=== PATIENT | male | born 1935 | race Caucasian/White ===

== ENCOUNTER → 2017-12-29 | Outpatient (CLI) | payer MEDICARE ==
[2017-12-29 15:53] LABS: Basophils % (A) 1 %; Eosinophils # (A) 0.2 k/uL (0-0.7); Eosinophils % (A) 3 %; HGB 14.6 gm/dL (13.0-17.5); Lymphocytes # (A) 1.9 k/uL (1.0-4.8); Lymphocytes % (A) 33 %; MCH 30.2 pg (25.0-35.0); MCHC 33.1 g/dL (31.0-37.0); MCV 91.2 fL (80.0-100.0); Mean Platelet Volume 6.9; Monocytes # (A) 0.3 k/uL (0-1.0); Monocytes % (A) 5 %; Neutrophils # (A) 3.2 k/uL (1.3-7.7); Neutrophils % (A) 57 %; Platelet Count 127 k/uL (150-450); RBC 4.83 m/uL (4.30-5.90); WBC 5.6 k/uL (3.8-10.6)
[2017-12-29 16:15] LABS: Anion Gap 10 mmol/L; Blood Urea Nitrogen 18 mg/dL (9-20); Calcium 9.7 mg/dL (8.4-10.2); Carbon Dioxide 31 mmol/L (22-30); Chloride 100 mmol/L (98-107); Glucose 78 mg/dL (74-99); Sodium 141 mmol/L (137-145)
== END | disposition home or self-care (01) ==
LOC: LABPAT 15:02
PROVIDERS: ATTEND Urology
DX: Z01.812 Encounter for preprocedural laboratory examination (principal); Z01.818 Encounter for other preprocedural examination; I10 Essential (primary) hypertension; R53.83 Other fatigue; N20.0 Calculus of kidney; Z79.899 Other long term (current) drug therapy
CPT/HCPCS: 36415; 80048; 85025; 93005

== ENCOUNTER 2018-01-03 06:57 | Day surgery (SDC) | payer MEDICARE ==
[2017-12-29 14:40] VITALS: BMI 21.2
[~2018-01-03 06:57] MED LIST: DEXAMETHASONE SOD PHOSPHATE 10 MG/ML 1 ML VIAL IV ONE; LACTATED RINGERS 1,000 ML IV SCH; LIDOCAINE 1% 20 ML VIAL (10MG/ML) FOR IV START INTRADERMA PRN; Pre Op ABX Message 1 EACH MISC MISCELLANE ONE
--- NOTE | 2018-01-03 07:12 | XR ---
EXAMINATION TYPE: XR KUB DATE OF EXAM: 01/03/2018 CLINICAL DATA: 82-year-old male preop for lithotripsy, right renal calculus, [facility] COMPARISON: 04/26/2014 FINDINGS: Nonobstructive bowel gas pattern. Mild to moderate stool right side of the colon and within the pelvi s. 1.5 cm round calculus projects at the right mid abdomen. Adjacent smaller 1.1 cm ovoid calculus. Left-sided pelvic phlebolith. Calcifications in the prostate gland. Degenerative changes in the mid to lower lumbar spine. IMPRESSION: Right-sided nephrolithiasis with a 1.5 cm dominant calculus and a smaller ovoid 1.1 cm calculus.
[2018-01-03 07:25] VITALS: TEMP 97.6
[2018-01-03] MEDS ORDERED: PROPOFOL 10 MG/ML 20 ML VIAL IV ONE (08:57)
[2018-01-03] MEDS ORDERED: fentaNYL (PF) 50 MCG/ML 2 ML AMP ONE (08:57)
[2018-01-03] MEDS ORDERED: MIDAZOLAM 2 MG/2 ML VIAL ONE (08:57)
--- NOTE | 2018-01-03 09:35 | P.OP ---
Date of Procedure: 01/03/18 Preoperative Diagnosis: Right renal calculi. Postoperative Diagnosis: Right renal calculi Procedure(s) Performed: Extracorporal shockwave lithotripsy Anesthesia: MAC Surgeon: Axel Tavarez Estimated Blood Loss (ml): 0 Pathology: none sent Condition: stable Disposition: PACU Indications for Procedure: The patient is an 82 year old male with a history of gross hematuria and urolithiasis. A recent KUB identified a 12 x15 mm calculus in the right renal pelvis and and group of two calculi in the lower pole measuring 6 x 11 mm in aggregate. Treatment options were reviewed with Dr Baig and ESWL has been chosen. Description of Procedure: The patient was taken to the lithotripsy suite and placed in the supine position. The calculus in the right renal pelvis was localized using biplanar fluoroscopy. Intravenous sedation was given. Lithotripsy was performed using the [employer] compact delta unit. The patient received 2500 shocks at a rate of 80 shocks per minute. The power level was gradually increased to level 5. A 2 minute pause occurred after 200 shocks. There appeared to be good fragmentation of the calculus. The patient tolerated procedure well and left the operative room awake and in satisfactory condition. He will be seen back in 5-[address] Baig at which time a KUB will be obtained.
[2018-01-03 10:12] VITALS: RESP 16
[2018-01-03 11:01] VITALS: BP 130/71; PULSE 53
== END 2018-01-03 12:45 | disposition home or self-care (01) ==
LOC: ORWHC2ENDO 06:57
PROVIDERS: ATTEND Urology
DX: N13.2 Hydronephrosis with renal and ureteral calculous obstruction (principal); N40.1 Benign prostatic hyperplasia with lower urinary tract symptoms; R33.8 Other retention of urine; N21.0 Calculus in bladder; R39.14 Feeling of incomplete bladder emptying; N28.1 Cyst of kidney, acquired; Z86.73 Personal history of transient ischemic attack (TIA), and cerebral infarction without residual deficits; Z87.442 Personal history of urinary calculi
CPT/HCPCS: 74018; 50590; J2250; J1100; J3010; J2704

== ENCOUNTER → 2018-01-07 | Outpatient (CLI) | payer MEDICARE ==
--- NOTE | 2018-01-07 16:06 | XR ---
Abdomen HISTORY: Renal calculus, status post lithotripsy Correlation to prior exam 01/03/2018 The right-sided calculi have been fragmented in the interval, approximately 4 fragments are noted ove r the region of the right kidney, the largest measures approximately 9 mm in greatest dimension. Smal ler fragments are approximately 7 to 8 mm and 3 to 4 mm. Calcifications are again noted within the pe lvis. Overlying bowel gas may obscure detail. Lung bases are clear. High density superimposed over th e L1 spinous process which is indeterminate. IMPRESSION: Interval lithotripsy.
== END ==
LOC: RADXRMAIN 14:07
PROVIDERS: ATTEND Urology
DX: N20.0 Calculus of kidney (principal)
CPT/HCPCS: 74018

== ENCOUNTER → 2018-02-18 | Outpatient (CLI) | payer MEDICARE ==
--- NOTE | 2018-02-18 12:08 | XR ---
Abdomen HISTORY: Calculus of kidney Frontal view of the abdomen on 2 images correlated to prior abdomen 01/07/2018, 01/03/2018 Calcifications superimposed over the lower pole of the right kidney, largest measures approximately 8 mm, there may be 3 or 4 calcifications present. Multiple calcifications are again noted within the p raymundo. Difficult to exclude a distal ureteral calculus on the right. The 15 mm calculus seen on exam from 01/03/2018 is not present. IMPRESSION: There is right-sided nephrolithiasis, distal right ureteral calculus.
== END | disposition home or self-care (01) ==
LOC: RADXRMAIN 09:06
PROVIDERS: ATTEND Urology
DX: N20.2 Calculus of kidney with calculus of ureter (principal)
CPT/HCPCS: 74018

== ENCOUNTER → 2019-05-02 | Outpatient (CLI) | payer MEDICARE ==
--- NOTE | 2019-05-02 11:28 | CT ---
EXAMINATION TYPE: CT pelvis w con DATE OF EXAM: 05/02/2019 COMPARISON: Renal ultrasound dated 06/01/2014 HISTORY: Prostate CA CT DLP: 435.1 mGycm Automated exposure control for dose reduction was used. CONTRAST: Performed with IV Contrast, patient injected with 100 mL of Isovue 300. FINDINGS: Heterogeneous attenuation of the prostate gland with internal scattered calcifications measuring 6.0 x 5.3 x 5.3 cm in transverse by AP by craniocaudad dimension. There is mass effect and protrusion see n along the inferior portion of the bladder with effacement of the fat plane. There is also loss of t he fat plane between the rectum and prostate gland. No evidence of iliac chain or inguinal lymphadeno lavern. There is a small fat-containing left inguinal canal hernia. Redemonstration of nephrolithiasis and a few cysts of the bilateral kidneys which were seen on renal ultrasound dated 06/01/2014. No evidence of hydronephrosis. 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 A few radiolucent lesions are seen within the osseous structures with the largest seen in the L3 vert ebral body measuring up to 2.0 cm. Lesion may be related to hemangioma, but metastatic lesion is not excluded. IMPRESSION: HETEROGENEOUS ENLARGED PROSTATE GLAND WITH LOSS OF THE BLADDER AND RECTAL FAT PLANES. NO EVIDENCE OF PELVIC LYMPHADENOPATHY. L3 RADIOLUCENT LESION ABOVE. GIVEN THE HISTORY OF PROSTATE CANCER, FURTHER EVALUATION WITH BONE SCAN AND MRI OF THE PROSTATE MAY BE OBTAINED FOR STAGING.
--- NOTE | 2019-05-02 15:30 | NM ---
EXAMINATION TYPE: NM bone scan whole body DATE OF EXAM: 05/02/2019 COMPARISON: CT pelvis 05/02/2019 HISTORY: Prostate cancer Delayed whole-body scanning was performed following the injection of 24.3 mCi Tc 99m MDP. Images acq uired 4 hours post injection. FINDINGS: Soft tissue uptake is normal. There is a spinal curvature present. Uptake within the and knees, wrist s and shoulders, sternoclavicular joints is likely degenerative. Uptake in the spine correlates with degenerative disc changes. 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 IMPRESSION: No abnormality to suggest metastatic disease
== END | disposition home or self-care (01) ==
LOC: RADCTMAIN 08:54 → EEVIPCON 10:40
PROVIDERS: ATTEND Urology
DX: N40.0 Benign prostatic hyperplasia without lower urinary tract symptoms (principal); Z85.46 Personal history of malignant neoplasm of prostate; C61 Malignant neoplasm of prostate; D49.4 Neoplasm of unspecified behavior of bladder
CPT/HCPCS: 82565; 84520; 72193; 36415; 78306; A9503; Q9967

== ENCOUNTER → 2019-09-18 | Outpatient (CLI) | payer MEDICARE | END | disposition home or self-care (01) | LOC: LABWHC1 12:43 | PROVIDERS: ATTEND Radiology Radiation Oncology | DX: C61 Malignant neoplasm of prostate (principal); Z79.818 Long term (current) use of other agents affecting estrogen receptors and estrogen levels | CPT/HCPCS: 36415; 84153 ==

== ENCOUNTER → 2020-03-18 | Outpatient (CLI) | payer MEDICARE | END | disposition home or self-care (01) | LOC: LABWHC1 14:39 | PROVIDERS: ATTEND Radiology Radiation Oncology | DX: C61 Malignant neoplasm of prostate (principal); Z79.818 Long term (current) use of other agents affecting estrogen receptors and estrogen levels | CPT/HCPCS: 36415; 84153 ==

== ENCOUNTER → 2020-07-18 | Outpatient (CLI) | payer MEDICARE ==
[2020-07-18 11:57] LABS: Basophils % (A) 1 %; Eosinophils # (A) 0.3 k/uL (0-0.7); Eosinophils % (A) 7 %; HCT 39.5 % (39.0-53.0); Lymphocytes # (A) 1.2 k/uL (1.0-4.8); Lymphocytes % (A) 30 %; MCH 31.7 pg (25.0-35.0); Mean Platelet Volume 6.7; Monocytes # (A) 0.3 k/uL (0-1.0); Monocytes % (A) 6 %; Neutrophils # (A) 2.2 k/uL (1.3-7.7); Neutrophils % (A) 54 %; Platelet Count 109 k/uL (150-450); RBC 4.11 m/uL (4.30-5.90); RDW 13.6 % (11.5-15.5)
[2020-07-18 12:06] LABS: African American GFR (CKD) >90 (>60 ml/min/1.73 sqM); Anion Gap 4 mmol/L; Blood Urea Nitrogen 20 mg/dL (9-20); Calcium 9.8 mg/dL (8.4-10.2); Carbon Dioxide 29 mmol/L (22-30); Chloride 105 mmol/L (98-107); Glucose 85 mg/dL (74-99); Non-African American GFR(CKD) 81 (>60 ml/min/1.73 sqM); Potassium 4.3 mmol/L (3.5-5.1); Sodium 138 mmol/L (137-145)
== END | disposition home or self-care (01) ==
LOC: LABPAT 10:29
PROVIDERS: ATTEND Urology
DX: Z01.818 Encounter for other preprocedural examination (principal); N20.0 Calculus of kidney; N20.1 Calculus of ureter; R53.83 Other fatigue
CPT/HCPCS: 36415; 80048; 85025; 93005

== ENCOUNTER 2020-07-25 07:48 | Day surgery (SDC) | payer MEDICARE ==
[2020-07-23 16:02] VITALS: BMI 21.1
--- NOTE | 2020-07-24 21:59 | P.GSHP ---
History of Present Illness H&P Date: 07/19/20 Chief Complaint: Bilateral renal calculi The patient is an 85-year-old white male with a history of urolithiasis, for which he has previously undergone ESWL as well as ureteroscopy with laser lithotripsy. A recent computed tomography scan shows moderate left hydronephrosis due to a 5 mm left proximal ureteral calculus, a 4 mm left lower pole renal calculus, a 3 mm right mid pole calculus, 2 right lower pole renal calculi (5-6 mm each), and a 1 cm right renal pelvic calculus. A 3 mm calcification was also seen along the right posterior urinary bladder, possibly at the ureterovesical junction. He currently denies pain. - Constitutional Constitutional: Denies chills, Denies fever - Genitourinary (Male) Genitourinary: Reports hematuria, Reports kidney stones, Denies flank pain Past Medical History Past Medical History: CVA/TIA Additional Past Medical History / Comment(s): RIGHT RENAL CALCULI, STATES HX "2 MINI STROKES" 4-5 yrs ago, History of Any Multi-Drug Resistant Organisms: None Reported Past Surgical History: Hernia Repair Additional Past Surgical History / Comment(s): RIGHT LITHOTRIPSY x 3, RAMANDEEP INGUINAL HERNIA REPAIR Past Anesthesia/Blood Transfusion Reactions: No Reported Reaction Past Psychological History: No Psychological Hx Reported Past Alcohol Use History: None Reported Past Drug Use History: None Reported - Past Family History Father Family Medical History: Cancer Medications and Allergies Home Medications Medication Instructions Recorded Confirmed Type Bicalutamide [Casodex] 50 mg PO DAILY 07/23/20 07/23/20 History Sulfamethoxazole/Trimethoprim 1 each PO BID 07/23/20 07/23/20 History [Bactrim DS 800-160 mg] Allergies Allergy/AdvReac Type Severity Reaction Status Date / Time No Known Allergies Allergy Verified 07/23/20 15:46 Surgical - Exam - General well developed, well nourished, no distress - Respiratory normal respiratory effort, clear to auscultation - Cardiovascular Rhythm: regular Abnormal Heart Sounds: no systolic murmur, no diastolic murmur, no rub, no S3 Gallop, no S4 Gallop, no click, no other - Abdomen Abdomen: soft, non tender, no guarding, no rigid, no rebound - Psychiatric oriented to time, oriented to person, oriented to place, speech is normal, memory intact Results - Imaging CT scan - abdomen: report reviewed, image reviewed Assessment and Plan (1) Calculus of kidney Status: Acute Code(s): N20.0 - CALCULUS OF KIDNEY SNOMED Code(s): 21437515 (2) Calculus of ureter Status: Acute Code(s): N20.1 - CALCULUS OF URETER SNOMED Code(s): 67633702 Plan: Cystoscopy, bilateral retrograde pyelogram. If the left ureteral calculus has failed to pass, left ureteroscopy with Holmium laser lithotripsy will be performed. Right ureteroscopy with Holmium laser lithotripsy will then be performed. Given the stone burden on the right side, multiple treatments may be required. The patient is aware of potential risks, which include anesthesia, bleeding, infection, and ureteral injury. He is aware of the need for ureteral stents postoperatively.
[~2020-07-25 07:48] MED LIST changes: -DEXAMETHASONE SOD PHOSPHATE 10 MG/ML 1 ML VIAL IV ONE; +DEXAMETHASONE SOD PHOSPHATE 4 MG/ML 1 ML VIAL IV ONE; +HYDROmorphone 0.5 MG/0.5 ML SYRINGE IVP PRN; -LACTATED RINGERS 1,000 ML IV SCH; +LIDOCAINE 1% (10MG/ML) FOR IV START INTRADERMA PRN; -LIDOCAINE 1% 20 ML VIAL (10MG/ML) FOR IV START INTRADERMA PRN; +ONDANSETRON 4 MG/2 ML VIAL IVP ONE; -Pre Op ABX Message 1 EACH MISC MISCELLANE ONE
--- NOTE | 2020-07-25 08:38 | XR ---
KUB HISTORY: Kidney stones Frontal KUB submitted on one image and correlated prior KUB 02/18/2018 Right-sided kidney stones are noted, at the lower pole right kidney there is a stone measuring 11 to 12 mm, and adjacent calculus is suspected immediately posterior measuring 5 mm. In the region of the renal pelvis is a calcification measuring 14 mm. Multiple calcifications are again noted within the p raymundo some of which are likely prostate calcifications and some which are likely phleboliths. Difficu lt to exclude a distal left ureteral calculus measuring 7-8 mm which was not seen definitively on linda or KUB. IMPRESSION: Nephrolithiasis the right and additional findings above.
[2020-07-25] MEDS: LACTATED RINGERS 1,000 ML IV SCH ×2 (08:39→15:13)
[2020-07-25] MEDS ORDERED: ePHEDrine SULFATE/0.9% NACL/PF 50 MG/5 ML SYRINGE IV ONE (10:04)
[2020-07-25] MEDS ORDERED: PROPOFOL 10 MG/ML 20 ML VIAL IV ONE (10:04)
[2020-07-25] MEDS ORDERED: SUCCINYLCHOLINE CHLORIDE 100 MG/5 ML SYR IV ONE (10:04)
[2020-07-25] MEDS ORDERED: LIDOCAINE 1% INJ 10MG/ML (20 ML MDV) ONE (10:04)
[2020-07-25] MEDS ORDERED: IOPAMIDOL-370 50ML BTL IRRIGATION ONE (10:30)
--- NOTE | 2020-07-25 12:52 | P.OP ---
Date of Procedure: 07/25/20 Preoperative Diagnosis: Left ureteral calculus, right renal calculi Postoperative Diagnosis: Same Procedure(s) Performed: Cystoscopy, left ureteroscopy with holmium laser lithotripsy and stone basketing, right ureteroscopy with Holmium laser lithotripsy, right ureteral stent insertion Anesthesia: VIETA Surgeon: Adryan Baig Estimated Blood Loss (ml): 0 IV fluids (ml): 900 Pathology: none sent Condition: stable Disposition: PACU Indications for Procedure: The patient is an 85-year-old white male with a history of urolithiasis, for which he has previously undergone ESWL as well as ureteroscopy with laser lithotripsy. A recent computed tomography scan shows moderate left hydronephrosis due to a 5 mm left proximal ureteral calculus, a 4 mm left lower pole renal calculus, a 3 mm right mid pole calculus, 2 right lower pole renal calculi (5-6 mm each), and a 1 cm right renal pelvic calculus. A 3 mm calcification was also seen along the right posterior urinary bladder, possibly at the ureterovesical junction. He currently denies pain. Operative Findings: 5 mm left distal ureteral calculus, fragmented and removed completely. Right renal pelvic calculus and 2 right lower pole renal calculi, all fragmented. Description of Procedure: The patient was taken to the operating room and placed in the dorsolithotomy position, with legs supported in Timothy stirrups. The external genitalia was prepped and draped sterilely. The 30 lens was used to introduce the 21-Persian Henley cystoscopic sheath through the urethra and into the bladder under direct vision. The prostatic urethra showed evidence of mild lateral lobe enlargement. The bladder was examined in its entirety. Both ureteral orifices were normal anatomic location and configuration, and clear urine effluxed from both. No t umors or foreign bodies were seen. A 0.035 inch Glidewire was passed through the cystoscope. The left ureteral orifice was cannulated, and the Glidewire was advanced up to the left renal pelvis. The obturator of an 11/13-Persian ureteral access catheter was passed over the wire, dilating the intramural portion of the ureter. The Henley semirigid ureteroscope was advanced into the bladder, and the left ureteral orifice was cannulated. The 272 holmium laser probe was passed through the ureteroscope, and the left distal ureteral calculus was fragmented. The 1.9-Persian nitinol basket was used to remove all calculus fragments. There was no evidence of ureteral perforation. A 0.035 inch Glidewire was passed through the cystoscope. The ureteral orifice was cannulated, and the Glidewire was advanced up to the renal pelvis. The cystoscope was removed, and an 11/13-Persian ureteral access catheter was passed over the wire, up to the proximal ureter. The flexible ureteroscope was then pa ssed through the ureteral access catheter sheath, up to the stone. The 272 micron Holmium laser probe was passed through the ureteroscope, and lithotripsy was performed. The large right renal pelvic calculus, as well as the 2 lower pole renal calculi, were fragmented completely. Dusting and fragmenting was performed until there were no visible residual fragments exceeding 2 mm in size. The Glidewire was passed through the ureteroscope, which was removed along with the ureteral access catheter sheath. The Glidewire was backloaded into the cystoscope, which was passed into the bladder. A 24 cm, 4.8-Persian double-J ureteral stent was placed over the wire. Proper stent positioning was verified fluoroscopically and endoscopically. The bladder was emptied and the cystoscope removed. The patient tolerated the procedure well and was taken to the recovery room in stable condition. StayClassy Report: Procedure Acuity: Elective Stone Size and Location: See computed tomography scan report Ureteral Dilation: Serial Dilation (Left) Ureteral Access Sheath Used: Yes (Right) Stone Sent for Analysis: Yes All Stones/Fragments Were Removed with a Basket: No Complications: No Preoperative Antibiotics Given: Yes Stent Placed: Yes (Right) If Stent Placed, Was String Left Attached: No If Stent Placed, When is it to be Removed: 2 weeks Discharge Medications: Tamsulosin
--- NOTE | 2020-07-25 13:00 | FL ---
EXAMINATION TYPE: FL guidance operating room DATE OF EXAM: 07/25/2020 HISTORY: Fluoroscopy time 23 seconds of fluoroscopy provided. IMPRESSION: 1. Fluoroscopy time.
[2020-07-25] MEDS ORDERED: KETOROLAC 15 MG/ML 1 ML VIAL ONE (18:25)
[2020-07-25] MEDS: KETOROLAC 15 MG/ML 1 ML VIAL IVP STA ×2 (18:32→20:50)
[2020-07-25] MEDS: TAMSULOSIN 0.4 MG CAP.ER.24H PO STA ×2 (18:33→20:50)
[2020-07-25] MEDS ORDERED: ACETAMINOPHEN TAB 325 MG TAB PO PRN (18:52)
[2020-07-25] MEDS ORDERED: HYDROcodone/APAP 5-325MG 1 EACH TAB PO PRN (18:52)
[2020-07-25] MEDS ORDERED: DEXTROSE 5%-0.45% NACL 1,000 ML IV SCH (19:00)
[2020-07-25] MEDS: SULFAMETHOX-TMP 800-160MG 1 EACH TAB PO SCH (20:56)
[2020-07-26 02:39] VITALS: BP 120/68; PULSE 82; RESP 18; TEMP 98.4
[2020-07-26] MEDS: SULFAMETHOX-TMP 800-160MG 1 EACH TAB PO SCH (08:30)
--- NOTE | 2020-07-26 08:59 | P.DS ---
Providers Expected date of discharge: 07/26/20 Attending physician: Adryan Baig Primary care physician: Dipak Fernandez - Discharge Diagnosis(es) (1) Calculus of kidney Current Visit: No Status: Acute (2) Calculus of ureter Current Visit: No Status: Acute Hospital Course: On the day of admission, the patient underwent cystoscopy, left ureteroscopy with Holmium laser lithotripsy and stone basketing, right ureteroscopy with Holmium laser lithotripsy and stent insertion. Postoperatively, he felt unsteady on his feet and reported right-sided abdominal pain. He was admitted to observation overnight. The following morning, he was essentially pain free and feeling well. He was tolerating diet without nausea. He denied difficulty voiding. Procedures: Cystoscopy, left ureteroscopy with Holmium laser lithotripsy and stone basketing, right ureteroscopy with Holmium laser lithotripsy and stent placement on 07/25/2020 Patient Condition at Discharge: Good Plan - Discharge Summary Discharge Rx Participant: No New Discharge Prescriptions: New Tamsulosin [Flomax] 0.4 mg PO DAILY #30 cap Ketorolac [Toradol] 10 mg PO Q6HR #12 tab No Action Bicalutamide [Casodex] 50 mg PO DAILY Sulfamethoxazole/Trimethoprim [Bactrim DS 800-160 mg] 1 each PO BID Discharge Medication List Bicalutamide [Casodex] 50 mg PO DAILY 07/23/20 [History] Sulfamethoxazole/Trimethoprim [Bactrim DS 800-160 mg] 1 each PO BID 07/23/20 [History] Ketorolac [Toradol] 10 mg PO Q6HR #12 tab 07/25/20 [Rx] Tamsulosin [Flomax] 0.4 mg PO DAILY #30 cap 07/25/20 [Rx] Follow up Appointment(s)/Referral(s): Adryan Baig MD [STAFF PHYSICIAN] - 1 Week (YOU WILL NEED TO CALL TO SCHEDULE YOUR FOLLOW UP APPOINTMENT UNLESS YOU ALREADY HAVE ONE MADE) Patient Instructions/Handouts: *Sur[facility] - Cystoscopy Discharge Instructions, *[facility] - (Anesthesia) Discharge Instructions Outpatient Surgery, Ureteral Stent Placement (DC) Activity/Diet/Wound Care/Special Instructions: Diet as tolerated. Activity as tolerated. Please notify patient that hematuria and urinary frequency are common in patients with ureteral stents. Patient does not require a follow-up appointment with Dr. Baig. Arrangements will be made for him to undergo repeat outpatient surgery. Discharge Disposition: HOME SELF-CARE
== END 2020-07-26 12:17 | disposition home or self-care (01) ==
LOC: OR 07:48 → 1SOBS 18:53 → OR 07-26 12:17
PROVIDERS: ATTEND Urology
DX: N20.2 Calculus of kidney with calculus of ureter (principal); Z87.442 Personal history of urinary calculi; Z86.73 Personal history of transient ischemic attack (TIA), and cerebral infarction without residual deficits; Z98.890 Other specified postprocedural states; Z79.899 Other long term (current) drug therapy; Z92.3 Personal history of irradiation; Z80.9 Family history of malignant neoplasm, unspecified
CPT/HCPCS: 82365; 74018; 52353; 52356; C2625; C1769; J1100; J0690; J2405; J2001; J1885; J0330; J2704; Q9967

== ENCOUNTER 2020-08-20 10:05 | Day surgery (SDC) | payer MEDICARE ==
--- NOTE | 2020-08-18 10:15 | P.GSHP ---
History of Present Illness H&P Date: 08/18/20 Chief Complaint: Right renal calculi The patient is an 85-year-old white male with a history of urolithiasis, for which he has previously undergone ESWL as well as ureteroscopy with laser lithotripsy. A recent CT scan showed moderate left hydronephrosis due to a 5 mm left proximal ureteral calculus, a 4 mm left lower pole renal calculus, a 3 mm right mid pole calculus, 2 right lower pole renal calculi (5-6 mm each), and a 1 cm right renal pelvic calculus. A 3 mm calcification was also seen along the right posterior urinary bladder, possibly at the ureterovesical junction. He underwent left ureteroscopy with laser lithotripsy to remove a 5 mm left distal ureteral calculus. Right ureteroscopy with holmium laser lithotripsy was performed. 2 large renal pelvic calculi were fragmented. His calculi were composed of calcium oxalate dihydrate. He now comes for cystoscopy, right ureteral stent removal, right ureteroscopy with laser lithotripsy of any residual right renal calculi. - Constitutional Constitutional: Denies chills, Denies fever - Genitourinary (Male) Genitourinary: Reports as per HPI Past Medical History Past Medical History: CVA/TIA Additional Past Medical History / Comment(s): RIGHT RENAL CALCULI, STATES HX "2 MINI STROKES" 4-5 yrs ago, History of Any Multi-Drug Resistant Organisms: None Reported Past Surgical History: Hernia Repair Additional Past Surgical History / Comment(s): RIGHT LITHOTRIPSY x 3, RAMANDEEP INGUINAL HERNIA REPAIR Past Anesthesia/Blood Transfusion Reactions: No Reported Reaction Past Psychological History: No Psychological Hx Reported Past Alcohol Use History: None Reported Past Drug Use History: None Reported - Past Family History Father Family Medical History: Cancer Medications and Allergies Home Medications Medication Instructions Recorded Confirmed Type Bicalutamide [Casodex] 50 mg PO DAILY 07/23/20 07/23/20 History Sulfamethoxazole/Trimethoprim 1 each PO BID 07/23/20 07/23/20 History [Bactrim DS 800-160 mg] Ketorolac [Toradol] 10 mg PO Q6HR #12 tab 07/25/20 Rx Tamsulosin [Flomax] 0.4 mg PO DAILY #30 cap 07/25/20 Rx Allergies Allergy/AdvReac Type Severity Reaction Status Date / Time No Known Allergies Allergy Verified 07/25/20 08:39 Surgical - Exam - General well developed, well nourished, no distress - Respiratory normal respiratory effort - Abdomen Abdomen: soft, non tender, no guarding, no rigid, no rebound - Genitourinary normal penis with no external lesions, testicles non-tender - Psychiatric oriented to time, oriented to person, oriented to place, speech is normal, memory intact Assessment and Plan (1) Calculus of kidney Status: Acute Code(s): N20.0 - CALCULUS OF KIDNEY SNOMED Code(s): 58212729 Plan: Cystoscopy, right ureteral stent removal, right ureteroscopy with Holmium laser lithotripsy and possible stone basketing of any residual calculus fragments. The patient is aware of potential risks, which include anesthesia, bleeding, infection, and ureteral injury.
[2020-08-19 10:09] VITALS: BMI 23.3
[~2020-08-20 10:05] MED LIST changes: +LACTATED RINGERS 1,000 ML IV SCH; +MIDAZOLAM 2 MG/2 ML VIAL IV PRN
[2020-08-20] MEDS ORDERED: LACTATED RINGERS 1,000 ML IV ONE (10:48)
--- NOTE | 2020-08-20 10:50 | XR ---
KUB HISTORY: Kidney stone Frontal KUB correlated to prior exam 07/25/2020 Double-J stent is present on the right. The calcifications previously identified overlying the right kidney are not seen on the current exam. The previous identified calcification in left hemipelvis is no longer seen likely corresponding to distal ureteral calculus. There are multiple pelvic calcificat ions which are again noted some of which are likely prostatic and stomach are likely insurance follow up representative o f phleboliths. Degenerative disc changes are noted in the visualized spine. Aortic calcification is present. IMPRESSION: Interval treatment changes.
[2020-08-20] MEDS ORDERED: PROPOFOL 10 MG/ML 20 ML VIAL IV ONE (14:16)
[2020-08-20] MEDS ORDERED: fentaNYL (PF) 50 MCG/ML 2 ML AMP ONE (14:16)
[2020-08-20] MEDS ORDERED: PHENYLEPHRINE-0.9% NACL SYG 1 MG/10 ML SYRINGE ONE (14:16)
[2020-08-20] MEDS ORDERED: LIDOCAINE 1% INJ 10MG/ML (20 ML MDV) ONE (14:16)
--- NOTE | 2020-08-20 15:28 | P.OP ---
Date of Procedure: 08/20/20 Preoperative Diagnosis: Right renal calculi Postoperative Diagnosis: Same Procedure(s) Performed: Cystoscopy, right ureteral stent removal, right ureteroscopy with Holmium laser lithotripsy Anesthesia: VIETA Surgeon: Adryan Baig Estimated Blood Loss (ml): 0 IV fluids (ml): 500 Pathology: none sent Condition: stable Disposition: PACU Indications for Procedure: The patient is an 85-year-old white male with a history of urolithiasis, for which he has previously undergone ESWL as well as ureteroscopy with laser lithotripsy. A recent CT scan showed moderate left hydronephrosis due to a 5 mm left proximal ureteral calculus, a 4 mm left lower pole renal calculus, a 3 mm right mid pole calculus, 2 right lower pole renal calculi (5-6 mm each), and a 1 cm right renal pelvic calculus. A 3 mm calcification was also seen along the right posterior urinary bladder, possibly at the ureterovesical junction. He underwent left ureteroscopy with laser lithotripsy to remove a 5 mm left distal ureteral calculus. Right ureteroscopy with holmium laser lithotripsy was performed. A large right renal pelvic calculus and 2 right lower pole renal calculi were fragmented. His calculi were composed of calcium oxalate dihydrate. He now comes for cystoscopy, right ureteral stent removal, right ureteroscopy with laser lithotripsy of any residual right renal calculi. Operative Findings: Several small residual right renal calculi, all fragmented. Description of Procedure: The patient was taken to the operating room and placed in the dorsolithotomy position, with legs supported in Timothy stirrups. The external genitalia was prepped and draped sterilely. The 30 lens was used to introduce the 21-Colombian Henley cystoscopic sheath through the urethra and into the bladder under direct vision. The prostatic urethra showed evidence of mild lateral lobe enlargement. The bladder was examined in its entirety. No abnormalities were seen. Grasping forceps were used to grasp the distal end of the right ureteral stent, which was withdrawn along with the cystoscope. A 0.035 inch Glidewire was passed through the stent and up to the right renal pelvis, where it coiled. The Henley Precogra ureteroscope was passed over the wire, but would not passed through the right ureteral orifice. Therefore, the ureteroscope was removed and an 11/13-Colombian ureteral access catheter was passed over the wire, up to the proximal ureter. The flexible ureteroscope was then passed through the ureteral access catheter sheath and advanced to the right renal pelvis under direct vision. Several calculi measuring up to 3 mm in size were seen within an upper and a mid pole calyx. The 200 micron Holmium laser probe was passed through the ureteroscope, and lithotripsy was performed. The small calculi fragmented readily, leaving no residual calculus fragments exceeding the size of the laser fiber tip. The ureteroscope was slowly withdrawn under direct vision. No calculi were seen within the ureter. There was no evidence of ureteral trauma. The patient tolerated the procedure well and was taken to the recovery room in stable condition.
[2020-08-20 15:30] VITALS: TEMP 97.9
--- NOTE | 2020-08-20 15:31 | FL ---
Fluoroscopy HISTORY: Kidney stone 47 seconds fluoroscopy time supplied to the referring clinician. 1 intraoperative C-arm images docum ent the procedure. See dictated report from urology.
[2020-08-20 15:38] VITALS: RESP 16
[2020-08-20 16:12] VITALS: PULSE 55
[2020-08-20 16:33] VITALS: BP 151/73
== END 2020-08-20 17:45 | disposition home or self-care (01) ==
LOC: OR 10:05
PROVIDERS: ATTEND Urology
DX: N20.0 Calculus of kidney (principal); N40.0 Benign prostatic hyperplasia without lower urinary tract symptoms; R94.31 Abnormal electrocardiogram [ECG] [EKG]; Z86.73 Personal history of transient ischemic attack (TIA), and cerebral infarction without residual deficits; Z87.442 Personal history of urinary calculi; Z98.890 Other specified postprocedural states; Z87.19 Personal history of other diseases of the digestive system; Z79.899 Other long term (current) drug therapy; Z79.1 Long term (current) use of non-steroidal anti-inflammatories (NSAID); Z80.9 Family history of malignant neoplasm, unspecified
CPT/HCPCS: 74018; 52353; C1758 ×3; C1769; J1100; J0690; J2405; J2001; J3010; J2370; J2704

== ENCOUNTER → 2021-04-15 | Outpatient (CLI) | payer MEDICARE | END | disposition home or self-care (01) | LOC: LABWHC1 09:08 | PROVIDERS: ATTEND Urology | DX: R97.20 Elevated prostate specific antigen [PSA] (principal) | CPT/HCPCS: 36415; 84153 ==

== ENCOUNTER 2022-05-27 12:33 | Inpatient (IN) | payer MEDICARE ==
[2022-05-27] MEDS ORDERED: SODIUM CHLORIDE 0.9% 500 ML 500 ML IV STA (12:54)
[2022-05-27] MEDS ORDERED: SODIUM CHLORIDE 0.9% 1,000 ML IV STA (12:54)
--- NOTE | 2022-05-27 13:04 | ED ---
General Adult HPI - General Stated complaint: Weakness Time Seen by Provider: 05/27/22 12:40 Source: patient, RN notes reviewed, old records reviewed - History of Present Illness Initial comments: This is an 87-year-old male who presents emergency department because he states that he has not been eating much for quite a while now. Patient states overall he feels very weak. Patient states that he felt his knees and then fell over and his head on the piano. Patient states this fall occurred 2 days ago. Patient states he is not on any blood thinners he denies being on any medications. Patient denies any medical problems. Patient states he does have some depression and he supposed to start a medicine in the near future. Patient denies headache patient denies neck pain. Patient denies numbness weakness. Patient denies any chest pain palpitations difficulty breathing or shortness of breath per patient denies any recent fever chills or cough per patient denies any abdominal pain patient denies any nausea vomiting diarrhea. Patient denies any other injury except things had in the p.m. - Related Data Home Medications Medication Instructions Recorded Confirmed No Known Home Medications 05/27/22 05/27/22 Allergies Allergy/AdvReac Type Severity Reaction Status Date / Time No Known Allergies Allergy Verified 08/19/20 09:06 Review of Systems ROS Statement: Those systems with pertinent positive or pertinent negative responses have been documented in the HPI. ROS Other: All systems not noted in ROS Statement are negative. Past Medical History Past Medical History: CVA/TIA, Hearing Disorder / Deafness, Prostate Disorder Additional Past Medical History / Comment(s): RIGHT RENAL CALCULI, STATES HX "M INI STROKES", History of Any Multi-Drug Resistant Organisms: None Reported Past Surgical History: Hernia Repair Additional Past Surgical History / Comment(s): RIGHT LITHOTRIPSY x 3, RAMANDEEP INGUINAL HERNIA REPAIR, Past Anesthesia/Blood Transfusion Reactions: No Reported Reaction Smoking Status: Never smoker - Past Family History Father Family Medical History: Cancer General Exam - General Exam Comments Initial Comments: GENERAL: Patient is cachectic and is in no distress ENT: Neck is soft and supple. No significant lymphadenopathy is noted. Oropharynx is clear. Moist mucous membranes. Neck has full range of motion without eliciting any pain. EYES: The sclera were anicteric and conjunctiva were pink and moist. Extraocular movements were intact and pupils were equal round and reactive to light. Eyelids were unremarkable. PULMONARY: Unlabored respirations. Good breath sounds bilaterally. No audible rales rhonchi or wheezing was noted. CARDIOVASCULAR: Patient is tachycardic and has an irregularly irregular rhythm ABDOMEN: Soft and nontender with normal bowel sounds. SKIN: Patient has a superficial abrasion to the right knee. NEUROLOGIC: Patient is alert and oriented x3. Cranial nerves II through XII are grossly intact. Motor and sensory are also intact. Normal speech, volume and content. Symmetrical smile. MUSCULOSKELETAL: Normal extremities with adequate strength and full range of motion. LYMPHATICS: No significant lymphadenopathy is noted PSYCHIATRIC: Normal psychiatric evaluation. Course Vital Signs 05/27/22 05/27/22 05/27/22 12:57 15:57 18:15 Temperature 97.9 F Pulse Rate 122 H 80 88 Pulse Rate [ Pulse Oximetery ] Respiratory 18 18 18 Rate Blood Pressure 89/68 93/71 90/81 Blood Pressure [Left Arm] O2 Sat by Pulse 99 95 97 Oximetry 05/27/22 05/27/22 05/28/22 19:40 20:00 02:00 Temperature 97.8 F 97.9 F Pulse Rate 78 Pulse Rate [ 108 H 103 H Pulse Oximetery ] Respiratory 18 20 18 Rate Blood Pressure 103/78 Blood Pressure 100/78 96/68 [Left Arm] O2 Sat by Pulse 97 100 99 Oximetry 05/28/22 07:00 Temperature Pulse Rate 120 H Pulse Rate [ Pulse Oximetery ] Respiratory 16 Rate Blood Pressure 98/68 Blood Pressure [Left Arm] O2 Sat by Pulse 98 Oximetry Medical Decision Making - Medical Decision Making EKG shows atrial fibrillation with rapid ventricular response at 118 bpm QRS is 137 Q-T intervals 355 QTC is 425. Patient's EKG shows a left bundle branch blo ck. CT of brain and C-spine showed no acute abnormality. I spoke with physicians he agreed to admit the patient admitted the patient wrote admitting orders. - Lab Data Result diagrams: 05/27/22 14:05 05/27/22 14:05 Lab Results 05/27/22 05/27/22 05/27/22 Range/Units 14:05 14:05 14:05 WBC 6.5 (3.8-10.6) k/uL RBC 4.51 (4.30-5.90) m/uL Hgb 13.6 (13.0-17.5) gm/dL Hct 43.6 (39.0-53.0) % MCV 96.6 (80.0-100.0) fL MCH 30.2 (25.0-35.0) pg MCHC 31.3 (31.0-37.0) g/dL RDW 13.6 (11.5-15.5) % Plt Count 152 (150-450) k/uL MPV 8.0 Neutrophils % 77 % Lymphocytes % 17 % Monocytes % 5 % Eosinophils % 0 % Basophils % 0 % Neutrophils # 5.0 (1.3-7.7) k/uL Lymphocytes # 1.1 (1.0-4.8) k/uL Monocytes # 0.3 (0-1.0) k/uL Eosinophils # 0.0 (0-0.7) k/uL Basophils # 0.0 (0-0.2) k/uL PT 14.0 H (9.0-12.0) sec INR 1.3 H (<1.2) APTT 25.3 (22.0-30.0) sec Sodium 132 L (137-145) mmol/L Potassium 4.3 (3.5-5.1) mmol/L Chloride 104 (98-107) mmol/L Carbon Dioxide 18 L (22-30) mmol/L Anion Gap 10 mmol/L BUN 55 H (9-20) mg/dL Creatinine 1.49 H (0.66-1.25) mg/dL Est GFR (CKD-EPI)AfAm 49 (>60 ml/min/1.73 sqM) Est GFR (CKD-EPI)NonAf 42 (>60 ml/min/1.73 sqM) Glucose 91 (74-99) mg/dL Plasma Lactic Acid Moy (0.7-2.0) mmol/L Calcium 8.0 L (8.4-10.2) mg/dL Magnesium 1.9 (1.6-2.3) mg/dL Total Bilirubin 1.0 (0.2-1.3) mg/dL AST 50 (17-59) U/L ALT 45 (4-49) U/L Alkaline Phosphatase 107 (38-126) U/L Troponin I (0.000-0.034) ng/mL Total Protein 5.7 L (6.3-8.2) g/dL Albumin 2.6 L (3.5-5.0) g/dL 05/27/22 05/27/22 Range/Units 14:05 14:05 WBC (3.8-10.6) k/uL RBC (4.30-5.90) m/uL Hgb (13.0-17.5) gm/dL Hct (39.0-53.0) % MCV (80.0-100.0) fL MCH (25.0-35.0) pg MCHC (31.0-37.0) g/dL RDW (11.5-15.5) % Plt Count (150-450) k/uL MPV Neutrophils % % Lymphocytes % % Monocytes % % Eosinophils % % Basophils % % Neutrophils # (1.3-7.7) k/uL Lymphocytes # (1.0-4.8) k/uL Monocytes # (0-1.0) k/uL Eosinophils # (0-0.7) k/uL Basophils # (0-0.2) k/uL PT (9.0-12.0) sec INR (<1.2) APTT (22.0-30.0) sec Sodium (137-145) mmol/L Potassium (3.5-5.1) mmol/L Chloride (98-107) mmol/L Carbon Dioxide (22-30) mmol/L Anion Gap mmol/L BUN (9-20) mg/dL Creatinine (0.66-1.25) mg/dL Est GFR (CKD-EPI)AfAm (>60 ml/min/1.73 sqM) Est GFR (CKD-EPI)NonAf (>60 ml/min/1.73 sqM) Glucose (74-99) mg/dL Plasma Lactic Acid Moy 1.0 (0.7-2.0) mmol/L Calcium (8.4-10.2) mg/dL Magnesium (1.6-2.3) mg/dL Total Bilirubin (0.2-1.3) mg/dL AST (17-59) U/L ALT (4-49) U/L Alkaline Phosphatase (38-126) U/L Troponin I 0.017 (0.000-0.034) ng/mL Total Protein (6.3-8.2) g/dL Albumin (3.5-5.0) g/dL Critical Care Time Critical Care Time: Yes Total Critical Care Time: 35 Disposition Clinical Impression: Dehydration, Failure to thrive, Unable to care for self, Atrial fibrillation, new onset Disposition: ADMITTED IP TO THIS HOSP Time of Disposition: 17:34
[2022-05-27 14:45] LABS: Basophils % (A) 0 %; Eosinophils % (A) 0 %; HCT 43.6 % (39.0-53.0); HGB 13.6 gm/dL (13.0-17.5); Lymphocytes # (A) 1.1 k/uL (1.0-4.8); Lymphocytes % (A) 17 %; MCH 30.2 pg (25.0-35.0); MCHC 31.3 g/dL (31.0-37.0); MCV 96.6 fL (80.0-100.0); Monocytes # (A) 0.3 k/uL (0-1.0); Monocytes % (A) 5 %; Neutrophils % (A) 77 %; Platelet Count 152 k/uL (150-450); RBC 4.51 m/uL (4.30-5.90); RDW 13.6 % (11.5-15.5); WBC 6.5 k/uL (3.8-10.6)
[2022-05-27 14:53] LABS: INR 1.3 (<1.2); Partial Thromboplastin Time 25.3 sec (22.0-30.0)
[2022-05-27 14:56] LABS: Albumin 2.6 g/dL (3.5-5.0); Total Protein 5.7 g/dL (6.3-8.2)
[2022-05-27 14:58] LABS: Magnesium 1.9 mg/dL (1.6-2.3); Potassium 4.3 mmol/L (3.5-5.1)
[2022-05-27] MEDS ORDERED: SODIUM CHLORIDE 0.9% 1,000 ML IV ONE (17:35)
[2022-05-27] MEDS ORDERED: HEPARIN SODIUM 1,000 UN/ML (10ML VL) IV ONE (21:06)
[2022-05-27] MEDS: HEPARIN SOD,PORK IN 0.45% NACL 25,000 UNIT in 0.45% NACL 1 250ML.BAG IV SCH (21:22)
[2022-05-27 22:09] LABS: Appearance,Urine Cloudy (Clear); Bacteria,Urine Many /hpf; Bilirubin,Urine Negative (Negative); Blood,Urine Large (Negative); Color,Urine Yellow; Glucose,Urine (UA) Negative (Negative); Ketones,Urine Negative (Negative); Leukocyte Esterase,Urine Large (Negative); Nitrite,Urine Positive (Negative); PH, Urine 5.5 (5.0-8.0); Protein,Urine 1+ (Negative); RBC,Urine 62 /hpf (0-5); Specific Gravity,Urine 1.014 (1.001-1.035); Urobilinogen,Urine <2.0 mg/dL (<2.0); WBC,Urine >182 /hpf (0-5)
[2022-05-28] MEDS ORDERED: NALOXONE 0.4 MG/ML 1 ML VIAL IV PRN (02:57)
[2022-05-28] MEDS ORDERED: CALCIUM CARBONATE 500 MG CHEWABLE PO PRN (02:57)
[2022-05-28] MEDS ORDERED: ONDANSETRON 4 MG/2 ML VIAL IVP PRN (02:57)
[2022-05-28] MEDS ORDERED: ACETAMINOPHEN TAB 325 MG TAB PO PRN (02:57)
[2022-05-28] MEDS ORDERED: DOCUSATE 100 MG CAP PO PRN (02:57)
[2022-05-28] MEDS ORDERED: MELATONIN 3 MG TABLET PO PRN (02:57)
[2022-05-28] MEDS ORDERED: ALPRAZolam 0.25 MG TAB PO PRN (02:57)
--- NOTE | 2022-05-28 03:01 | P.HPIM ---
History of Present Illness H&P Date: 05/27/22 Chief Complaint: generalized weakness, decrease apetite 87 year old male with history of kidney stones Patient lives alone since the loss of his early this year. He comes in today due to progressive generalized weakness and decreased by mouth intake feeling depressed denies any suicidal ideation. He reports falling and hitting his head against the p.m. at 2 days ago but denies any focal neuro deficits at this time. However he noticed that it's been getting more and more difficult to ambulate for long time now while ambulating inside the house he's leaning aga inst lopez however today when he went outside to get his mail he found it extremely difficult to walk on his driveway he was unsteady and very weak for which she decided to come into the hospital for evaluation. He admits that since the loss of his uses then depending on Meals on Wheels which usually not enough fluid with poor appetite and poor quality food has been factors and to him not getting enough nutrition besides he is running out of money and finding it difficult to keep up with his bills and cost of living. Otherwise he denies any cough fever chest pain trouble breathing denies any nausea vomiting abdominal pain changes in bowel or urinary habits. However he does note some blood in his urine he recalls history of kidney stones in the past. He denies any tobacco smoking illicit drugs or alcohol use. In the ED he was found to have new onset A. fib Urinalysis suggestive of urinary tract infection Blood work showed acute kidney injury and mild hypernatremia Review of Systems Pertinent positives as noted in HPI. All other systems were reviewed and are negative Past Medical History Past Medical History: CVA/TIA, Hearing Disorder / Deafness, Prostate Disorder Additional Past Medical History / Comment(s): RIGHT RENAL CALCULI, STATES HX "MINI STROKES", History of Any Multi-Drug Resistant Organisms: None Reported Past Surgical History: Hernia Repair Additional Past Surgical History / Comment(s): RIGHT LITHOTRIPSY x 3, RAMANDEEP INGUINAL HERNIA REPAIR, Past Anesthesia/Blood Transfusion Reactions: No Reported Reaction Smoking Status: Never smoker - Past Family History Father Family Medical History: Cancer Medications and Allergies Home Medications Medication Instructions Recorded Confirmed Type No Known Home Medications 05/27/22 05/27/22 History Allergies Allergy/AdvReac Type Severity Reaction Status Date / Time No Known Allergies Allergy Verified 08/19/20 09:06 Physical Exam Vitals: Vital Signs Temp Pulse Resp BP Pulse Ox 05/27/22 19:40 78 18 103/78 97 05/27/22 18:15 88 18 90/81 97 05/27/22 15:57 80 18 93/71 95 05/27/22 12:57 97.9 F 122 H 18 89/68 99 Intake and Output 05/27/22 05/27/22 05/27/22 06:59 14:59 22:59 Other: Weight 58.967 kg Constitutional: No acute distress, conversant, cachectic Eyes: Anicteric sclerae, moist conjunctiva, Pupils equal round reactive to light ENMT: NC/AT Oropharynx clear, no erythema, or exudates Neck: Supple, no masses, or JVD No carotid bruits No thyromegaly Lungs: Clear to auscultation Clear to percussion Normal respiratory effort, no accessory muscle use Cardiovascular: Heart irregular in rate and rhythm, No murmurs, gallops, or rubs No peripheral edema Abdominal: Soft Nontender, no guarding, rebound or rigidity Abdomen moving with respiration Normoactive bowel sounds No hepatomegaly, No splenomegaly No palpable mass No abdominal wall hernia noted Skin: Normal temperature, tone, texture, turgor No induration No subcutaneous nodules No rash, lesions No ulcers Extremities: No digital cyanosis No clubbing Pedal pulses intact and symmetrical Radial pulses intact and symmetrical No calf tenderness Psychiatric: Alert and oriented to person, place and time Appropriate affect fair judgement Neuro Muscles Strength 4/5 in all 4 extremities Sensation to light touch grossly present throughout Cranial nerves II-XII grossly intact No focal sensory deficits Lymphatics: no palpable cervical or supraclavicular , or inguinal lymph nodes Results CBC & Chem 7: 05/27/22 14:05 05/27/22 14:05 Labs: Abnormal Lab Results - Last 24 Hours (Table) 05/27/22 05/27/22 Range/Units 14:05 14:05 PT 14.0 H (9.0-12.0) sec INR 1.3 H (<1.2) Sodium 132 L (137-145) mmol/L Carbon Dioxide 18 L (22-30) mmol/L BUN 55 H (9-20) mg/dL Creatinine 1.49 H (0.66-1.25) mg/dL Calcium 8.0 L (8.4-10.2) mg/dL Total Protein 5.7 L (6.3-8.2) g/dL Albumin 2.6 L (3.5-5.0) g/dL Assessment and Plan Assessment: Acute urinary tract infection New-onset A. fib Acute kidney injury Failure to thrive Frequent falling with generalized weakness Plan Follow-up cultures Initiated on Rocephin daily IV fluid hydration normal saline Monitor renal function Avoid nephrotoxic meds Monitor urine output Initiated on heparin drip for A. fib Cardiology consult Currently A. fib is rate controlled with heart rates below 110 Monitor for refeeding syndrome check phosphorus magnesium potassium calcium follow-up electrolytes Encourage by mouth intake Fall precautions PT evaluation CT of the brain showed no acute pathology No code DVT prophylaxis currently on heparin drip for A. fib
[2022-05-28] MEDS ORDERED: DILTIAZEM DRIP BOLUS FROM BAG 1 MG SOLN IV ONE (08:43)
[2022-05-28] MEDS: AMIODARONE 200 MG TAB PO SCH ×2 (09:58→21:06)
[2022-05-28] MEDS: DILTIAZEM 125 MG in SODIUM CHLORIDE 0.9% 100 ML IV SCH (10:13)
--- NOTE | 2022-05-28 10:54 | CA ---
Transthoracic Echo Report Name: Master Chamberlain Age: 87 Gender: M : 1935 Exam Date: 05/28/2022 08:46 Exam Location: [facility] Ht (in): 68 Wt (lb): 130 Ordering Physician: Merry Rouse MD Attending/Referring Phys: [id number], Nasim Compliance Examiner Blanca Aj, [facility] Procedure CPT: Indications: new afib Cardiac Hx: Technical Quality: Fair Contrast 1: Total Dose (mL): Contrast 2: Total Dose (mL): MEASUREMENTS (Male / Female) Normal Values 2D ECHO LV Diastolic Diameter PLAX 4.4 cm 4.2 - 5.9 / 3.9 - 5.3 cm LV Systolic Diameter PLAX 4.1 cm IVS Diastolic Thickness 1.1 cm 0.6 - 1.0 / 0.6 - 0.9 cm LVPW Diastolic Thickness 1.1 cm 0.6 - 1.0 / 0.6 - 0.9 cm LV Relative Wall Thickness 0.5 RV Internal Dim ED PLAX 3.1 cm LA Systolic Diameter LX 4.0 cm 3.0 - 4.0 / 2.7 - 3.8 cm LA Volume 65.2 cm??? 18 - 58 / 22 - 52 cm??? M-MODE Aortic Root Diameter MM 3.3 cm MV E Point Septal Separation 3.4 cm AV Cusp Separation MM 2.0 cm DOPPLER AV Peak Velocity 140.8 cm/s AV Peak Gradient 7.9 mmHg MV Area PHT 5.0 cm??? MV Deceleration Time 130.1 ms TR Peak Velocity 267.9 cm/s TR Peak Gradient 28.7 mmHg Right Ventricular Systolic Press 32.1 mmHg FINDINGS Left Ventricle Left ventricular ejection fraction is estimated at less than 20 %. Left ventricular cavity size normal. Borderline left ventricular hypertrophy. Global left ventricular hypokinesis. Right Ventricle Normal right ventricular size and function. Right ventricular systolic pressure within normal limits. Right Atrium Normal right atrial size. Left Atrium Mildly increased left atrial volume. No evidence for an atrial septal defect. Mitral Valve Structurally normal mitral valve. No mitral stenosis, regurgitation or prolapse. Aortic Valve Trileaflet aortic valve. No aortic valve stenosis or regurgitation. Tricuspid Valve Mild tricuspid regurgitation. Pulmonic Valve Pulmonic valve not well visualized. Pericardium Normal pericardium. No pericardial effusion. Aorta Normal size aortic root and proximal ascending aorta. CONCLUSIONS Left ventricle is at upper limits of normal with the global severe decrease in contractility and estimated ejection fraction of about 20%. No pericardial effusion. Mild mitral and tricuspid insufficiency noted Previewed by: Dr. David Soriano MD (Electronically Signed) Final Date: 28 May 2022 10:52
--- NOTE | 2022-05-28 11:14 | CONS ---
CONSULTATION CHIEF COMPLAINT: Atrial fibrillation with poorly controlled ventricular rate. HISTORY OF PRESENT ILLNESS: Master is an 87-year-old gentleman with no significant past medical history, who presented to hospital having had a fall at home. He states that he tripped on a carpet and fell onto his 's piano and had injury to his head. The patient lost his earlier this year and has been becoming progressively weak and depressed and not feeling well. On his presentation to the hospital, he was found to be in atrial fibrillation with rapid ventricular rate, for which Cardiology has been consulted. There is no history of prior atrial fibrillation. There is a history of CVA. The patient states that he normally gets around on his own and he even drive. His EKG reveals atrial fibrillation with rapid ventricular rate. We will control his heart rate with intravenous Cardizem. He is on heparin and if he is covered for Eliquis, I will start him on Eliquis 2.5 b.i.d. I will obtain a 2D echo to evaluate his LV function. PAST MEDICAL HISTORY: Significant for TIA, deafness, and prostate disorder, and a prior history of renal calculus. MEDICATIONS: None. ALLERGIES: None. PAST SURGICAL HISTORY: Significant for bilateral inguinal hernia repair and lithotripsy. FAMILY HISTORY: Negative for premature coronary artery disease. SOCIAL HISTORY: Negative for current smoking, EtOH abuse, or drug abuse. REVIEW OF SYSTEMS: HEENT: Unremarkable. CARDIAC: As described above. RESPIRATORY: As described above. GI: Negative. GENITOURINARY: Negative. ALLERGY/IMMUNOLOGY: Negative. SKIN: Negative. MUSCULOSKELETAL: Significant for arthritis and fall. PSYCHOSOCIAL: Negative. DERM: Negative. CONSTITUTIONAL: Negative. ONCOLOGICAL negative. LACTATION CONSULTANT: Negative. Rest of the system review is not relevant. PHYSICAL EXAMINATION: VITAL SIGNS: Heart rate is around 110 beats per minute. Blood pressure is 100/68, respiratory rate 16, O2 saturation 98% on room air. NECK: There is no jugular venous distention. Carotid upstroke is normal. There is no bruit CHEST: Reveals good air entry bilaterally. HEART: Reveals first and second heart sounds, irregular rhythm and a systolic murmur at the left lower sternal border. ABDOMEN: Soft. EXTREMITIES: Did not reveal any edema. Peripheral pulses are felt. LABORATORY DATA: Show a hemoglobin of 13.6, platelet count is 150. Potassium is 4.3, BUN is 55, creatinine is 1.4. UA shows evidence of urinary tract infection. ASSESSMENT: 1. Persistent atrial fibrillation with poorly controlled ventricular rate. 2. Status post fall. 3. History of transient ischemic attack. 4. Urinary tract infection. PLAN: I am going to obtain a 2D echo to assess his LV function. I will start him on Eliquis if he is covered for it. I will continue the heparin in the meantime, start him on intravenous Cardizem for rate control. MMNEELIMAL / DEDEN: [id number] /
[2022-05-28 11:46] VITALS: BMI 19.8
--- NOTE | 2022-05-28 12:58 | P.PN ---
Subjective Progress Note Date: 05/28/22 Hospital course: Patient is a very pleasant 87-year-old male with a past medical history of CVA, hearing loss/deafness, and renal calculi. He presented to the emergency department on 05/27/22 with a chief complaint of generalized weakness and decreased appetite. Patient lost his earlier this year and has since been living alone and finding himself with increased depression and weakness. Patient relies on Meals on Wheels for delivery of his meals and reports difficulties with obtaining additional nutrition as he has been running out of money and having a difficult time keeping up with bills and cost of living. Upon arrival to the emergency department, patient underwent full evaluation. He was found to be in new onset atrial fibrillation with RVR with a left bundle bra nch (atrial fibrillation is new onset, left bundle branch was present on previous EKG completed 07/18/2020). CBC was unremarkable and CMP revealed mild hyponatremia with sodium of 132, hypoalbuminemia with albumin of 2.6, and an acute kidney injury with BUN 55, creatinine 1.49, and GFR of 42 with baseline creatinine of 0.8. Urinalysis positive for infection. Patient was started on anticoagulation with heparin infusion, Cardizem infusion, IV fluid hydration, and IV antibiotic Rocephin. He was admitted under our services with consultation to cardiology and case management. Physical exam: Patient seen and fully evaluated at bedside this morning. Patient reports feeling sleepy but otherwise denies having any other complaints or concerns at this time. He denies having any pain or complaints denies having any headache, lightheadedness, dizziness, chest pain, palpitations, shortness of breath, or experiencing any numbness/tingling/weakness in his extremities. Upon assessment patient in A. fib with RVR rate 160s, RN starting Cardizem drip at this time. Vital signs reviewed and stable. Patient very thin and frail. General: Nontoxic, no distress and appears stated age. Derm: Skin warm and dry, normal coloration for ethnicity. Head: Atraumatic, normocephalic and symmetric. Eyes: EOMs intact, no lid lag, and anicteric sclera Mouth: no lip lesions, mucus membranes moist Cardiovascular: Irregularly irregular with tachycardic rate, systolic murmur, positive posterior tibial pulses bilaterally, and cap refill < 2 seconds. Lungs: Respirations even, regular, and unlabored on room air. Lungs CTA bilaterally, no rhonchi, no rales, no wheezing, and no accessory muscle usage. Abdominal: soft, nontender to palpation, no guarding, no appreciable organomegaly Ext: ROM intact. No gross muscle atrophy, no edema, no contractures Neuro: Speech clear, face symmetrical and CN II-XII grossly intact with no noted focal neuro deficits Psych: Alert and oriented to person, place, time, and situation. Appropriate and pleasant affect. Assessment and Plan of Care: Atrial fibrillation with RVR, new onset -Continuation of heparin infusion and Cardizem infusion -Cardiology consulted, appreciate further recommendations -Telemetry monitoring -Cardiac diet -Echocardiogram Acute kidney injury believed to be secondary to dehydration resulting from decreased oral intake Acute UTI -Continue with gentle IV fluid hydration. -IV antibiotics: Rocephin -Follow up on urine culture Failure to thrive Generalized weakness resulting in frequent falls Depression -Fall precautions in place. -Continue with gentle IV fluid hydration. -Encourage oral intake -PT/OT consult -Psychiatry consulted -Case management consulted for assistance with placement in senior living facility. CODE STATUS: DO NOT RESUSCITATE/DO NOT INTUBATE DVT prophylaxis: Heparin Discussed with: Patient and RN Anticipated discharge date: Clinical course to determine Anticipated discharge place: long term facility A total of 38 minutes was spent on the care of this complex patient more than 50% of the time was spent in counseling and care coordination. I reviewed the documentation as provided by the SUSHIL above, who is the original author of this note. I agree with the documented assessment and plan, with the following changes: none Objective - Vital Signs Vital signs: Vital Signs Temp 97.9 F 05/28/22 02:00 Pulse 121 H 05/28/22 10:15 Resp 18 05/28/22 10:15 BP 101/74 05/28/22 10:15 Pulse Ox 97 05/28/22 10:15 FiO2 Intake & Output 05/27/22 05/28/22 05/28/22 18:59 06:59 18:59 Intake Total 41.041 Balance 41.041 Weight 58.967 kg 58.967 kg 58.967 kg Intake: Intake, IV Titration 41.041 Amount Heparin Sod,Pork in 0.45% 41.041 NaCl 25,000 unit In 0.45 % NaCl 1 250ml.bag @ 12 UNITS/KG/HR 7.076 mls/hr IV .Q24H [facility] Rx#: [id number] Other: Voiding Method Diaper - Labs CBC & Chem 7: 05/27/22 14:05 05/27/22 14:05 Labs: Abnormal Lab Results - Last 24 Hours (Table) 05/27/22 05/27/22 05/27/22 Range/Units 14:05 14:05 21:55 PT 14.0 H (9.0-12.0) sec INR 1.3 H (<1.2) APTT (22.0-30.0) sec Sodium 132 L (137-145) mmol/L Carbon Dioxide 18 L (22-30) mmol/L BUN 55 H (9-20) mg/dL Creatinine 1.49 H (0.66-1.25) mg/dL Calcium 8.0 L (8.4-10.2) mg/dL Total Protein 5.7 L (6.3-8.2) g/dL Albumin 2.6 L (3.5-5.0) g/dL Urine Protein 1+ H (Negative) Urine Blood Large H (Negative) Ur Leukocyte Esterase Large H (Negative) Urine RBC 62 H (0-5) /hpf Urine WBC >182 H (0-5) /hpf Urine WBC Clumps Many H (None) /hpf Urine Bacteria Many H (None) /hpf 05/28/22 05/28/22 Range/Units 02:27 10:06 PT (9.0-12.0) sec INR (<1.2) APTT 68.7 H 35.0 H (22.0-30.0) sec Sodium (137-145) mmol/L Carbon Dioxide (22-30) mmol/L BUN (9-20) mg/dL Creatinine (0.66-1.25) mg/dL Calcium (8.4-10.2) mg/dL Total Protein (6.3-8.2) g/dL Albumin (3.5-5.0) g/dL Urine Protein (Negative) Urine Blood (Negative) Ur Leukocyte Esterase (Negative) Urine RBC (0-5) /hpf Urine WBC (0-5) /hpf Urine WBC Clumps (None) /hpf Urine Bacteria (None) /hpf Microbiology - Last 24 Hours (Table) 09/07/22 21:55 Urine Culture - Preliminary Urine,Voided
[2022-05-28] MEDS: HEPARIN SODIUM 1,000 UN/ML (10ML VL) IV PRN (14:04)
--- NOTE | 2022-05-28 15:40 | XR ---
EXAMINATION TYPE: XR chest 2V DATE OF EXAM: 05/27/2022 COMPARISON: NONE HISTORY: Weakness. Diminished appetite. TECHNIQUE: Frontal and lateral views of the chest are obtained. FINDINGS: There is no suspicious focal air space opacity, pleural effusion, or pneumothorax seen. T he cardiac silhouette size is mildly enlarged. The osseous structures are demineralized. Probable m ild chronic compression type fractures in the mid to lower thoracic spine. IMPRESSION: No acute cardiopulmonary process. Preliminary report provided by on site radiologist.
--- NOTE | 2022-05-28 16:07 | CT ---
EXAMINATION TYPE: CT brain moreno ferrer DATE OF EXAM: 05/27/2022 COMPARISON: NONE HISTORY: Trauma fall injury with headache and neck pain CT DLP: 312.6 mGycm. Automated Exposure Control for Dose Reduction was Utilized. TECHNIQUE: CT scan of the head and cervical spine are performed without contrast. FINDINGS: There is no acute intracranial hemorrhage or midline shift identified. Mild to moderate v entricular and sulcal prominence. Mild low-attenuation in the periventricular white matter. Old infa rct medial aspect adjacent to third ventricle near the frontal temporal junction axial image 25. The calvarium is intact. Soft tissue density consistent with cerumen is seen in the deep food safety auditor y canals bilaterally. The globes are intact and the visualized sinuses are clear. Cervical spine is visualized in its entirety from C1 through upper thoracic levels and demonstrates s atisfactory alignment without evidence of acute fracture or dislocation. Prevertebral soft tissue ap pears within normal limits. The C1-C2 articulation is within normal limits on the coronal images. V ertebral body heights are maintained. Moderate to severe disc space narrowing C3-C4 and C5-C6 levels with moderate spurring is seen. Moderate disc space narrowing and spurring C6-C7 level is noted. Post erior spur disc complexes efface the anterior thecal sac at these levels on sagittal and axial images . Axial images show multilevel uncovertebral facet degenerative changes causing multilevel bilateral neural foraminal narrowing. Note is made of roughly 3.9 cm hypodense lower pole right thyroid nodule coronal image 11. IMPRESSION: 1. There is no acute fracture or dislocation evident in the cervical spine. 2. No acute intracranial hemorrhage or midline shift is seen. Preliminary report provided by on-call radiologist. Advise thyroid ultrasound to further investigate suspicious lower pole right thyroid nodule if this i s not known finding.
[2022-05-29] MEDS: HEPARIN SOD,PORK IN 0.45% NACL 25,000 UNIT in 0.45% NACL 1 250ML.BAG IV SCH (06:40)
[2022-05-29] MEDS: DILTIAZEM 125 MG in SODIUM CHLORIDE 0.9% 100 ML IV SCH (06:52)
[2022-05-29 08:25] LABS: Albumin 2.7 g/dL (3.5-5.0); Calcium 8.5 mg/dL (8.4-10.2); Magnesium 1.9 mg/dL (1.6-2.3); Potassium 4.1 mmol/L (3.5-5.1); Total Bilirubin 0.8 mg/dL (0.2-1.3); Total Protein 5.4 g/dL (6.3-8.2)
[2022-05-29 08:35] LABS: Basophils % (A) 0 %; Eosinophils # (A) 0.1 k/uL (0-0.7); Eosinophils % (A) 2 %; HCT 43.9 % (39.0-53.0); HGB 13.9 gm/dL (13.0-17.5); Lymphocytes # (A) 1.2 k/uL (1.0-4.8); Lymphocytes % (A) 15 %; MCH 30.1 pg (25.0-35.0); MCHC 31.7 g/dL (31.0-37.0); Mean Platelet Volume 8.6; Monocytes # (A) 0.5 k/uL (0-1.0); Monocytes % (A) 6 %; Neutrophils # (A) 6.4 k/uL (1.3-7.7); Neutrophils % (A) 77 %; Platelet Count 108 k/uL (150-450); RBC 4.63 m/uL (4.30-5.90); RDW 13.9 % (11.5-15.5); WBC 8.3 k/uL (3.8-10.6)
[2022-05-29] MEDS: AMIODARONE 200 MG TAB PO SCH ×2 (09:38→20:53)
[2022-05-29] MEDS: HEPARIN SODIUM 1,000 UN/ML (10ML VL) IV PRN (09:42)
--- NOTE | 2022-05-29 12:16 | P.PN ---
Subjective Progress Note Date: 05/29/22 HISTORY OF PRESENT ILLNESS: This is an 87-year-old male who was admitted to the hospital secondary to UTI and fall. Patient was found to be in A. fib with RVR. Patient examined this morning at the bedside. Patient denies chest pain or pressure. Denies shortness of breath. Telemetry reveals atrial fibrillation with controlled ventricular rate. His IV Cardizem has been placed on hold. Echocardiogram completed revealing ejection fraction 20%, global hypokinesis, and mild tri cuspid regurgitation. Unknown if patient has a history of cardiomyopathy. PHYSICAL EXAM: VITAL SIGNS: Reviewed. GENERAL: Well-developed in no acute distress. NECK: Supple. No JVD or thyromegaly LUNGS: Respirations even and unlabored. Lungs essentially clear to auscultation bilaterally. HEART: Regular rate and rhythm. S1 and S2 heard. EXTREMITIES: Normal range of motion. No clubbing or cyanosis. Peripheral pulses intact. No lower extremity edema ASSESSMENT: 1. Status post fall 2. Urinary tract infection 3. Persistent atrial fibrillation, appears to be new onset 4. Cardiomyopathy, ejection fraction 20%, unknown if ischemic or nonischemic, also unclear if patient has a history of cardiomyopathy as there is no previous echocardiogram for comparison. 5. History of TIA PLAN: Discontinue IV Cardizem Continue oral amiodarone Discontinue IV heparin. Begin Elocon S2 0.5 mg twice a day Patient will require JENN/ARB and beta nathalia for cardiomyopathy. However, BP in the 90s and HR in the 60s. Will add when patient able to tolerate. Check lipid panel Further recommendations pending patient course Nurse practitioner note has been reviewed by physician. Signing provider agrees with the documented findings, assessment, and plan of care. Objective - Vital Signs Vital signs: Vital Signs Temp 98.3 F 05/29/22 08:58 Pulse 64 05/29/22 08:58 Resp 18 05/29/22 08:58 BP 91/55 05/29/22 08:58 Pulse Ox 99 05/29/22 08:58 FiO2 Intake & Output 05/28/22 05/29/22 05/29/22 18:59 06:59 18:59 Intake Total 64.474 220.476 261.582 Output Total 100 Balance 64.474 120.476 261.582 Weight 58.967 kg Intake: Intake, IV Titration 64.474 220.476 21.582 Amount Diltiazem 125 mg In 103.25 Sodium Chloride 0.9% 100 ml @ 5 MG/HR 5 mls/hr IV .Q24H [facility] Rx#:[id number] Heparin Sod,Pork in 0.45% 64.474 117.226 21.582 NaCl 25,000 unit In 0.45 % NaCl 1 250ml.bag @ 12 UNITS/KG/HR 7.076 mls/hr IV .Q24H [facility] Rx#: [id number] Oral 240 Output: Urine 100 Other: Voiding Method Diaper Toilet Urinal Diaper - Labs CBC & Chem 7: 05/29/22 07:29 05/29/22 07:45 Labs: Abnormal Lab Results - Last 24 Hours (Table) 05/28/22 05/29/22 05/29/22 Range/Units 20:53 07:29 07:29 Plt Count 108 L (150-450) k/uL APTT 53.2 H 30.7 H (22.0-30.0) sec Chloride (98-107) mmol/L Carbon Dioxide (22-30) mmol/L BUN (9-20) mg/dL Glucose (74-99) mg/dL Alkaline Phosphatase (38-126) U/L Total Protein (6.3-8.2) g/dL Albumin (3.5-5.0) g/dL 05/29/22 Range/Units 07:45 Plt Count (150-450) k/uL APTT (22.0-30.0) sec Chloride 109 H (98-107) mmol/L Carbon Dioxide 19 L (22-30) mmol/L BUN 28 H (9-20) mg/dL Glucose 102 H (74-99) mg/dL Alkaline Phosphatase 145 H (38-126) U/L Total Protein 5.4 L (6.3-8.2) g/dL Albumin 2.7 L (3.5-5.0) g/dL Microbiology - Last 24 Hours (Table) 05/27/22 21:55 Urine Culture - Preliminary Urine,Voided Gram Neg Bacilli
[2022-05-29] MEDS: APIXABAN 2.5 MG TABLET PO SCH ×2 (12:44→20:53)
--- NOTE | 2022-05-29 16:55 | P.PN ---
Subjective Progress Note Date: 05/29/22 Hospital course: Patient is a very pleasant 87-year-old male with a past medical history of CVA, hearing loss/deafness, and renal calculi. He presented to the emergency department on 05/27/22 with a chief complaint of generalized weakness and decreased appetite. Patient lost his earlier this year and has since been living alone and finding himself with increased depression and weakness. Patient relies on Meals on Wheels for delivery of his meals and reports difficulties with obtaining additional nutrition as he has been running out of money and having a difficult time keeping up with bills and cost of living. Upon arrival to the emergency department, patient underwent full evaluation. He was found to be in new onset atrial fibrillation with RVR with a left bundle branch (atrial fibrillation is new onset, left bundle branch was present on previous EKG completed 07/18/2020). CBC was unremarkable and CMP revealed mild hyponatremia with sodium of 132, hypoalbuminemia with albumin of 2.6, and an acute kidney injury with BUN 55, creatinine 1.49, and GFR of 42 with baseline creatinine of 0.8. Urinalysis positive for infection. Patient was started on anticoagulation with heparin infusion, Cardizem infusion, IV fluid hydration, and IV antibiotic Rocephin. He was admitted under our services with consultation to cardiology and case management. Physical exam: Patient seen and fully evaluated at bedside this morning. Patient much more alert and responsive today. He remains alert and oriented to person, place, time, and situation. He remains on heparin infusion and Cardizem infusion at this time and remains in atrial fibrillation with a controlled ventricular rate ranging from 60s to 80s. Patient is ambulating and rheumatoid from restroom, does require some redirection at times. Morning labs reviewed and stable.discussed with case management and need for SNF placement upon discharge and special education case manager reportedly discussed with patient's legal guardian whom stated arrangements have been made for patient to be placed in adult foster [facility] upon discharge from group home facility once medically stable. Vital signs reviewed and stable. Patient very thin and frail. General: Nontoxic, no distress and appears stated age. Derm: Skin warm and dry, normal coloration for ethnicity. Head: Atraumatic, normocephalic and symmetric. Eyes: EOMs intact, no lid lag, and anicteric sclera Mouth: no lip lesions, mucus membranes moist Cardiovascular: Irregularly irregular, systolic murmur, positive posterior tibial pulses bilaterally, and cap refill < 2 seconds. Lungs: Respirations even, regular, and unlabored on room air. Lungs CTA bilaterally, no rhonchi, no rales, no wheezing, and no accessory muscle usage. Abdominal: soft, nontender to palpation, no guarding, no appreciable organomegaly Ext: ROM intact. No gross muscle atrophy, no edema, no contractures Neuro: Speech clear, face symmetrical and CN II-XII grossly intact with no noted focal neuro deficits Psych: Alert and oriented to person, place, time, and situation. Appropriate and pleasant affect. Assessment and Plan of Care: Atrial fibrillation with RVR, new onset cardiomyopathy unclear is ischemic or nonischemic, EF less than 20%. -Continuation of heparin infusion and Cardizem infusion -Cardiology consulted, appreciate further recommendations -Telemetry monitoring -Cardiac diet -Echocardiogram revealing EF less than 20% with global left ventricular hypokinesis Acute kidney injury believed to be secondary to dehydration resulting from decreased oral intake Acute UTI -Continue with gentle IV fluid hydration. -IV antibiotics: Rocephin -Follow up on urine culture, preliminary culture positive for gram-negative bacilli Failure to thrive Severe protein calorie malnutrition Generalized weakness resulting in frequent falls Depression -Fall precautions in place. -Continue with gentle IV fluid hydration. -Encourage oral intake -Ensure protein supplements 3 times daily with meals. -PT/OT consult -Psychiatry consulted -Case management consulted for assistance with placement in group home facility. CODE STATUS: DO NOT RESUSCITATE/DO NOT INTUBATE DVT prophylaxis: Heparin Discussed with: Patient and RN Anticipated discharge date: Clinical course to determine Anticipated discharge place: detention facility A total of 38 minutes was spent on the care of this complex patient more than 50% of the time was spent in counseling and care coordination. I reviewed the documentation as provided by the SUSHIL above, who is the original author of this note. I agree with the documented assessment and plan, with the following changes: none Objective - Vital Signs Vital signs: Vital Signs Temp 98.3 F 05/29/22 08:58 Pulse 64 05/29/22 08:58 Resp 18 05/29/22 08:58 BP 91/55 05/29/22 08:58 Pulse Ox 99 05/29/22 08:58 FiO2 Intake & Output 05/28/22 05/29/22 05/29/22 18:59 06:59 18:59 Intake Total 64.474 220.476 261.582 Output Total 100 Balance 64.474 120.476 261.582 Weight 58.967 kg Intake: Intake, IV Titration 64.474 220.476 21.582 Amount Diltiazem 125 mg In 103.25 Sodium Chloride 0.9% 100 ml @ 5 MG/HR 5 mls/hr IV .Q24H [facility] Rx#:[id number] Heparin Sod,Pork in 0.45% 64.474 117.226 21.582 NaCl 25,000 unit In 0.45 % NaCl 1 250ml.bag @ 12 UNITS/KG/HR 7.076 mls/hr IV .Q24H [facility] Rx#: [id number] Oral 240 Output: Urine 100 Other: Voiding Method Diaper - Labs CBC & Chem 7: 05/31/22 08:03 05/31/22 08:03 Labs: Abnormal Lab Results - Last 24 Hours (Table) 05/28/22 05/28/22 05/29/22 Range/Units 10:06 20:53 07:29 Plt Count 108 L (150-450) k/uL APTT 35.0 H 53.2 H (22.0-30.0) sec Chloride (98-107) mmol/L Carbon Dioxide (22-30) mmol/L BUN (9-20) mg/dL Glucose (74-99) mg/dL Alkaline Phosphatase (38-126) U/L Total Protein (6.3-8.2) g/dL Albumin (3.5-5.0) g/dL 05/29/22 05/29/22 Range/Units 07:29 07:45 Plt Count (150-450) k/uL APTT 30.7 H (22.0-30.0) sec Chloride 109 H (98-107) mmol/L Carbon Dioxide 19 L (22-30) mmol/L BUN 28 H (9-20) mg/dL Glucose 102 H (74-99) mg/dL Alkaline Phosphatase 145 H (38-126) U/L Total Protein 5.4 L (6.3-8.2) g/dL Albumin 2.7 L (3.5-5.0) g/dL Microbiology - Last 24 Hours (Table) 05/27/22 21:55 Urine Culture - Preliminary Urine,Voided Gram Neg Bacilli
--- NOTE | 2022-05-29 17:06 | P.CN ---
Psychiatric Consult - . Consult date: 05/29/22 Consult:: IDENTIFYING DATA: This patient is an 87 year old male who presented to the hospital with generalized weakness, decreased appetite and depression. REASON FOR REFERRAL: Psychiatry was consulted for "increased depression since loss of " HISTORY OF PRESENT ILLNESS: The patient presented to the hospital on 05/27/22 due to, per chart, "He comes in today due to progressive generalized weakness and decreased by mouth intake feeling depressed denies any suicidal ideation. He reports falling and hitting his head against the p.m. at 2 days ago but denies any focal neuro deficits at this time. However he noticed that it's been getting more and more difficult to ambulate for long time now while ambulating inside the house he's leaning against lopez". On my assessment, patient was found sitting up in his chair asleep. He presents with poor hygiene, appears frail. He is hard or hearing but able to respond to most questions. He appears to be utilizing the defense mechanisms of denial and minimization. He reports good sleep. Nurse reports patient has had poor oral intake since arrival to the unit and will only eat a little bit ice cream and some Ensure. Patient appears to minimize concern over his poor oral intake and claims he will eat more at the next meal and will be fine. He denies depressed mood but appears withdrawn. At this time patient denies any suicidal or homicidal ideations, intent or plan. Patient denies any auditory, visual hallucinations, and denies any paranoia or delusions. Patients denies drug, alcohol or tobacco use. PAST PSYCHIATRIC HISTORY: Patient denies history of depression or other mental health problems. Patient denies being on any psychiatric medications. Patient denies any previous psychiatric hospitalizations. Patient denies any psychiatric outpatient follow-up. Patient denies any history of suicide attempts in the past. PAST MEDICAL HISTORY: Past Medical History: CVA/TIA, Hearing Disorder / Deafness, Prostate Disorder Additional Past Medical History / Comment(s): RIGHT RENAL CALCULI, STATES HX "MINI STROKES", History of Any Multi-Drug Resistant Organisms: None Reported Past Surgical History: Hernia Repair Additional Past Surgical History / Comment(s): RIGHT LITHOTRIPSY x 3, RAMANDEEP INGUINAL HERNIA REPAIR, Past Anesthesia/Blood Transfusion Reactions: No Reported Reaction Smoking Status: Never smoker ALLERGIES: as per EMR. CHEMICAL DEPENDENCY HISTORY: as per HPI. FAMILY PSYCHIATRIC/SUBSTANCE USE HISTORY: denies SOCIAL HISTORY: in October 2021. He lives alone. He has 4 kids who live in other parts [place] the [place]. Patient has a guardian MENTAL STATUS EXAM: General Appearance: Patient appears to be stated age, poor hygiene, appears frail, dressed in hospital gown. Behavior: Patient is calmly sitting in his chair, initially asleep, without any agitated behavior. Speech: Patient's speech is fluent and non-pressured. Mood/Affect: Patient reports their mood is "ok", affect is congruent Suicidality/Homicidality: Patient denies having any suicidal or homicidal ideation intent or plan. Perceptions: Patient denies any visual hallucinations and denies any auditory hallucinations. Though content: Appears to be utilizing the defense mechanisms of denial and minimization. Thought process: Linear. Memory and concentration: AOX3, grossly intact for the purposes of this session. Judgment and insight: poor IMPRESSIONS: Unspecified depressive disorder Rule out neurocognitive disorder PLAN: -At this time patient DOES NOT meet criteria for inpatient psychiatric admission. -Delirium precautions recommended with patient including - avoiding use of narcotics and RESIDENTIAL AIDE sedatives, limit anticholinergic medications when possible, frequent re-orientation, minimize use of restraints, open window shades during the day and close them at night. -Would recommend the following medication changes/additions: Start Remeron 15 mg QHS for depression/appetite/sleep. -Agree with plan to discharge to SNF/assisted living. -Communicated plan to patient's nurse -Will continue to follow along. -Please contact with any questions. 05/29/22 13:20 05/29/22 16:45
[2022-05-29] MEDS: MIRTAZAPINE 15 MG TAB PO SCH (20:53)
[2022-05-29 23:06] LABS: Chol/HDL Ratio 3.58 Ratio; LDL Cholesterol,Calculated 62.3 mg/dL (0.0-131.0)
[2022-05-30] MEDS: APIXABAN 2.5 MG TABLET PO SCH ×2 (09:05→19:57)
[2022-05-30] MEDS: AMIODARONE 200 MG TAB PO SCH ×2 (09:05→19:57)
--- NOTE | 2022-05-30 14:35 | P.PN ---
Subjective Progress Note Date: 05/30/22 Hospital course: Patient is a very pleasant 87-year-old male with a past medical history of CVA, hearing loss/deafness, and renal calculi. He presented to the emergency department on 05/27/22 with a chief complaint of generalized weakness and decreased appetite. Patient lost his earlier this year and has since been living alone and finding himself with increased depression and weakness. Patient relies on Meals on Wheels for delivery of his meals and reports difficulties with obtaining additional nutrition as he has been running out of money and having a difficult time keeping up with bills and cost of living. Upon arrival to the emergency department, patient underwent full evaluation. He was found to be in new onset atrial fibrillation with RVR with a left bundle branch (atrial fibrillation is new onset, left bundle branch was present on previous EKG completed 07/18/2020). CBC was unremarkable and CMP revealed mild hyponatremia with sodium of 132, hypoalbuminemia with albumin of 2.6, and an acute kidney injury with BUN 55, creatinine 1.49, and GFR of 42 with baseline creatinine of 0.8. Urinalysis positive for infection. Patient was started on anticoagulation with heparin infusion, Cardizem infusion, IV fluid hydration, and IV antibiotic Rocephin. He was admitted under our services with consultation to cardiology and case management. Patient transitioned from IV heparin infusion to oral anticoagulation with Eliquis and oral antiarrhythmic amiodarone. Urine culture positive for Klebsiella oxytoca and patient remains on IV antibiotics Rocephin. Patient awaiting placement in SNF facility, likely [facility]. Physical exam: Patient seen and fully evaluated at bedside this morning. He was resting comfortable and denied currently having any complaints or needs. He remains alert and oriented to person, place, time, and situation. Had a long discussion with patient regarding needs for increase protein and calorie intake. Patient verbalized understanding and states that he has been drinking the supplements with his meals. Heparin was discontinued and pt was started on oral antic oagulant with Eliquis and cardizem also discontinued and pt started on amiodarone. Urine culture positive for Klebsiella oxytoca and patient remains on IV antibiotics Rocephin. Patient awaiting placement in SNF facility, likely [facility]. Vital signs reviewed and stable. Patient very thin and frail. General: Nontoxic, no distress and appears stated age. Derm: Skin warm and dry, normal coloration for ethnicity. Head: Atraumatic, normocephalic and symmetric. Eyes: EOMs intact, no lid lag, and anicteric sclera Mouth: no lip lesions, mucus membranes moist Cardiovascular: Irregularly irregular, systolic murmur, positive posterior tibial pulses bilaterally, and cap refill < 2 seconds. Lungs: Respirations even, regular, and unlabored on room air. Lungs CTA bilaterally, no rhonchi, no rales, no wheezing, and no accessory muscle usage. Abdominal: soft, nontender to palpation, no guarding, no appreciable organomegaly Ext: ROM intact. No gross muscle atrophy, no edema, no contractures Neuro: Speech clear, face symmetrical and CN II-XII grossly intact with no noted focal neuro deficits Psych: Alert and oriented to person, place, time, and situation. Appropriate and pleasant affect. Assessment and Plan of Care: Atrial fibrillation with RVR, new onset Cardiomyopathy unclear is ischemic or nonischemic, EF less than 20%. -Heparin was discontinued and pt was started on oral anticoagulant with Eliquis -Continue amiodarone -Cardiology following, appreciate further recommendations -Telemetry monitoring -Cardiac diet -Echocardiogram revealing EF less than 20% with global left ventricular hypokinesis Acute kidney injury believed to be secondary to dehydration resulting from decre ased oral intake Klebsiella oxytoca Acute UTI -Continue with gentle IV fluid hydration. -IV antibiotics: Rocephin -Urine culture positive for Klebsiella oxytoca Failure to thrive Severe protein calorie malnutrition Generalized weakness resulting in frequent falls Depression -Fall precautions in place. -Continue with gentle IV fluid hydration. -Encourage oral intake -Ensure protein supplements 3 times daily with meals. -PT/OT consult -Psychiatry consulted and started patient on Remeron 15 mg nightly to assist with depression and increasing appetite -Case management consulted for assistance with placement in care home facility. CODE STATUS: DO NOT RESUSCITATE/DO NOT INTUBATE DVT prophylaxis: Heparin Discussed with: Patient and RN Anticipated discharge date: Clinical course to determine Anticipated discharge place: longterm facility A total of 35 minutes was spent on the care of this complex patient more than 50% of the time was spent in counseling and care coordination. I reviewed the documentation as provided by the SUSHIL above, who is the original author of this note. I agree with the documented assessment and plan, with the following changes: none Objective - Vital Signs Vital signs: Vital Signs Temp 98.2 F 09/10/22 04:45 Pulse 71 05/30/22 04:45 Resp 16 05/30/22 04:45 BP 94/64 05/30/22 04:45 Pulse Ox 99 05/30/22 04:45 FiO2 Intake & Output 05/29/22 05/30/22 05/30/22 18:59 06:59 18:59 Intake Total 261.582 Balance 261.582 Intake: Intake, IV Titration 21.582 Amount Heparin Sod,Pork in 0.45% 21.582 NaCl 25,000 unit In 0.45 % NaCl 1 250ml.bag @ 12 UNITS/KG/HR 7.076 mls/hr IV .Q24H [facility] Rx#: [id number] Oral 240 Other: Voiding Method Toilet Toilet Urinal Urinal Diaper Diaper # Voids 2 3 - Labs CBC & Chem 7: 05/31/22 08:03 05/31/22 08:03 Labs: Abnormal Lab Results - Last 24 Hours (Table) 05/29/22 05/29/22 Range/Units 07:29 15:54 APTT 30.7 H (22.0-30.0) sec HDL Cholesterol 34.90 L (40.00-60.00) mg/dL Microbiology - Last 24 Hours (Table) 05/27/22 21:55 Urine Culture - Final Urine,Voided Klebsiella oxytoca
--- NOTE | 2022-05-30 17:53 | P.PN ---
Subjective HISTORY OF PRESENT ILLNESS: This is an 87-year-old male who was admitted to the hospital secondary to UTI and fall. Patient was found to be in A. fib with RVR. Patient examined this morning at the bedside. Patient denies chest pain or pressure. Denies shortness of breath. Telemetry reveals atrial fibrillation with controlled ventricular rate. His IV Cardizem has been placed on hold. Echocardiogram completed revealing ejection fraction 20%, global hypokinesis, and mild tricuspid regurgitation. Unknown if patient has a history of cardiomyopathy. 05/30 Seen and examined. Patient denies any chest pain or pressure. Patient poor historian and believes he had 2 meals brought to him and believes she is going to an exercise room today. Denies any dyspnea. Laying flat on his bed. Telemetry reveals atrial fibrillation with heart rates in the 80s to 90s. PHYSICAL EXAM: VITAL SIGNS: Reviewed. GENERAL: Well-developed in no acute distress. NECK: Supple. No JVD or thyromegaly LUNGS: Respirations even and unlabored. Lungs essentially clear to auscultation bilaterally. HEART: Regular rate and rhythm. S1 and S2 heard. EXTREMITIES: Normal range of motion. No clubbing or cyanosis. Peripheral pulses intact. No lower extremity edema ASSESSMENT: 1. Status post fall 2. Urinary tract infection 3. Persistent atrial fibrillation, appears to be new onset 4. Cardiomyopathy, ejection fraction 20%, unknown if ischemic or nonischemic, also unclear if patient has a history of cardiomyopathy as there is no previous echocardiogram for comparison. 5. History of TIA 6. Chronic systolic heart failure PLAN: Continue oral amiodarone and HR's appear fairly well controlled. Continue Eliquis 2.5 mg twice a day Optimize heart failure regimen as able. Ideally BBlocker and JENN-i however borderline hypotensive. Currently appears euvolemic Further recommendations pending patient course Objective - Vital Signs Vital signs: Vital Signs Temp 98.3 F 05/30/22 09:00 Pulse 66 05/30/22 16:04 Resp 18 05/30/22 16:04 BP 113/67 05/30/22 16:04 Pulse Ox 99 05/30/22 16:04 FiO2 Intake & Output 05/29/22 05/30/22 05/30/22 18:59 06:59 18:59 Intake Total 261.582 Balance 261.582 Intake: Intake, IV Titration 21.582 Amount Heparin Sod,Pork in 0.45% 21.582 NaCl 25,000 unit In 0.45 % NaCl 1 250ml.bag @ 12 UNITS/KG/HR 7.076 mls/hr IV .[facility]H [facility] Rx#: [id number] Oral 240 Other: Voiding Method Toilet Toilet Toilet Urinal Urinal Urinal Diaper Diaper Diaper # Voids 2 3 2 - Labs CBC & Chem 7: 05/29/22 07:29 05/29/22 07:45 Labs: Abnormal Lab Results - Last 24 Hours (Table) 05/29/22 Range/Units 15:54 HDL Cholesterol 34.90 L (40.00-60.00) mg/dL Microbiology - Last 24 Hours (Table) 05/27/22 21:55 Urine Culture - Final Urine,Voided Klebsiella oxytoca
[2022-05-30] MEDS: MIRTAZAPINE 15 MG TAB PO SCH (19:57)
[2022-05-31] MEDS: APIXABAN 2.5 MG TABLET PO SCH ×2 (08:35→21:01)
[2022-05-31] MEDS: AMIODARONE 200 MG TAB PO SCH ×2 (08:35→21:01)
[2022-05-31 09:33] LABS: HCT 45.7 % (39.0-53.0); HGB 14.4 gm/dL (13.0-17.5); MCH 30.5 pg (25.0-35.0); MCHC 31.4 g/dL (31.0-37.0); MCV 97.1 fL (80.0-100.0); Mean Platelet Volume 7.8; Platelet Count 140 k/uL (150-450); RDW 13.9 % (11.5-15.5); WBC 6.4 k/uL (3.8-10.6)
[2022-05-31 09:58] LABS: Albumin 2.6 g/dL (3.5-5.0); Calcium 8.7 mg/dL (8.4-10.2); Magnesium 1.7 mg/dL (1.6-2.3); Potassium 4.2 mmol/L (3.5-5.1); Total Bilirubin 0.6 mg/dL (0.2-1.3); Total Protein 5.4 g/dL (6.3-8.2)
--- NOTE | 2022-05-31 14:21 | P.PN ---
Subjective Progress Note Date: 05/31/22 Hospital course: Patient is a very pleasant 87-year-old male with a past medical history of CVA, hearing loss/deafness, and renal calculi. He presented to the emergency department on 05/27/22 with a chief complaint of generalized weakness and decreased appetite. Patient lost his earlier this year and has since been living alone and finding himself with increased depression and weakness. Patient relies on [employer] Whe[employer] for delivery of his meals and reports difficulties with obtaining additional nutrition as he has been running out of money and having a difficult time keeping up with bills and cost of living. Upon arrival to the emergency department, patient underwent full evaluation. He was found to be in new onset atrial fibrillation with RVR with a left bundle branch (atrial fibrillation is new onset, left bundle branch was present on previous EKG completed 07/18/2020). CBC was unremarkable and CMP revealed mild hyponatremia with sodium of 132, hypoalbuminemia with albumin of 2.6, and an acute kidney injury with BUN 55, creatinine 1.49, and GFR of 42 with baseline creatinine of 0.8. Urinalysis positive for infection. Patient was started on anticoagulation with heparin infusion, Cardizem infusion, IV fluid hydration, and IV antibiotic Rocephin. He was admitted under our services with consultation to cardiology and case management. Patient transitioned from IV heparin infusion to oral anticoagulation with Eliquis and oral antiarrhythmic amiodarone. Urine culture positive for Klebsiella oxytoca and patient remains on IV antibiotics Rocephin. Patient awaiting placement in SNF facility, likely [facility]. Physical exam: Patient seen and fully evaluated at bedside this morning. He appears to be doing much better. Patient appears stronger, he is sitting up in the chair at bedside and eating lunch at this time. Patient reports feeling significantly better. Heart rate remains controlled 60s to 80s. Appetite significantly improved. He remains on IV antibiotic Rocephin for treatment of his Klebsiella oxytoca UTI. Likely discharged SNF within the next 24 hours. Awaiting in surance authorization and acceptance to facility. Vital signs reviewed and stable. Patient very thin and frail. General: Nontoxic, no distress and appears stated age. Derm: Skin warm and dry, normal coloration for ethnicity. Head: Atraumatic, normocephalic and symmetric. Eyes: EOMs intact, no lid lag, and anicteric sclera Mouth: no lip lesions, mucus membranes moist Cardiovascular: Irregularly irregular, systolic murmur, positive posterior tibial pulses bilaterally, and cap refill < 2 seconds. Lungs: Respirations even, regular, and unlabored on room air. Lungs CTA bilaterally, no rhonchi, no rales, no wheezing, and no accessory muscle usage. Abdominal: soft, nontender to palpation, no guarding, no appreciable organomegaly Ext: ROM intact. No gross muscle atrophy, no edema, no contractures Neuro: Speech clear, face symmetrical and CN II-XII grossly intact with no noted focal neuro deficits Psych: Alert and oriented to person, place, time, and situation. Appropriate and pleasant affect. Assessment and Plan of Care: Atrial fibrillation with RVR, new onset 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 -Continue oral anticoagulant with Eliquis -Continue amiodarone -Cardiology following, appreciate further recommendations -Telemetry monitoring -Cardiac diet -Echocardiogram revealing EF less than 20% with global left ventricular hypokinesis Acute kidney injury believed to be secondary to dehydration resulting from decreased oral intake. Resolved with IV fluid hydration. Klebsiella oxytoca Acute UTI -Patient received gentle IV fluid hydration, ANAIS resolved. -IV antibiotics: Rocephin -Urine culture positive for Klebsiella oxytoca Failure to thrive Severe protein calorie malnutrition Generalized weakness resulting in frequent falls Depression -Fall precautions in place. -Continue with gentle IV fluid hydration. -Encourage oral intake -Ensure protein supplements 3 times daily with meals. -PT/OT consult -Psychiatry consulted and started patient on Remeron 15 mg nightly to assist with depression and increasing appetite -Case management consulted for assistance with placement in halfway facility. CODE STATUS: DO NOT RESUSCITATE/DO NOT INTUBATE DVT prophylaxis: Heparin Discussed with: Patient and RN Anticipated discharge date: Likely within the next 24 hours, pending insurance authorization and acceptance by facility. Anticipated discharge place: [facility], [facility] A total of 33 minutes was spent on the care of this complex patient more than 50% of the time was spent in counseling and care coordination. I reviewed the documentation as provided by the SUSHIL above, who is the original author of this note. I agree with the documented assessment and plan, with the following changes: none Objective - Vital Signs Vital signs: Vital Signs Temp 97.6 F 05/31/22 08:30 Pulse 66 05/31/22 08:30 Resp 16 05/31/22 08:30 BP 99/68 05/31/22 08:30 Pulse Ox 98 05/31/22 08:30 FiO2 Intake & Output 05/30/22 05/31/22 05/31/22 18:59 06:59 18:59 Intake Total 360 325 120 Balance 360 325 120 Intake: Intake, IV Titration 50 Amount cefTRIAXone 1 gm In 50 Sodium Chloride 0.9% 50 ml @ 100 mls/hr IVPB Q24H [facility] Rx#:[id number] Oral 360 275 120 Other: Voiding Method Toilet Toilet Toilet Urinal Urinal Urinal Diaper Diaper Diaper # Voids 1 1 - Labs CBC & Chem 7: 05/31/22 08:03 05/31/22 08:03 Labs: Abnormal Lab Results - Last 24 Hours (Table) 05/31/22 05/31/22 Range/Units 08:03 08:03 Plt Count 140 L (150-450) k/uL BUN 27 H (9-20) mg/dL Alkaline Phosphatase 155 H (38-126) U/L Total Protein 5.4 L (6.3-8.2) g/dL Albumin 2.6 L (3.5-5.0) g/dL
--- NOTE | 2022-05-31 16:54 | P.PN ---
Subjective HISTORY OF PRESENT ILLNESS: This is an 87-year-old male who was admitted to the hospital secondary to UTI and fall. Patient was found to be in A. fib with RVR. Patient examined this morning at the bedside. Patient denies chest pain or pressure. Denies shortness of breath. Telemetry reveals atrial fibrillation with controlled ventricular rate. His IV Cardizem has been placed on hold. Echocardiogram completed revealing ejection fraction 20%, global hypokinesis, and mild tricuspid regurgitation. Unknown if patient has a history of cardiomyopathy. 05/30 Seen and examined. Patient denies any chest pain or pressure. Patient poor historian and believes he had 2 meals brought to him and believes she is going to an exercise room today. Denies any dyspnea. Laying flat on his bed. Telemetry reveals atrial fibrillation with heart rates in the 80s to 90s. 05/31 Patient seen and examined. Patient taking a nap however arousable and denies any chest pain or pressure. Denies any shortness breath. Hemoglobin 14.4, creatinine 1.2, albumin 2.6, LDL 62. Patient converted to sinus rhythm at approximately noon today. PHYSICAL EXAM: VITAL SIGNS: Reviewed. GENERAL: Well-developed in no acute distress. NECK: Supple. No JVD or thyromegaly LUNGS: Respirations even and unlabored. Lungs essentially clear to auscultation bilaterally. HEART: Regular rate and rhythm. S1 and S2 heard. EXTREMITIES: Normal range of motion. No clubbing or cyanosis. Peripheral pulses intact. No lower extremity edema ASSESSMENT: 1. Status post fall 2. Urinary tract infection 3. Persistent atrial fibrillation, appears to be new onset, currently sinus 4. Cardiomyopathy, ejection fraction 20%, unknown if ischemic or nonischemic, also unclear if patient has a history of cardiomyopathy as there is no previous echocardiogram for comparison. 5. History of TIA 6. Chronic systolic heart failure PLAN: Continue oral amiodarone and currently is in sinus rhythm Continue Eliquis 2.5 mg twice a day Optimize heart failure regimen as able. Somewhat borderline blood pressures and therefore we will add slowly with lisinopril 2.5 mg daily and Toprol 12.5 mg daily. Further recommendations pending patient course Objective - Vital Signs Vital signs: Vital Signs Temp 97.6 F 05/31/22 13:43 Pulse 70 05/31/22 13:43 Resp 16 05/31/22 13:43 BP 111/70 05/31/22 13:43 Pulse Ox 100 05/31/22 13:43 FiO2 Intake & Output 05/30/22 05/31/22 05/31/22 18:59 06:59 18:59 Intake Total 360 325 240 Output Total 300 Balance 360 325 -60 Intake: Intake, IV Titration 50 Amount cefTRIAXone 1 gm In 50 Sodium Chloride 0.9% 50 ml @ 100 mls/hr IVPB Q24H [facility] Rx#:[id number] Oral 360 275 240 Output: Urine 300 Other: Voiding Method Toilet Toilet Toilet Urinal Urinal Urinal Diaper Diaper Diaper # Voids 1 1 1 - Labs CBC & Chem 7: 05/31/22 08:03 05/31/22 08:03 Labs: Abnormal Lab Results - Last 24 Hours (Table) 05/31/22 05/31/22 Range/Units 08:03 08:03 Plt Count 140 L (150-450) k/uL BUN 27 H (9-20) mg/dL Alkaline Phosphatase 155 H (38-126) U/L Total Protein 5.4 L (6.3-8.2) g/dL Albumin 2.6 L (3.5-5.0) g/dL
[2022-05-31] MEDS: METOPROLOL SUCCINATE (ER) 25 MG TAB.ER.24H PO SCH (18:34)
[2022-05-31] MEDS: MIRTAZAPINE 15 MG TAB PO SCH (21:01)
[2022-06-01 07:21] LABS: Basophils % (A) 0 %; Eosinophils # (A) 0.1 k/uL (0-0.7); Eosinophils % (A) 2 %; HGB 13.3 gm/dL (13.0-17.5); Lymphocytes # (A) 1.3 k/uL (1.0-4.8); Lymphocytes % (A) 23 %; MCH 30.4 pg (25.0-35.0); MCHC 31.5 g/dL (31.0-37.0); MCV 96.3 fL (80.0-100.0); Monocytes # (A) 0.4 k/uL (0-1.0); Monocytes % (A) 6 %; Neutrophils % (A) 68 %; Platelet Count 169 k/uL (150-450); RBC 4.37 m/uL (4.30-5.90); RDW 14.1 % (11.5-15.5); WBC 5.9 k/uL (3.8-10.6)
[2022-06-01 07:35] LABS: Albumin 2.5 g/dL (3.5-5.0); Calcium 8.7 mg/dL (8.4-10.2); Potassium 4.5 mmol/L (3.5-5.1); Total Bilirubin 0.4 mg/dL (0.2-1.3); Total Protein 5.2 g/dL (6.3-8.2)
[2022-06-01] MEDS: APIXABAN 2.5 MG TABLET PO SCH ×2 (08:58→21:28)
[2022-06-01] MEDS: METOPROLOL SUCCINATE (ER) 25 MG TAB.ER.24H PO SCH (08:58)
[2022-06-01] MEDS: AMIODARONE 200 MG TAB PO SCH ×2 (08:58→21:28)
--- NOTE | 2022-06-01 10:55 | P.PN ---
Subjective This is an 87-year-old male with no known past medical history. 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 We are consulted for Atrial fibrillation with RVR and Cardiomyopathy. Patient was admitted to the hospital secondary to UTI and fall. Patient was found to be in A. fib with RVR. He was initially started on IV Cardizem. Echocardiogram completed revealing ejection fraction 20%, global hypokinesis, and mild tricuspid regurgitation. Unknown if patient has a history of cardiomyopathy. Troponin was negative. 06/01 Patient seen and examined, at bedside, no acute distress. Denies any chest pain or palpitations. Denies any shortness breath. Vital signs are stable. He converted to sinus rhythm yesterday and is maintaining sinus. Labs: Hemoglobin 13.3, sodium 135, potassium 4.5, BUN 27, serum creatinine 1.1. Blood pressures are marginally low 100/65 He is anticoagulated with Eliquis 2.5mg BID, Amiodarone 400mg BID (Started 05/28), lisinopril 2.5 mg daily, metoprolol succinate 12.5 mg daily PHYSICAL EXAM: VITAL SIGNS: Reviewed. GENERAL: Well-developed in no acute distress. NECK: Supple. No JVD or thyromegaly LUNGS: Respirations even and unlabored. Lungs essentially clear to auscultation bilaterally. HEART: Regular rate and rhythm. S1 and S2 heard. EXTREMITIES: Normal range of motion. No clubbing or cyanosis. Peripheral pulses intact. No lower extremity edema ASSESSMENT: Status post fall Urinary tract infection Persistent atrial fibrillation with RVR, appears to be new onset, currently sinus Cardiomyopathy, ejection fraction 20%, unknown if ischemic or nonischemic, also unclear if patient has a history of cardiomyopathy as there is no previous echocardiogram for comparison History of TIA Chronic systolic heart failure PLAN: Continue oral amiodarone 400mg BID (started on 05/28), patient is currently is in sinus rhythm Continue Eliquis 2.5 mg twice a day Optimize heart failure regimen as able. Somewhat borderline blood pressures and therefore we will continue low dosese of lisinopril 2.5 mg daily and Toprol 12.5 mg daily Consider spironolactone as an outpatient, not starting currently secondary to hypotension Consider cardiac catheterization, this can be completed as an outpatient as well Further recommendations pending patient course Nurse practitioner note has been reviewed by physician. Signing provider agrees with the documented findings, assessment, and plan of care. Objective - Vital Signs Vital signs: Vital Signs Temp 97.8 F 06/01/22 08:47 Pulse 64 06/01/22 10:41 Resp 18 06/01/22 10:41 BP 100/65 06/01/22 08:47 Pulse Ox 100 06/01/22 08:47 FiO2 Intake & Output 05/31/22 06/01/22 06/01/22 18:59 06:59 18:59 Intake Total 240 Output Total 500 500 Balance -260 -500 Intake: Oral 240 Output: Urine 500 500 Other: Voiding Method Toilet Urinal Urinal Urinal Diaper Diaper Diaper # Voids 1 - Labs CBC & Chem 7: 06/01/22 07:06 06/01/22 07:06 Labs: Abnormal Lab Results - Last 24 Hours (Table) 06/01/22 Range/Units 07:06 Sodium 135 L (137-145) mmol/L BUN 27 H (9-20) mg/dL Alkaline Phosphatase 145 H (38-126) U/L Total Protein 5.2 L (6.3-8.2) g/dL Albumin 2.5 L (3.5-5.0) g/dL
--- NOTE | 2022-06-01 12:59 | P.PN ---
Subjective Progress Note Date: 06/01/22 Hospital course: Patient is a very pleasant 87-year-old male with a past medical history of CVA, hearing loss/deafness, and renal calculi. He presented to the emergency department on 05/27/22 with a chief complaint of generalized weakness and decreased appetite. Patient lost his earlier this year and has since been living alone and finding himself with increased depression and weakness. Patient relies on Meals [employer] Whe[employer] for delivery of his meals and reports difficulties with obtaining additional nutrition as he has been running out of money and having a difficult time keeping up with bills and cost of living. Upon arrival to the emergency department, patient underwent full evaluation. He was found to be in new onset atrial fibrillation with RVR with a left bundle branch (atrial fibrillation is new onset, left bundle branch was present on previous EKG completed 07/18/2020). CBC was unremarkable and CMP revealed mild hyponatremia with sodium of 132, hypoalbuminemia with albumin of 2.6, and an acute kidney injury with BUN 55, creatinine 1.49, and GFR of 42 with baseline creatinine of 0.8. Urinalysis positive for infection. Patient was started on anticoagulation with heparin infusion, Cardizem infusion, IV fluid hydration, and IV antibiotic Rocephin. He was admitted under our services with consultation to cardiology and case management. Patient transitioned from IV heparin infusion to oral anticoagulation with Eliquis and oral antiarrhythmic amiodarone. Urine culture positive for Klebsiella oxytoca and patient remains on IV antibiotics Rocephin. Patient awaiting placement in SNF facility, likely [facility]. Physical exam: Patient seen and fully evaluated at bedside this morning. He continues to be doing well. He reports that his neighbors came up to the hospital and visited him last night and that they have been taking care of his cat. He has converted to normal sinus rhythm and has had a significant improvement in his appetite. Pt denies any complaints. He is to remain on amiodarone and Eliquis for treatment of his atrial fibrillation and was started on metoprolol and losartan to optimize treatment for his heart failure. Currently patient remains on IV antibiotic Rocephin for treatment of his Klebsiella oxytoca UTI. Likely discharged SNF within the next 24 hours. Awaiting insurance authorization and acceptance to facility. Vital signs reviewed and stable. Patient very thin and frail. General: Nontoxic, no distress and appears stated age. Derm: Skin warm and dry, normal coloration for ethnicity. Head: Atraumatic, normocephalic and symmetric. Eyes: EOMs intact, no lid lag, and anicteric sclera Mouth: no lip lesions, mucus membranes moist Cardiovascular:Regular rate and regular rhythm. systolic murmur, positive posterior tibial pulses bilaterally, and cap refill < 2 seconds. Lungs: Respirations even, regular, and unlabored on room air. Lungs CTA b ilaterally, no rhonchi, no rales, no wheezing, and no accessory muscle usage. Abdominal: soft, nontender to palpation, no guarding, no appreciable organomegaly Ext: ROM intact. No gross muscle atrophy, no edema, no contractures Neuro: Speech clear, face symmetrical and CN II-XII grossly intact with no noted focal neuro deficits Psych: Alert and oriented to person, place, time, and situation. Appropriate and pleasant affect. Assessment and Plan of Care: Atrial fibrillation with RVR, new onset. Pt on amiodarone and Eliquis and maintaining NSR at this time. 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 -Pt on amiodarone and Eliquis and maintaining NSR at this time. -Patient was started on metoprolol and losartan to optimize treatment for his heart failure. -Cardiology following, appreciate further recommendations -Telemetry monitoring -Cardiac diet -Echocardiogram revealing EF less than 20% with global left ventricular hypokinesis Acute kidney injury believed to be secondary to dehydration resulting from decreased oral intake. Resolved with IV fluid hydration. Klebsiella oxytoca Acute UTI -Patient received gentle IV fluid hydration, ANAIS resolved. -IV antibiotics: Rocephin -Urine culture positive for Klebsiella oxytoca Failure to thrive Severe protein calorie malnutrition Generalized weakness resulting in frequent falls Depression -Fall precautions in place. -Continue with gentle IV fluid hydration. -Encourage oral intake -Ensure protein supplements 3 times daily with meals. -PT/OT following, recommending SNF placement upon discharge -Psychiatry consulted and started patient on Remeron 15 mg nightly to assist with depression and increasing appetite -Case management consulted for assistance with placement in longterm facility. CODE STATUS: DO NOT RESUSCITATE/DO NOT INTUBATE DVT prophylaxis: Heparin Discussed with: Patient and RN Anticipated discharge date: Pending insurance authorization and acceptance by facility. Anticipated discharge place: senior care facility A total of 35 minutes was spent on the care of this complex patient more than 50 % of the time was spent in counseling and care coordination. Objective - Vital Signs Vital signs: Vital Signs Temp 98.7 F 05/31/22 23:42 Pulse 78 06/01/22 04:18 Resp 16 06/01/22 04:18 BP 98/64 06/01/22 04:18 Pulse Ox 97 06/01/22 05:00 FiO2 Intake & Output 05/31/22 06/01/22 06/01/22 18:59 06:59 18:59 Intake Total 240 Output Total 500 500 Balance -260 -500 Intake: Oral 240 Output: Urine 500 500 Other: Voiding Method Toilet Urinal Urinal Diaper Diaper # Voids 1 - Labs CBC & Chem 7: 06/01/22 07:06 06/01/22 07:06 Labs: Abnormal Lab Results - Last 24 Hours (Table) 05/31/22 05/31/22 06/01/22 Range/Units 08:03 08:03 07:06 Plt Count 140 L (150-450) k/uL Sodium 135 L (137-145) mmol/L BUN 27 H 27 H (9-20) mg/dL Alkaline Phosphatase 155 H 145 H (38-126) U/L Total Protein 5.4 L 5.2 L (6.3-8.2) g/dL Albumin 2.6 L 2.5 L (3.5-5.0) g/dL
[2022-06-01] MEDS: MIRTAZAPINE 15 MG TAB PO SCH (21:28)
[2022-06-02] MEDS ORDERED: METOPROLOL SUCCINATE (ER) 25 MG TAB.ER.24H PO SCH (09:00)
[2022-06-02] MEDS: APIXABAN 2.5 MG TABLET PO SCH (10:30)
[2022-06-02] MEDS: AMIODARONE 200 MG TAB PO SCH (10:31)
--- NOTE | 2022-06-02 12:19 | P.PN ---
Subjective This is an 87-year-old male with no known past medical history. 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 We are consulted for Atrial fibrillation with RVR and Cardiomyopathy. Patient was admitted to the hospital secondary to UTI and fall. Patient was found to be in A. fib with RVR. He was initially started on IV Cardizem. Echocardiogram completed revealing ejection fraction 20%, global hypokinesis, and mild tricuspid regurgitation. Unknown if patient has a history of cardiomyopathy. Troponin was negative. 06/02 Patient seen and examined, at bedside, no acute distress. Denies any chest pain or palpitations. Denies any shortness breath. Vital signs are stable. He converted to sinus rhythm yesterday and is maintaining sinus. Labs: Hemoglobin 13.3, sodium 135, potassium 4.5, BUN 27, serum creatinine 1.1. Blood pressures are marginally low 100/65 He is anticoagulated with Eliquis 2.5mg BID, Amiodarone 400mg BID (Started 05/28), lisinopril 2.5 mg daily, metoprolol succinate 12.5 mg daily PHYSICAL EXAM: VITAL SIGNS: Reviewed. GENERAL: Well-developed in no acute distress. NECK: Supple. No JVD or thyromegaly LUNGS: Respirations even and unlabored. Lungs essentially clear to auscultation bilaterally. HEART: Regular rate and rhythm. S1 and S2 heard. EXTREMITIES: Normal range of motion. No clubbing or cyanosis. Peripheral pulses intact. No lower extremity edema ASSESSMENT: Status post fall Urinary tract infection Persistent atrial fibrillation with RVR, appears to be new onset, currently sinus Cardiomyopathy, ejection fraction 20%, unknown if ischemic or nonischemic, also unclear if patient has a history of cardiomyopathy as there is no previous echocardiogram for comparison History of TIA Chronic systolic heart failure PLAN: Continue oral amiodarone 400mg BID (started on 05/28), patient is currently is in sinus rhythm Continue Eliquis 2.5 mg twice a day Optimize heart failure regimen as able. Somewhat borderline blood pressures and therefore started on low doses of lisinopril 2.5 mg daily Increase metoprolol succinate to 25mg daily Consider spironolactone as an outpatient, not starting currently secondary to h ypotension Do not recommend cardiac catheterization at this time, this can be completed as an outpatient Recommend follow up outpatient with Dr. Connors in 1-2 weeks. Nurse practitioner note has been reviewed by physician. Signing provider agrees with the documented findings, assessment, and plan of care. Objective - Vital Signs Vital signs: Vital Signs Temp 98.4 F 06/02/22 08:00 Pulse 60 06/02/22 08:00 Resp 17 06/02/22 08:00 BP 119/70 06/02/22 08:00 Pulse Ox 97 06/02/22 08:00 FiO2 Intake & Output 06/01/22 06/02/22 06/02/22 18:59 06:59 18:59 Intake Total 478 Output Total 200 Balance 278 Weight 58.967 kg Intake: Oral 478 Output: Urine 200 Other: Voiding Method Urinal Urinal Diaper Diaper # Voids 2 2 - Labs CBC & Chem 7: 06/01/22 07:06 06/01/22 07:06
--- NOTE | 2022-06-02 13:30 | P.DS ---
Providers Date of admission: 05/27/22 17:36 Expected date of discharge: 06/02/22 Attending physician: Lyly Ribeiro MD Consults: 05/27/22 21:06 Consult Physician Routine Consulting Provider: [facility] Consult Reason/Comments: New-onset A. fib Do you want consulting provider notified?: Yes 05/28/22 12:51 Consult Physician Routine Consulting Provider: Miguel Angel Fuller Consult Reason/Comments: increased depression since loss of Do you want consulting provider notified?: Yes Primary care physician: Stated None Hospital Course: Discharge Diagnosis: Atrial fibrillation with RVR, new onset. Pt on amiodarone and Eliquis and maintaining NSR at this time. 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 Patient was started on metoprolol and losartan to optimize treatment for his heart failure. Cardiology recommending patient follow-up for outpatient catheterization. Acute kidney injury believed to be secondary to dehydration resulting from decreased oral intake. Resolved with IV fluid hydration. Klebsiella oxytoca Acute UTI. Patient received IV antibiotics Rocephin 5 days and being discharged home on Ceftin 500 mg twice a day for an additional 5 days to total and days of antibiotic treatment for infection. Failure to thrive Severe protein calorie malnutrition Generalized weakness resulting in frequent falls Depression. Psychiatry consulted and started patient on Remeron 15 mg nightly to assist with depression and increasing appetite Hospital Course: Patient is a very pleasant 87-year-old male with a past medical history of CVA, hearing loss/deafness, and renal calculi. He presented to the emergency department on 05/27/22 with a chief complaint of generalized weakness and decreased appetite. Patient lost his earlier this year and has since been living alone and finding himself with increased depression and weakness. Patient relies on [employer] for delivery of his meals and reports difficulties with obtaining additional nutrition as he has been running out of money and having a difficult time keeping up with bills and cost of living. Upon arrival to the emergency department, patient underwent full evaluation. He was found to be in new onset atrial fibrillation with RVR with a left bundle branch (atrial fibrillation is new onset, left bundle branch was present on previous EKG completed 07/18/2020). CBC was unremarkable and CMP revealed mild hyponatremia with sodium of 132, hypoalbuminemia with albumin of 2.6, and an acute kidney injury with BUN 55, creatinine 1.49, and GFR of 42 with baseline creatinine of 0.8. Urinalysis positive for infection. Patient was started on anticoagulation with heparin infusion, Cardizem infusion, IV fluid hydration, and IV antibiotic Rocephin. He was admitted under our services with consultation to cardiology and case management. Patient transitioned from IV heparin infusion to oral anticoagulation with Eliquis and oral antiarrhythmic amiodarone. Urine culture positive for Klebsiella oxytoca and patient received IV antibiotics Rocephin 5 days and being discharged home on Ceftin 500 mg twice a day for an additional 5 days to total and days of antibiotic treatment for infection. Patient was started on metoprolol and losartan to optimize treatment for his heart failure. Patient is medically stable for discharge to retirement facility at this time. Patient to follow-up outpatient with train caller to schedule outpatient cardiac catheterization. Physical exam: Vital signs reviewed and stable. Patient very thin and frail. General: Nontoxic, no distress and appears stated age. Derm: Skin warm and dry, normal coloration for ethnicity. Head: Atraumatic, normocephalic and symmetric. Eyes: EOMs intact, no lid lag, and anicteric sclera Mouth: no lip lesions, mucus membranes moist Cardiovascular: Regular rate and regular rhythm. systolic murmur, positive posterior tibial pulses bilaterally, and cap refill < 2 seconds. Lungs: Respirations even, regular, and unlabored on room air. Lungs CTA bilaterally, no rhonchi, no rales, no wheezing, and no accessory muscle usage. Abdominal: soft, nontender to palpation, no guarding, no appreciable org anomegaly Ext: ROM intact. No gross muscle atrophy, no edema, no contractures Neuro: Speech clear, face symmetrical and CN II-XII grossly intact with no noted focal neuro deficits Psych: Alert and oriented to person, place, time, and situation. Appropriate and pleasant affect. A total of 38 minutes of time were spent preparing this complex discharge summary. Pt was discharged on 06/02/22 and 9:19 AM. Patient Condition at Discharge: Stable Plan - Discharge Summary New Discharge Prescriptions: New Docusate [Colace] 100 mg PO BID PRN cap PRN Reason: Constipation Amiodarone [Cordarone] 400 mg PO BID tab Melatonin 3 mg PO HS PRN tab PRN Reason: Insomnia Calcium Carbonate [Tums] 1,000 mg PO Q4HR PRN tab PRN Reason: Dyspepsia lisinopriL [Zestril] 2.5 mg PO DAILY tab Apixaban [Eliquis] 2.5 mg PO BID #60 tab Apixaban [Eliquis] 2.5 mg PO BID tab Mirtazapine [Remeron] 15 mg PO HS tab Metoprolol Succinate (ER) [Toprol XL] 25 mg PO DAILY tab Acetaminophen Tab [Tylenol] 650 mg PO Q6HR PRN tab PRN Reason: Mild Pain Or Fever > 100.5 cefUROXime axetiL [Ceftin] 500 mg PO BID 5 Days #10 tab Discharge Medication List Apixaban [Eliquis] 2.5 mg PO BID #60 tab 05/29/22 [Rx] Acetaminophen Tab [Tylenol] 650 mg PO Q6HR PRN tab 06/02/22 [Rx] Amiodarone [Cordarone] 400 mg PO BID tab 06/02/22 [Rx] Apixaban [Eliquis] 2.5 mg PO BID tab 06/02/22 [Rx] Calcium Carbonate [Tums] 1,000 mg PO Q4HR PRN tab 06/02/22 [Rx] Docusate [Colace] 100 mg PO BID PRN cap 06/02/22 [Rx] Melatonin 3 mg PO HS PRN tab 06/02/22 [Rx] Metoprolol Succinate (ER) [Toprol XL] 25 mg PO DAILY tab 06/02/22 [Rx] Mirtazapine [Remeron] 15 mg PO HS tab 06/02/22 [Rx] cefUROXime axetiL [Ceftin] 500 mg PO BID 5 Days #10 tab 06/02/22 [Rx] lisinopriL [Zestril] 2.5 mg PO DAILY tab 06/02/22 [Rx] Follow up Appointment(s)/Referral(s): Heath Fiore MD [STAFF PHYSICIAN] - 1 Week None,Stated [Primary Care Provider] - 1-2 days Shreyas Connors MD [STAFF PHYSICIAN] - 1 Week Activity/Diet/Wound Care/Special Instructions: Amiodarone Taper Instructions: Take Amiodarone 400mg Twice a day from 05/28-9/14 Then Take amiodarone 200mg Twice a day on 06/04-06/10 Then Take amiodarone 200mg daily on 06/11. Activity: As tolerated. Take breaks as needed. Diet: Encourage oral intake with protein supplements such as ensure 3 times daily between meals. Heart healthy and carb consistent diet. Avoid salts, or foods with hidden salts such as canned or boxed foods and frozen dinners. Special Instructions: Take all of your medications as directed and remember to keep all of your doctor's appointments and follow-up as needed. Thank you for allowing us to participate in your care, it was truly a pleasure having you for our patient!!! Discharge Disposition: TRANSFER TO SNF/ECF
[2022-06-02 14:43] VITALS: BP 107/59; PULSE 70; RESP 18; TEMP 98.8
== END 2022-06-02 15:41 | DRG 308 ==
LOC: EC 12:33 → 5NMEDONC 17:36 → 3SCARD 21:08
PROVIDERS: ADMIT Internal Medicine; ATTEND Internal Medicine
DX: I48.19 Other persistent atrial fibrillation (principal); E43 Unspecified severe protein-calorie malnutrition; N17.9 Acute kidney failure, unspecified; N39.0 Urinary tract infection, site not specified; Z68.1 Body mass index [BMI] 19.9 or less, adult; E87.1 Hypo-osmolality and hyponatremia; I50.22 Chronic systolic (congestive) heart failure; I42.9 Cardiomyopathy, unspecified; R62.7 Adult failure to thrive; I44.7 Left bundle-branch block, unspecified; Z66 Do not resuscitate; E86.0 Dehydration; B96.1 Klebsiella pneumoniae [K. pneumoniae] as the cause of diseases classified elsewhere; H91.90 Unspecified hearing loss, unspecified ear; F32.A Depression, unspecified; Z60.2 Problems related to living alone; R29.6 Repeated falls; W01.198A Fall on same level from slipping, tripping and stumbling with subsequent striking against other object, initial encounter; Y92.009 Unspecified place in unspecified non-institutional (private) residence as the place of occurrence of the external cause; Z86.73 Personal history of transient ischemic attack (TIA), and cerebral infarction without residual deficits; Z79.899 Other long term (current) drug therapy
CPT/HCPCS: 36415; 70450; 71046; 72125; 80053; 80061; 81001; 83605; 83735; 84484; 85025; 85027; 85610; 85730; 87077; 87086; 87186; 93005; 93306; 96361; 96365; 96366; 96368; 96372; 99291

== ENCOUNTER 2022-06-25 09:02 | Inpatient (IN) | payer MEDICARE ==
[2022-06-25 09:45] LABS: ALT 35 U/L (4-49); AST 38 U/L (17-59); African American GFR (CKD) 20 (>60 ml/min/1.73 sqM); Albumin 3.1 g/dL (3.5-5.0); Alkaline Phosphatase 94 U/L (38-126); Anion Gap 13 mmol/L; Blood Urea Nitrogen 85 mg/dL (9-20); Calcium 9.2 mg/dL (8.4-10.2); Carbon Dioxide 19 mmol/L (22-30); Chloride 102 mmol/L (98-107); Glucose 143 mg/dL (74-99); Non-African American GFR(CKD) 17 (>60 ml/min/1.73 sqM); Potassium 4.7 mmol/L (3.5-5.1); Sodium 134 mmol/L (137-145); Total Bilirubin 1.2 mg/dL (0.2-1.3); Total Protein 6.1 g/dL (6.3-8.2)
[2022-06-25 09:46] LABS: Partial Thromboplastin Time 27.8 sec (22.0-30.0); Prothrombin Time 11.1 sec (9.0-12.0)
--- NOTE | 2022-06-25 09:50 | CT ---
EXAMINATION TYPE: CT brain wo con DATE OF EXAM: 06/25/2022 HISTORY: AMS CT DLP: 1173.4 mGycm. Automated Exposure Control for Dose Reduction was Utilized. TECHNIQUE: CT scan of the head is performed without contrast. COMPARISON: Prior CT brain May 27, 2022. FINDINGS: There is no acute intracranial hemorrhage or midline shift identified. There is mild to m oderate diffuse ventricular and sulcal prominence consistent with diffuse age-related cerebral atroph y. There is [id number] low-attenuation in the periventricular white matter consistent with chr onic small vessel ischemic change. Persistent prominent low-attenuation consistent with subacute or c hronic infarct in the inferior right occipital lobe similar to prior. Old infarct medial brain near t he third ventricle near junction of the inferior frontal and temporal lobes on axial image 31 is rede monstrated. The globes are intact and the visualized sinuses are clear. Prominent soft tissue densi ty thought to reflect cerumen in the bilateral external auditory canal canals is redemonstrated, darlene elate clinically with direct physical exam advised. IMPRESSION: No acute intracranial hemorrhage or midline shift. There is mqbi-[id number] diffuse ag e-related cerebral atrophy and chronic small vessel ischemic change along with areas of suspected old infarct all redemonstrated. No significant change from prior.
[2022-06-25] MEDS ORDERED: SODIUM CHLORIDE 0.9% 1,000 ML IV ONE ×2 (09:57→09:58)
[2022-06-25 10:11] LABS: Basophils % (A) 0 %; Eosinophils % (A) 0 %; HGB 12.6 gm/dL (13.0-17.5); Lymphocytes # (A) 1.2 k/uL (1.0-4.8); Lymphocytes % (A) 8 %; MCHC 32.3 g/dL (31.0-37.0); Mean Platelet Volume 8.9; Monocytes # (A) 0.7 k/uL (0-1.0); Monocytes % (A) 5 %; Neutrophils # (A) 12.4 k/uL (1.3-7.7); Neutrophils % (A) 85 %; RDW 13.6 % (11.5-15.5); WBC 14.6 k/uL (3.8-10.6)
--- NOTE | 2022-06-25 10:19 | ED ---
Altered Mental Status HPI - General Chief Complaint: Altered Mental Status Stated Complaint: AMS Time Seen by Provider: 06/25/22 09:10 Source: EMS Mode of arrival: EMS - History of Present Illness Initial Comments: 87-year-old male with history of A. fib on anticoagulation, renal stones presents to the emergency department with altered mental status. He does come from [facility]. Staff states that the patient was having altered mental status. He seemed less responsive at breakfast. Last known well is difficult to time. Patient has no complaints. EMS found the patient's blood pressure was mildly low. He states he's eating drinking, pooping and peeing normally. No chest pain or shortness of breath. No recorded fevers. HPI is limited because the patient is a poor historian - Related Data Home Medications Medication Instructions Recorded Confirmed Acetaminophen Tab [Tylenol] 650 mg PO QID PRN 06/25/22 06/25/22 Amiodarone [Cordarone] 200 mg PO DAILY@0800 06/25/22 06/25/22 Apixaban [Eliquis] 2.5 mg PO BID@0800,199906/25/22 06/25/22 Calcium Carbonate [Tums] 1,000 mg PO Q6H PRN 06/25/22 06/25/22 Melatonin 3 mg PO HS 06/25/22 06/25/22 Metoprolol Succinate (ER) [Toprol 25 mg PO DAILY@0800 06/25/22 06/25/22 XL] Mirtazapine [Remeron] 15 mg PO HS@199906/25/22 06/25/22 lisinopriL [Zestril] 2.5 mg PO DAILY@0800 06/25/22 06/25/22 Previous Rx's Medication Instructions Recorded Docusate [Colace] 100 mg PO BID PRN cap 06/02/22 Allergies Allergy/AdvReac Type Severity Reaction Status Date / Time No Known Allergies Allergy Verified 06/25/22 12:08 Review of Systems ROS Statement: Those systems with pertinent positive or pertinent negative responses have been documented in the HPI. ROS Other: All systems not noted in ROS Statement are negative. Past Medical History Past Medical History: Atrial Fibrillation, CVA/TIA, Hearing Disorder / Deafness, Prostate Disorder Additional Past Medical History / Comment(s): RIGHT RENAL CALCULI, STATES HX "MINI STROKES", History of Any Multi-Drug Resistant Organisms: None Reported Past Surgical History: Hernia Repair Additional Past Surgical History / Comment(s): RIGHT LITHOTRIPSY x 3, RAMANDEEP INGUINAL HERNIA REPAIR, Past Anesthesia/Blood Transfusion Reactions: No Reported Reaction Past Psychological History: No Psychological Hx Reported Smoking Status: Never smoker Past Alcohol Use History: None Reported Past Drug Use History: None Reported - Past Family History Father Family Medical History: Cancer General Exam Limitations: altered mental status General appearance: alert, in no apparent distress Head exam: Present: atraumatic, normocephalic, normal inspection Eye exam: Present: normal appearance, PERRL, EOMI. Absent: scleral icterus, conjunctival injection, periorbital swelling ENT exam: Present: normal exam, mucous membranes dry Neck exam: Present: normal inspection. Absent: tenderness, meningismus, lymphadenopathy Respiratory exam: Present: normal lung sounds bilaterally. Absent: respiratory distress, wheezes, rales, rhonchi, stridor Cardiovascular Exam: Present: tachycardia, irregular rhythm, normal heart sounds. Absent: systolic murmur, diastolic murmur, rubs, gallop, clicks GI/Abdominal exam: Present: soft, normal bowel sounds. Absent: distended, tenderness, guarding, rebound, rigid Extremities exam: Present: normal inspection, full ROM, normal capillary refill. Absent: tenderness, pedal edema, joint swelling, calf tenderness Back exam: Present: normal inspection Neurological exam: Present: alert, CN II-XII intact Psychiatric exam: Present: flat affect Skin exam: Present: warm, dry, intact, normal color. Absent: rash Course Vital Signs 06/25/22 06/25/22 06/25/22 09:06 09:42 10:25 Temperature 98.5 F Pulse Rate 115 H 130 H Respiratory 18 18 Rate Blood Pressure 103/76 61/47 102/60 O2 Sat by Pulse 96 96 Oximetry 06/25/22 06/25/22 06/25/22 10:37 11:46 12:00 Temperature Pulse Rate 83 74 78 Respiratory 24 18 11 L Rate Blood Pressure 82/59 99/58 99/58 O2 Sat by Pulse 94 L 96 95 Oximetry 06/25/22 13:34 Temperature Pulse Rate 82 Respiratory 18 Rate Blood Pressure 106/61 O2 Sat by Pulse 96 Oximetry Medical Decision Making - Medical Decision Making Upon arrival the patient is placed into room 16. There are history of physical exam was performed. IV access is established laboratories his her conducted. White count is 14.6. Creatinine 3. Li is placed which demonstrates many white blood cell clumps and moderate bacteria. CT of the brain demonstrates no acute intracranial hemorrhage or midline shift. Chest x-ray demonstrates no acute process. Patient started on Rocephin once the etiology of his sepsis was identified at 1145. Patient did receive a 2 L bolus and is started on 130 mL per hour does have improvement in his hypotension. Spoke with Dr. Miller who will admit the patient. - Lab Data Result diagrams: 06/27/22 08:49 06/27/22 08:49 Lab Results 06/25/22 06/25/22 06/25/22 Range/Units 09:21 09:21 09:21 WBC (3.8-10.6) k/uL RBC (4.30-5.90) m/uL Hgb (13.0-17.5) gm/dL Hct (39.0-53.0) % MCV (80.0-100.0) fL MCH (25.0-35.0) pg MCHC (31.0-37.0) g/dL RDW (11.5-15.5) % Plt Count (150-450) k/uL MPV Neutrophils % % Lymphocytes % % Monocytes % % Eosinophils % % Basophils % % Neutrophils # (1.3-7.7) k/uL Lymphocytes # (1.0-4.8) k/uL Monocytes # (0-1.0) k/uL Eosinophils # (0-0.7) k/uL Basophils # (0-0.2) k/uL Manual Slide Review PT 11.1 (9.0-12.0) sec INR 1.0 (<1.2) APTT 27.8 (22.0-30.0) sec Sodium 134 L (137-145) mmol/L Potassium 4.7 (3.5-5.1) mmol/L Chloride 102 (98-107) mmol/L Carbon Dioxide 19 L (22-30) mmol/L Anion Gap 13 mmol/L BUN 85 H (9-20) mg/dL Creatinine 3.09 H (0.66-1.25) mg/dL Est GFR (CKD-EPI)AfAm 20 (>60 ml/min/1.73 sqM) Est GFR (CKD-EPI)NonAf 17 (>60 ml/min/1.73 sqM) Glucose 143 H (74-99) mg/dL Calcium 9.2 (8.4-10.2) mg/dL Total Bilirubin 1.2 (0.2-1.3) mg/dL AST 38 (17-59) U/L ALT 35 (4-49) U/L Alkaline Phosphatase 94 (38-126) U/L Troponin I (0.000-0.034) ng/mL Total Protein 6.1 L (6.3-8.2) g/dL Albumin 3.1 L (3.5-5.0) g/dL TSH 1.170 (0.465-4.680) mIU/L Urine Color Red Urine Appearance Turbid (Clear) Urine pH 5.5 (5.0-8.0) Ur Specific [place] 1.019 (1.001-1.035) Urine Protein 2+ H (Negative) Urine Glucose (UA) Negative (Negative) Urine Ketones Negative (Negative) Urine Blood Large H (Negative) Urine Nitrite Negative (Negative) Urine Bilirubin Negative (Negative) Urine Urobilinogen <2.0 (<2.0) mg/dL Ur Leukocyte Esterase Large H (Negative) Urine RBC >182 H (0-5) /hpf Urine WBC >182 H (0-5) /hpf Urine WBC Clumps Many H (None) /hpf Amorphous Sediment Rare H (None) /hpf Urine Bacteria Moderate H (None) /hpf 06/25/22 06/25/22 Range/Units 09:21 10:05 WBC 14.6 H (3.8-10.6) k/uL RBC 4.20 L (4.30-5.90) m/uL Hgb 12.6 L (13.0-17.5) gm/dL Hct 39.0 (39.0-53.0) % MCV 93.0 (80.0-100.0) fL MCH 30.0 (25.0-35.0) pg MCHC 32.3 (31.0-37.0) g/dL RDW 13.6 (11.5-15.5) % Plt Count 58 L D (150-450) k/uL MPV 8.9 Neutrophils % 85 % Lymphocytes % 8 % Monocytes % 5 % Eosinophils % 0 % Basophils % 0 % Neutrophils # 12.4 H (1.3-7.7) k/uL Lymphocytes # 1.2 (1.0-4.8) k/uL Monocytes # 0.7 (0-1.0) k/uL Eosinophils # 0.0 (0-0.7) k/uL Basophils # 0.0 (0-0.2) k/uL Manual Slide Review Performed PT (9.0-12.0) sec INR (<1.2) APTT (22.0-30.0) sec Sodium (137-145) mmol/L Potassium (3.5-5.1) mmol/L Chloride (98-107) mmol/L Carbon Dioxide (22-30) mmol/L Anion Gap mmol/L BUN (9-20) mg/dL Creatinine (0.66-1.25) mg/dL Est GFR (CKD-EPI)AfAm (>60 ml/min/1.73 sqM) Est GFR (CKD-EPI)NonAf (>60 ml/min/1.73 sqM) Glucose (74-99) mg/dL Calcium (8.4-10.2) mg/dL Total Bilirubin (0.2-1.3) mg/dL AST (17-59) U/L ALT (4-49) U/L Alkaline Phosphatase (38-126) U/L Troponin I 0.027 (0.000-0.034) ng/mL Total Protein (6.3-8.2) g/dL Albumin (3.5-5.0) g/dL TSH (0.465-4.680) mIU/L Urine Color Urine Appearance (Clear) Urine pH (5.0-8.0) Ur Specific [place] (1.001-1.035) Urine Protein (Negative) Urine Glucose (UA) (Negative) Urine Ketones (Negative) Urine Blood (Negative) Urine Nitrite (Negative) Urine Bilirubin (Negative) Urine Urobilinogen (<2.0) mg/dL Ur Leukocyte Esterase (Negative) Urine RBC (0-5) /hpf Urine WBC (0-5) /hpf Urine WBC Clumps (None) /hpf Amorphous Sediment (None) /hpf Urine Bacteria (None) /hpf - EKG Data EKG Comments: EKG demonstrates A. fib with a rate of 1:15. QRS 158. QTC of 435. Left bundle branch block. Negative for sgarbossa criteria Disposition Clinical Impression: A-fib, Hypotension, UTI (urinary tract infection), ANAIS (acute kidney injury), Sepsis Disposition: ADMITTED IP TO THIS HOSP Condition: Serious Is patient prescribed a controlled substance at d/c from ED?: No Time of Disposition: 12:30 Decision to Admit Reason: Admit from EC Decision Date: 06/25/22 Decision Time: 12:31
--- NOTE | 2022-06-25 10:36 | XR ---
EXAMINATION TYPE: XR chest 2V DATE OF EXAM: 06/25/2022 COMPARISON: 05/27/2022 TECHNIQUE: PA and lateral views submitted. HISTORY: Altered mental status FINDINGS: The lungs are clear and there is no pneumothorax, pleural effusion, or focal pneumonia. Mild hyperi nflation. Arthropathy of the shoulders. No overt failure. Atherosclerotic change aorta. Degenerative changes spine. IMPRESSION: 1. No acute process. Correlate for COPD.
[2022-06-25 10:38] LABS: Platelet Count 58 k/uL (150-450)
[2022-06-25 11:43] LABS: Amorphous Sediment,Urine Rare /hpf; Appearance,Urine Turbid (Clear); Bacteria,Urine Moderate /hpf; Bilirubin,Urine Negative (Negative); Blood,Urine Large (Negative); Color,Urine Red; Glucose,Urine (UA) Negative (Negative); Ketones,Urine Negative (Negative); Leukocyte Esterase,Urine Large (Negative); Nitrite,Urine Negative (Negative); PH, Urine 5.5 (5.0-8.0); Protein,Urine 2+ (Negative); RBC,Urine >182 /hpf (0-5); Specific Gravity,Urine 1.019 (1.001-1.035); Urobilinogen,Urine <2.0 mg/dL (<2.0); WBC,Urine >182 /hpf (0-5)
[2022-06-25] MEDS ORDERED: cefTRIAXone IN SWFI 1,000 MG/10 ML SYRINGE IVP STA (12:02)
[2022-06-25] MEDS ORDERED: NALOXONE 0.4 MG/ML 1 ML VIAL IV PRN (12:32)
[2022-06-25] MEDS ORDERED: ACETAMINOPHEN TAB 325 MG TAB PO PRN (12:32)
[2022-06-25] MEDS: SODIUM CHLORIDE 0.9% 1,000 ML IV SCH ×2 (12:44→19:52)
[2022-06-25] MEDS ORDERED: SODIUM CHLORIDE 0.9% 500 ML 500 ML IV ONE (14:18)
[2022-06-25] MEDS ORDERED: LORazepam 0.5 MG TAB PO PRN (16:23)
[2022-06-25] MEDS ORDERED: ONDANSETRON 4 MG/2 ML VIAL IVP PRN (16:23)
[2022-06-25] MEDS ORDERED: LACTULOSE 20 GM/30 ML CUP PO PRN (16:23)
[2022-06-25] MEDS ORDERED: CALCIUM CARBONATE 500 MG CHEWABLE PO PRN (16:23)
--- NOTE | 2022-06-25 16:53 | P.HPIM ---
History of Present Illness H&P Date: 06/25/22 Chief Complaint: Irregular heartbeat This is a pleasant 87-year-old patient who follows with visiting physicians. Chronic stable medical conditions include hard of hearing, right kidney stone, prostate disorder, chronic gait dysfunction. Patient was previously living alone now for about a week has moved into [facility] assisted [facility]. Does able to walk a few feet with physical therapy. Per ER physician patient was less responsive at breakfast. Patient has been feeling tired. Decreased appetite. Has been losing weight. Denies any cough or shortness of breath. Has a bowel movement daily. Just feels tired and rundown. Atrial fibrillation was uncontrolled in the ER. Pain to be dehydrated. Given IV fluids. Review of systems: GEN.: Decreased appetite, weight loss EYES: None HEENT: Hard of hearing NECK: None RESPIRATORY: None CARDIOVASCULAR: None GASTROINTESTINAL: None GENITOURINARY: None MUSCULOSKELETAL: Joint pains LYMPHATICS: None HEMATOLOGICAL: None PSYCHIATRY: A bit forgetful NEUROLOGICAL: None Past medical history to include: Atrial fibrillation, hard of hearing, prostate disorder, right renal calculi, mini strokes Social history: Assisted-living, [facility]. No smoking or alcohol Physical examination: VITAL SIGNS: 98.5, 1:30, 18, 61/47, 96% room air GENERAL: BMI 19.6, laying in bed, tired. EYES: Pupils equal. Conjunctiva normal. HEENT: External appearance of nose and ears normal, oral cavity dry mucous membranes. NECK: JVD not raised; masses not palpable. HEART: Heart sounds irregular no edema. LUNGS: Respiratory rate normal; clear to auscultation. ABDOMEN: Soft, nontender, liver spleen not palpable, no masses palpable. PSYCH: Alert and oriented x3; mood and affect tiredl. MUSCULOSKELETAL:No Clubbing/cyanosis;muscles-grossly intact, bony prominence, awake, loss muscle muscle mass NEUROLOGICAL: Cranial nerves grossly intact; no facial asymmetry, power and sensation grossly intact. LYMPHATICS: No lymph nodes palpable in the axilla and neck INVESTIGATIONS, reviewed in the clinical context: White count 14.6 hemoglobin 12.6 platelets 58 sodium 134 potassium 4.7 BUN 85 creatinine 3.09 albumin 3.1 TSH 1.1 UA positive for blood, leukoesterase, RBC, WBC EKG tracing personally reviewed by nj-atrial fibrillation rate 120 Chest x-ray film personally reviewed by [email or web address] Assessment and plan: -Persistent atrial fibrillation, uncontrolled Telemetry. Consult cardiology. Eliquis. -Patient has worsening weight loss, decrease appetite. Need to rule out underlying malignancy. We will do computed tomography scan when renal function better -Hypotensive with contribution from uncontrolled atrial fibrillation and dehydration Fluid bolus. Stop Zestril -Moderate protein calorie malnutrition Ensure. Consult dietitian -Acute on chronic medical debility Fall precaution. PTOT. -Acute UTI with cystitis causing sepsis IV ceftriaxone -Chronic insomnia Remeron -Acute on possible CK D. Hold Zestril. IV fluids. Renal ultrasound. Consult nephrology. -4 called Hold Zestril. IV fluids. Renal ultrasound. 2-D echo. Resume her medications. IV ceftriaxone. Consult nephrology and cardiology. Care was discussed with the patient and his brother and his at the bedside. Past Medical History Past Medical History: Atrial Fibrillation, CVA/TIA, Hearing Disorder / Deafness, Prostate Disorder Additional Past Medical History / Comment(s): RIGHT RENAL CALCULI, STATES HX "MINI STROKES", History of Any Multi-Drug Resistant Organisms: None Reported Past Surgical History: Hernia Repair Additional Past Surgical History / Comment(s): RIGHT LITHOTRIPSY x 3, RAMANDEEP INGUINAL HERNIA REPAIR, Past Anesthesia/Blood Transfusion Reactions: No Reported Reaction Past Psychological History: No Psychological Hx Reported Smoking Status: Never smoker Past Alcohol Use History: None Reported Past Drug Use History: None Reported - Past Family History Father Family Medical History: Cancer Medications and Allergies Home Medications Medication Instructions Recorded Confirmed Type Docusate [Colace] 100 mg PO BID PRN cap 06/02/22 06/25/22 Rx Acetaminophen Tab [Tylenol] 650 mg PO QID PRN 06/25/22 06/25/22 History Amiodarone [Cordarone] 200 mg PO DAILY@0800 06/25/22 06/25/22 History Apixaban [Eliquis] 2.5 mg PO BID@06/25/22 06/25/22 History Calcium Carbonate [Tums] 1,000 mg PO Q6H PRN 06/25/22 06/25/22 History Melatonin 3 mg PO HS 06/25/22 06/25/22 History Metoprolol Succinate (ER) [Toprol 25 mg PO DAILY@0800 06/25/22 06/25/22 History XL] Mirtazapine [Remeron] 15 mg PO HS@199906/25/22 06/25/22 History lisinopriL [Zestril] 2.5 mg PO DAILY@0800 06/25/22 06/25/22 History Allergies Allergy/AdvReac Type Severity Reaction Status Date / Time No Known Allergies Allergy Verified 06/25/22 12:08 Physical Exam Vitals: Vital Signs Temp Pulse Pulse Resp BP BP Pulse Ox 06/25/22 14:44 97.4 F L 70 17 112/68 100 06/25/22 13:34 82 18 106/61 96 06/25/22 12:00 78 11 L 99/58 95 06/25/22 11:46 74 18 99/58 96 06/25/22 10:37 83 24 82/59 94 L 06/25/22 10:25 102/60 06/25/22 09:42 130 H 18 61/47 96 06/25/22 09:06 98.5 F 115 H 18 103/76 96 Intake and Output 06/25/22 06/25/22 06/25/22 06:59 14:59 22:59 Other: Voiding Method Indwelling Catheter Weight 60.328 kg Results CBC & Chem 7: 06/25/22 10:05 06/25/22 09:21 Labs: Abnormal Lab Results - Last 24 Hours (Table) 06/25/22 06/25/22 06/25/22 Range/Units 09:21 09:21 10:05 WBC 14.6 H (3.8-10.6) k/uL RBC 4.20 L (4.30-5.90) m/uL Hgb 12.6 L (13.0-17.5) gm/dL Plt Count 58 L D (150-450) k/uL Neutrophils # 12.4 H (1.3-7.7) k/uL Sodium 134 L (137-145) mmol/L Carbon Dioxide 19 L (22-30) mmol/L BUN 85 H (9-20) mg/dL Creatinine 3.09 H (0.66-1.25) mg/dL Glucose 143 H (74-99) mg/dL Plasma Lactic Acid Moy (0.7-2.0) mmol/L Total Protein 6.1 L (6.3-8.2) g/dL Albumin 3.1 L (3.5-5.0) g/dL Urine Protein 2+ H (Negative) Urine Blood Large H (Negative) Ur Leukocyte Esterase Large H (Negative) Urine RBC >182 H (0-5) /hpf Urine WBC >182 H (0-5) /hpf Urine WBC Clumps Many H (None) /hpf Amorphous Sediment Rare H (None) /hpf Urine Bacteria Moderate H (None) /hpf 06/25/22 Range/Units 13:32 WBC (3.8-10.6) k/uL RBC (4.30-5.90) m/uL Hgb (13.0-17.5) gm/dL Plt Count (150-450) k/uL Neutrophils # (1.3-7.7) k/uL Sodium (137-145) mmol/L Carbon Dioxide (22-30) mmol/L BUN (9-20) mg/dL Creatinine (0.66-1.25) mg/dL Glucose (74-99) mg/dL Plasma Lactic Acid Moy 3.5 H* (0.7-2.0) mmol/L Total Protein (6.3-8.2) g/dL Albumin (3.5-5.0) g/dL Urine Protein (Negative) Urine Blood (Negative) Ur Leukocyte Esterase (Negative) Urine RBC (0-5) /hpf Urine WBC (0-5) /hpf Urine WBC Clumps (None) /hpf Amorphous Sediment (None) /hpf Urine Bacteria (None) /hpf Thrombosis Risk Factor Assmnt - Choose All That Apply Each Factor Represents 1 point: Medical pt on bed rest Each Risk Factor Represents 3 Points: Age 75 years or older Thrombosis Risk Factor Assessment Total Risk Factor Score: 4 Thrombosis Risk Factor Assessment Level: Moderate Risk
--- NOTE | 2022-06-25 18:24 | US ---
EXAMINATION TYPE: US kidneys/renal and bladder DATE OF EXAM: 06/25/2022 COMPARISON: 06/01/2014 CLINICAL HISTORY: Evaluate for CK D. evaluate for CKD EXAM MEASUREMENTS: Right Kidney: 9.0 x 5.5 x 4.6 cm Left Kidney: 10.0 x 4.7 x 6.0 cm Right Kidney: Hydronephrosis visualized. Cystic structure seen lateral of the inf pole measuring 3.4 x 2.9 x 3.2 cm Left Kidney: No hydronephrosis or masses seen Bladder: empty due to having a joel catheter Bilateral Jets seen: No There is no evidence for hydronephrosis at this point in time. No nephrolithiasis is seen. No wendy s are identified. The urinary bladder is anechoic. Bilateral ureteral jets are seen. IMPRESSION: There is moderate right-sided hydronephrosis. There is a 3 cm cortical cyst right kidney. No evidence of solid renal mass. Normal left kidney. Urinary bladder empty during the exam. Right-sided hydronephrosis appears new compared to old exam.
[2022-06-25] MEDS: MIRTAZAPINE 15 MG TAB PO SCH (19:46)
[2022-06-25] MEDS: APIXABAN 2.5 MG TABLET PO SCH (19:46)
[2022-06-26] MEDS: SODIUM CHLORIDE 0.9% 1,000 ML IV SCH ×3 (05:27→21:27)
[2022-06-26 08:47] LABS: Basophils % (A) 0 %; Eosinophils % (A) 0 %; HCT 37.2 % (39.0-53.0); HGB 11.9 gm/dL (13.0-17.5); Lymphocytes % (A) 13 %; MCH 30.4 pg (25.0-35.0); MCHC 31.8 g/dL (31.0-37.0); MCV 95.4 fL (80.0-100.0); Mean Platelet Volume 9.2; Monocytes # (A) 0.4 k/uL (0-1.0); Monocytes % (A) 5 %; Neutrophils # (A) 6.4 k/uL (1.3-7.7); Neutrophils % (A) 80 %; RDW 13.6 % (11.5-15.5)
[2022-06-26 08:52] LABS: Platelet Count 44 k/uL (150-450)
[2022-06-26] MEDS: METOPROLOL SUCCINATE (ER) 25 MG TAB.ER.24H PO SCH (09:12)
[2022-06-26] MEDS: AMIODARONE 200 MG TAB PO SCH (09:12)
[2022-06-26] MEDS: APIXABAN 2.5 MG TABLET PO SCH (09:12)
[2022-06-26 09:36] LABS: Albumin 2.3 g/dL (3.5-5.0); Potassium 4.2 mmol/L (3.5-5.1); Total Bilirubin 0.7 mg/dL (0.2-1.3); Total Protein 4.7 g/dL (6.3-8.2)
--- NOTE | 2022-06-26 11:06 | P.CRDCN ---
History of Present Illness History of present illness: HISTORY OF PRESENT ILLNESS: This is a 87-year-old male with a past medical history significant for atrial fibrillation, TIA, and prostate disorder. Patient does not follow with a engineering project designer. However, patient was recently hospitalized and evaluated by Dr. Connors for new onset atrial fibrillation. We have been asked to see the patient in consultation for afib. Patient presented to the hospital with pre-syncope and altered mental status. Patient examined this morning sitting in the chair. He denies chest pain or pressure. Denies SOB. Telemetry reveals atrial fibrillation with controlled ventricular rate. * EKG reveals atrial fibrillation with mild RVR. Heart rate 115. Left bundle branch block. * Chest xray negative for acute process * Laboratory data: WBC 8.0. Hemoglobin 11.9. Platelet count 44. Sodium 140. Potassium 4.2. BUN 51. Creatinine 1.85. * Current home cardiac medications include amiodarone 200 mg daily, Eliquis 2.5mg BID, metoprolol succinate 25 mg daily, and lisinopril 2.5 mg daily * Most recent echocardiogram obtained in May 2022 revealed ejection fraction less than 20% REVIEW OF SYSTEMS: At the time of my exam: CONSTITUTIONAL: Denies fever or chills. HEENT: Denies blurred vision, vision changes, or eye pain. Denies hemoptysis CARDIOVASCULAR: Denies chest pain. Denies orthopnea. Denies PND. Denies palpitations RESPIRATORY: Denies shortness of breath. GASTROINTESTINAL: Denies abdominal pain. Denies nausea or vomiting. HEMATOLOGIC: Denies bleeding disorders. GENITOURINARY: Denies any blood in urine. SKIN: Denies pruitis. Denies rash. PHYSICAL EXAM: VITAL SIGNS: Reviewed. GENERAL: Well-developed in no acute distress. HEENT: Head is normocephalic. Pupils are equal, round. Sclerae anicteric. Mucous membranes of the mouth are moist. Neck supple. No JVD or thyromegaly LUNGS: Respirations even and unlabored. Lungs diminished to auscultation bilaterally. HEART: irregular rate and rhythm. S1 and S2 heard. ABDOMEN: Soft. Nondistended. Nontender. EXTREMITIES: Normal range of motion. No clubbing or cyanosis. Peripheral pulses intact. No lower extremity edema NEUROLOGIC: Awake and alert. Oriented x 1-2. ASSESSMENT: Altered mental status Urinary tract infection Possible pre-syncope Persistent atrial fibrillation Thrombocytopenia, etiology unclear Severe cardiomyopathy, ejection fraction 20%, unclear if ischemic or nonischemic Acute kidney injury History of TIA History of prostate disorder PLAN: No need to repeat echocardiogram as this was performed last month Continue amiodarone and metoprolol succinate Lisinopril on hold secondary to hypotension and ANAIS Hold anticoagulation secondary to platelet count less than 50K. Defer further evaluation of thrombocytopenia to primary medicine. Continue telemetry monitoring Further recommendations pending patient's course Nurse practitioner note has been reviewed by physician. Signing provider agrees with the documented findings, assessment, and plan of care. Past Medical History Past Medical History: Atrial Fibrillation, CVA/TIA, Hearing Disorder / Deafness, Prostate Disorder Additional Past Medical History / Comment(s): RIGHT RENAL CALCULI, STATES HX "MINI STROKES", History of Any Multi-Drug Resistant Organisms: None Reported Past Surgical History: Hernia Repair Additional Past Surgical History / Comment(s): RIGHT LITHOTRIPSY x 3, RAMANDEEP INGUINAL HERNIA REPAIR, Past Anesthesia/Blood Transfusion Reactions: No Reported Reaction Past Psychological History: No Psychological Hx Reported Smoking Status: Never smoker Past Alcohol Use History: None Reported Past Drug Use History: None Reported - Past Family History Father Family Medical History: Cancer Medications and Allergies Home Medications Medication Instructions Recorded Confirmed Type Docusate [Colace] 100 mg PO BID PRN cap 06/02/22 06/25/22 Rx Acetaminophen Tab [Tylenol] 650 mg PO QID PRN 06/25/22 06/25/22 History Amiodarone [Cordarone] 200 mg PO DAILY@0800 06/25/22 06/25/22 History Apixaban [Eliquis] 2.5 mg PO BID@799,199906/25/22 06/25/22 History Calcium Carbonate [Tums] 1,000 mg PO Q6H PRN 06/25/22 06/25/22 History Melatonin 3 mg PO HS 06/25/22 06/25/22 History Metoprolol Succinate (ER) [Toprol 25 mg PO DAILY@0800 06/25/22 06/25/22 History XL] Mirtazapine [Remeron] 15 mg PO HS@199906/25/22 06/25/22 History lisinopriL [Zestril] 2.5 mg PO DAILY@0800 06/25/22 06/25/22 History Allergies Allergy/AdvReac Type Severity Reaction Status Date / Time No Known Allergies Allergy Verified 06/25/22 12:08 Physical Exam Vitals: Vital Signs Temp Pulse Pulse Resp BP BP Pulse Ox 06/26/22 09:07 97.4 F L 72 14 140/61 95 06/26/22 04:00 98.1 F 64 18 105/57 96 06/26/22 01:39 86 18 06/26/22 00:00 98.2 F 86 18 91/50 98 06/25/22 20:00 97.8 F 82 18 107/66 98 06/25/22 14:44 97.4 F L 70 17 112/68 100 06/25/22 13:34 82 18 106/61 96 06/25/22 12:00 78 11 L 99/58 95 06/25/22 11:46 74 18 99/58 96 06/25/22 10:37 83 24 82/59 94 L 06/25/22 10:25 102/60 Intake and Output 06/25/22 06/26/22 06/26/22 22:59 06:59 14:59 Intake Total 0 Output Total 800 750 Balance -800 -750 Intake: Oral 0 Output: Urine 800 750 Stool 0 Other: Voiding Method Indwelling Catheter Indwelling Catheter Results 06/26/22 08:20 06/26/22 08:20 Cardiac Enzymes 06/25/22 06/25/22 06/26/22 Range/Units 09:21 09:21 08:20 AST 38 34 (17-59) U/L Troponin I 0.027 (0.000-0.034) ng/mL Coagulation 06/25/22 Range/Units 09:21 PT 11.1 (9.0-12.0) sec APTT 27.8 (22.0-30.0) sec CBC 06/25/22 06/26/22 Range/Units 10:05 08:20 WBC 14.6 H 8.0 (3.8-10.6) k/uL RBC 4.20 L 3.90 L (4.30-5.90) m/uL Hgb 12.6 L 11.9 L (13.0-17.5) gm/dL Hct 39.0 37.2 L (39.0-53.0) % Plt Count 58 L D 44 L (150-450) k/uL Comprehensive Metabolic Panel 06/25/22 06/26/22 Range/Units 09:21 08:20 Sodium 134 L 140 (137-145) mmol/L Potassium 4.7 4.2 (3.5-5.1) mmol/L Chloride 102 113 H (98-107) mmol/L Carbon Dioxide 19 L 20 L (22-30) mmol/L BUN 85 H 51 H (9-20) mg/dL Creatinine 3.09 H 1.85 H (0.66-1.25) mg/dL Glucose 143 H 92 (74-99) mg/dL Calcium 9.2 8.0 L (8.4-10.2) mg/dL AST 38 34 (17-59) U/L ALT 35 32 (4-49) U/L Alkaline Phosphatase 94 77 (38-126) U/L Total Protein 6.1 L 4.7 L (6.3-8.2) g/dL Albumin 3.1 L 2.3 L (3.5-5.0) g/dL Current Medications Generic Name Dose Route Start Last Admin Trade Name Freq PRN Reason Stop Dose Admin Acetaminophen 650 mg 06/25/22 12:32 Acetaminophen Tab 325 Mg Tab PO Q6HR PRN Mild Pain or Fever > 100.5 Amiodarone HCl 200 mg 06/26/22 08:00 06/26/22 09:12 Amiodarone 200 Mg Tab PO 200 mg DAILY@0800 VAISHNAVI Administration Apixaban 2.5 mg 06/25/22 20:00 06/26/22 09:12 Apixaban 2.5 Mg Tablet PO 2.5 mg BID@0800,2000 VAISHNAVI Administration Protocol Calcium Carbonate/Glycine 1,000 mg 06/25/22 16:23 Calcium Carbonate 500 Mg Chewable PO Q4HR PRN Dyspepsia Sodium Chloride 1,000 mls @ 130 mls/hr 06/25/22 12:30 06/26/22 05:27 Saline 0.9% IV 130 mls/hr .[id number] VAISHNAVI Administration Ceftriaxone Sodium 1 gm/ 50 mls @ 100 mls/hr 06/25/22 21:00 06/26/22 09:13 Sodium Chloride IVPB 100 mls/hr Q12HR VAISHNAVI Administration Protocol Lactulose 20 gm 06/25/22 16:23 Lactulose 20 Gm/30 Ml Cup PO DAILY PRN Constipation Lorazepam 0.5 mg 06/25/22 16:23 Lorazepam 0.5 Mg Tab PO Q6HR PRN Anxiety Metoprolol Succinate 25 mg 06/26/22 08:00 06/26/22 09:12 Metoprolol Succinate (Er) 25 Mg Tab.Er.24h PO 25 mg DAILY@0800 REPLACED BY [facility] Administration Mirtazapine 15 mg 06/25/22 20:00 06/25/22 19:46 Mirtazapine 15 Mg Tab PO 15 mg HS@2000 VAISHNAVI Administration Naloxone HCl 0.2 mg 06/25/22 12:32 Naloxone 0.4 Mg/Ml 1 Ml Vial IV Q2M PRN Opioid Reversal Ondansetron HCl 4 mg 06/25/22 16:23 Ondansetron 4 Mg/2 Ml Vial IVP Q8HR PRN Nausea And Vomiting Intake and Output 06/25/22 06/26/22 06/26/22 22:59 06:59 14:59 Intake Total 0 Output Total 800 750 Balance -800 -750 Intake: Oral 0 Output: Urine 800 750 Stool 0 Other: Voiding Method Indwelling Catheter Indwelling Catheter 06/26/22 08:20 06/26/22 08:20
--- NOTE | 2022-06-26 11:14 | P.NPCON ---
History of Present Illness - Reason for Consult acute renal failure - History of Present Illness Patient is an 87-year-old male who has a history of nephrolithiasis, hearing loss, chronic gait dysfunction and resides at [facility] living. Patient was admitted to the hospital with history of altered mentation and decreased responsiveness. No history of nausea vomiting abdominal pain or diarrhea Patient was noted to be in A. fib with RVR Currently maintained on IV fluids UA shows evidence of UTI currently maintained on antibiotics Ultrasound shows moderate right hydronephrosis. No hydronephrosis on the left kidney. A Li catheter was placed post admission. Patient has had good urine output. Serum creatinine was 3.0 on initial admission and decreased to 1.8 today. Previous creatinine 1.1 on 06/01/[address] Baig as outpatient Review of Systems As per HPI, other systems negative Past Medical History Past Medical History: Atrial Fibrillation, CVA/TIA, Hearing Disorder / Deafness, Prostate Disorder Additional Past Medical History / Comment(s): RIGHT RENAL CALCULI, STATES HX "MINI STROKES", History of Any Multi-Drug Resistant Organisms: None Reported Past Surgical History: Hernia Repair Additional Past Surgical History / Comment(s): RIGHT LITHOTRIPSY x 3, RAMANDEEP INGUINAL HERNIA REPAIR, Past Anesthesia/Blood Transfusion Reactions: No Reported Reaction Past Psychological History: No Psychological Hx Reported Smoking Status: Never smoker Past Alcohol Use History: None Reported Past Drug Use History: None Reported - Past Family History Father Family Medical History: Cancer Medications and Allergies Home Medications Medication Instructions Recorded Confirmed Type Docusate [Colace] 100 mg PO BID PRN cap 06/02/22 06/25/22 Rx Acetaminophen Tab [Tylenol] 650 mg PO QID PRN 06/25/22 06/25/22 History Amiodarone [Cordarone] 200 mg PO DAILY@0800 06/25/22 06/25/22 History Apixaban [Eliquis] 2.5 mg PO BID@0800,199906/25/22 06/25/22 History Calcium Carbonate [Tums] 1,000 mg PO Q6H PRN 06/25/22 06/25/22 History Melatonin 3 mg PO HS 06/25/22 06/25/22 History Metoprolol Succinate (ER) [Toprol 25 mg PO DAILY@0800 06/25/22 06/25/22 History XL] Mirtazapine [Remeron] 15 mg PO HS@199906/25/22 06/25/22 History lisinopriL [Zestril] 2.5 mg PO DAILY@0800 06/25/22 06/25/22 History Allergies Allergy/AdvReac Type Severity Reaction Status Date / Time No Known Allergies Allergy Verified 06/25/22 12:08 Physical Exam Vitals: Vital Signs Temp Pulse Pulse Resp BP BP Pulse Ox 06/26/22 09:07 97.4 F L 72 14 140/61 95 06/26/22 04:00 98.1 F 64 18 105/57 96 06/26/22 01:39 86 18 06/26/22 00:00 98.2 F 86 18 91/50 98 06/25/22 20:00 97.8 F 82 18 107/66 98 06/25/22 14:44 97.4 F L 70 17 112/68 100 06/25/22 13:34 82 18 106/61 96 06/25/22 12:00 78 11 L 99/58 95 06/25/22 11:46 74 18 99/58 96 Intake and Output 06/25/22 06/26/22 06/26/22 22:59 06:59 14:59 Intake Total 0 Output Total 800 750 Balance -800 -750 Intake: Oral 0 Output: Urine 800 750 Stool 0 Other: Voiding Method Indwelling Catheter Indwelling Catheter Patient is awake, comfortable, hard of hearing Examination of the heart S1 and S2 Examination of the lungs bilateral breath sounds are heard Abdomen is soft nontender Examination lower extremity shows no significant edema 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 Acute kidney injury prerenal as well as obstructive uropathy with right hydronephrosis noted on ultrasound. No hydronephrosis detected on the left kidney. Blood pressure was low on admission. Currently maintained on IV fluids. Currently with indwelling Li catheter with significant improvement in renal function. 2. Right moderate hydronephrosis, urology has been consulted. Patient has history of nephrolithiasis. No stones noted on current ultrasound, patient will likely need CT of the abdomen. Urology has been consulted 3. Lactic acidosis on initial admission associated with hypotension and hypoperfusion 4. Complicated UTI maintained on antibiotics. Urine culture is pending Plan: Continue with IV antibiotics Consult urology Continue with Li catheter Continue to hold JENN inhibitor's next Thank you for the consultation. We'll continue to follow the patient with you during his hospitalization
--- NOTE | 2022-06-26 13:25 | P.PN ---
Progress Note - Text Progress Note Date: 06/26/22 Chief Complaint: Irregular heartbeat This is a pleasant 87-year-old patient who follows with visiting physicians. Chronic stable medical conditions include hard of hearing, right kidney stone, prostate disorder, chronic gait dysfunction. Patient was previously living alone now for about a week has moved into [place] assisted living. Does able to walk a few feet with physical therapy. Per ER physician patient was less responsive at breakfast. Patient has been feeling tired. Decreased appetite. Has been losing weight. Denies any cough or shortness of breath. Has a bowel movement daily. Just feels tired and rundown. Atrial fibrillation was uncontrolled in the ER. Pain to be dehydrated. Given IV fluids. Admitted with uncontrolled atrial fibrillation, because decrease appetite, hypertension, moderate protein calorie malnutrition, acute on chronic medical debility, acute UTI with cystitis, possible acute kidney injury. Started on IV fluids. Zestril held. IV ceftriaxone. June 26: Sitting up in a chair. But more awake. Getting IV fluids. Patient declined food. We'll change to supervised feeding and ground diet. Continue IV fluids, IV ceftriaxone. Because of low platelets eliquis held. Patient had a platelet count of 169 on June 01. Consult hematology. Recent 2-D echo showed an EF of 20%. Active Medications Acetaminophen (Acetaminophen Tab 325 Mg Tab) 650 mg PO Q6HR PRN PRN Reason: Mild Pain or Fever > 100.5 Amiodarone HCl (Amiodarone 200 Mg Tab) 200 mg PO DAILY@0800 [facility] Last Admin: 06/26/22 09:12 Dose: 200 mg Calcium Carbonate/Glycine (Calcium Carbonate 500 Mg Chewable) 1,000 mg PO Q4HR PRN PRN Reason: Dyspepsia Sodium Chloride (Saline 0.9%) 1,000 mls @ 130 mls/hr IV .Q7H42M [facility] Last Admin: 06/26/22 05:27 Dose: 130 mls/hr Ceftriaxone Sodium 1 gm/ (Sodium Chloride) 50 mls @ 100 mls/hr IVPB Q12HR [facility]; Protocol Last Admin: 06/26/22 09:13 Dose: 100 mls/hr Lactulose (Lactulose 20 Gm/30 Ml Cup) 20 gm PO DAILY PRN PRN Reason: Constipation Lorazepam (Lorazepam 0.5 Mg Tab) 0.5 mg PO Q6HR PRN PRN Reason: Anxiety Metoprolol Succinate (Metoprolol Succinate (Er) 25 Mg Tab.Er.24h) 25 mg PO DAILY@0800 [facility] Last Admin: 06/26/22 09:12 Dose: 25 mg Mirtazapine (Mirtazapine 15 Mg Tab) 15 mg PO HS@2000 [facility] Last Admin: 06/25/22 19:46 Dose: 15 mg Naloxone HCl (Naloxone 0.4 Mg/Ml 1 Ml Vial) 0.2 mg IV Q2M PRN PRN Reason: Opioid Reversal Ondansetron HCl (Ondansetron 4 Mg/2 Ml Vial) 4 mg IVP Q8HR PRN PRN Reason: Nausea And Vomiting Past medical history to include: Atrial fibrillation, hard of hearing, prostate disorder, right renal calculi, mini strokes Social history: Assisted-living, [place]. No smoking or alcohol Physical examination: VITAL SIGNS: 97.8, 58, 18, 91/50, 100% room air GENERAL: Sitting up in a chair, awake, tired EYES: Pupils equal. Conjunctiva normal. HEENT: External appearance of nose and ears normal, oral cavity dry mucous membranes. NECK: JVD not raised; masses not palpable. HEART: Heart sounds irregular no edema. LUNGS: Respiratory rate normal; clear to auscultation. ABDOMEN: Soft, nontender, liver spleen not palpable, no masses palpable. PSYCH: Alert and oriented x3; mood and affect tiredl. MUSCULOSKELETAL:No Clubbing/cyanosis;muscles-grossly intact, bony prominence, awake, loss muscle muscle mass INVESTIGATIONS, reviewed in the clinical context: Renal ultrasound: Right kidney hydronephrosis. Urine culture positive: Klebsiella oxytoca June 26: WBC 8 hemoglobin 11.9 platelets 44 potassium 4.2 BUN 51 creatinine 1.85 albumin 2.3 White count 14.6 hemoglobin 12.6 platelets 58 sodium 134 potassium 4.7 BUN 85 creatinine 3.09 albumin 3.1 TSH 1.1 UA positive for blood, leukoesterase, RBC, WBC EKG tracing personally reviewed by me-atrial fibrillation rate 120 Chest x-ray film personally reviewed by me-cardiomegaly Previous studies: 2-D echocardiogram open 05/28/2022]: EF 20%. Global hypokinesis. Assessment and plan: -Persistent atrial fibrillation: Controlled Telemetry. Consult cardiology. Eliquis-discontinued because of low platelets. -Acute thrombocytopenia. Platelet count of 169 on June 01.: New diagnosis Eliquis discontinued. Consult hematology. -worsening weight loss, decrease appetite. Need to rule out underlying malignancy. We will need computed tomography scan chest abdomen pelvis, when renal function better -Hypotensive with contribution from uncontrolled atrial fibrillation and dehydration IV fluids. Stop Zestril -Moderate protein calorie malnutrition Ensure. Consult dietitian -Acute on chronic medical debility Fall precaution. PTOT. -Acute UTI with cystitis causing sepsis, with culture positive for Klebsiella oxytoca IV ceftriaxone. Change to oral Keflex tomorrow -Chronic insomnia Remeron -Acute on possible CK D. Hold Zestril. IV fluids. Renal ultrasound. Consult nephrology. -Right hydronephrosis, new finding Consults urology - full code Decrease IV fluids to 75 mL an hour. Change diet to a ground diet. Supervised feeding. Eliquis has been discontinued. Consult hematology.
--- NOTE | 2022-06-26 17:29 | P.CONS ---
History of Present Illness - Reason for Consult Consult date: 06/26/22 thrombocytopenia, weight loss, history of prostate cancer - History of Present Illness the patient is a 87-year-old white male with multiple medical problems. The patient was admitted with decreased responsiveness and confusion. He was found to be dehydrated, with acute kidney injury. His plt counts on admission were in the 50,000 range and then dropped to 44. consult with the hope is further evaluation and recommendations The patient's mental status is improved but affect and responses are still quite slow. He was able to provide some history but was quite unsure regarding exact dates. Therefore more of the history was obtained from the EMR. He denied any prior history of blood related problems. He had a history of prostate cancer, diagnosed in 04/07, treated with external beam radiation. Last PSA in 04/09 was 0.1. Multiple labs reviewed and EMR, showing normal platelet count and the patient was admitted last month with Klebsiella UTI. He was discharged on antibiotics to [facility]. The patient has a long-standing history of renal stones, and has had obstructive hydronephrosis due to the same, requiring multiple procedures including ESWL, cystoscopic removal and stent placement. ultrasound this admission showed new right-sided hydronephrosis. He had previously had left-sided obstruction. CT of the brain was negative other than age-related atrophic changes by chest x-ray did not show any acute pathology. His urinalysis did show significant WBC and leukocyte esterase. His bone scan and pelvic CT in 2019 had not shown any evidence of metastatic disease. the patient stated that he is at 4 appetite, and generalized weakness over the past 6 months leading to frequent falls. He lost about 45 pounds during that period of time. No history of any excessive alcohol use, or known chronic liver disease Review of Systems Constitutional: Reports fatigue, Reports poor appetite, Reports weakness, Reports weight loss Eyes: denies blurred vision, denies pain Ears: deny: decreased hearing, ear discharge, earache, tinnitus Ears, nose, mouth and throat: Denies headache, Denies sore throat Cardiovascular: Reports decreased exercise tolerance Respiratory: Denies cough Gastrointestinal: Denies abdominal pain, Denies diarrhea, Denies nausea, Denies vomiting Genitourinary: Reports as per HPI Musculoskeletal: Reports muscle weakness Integumentary: Denies pruritus, Denies rash Neurological: Reports as per HPI, Reports balance difficulties, Reports confusion, Reports gait dysfunction, Reports weakness Psychiatric: Reports confusion Endocrine: Reports fatigue, Reports weight change Hematologic/Lymphatic: Reports as per HPI Past Medical History Past Medical History: Atrial Fibrillation, CVA/TIA, Hearing Disorder / Deafness, Prostate Disorder Additional Past Medical History / Comment(s): RIGHT RENAL CALCULI, STATES HX "MINI STROKES", History of Any Multi-Drug Resistant Organisms: None Reported Past Surgical History: Hernia Repair Additional Past Surgical History / Comment(s): RIGHT LITHOTRIPSY x 3, RAMANDEEP INGUINAL HERNIA REPAIR, Past Anesthesia/Blood Transfusion Reactions: No Reported Reaction Past Psychological History: No Psychological Hx Reported Smoking Status: Never smoker Past Alcohol Use History: None Reported Past Drug Use History: None Reported - Past Family History Father Family Medical History: Cancer Medications and Allergies Home Medications Medication Instructions Recorded Confirmed Type Docusate [Colace] 100 mg PO BID PRN cap 06/02/22 06/25/22 Rx Acetaminophen Tab [Tylenol] 650 mg PO QID PRN 06/25/22 06/25/22 History Amiodarone [Cordarone] 200 mg PO DAILY@0800 06/25/22 06/25/22 History Apixaban [Eliquis] 2.5 mg PO BID@0800,199906/25/22 06/25/22 History Calcium Carbonate [Tums] 1,000 mg PO Q6H PRN 06/25/22 06/25/22 History Melatonin 3 mg PO HS 06/25/22 06/25/22 History Metoprolol Succinate (ER) [Toprol 25 mg PO DAILY@0800 06/25/22 06/25/22 History XL] Mirtazapine [Remeron] 15 mg PO HS@199906/25/22 06/25/22 History lisinopriL [Zestril] 2.5 mg PO DAILY@0800 06/25/22 06/25/22 History Allergies Allergy/AdvReac Type Severity Reaction Status Date / Time No Known Allergies Allergy Verified 06/25/22 12:08 Physical Exam Vitals: Vital Signs Temp Pulse Resp BP Pulse Ox 06/26/22 16:09 98.2 F 79 16 95/56 93 L 06/26/22 14:00 58 L 18 06/26/22 11:09 97.8 F 58 L 18 91/50 100 06/26/22 09:07 97.4 F L 72 14 140/61 95 06/26/22 04:00 98.1 F 64 18 105/57 96 06/26/22 01:39 86 18 06/26/22 00:00 98.2 F 86 18 91/50 98 06/25/22 20:00 97.8 F 82 18 107/66 98 Intake and Output 06/26/22 06/26/22 06/26/22 06:59 14:59 22:59 Intake Total 0 Output Total 750 0 900 Balance -750 0 -900 Intake: Oral 0 Output: Urine 750 900 Stool 0 0 Other: Voiding Method Indwelling Catheter Indwelling Catheter Weight 60.328 kg - Constitutional General appearance: no acute distress - EENT Eyes: EOMI, PERRLA ENT: hearing grossly normal, normal oropharynx - Neck Neck: no lymphadenopathy Thyroid: bilateral: normal size - Respiratory Respiratory: bilateral: CTA - Cardiovascular Rhythm: regular Heart sounds: normal: S1, S2 - Gastrointestinal General gastrointestinal: normal bowel sounds, soft - Integumentary Integumentary: normal - Neurologic Neurologic: CNII-XII intact - Musculoskeletal Musculoskeletal: generalized weakness, strength equal bilaterally - Psychiatric comprehension, affect and responses are quite slow, but appeared to be mostly appropriate. Results CBC & Chem 7: 06/26/22 08:20 06/26/22 08:20 Labs: Abnormal Lab Results - Last 24 Hours (Table) 06/26/22 06/26/22 Range/Units 08:20 08:20 RBC 3.90 L (4.30-5.90) m/uL Hgb 11.9 L (13.0-17.5) gm/dL Hct 37.2 L (39.0-53.0) % Plt Count 44 L (150-450) k/uL Chloride 113 H (98-107) mmol/L Carbon Dioxide 20 L (22-30) mmol/L BUN 51 H (9-20) mg/dL Creatinine 1.85 H (0.66-1.25) mg/dL Calcium 8.0 L (8.4-10.2) mg/dL Total Protein 4.7 L (6.3-8.2) g/dL Albumin 2.3 L (3.5-5.0) g/dL Microbiology - Last 24 Hours (Table) 06/25/22 09:21 Urine Culture - Preliminary Urine,Voided Comments: bone scan and pathology reports reviewed Chest x-ray: report reviewed CT scan - pelvis: report reviewed US - abdomen: report reviewed Assessment and Plan Plan: #1. Thrombocytopenia - this appears to be quite acute as dated counts are normal during his recent visit. Case was discussed in detail with the admitting service. This is most likely due to increased consumption from SIRS given the patient's presentation, and labs indicating possible UTI with sepsis. -workup for other causes will be ordered, including testing for deficiency states, autoimmune markers,DIC and paraproteinemia - Check ultrasound to evaluate liver and spleen - Patient counts are still in a safe range, in the absence of any bleeding. Continue to monitor and transfuse to keep platelets above 10,000, audible 40,000 if there is evidence of any active bleeding. - the above-mentioned workup is negative, the expectation would be that platelet counts did improve spontaneously as the patient's current condition improves with ongoing treatment. #2. Anorexia and weight loss- the patient has had a couple of admissions in the past month but states that his loss of appetite as well as loss of weight predates that. He doesn't appear to be having any specific localizing symptoms. PSA was 0.1 in 04/09. Repeat PSA to check for metastatic recurrence. Chest x- ray did not show any specific pathology. Agree with plan for ordering CT of the abdomen and pelvis, as discussed with the admitting service, once renal function is better. #3. Defer management of his multiple other medical issues, including possible UTI with sepsis, right obstructive hydronephrosis and petechiae to getting service and other consultants.
--- NOTE | 2022-06-26 19:51 | CT ---
EXAMINATION TYPE: CT renal stones wo con DATE OF EXAM: 06/26/2022 COMPARISON: 05/02/2019 HISTORY: hydronephrosis and poss kidney stone CT DLP: 493.2 mGycm Automated exposure control for dose reduction was used. Images obtained from the diaphragm to the floor the pelvis with no contrast. Lung bases are clear of consolidation. There is mild subsegmental atelectasis at the lung bases. No p leural effusion. There is 2.5 cm cyst in the right lobe of the liver. Gallbladder is distended. There is relative high density in the gallbladder. Gallbladder measures 4.5 cm in diameter. No wall thicke hialrio. The stomach is intact. No evidence of pancreatic mass. There are some pancreatic head calcifica tions. The bile ducts are not dilated. There is no adrenal mass. There is right-sided moderate hydronephrosis and hydroureter. There is Fole y catheter in urinary bladder. There is irregular urinary bladder wall thickening. Right ureter is di lated to the ureterovesical junction. The left kidney shows normal size and contour with no hydroneph rosis. No retroperitoneal adenopathy. No inguinal hernia no free fluid in the pelvis. There is some prosthetic calcification. Prostate is e nlarged and measures 5.7 cm. No free fluid in the pelvis. No mesenteric edema. No ascites or free air. No bowel obstruction. There is 3 cm cortical cyst posterior right kidney with perinephric edema. There is also mild left-si ded perinephric edema. The lumbar vertebra show a second-degree L5-S1 spondylolisthesis. There is mul tilevel vacuum disc and disc space narrowing in the lumbar spine. There is bilateral L5 spondylolysis .. The bony pelvis is intact. Hip joints are intact. IMPRESSION: There is right-sided hydronephrosis and hydroureter. No obstructing calculus seen. There is clearing of the calculi in the lower pole right kidney compared to old exam. Hydronephrosis is new compared to old exam. Irregular wall thickening of the urinary bladder that could relate to cystitis and appears to be new compared to the old exam. Bladder tumor is possible. Enlarged prostate with calcifications similar to old exam.
[2022-06-26] MEDS: MIRTAZAPINE 15 MG TAB PO SCH (19:57)
[2022-06-26 23:40] LABS: PSA Annual Screen 0.2 ng/mL (0.000-4.000)
[2022-06-27 00:06] LABS: Protein, Total 5.1 g/dL (6.2-8.2)
--- NOTE | 2022-06-27 06:17 | P.PN ---
Subjective Progress Note Date: 06/27/22 Principal diagnosis: Cardiomyopathy This is an 87-year-old gentleman with a past medical history significant for cardiomyopathy unknown etiology as well as persistent atrial fibrillation who was admitted to the hospital with a change in mental status and was found to have thrombocytopenia. We consulted to see the patient for the management of atrial fibrillation. The patient was seen this morning. He remains a stable overall from a cardiovascular standpoint and remains asymptomatic. He does have mild change in mental status. Platelets are low and that currently has been under investigation by hematology/oncology service. For that reason anticoagulation are on hold. He is on amiodarone as well as beta nathalia. Lisinopril was held closed of the low blood pressure. Last echo showed an EF of 20%. Objective - Vital Signs Vital signs: Vital Signs Temp 97.8 F 06/27/22 03:55 Pulse 77 06/27/22 03:55 Resp 16 06/27/22 03:55 BP 110/66 06/27/22 03:55 Pulse Ox 94 L 06/27/22 03:55 FiO2 Intake & Output 06/26/22 06/26/22 06/27/22 06:59 18:59 06:59 Intake Total 0 240 Output Total 750 900 825 Balance -750 900 -585 Weight 60.328 kg Intake: Oral 0 240 Output: Urine 750 900 825 Stool 0 0 Other: Voiding Method Indwelling Catheter Indwelling Catheter Indwelling Catheter - Constitutional General appearance: Present: no acute distress - Respiratory Respiratory: bilateral: diminished - Cardiovascular Rhythm: irregularly irregular - Labs CBC & Chem 7: 06/26/22 08:20 06/26/22 08:20 Labs: Abnormal Lab Results - Last 24 Hours (Table) 06/26/22 06/26/22 06/26/22 Range/Units 08:20 08:20 18:06 RBC 3.90 L (4.30-5.90) m/uL Hgb 11.9 L (13.0-17.5) gm/dL Hct 37.2 L (39.0-53.0) % Plt Count 44 L (150-450) k/uL Chloride 113 H (98-107) mmol/L Carbon Dioxide 20 L (22-30) mmol/L BUN 51 H (9-20) mg/dL Creatinine 1.85 H (0.66-1.25) mg/dL Calcium 8.0 L (8.4-10.2) mg/dL Total Protein 4.7 L (6.3-8.2) g/dL Total Protein (PEP) 5.1 L (6.2-8.2) g/dL Albumin 2.3 L (3.5-5.0) g/dL Microbiology - Last 24 Hours (Table) 06/25/22 09:21 Urine Culture - Preliminary Urine,Voided Gram Neg Bacilli Assessment and Plan Assessment: Assessment Severe cardiomyopathy of unknown etiology Persistent atrial fibrillation was controlled heart rate Change in mental status Thrombocytopenia Plan Continue holding anticoagulation Thrombocytopenia to be investigated by hematology service Continue beta nathalia and amiodarone Follow-up with the patient Consider restarting JENN inhibitor as soon as possible and as soon the patient is stable from the pressure standpoint of
[2022-06-27] MEDS: METOPROLOL SUCCINATE (ER) 25 MG TAB.ER.24H PO SCH (08:32)
[2022-06-27] MEDS: AMIODARONE 200 MG TAB PO SCH (08:32)
--- NOTE | 2022-06-27 08:50 | US ---
EXAMINATION TYPE: US abdomen limited DATE OF EXAM: 06/27/2022 COMPARISON: ct CLINICAL HISTORY: possible hepatomegaly. Attention liver and spleen. TECHNIQUE: Multiple sonographic images of the right upper quadrant and spleen are obtained. FINDINGS: EXAM MEASUREMENTS: Liver Length: 16.4 cm Gallbladder Wall: 0.4 cm CBD: not visualized Right Kidney: 11.6 x 5.9 x 5.0 cm Spleen: 10.5cm PROOFREADER NOTES: Study extremely limited, patient unable to move or hold his breath, patient had hiccups during exam. Pancreas: Obscured by bowel gas Liver: cysts noted measuring 1.)1.2 x 1.1 x 0.9cm, septated cyst measuring 19. x 2.7 x 1.9cm, limite d visualization of liver Gallbladder: sludge filled, wall mildly thickened Evidence for sonographic Leavitt's sign: No CBD: unable to visualize Right Kidney: probable mild hydronephrosis, cyst measuring 3.8 x 3.3 x 2.7cm, limited views Spleen: mostly obscured due location, rib shadowing, overlying bowel gas IMPRESSION: 1. Very limited exam due to patient's condition. 2. Gallbladder filled with sludge and the wall is slightly thickened. 3. Common bile duct not evaluated. Pancreatic duct possibly mildly enlarged. Pancreas not visualized due to bowel gas. 4. Sonographic Leavitt's sign negative. 5. Liver are not grossly enlarged.
[2022-06-27] MEDS ORDERED: CEPHALEXIN 500 MG CAP PO SCH ×2 (09:00→16:00)
[2022-06-27 10:08] LABS: Basophils % (A) 0 %; Eosinophils # (A) 0.1 k/uL (0-0.7); Eosinophils % (A) 1 %; HCT 35.9 % (39.0-53.0); HGB 11.3 gm/dL (13.0-17.5); Hypochromasia Slight; Lymphocytes # (A) 0.9 k/uL (1.0-4.8); Lymphocytes % (A) 15 %; MCH 30.6 pg (25.0-35.0); MCHC 31.4 g/dL (31.0-37.0); MCV 97.7 fL (80.0-100.0); Mean Platelet Volume 9.1; Monocytes # (A) 0.3 k/uL (0-1.0); Monocytes % (A) 6 %; Neutrophils # (A) 4.7 k/uL (1.3-7.7); Neutrophils % (A) 78 %; RBC 3.67 m/uL (4.30-5.90); RDW 13.7 % (11.5-15.5); WBC 6.1 k/uL (3.8-10.6)
[2022-06-27 10:14] LABS: Platelet Count 66 k/uL (150-450)
[2022-06-27 10:30] LABS: Calcium 8.1 mg/dL (8.4-10.2); Potassium 3.8 mmol/L (3.5-5.1)
--- NOTE | 2022-06-27 11:03 | P.GSCN ---
History of Present Illness Consult date: 06/26/22 Reason for Consult: right hydronephrosis History of present illness: Is an 87-year-old male admitted to the hospital with altered mental status. Urology is consulted for right-sided hydronephrosis, seen on ultrasound. Ultrasound was obtained for ANAIS. creatinine at 3.09 from a baseline of 1.1. Creatinine is trending down to 1.85 with hydration. He does have history of recurrent kidney stones, underwent multiple procedures before including ESWl and URS with holmoium laser. Last procedure was a ureteroscopy with holmium laser by Dr. Arrieta in August 2020. Denies any flank pain, indicated did have 1 episode of gross hematuria. Denies any dysuria. Does have history of prostate cancer treated with radiation therapy in the past, last PSA was 0.2 in June of this year. Review of Systems - Constitutional Denies fever, Denies weight loss - Cardiovascular Denies chest pain, Denies shortness of breath - Respiratory Denies cough, Denies 7 - Gastrointestinal Reports as per HPI - Genitourinary Genitourinary Comment(s): Li in place draining cloudy urine - Neurological Denies headaches, Denies syncope Past Medical History Past Medical History: Atrial Fibrillation, CVA/TIA, Hearing Disorder / Deafness, Prostate Disorder Additional Past Medical History / Comment(s): RIGHT RENAL CALCULI, STATES HX "MINI STROKES", History of Any Multi-Drug Resistant Organisms: None Reported Past Surgical History: Hernia Repair Additional Past Surgical History / Comment(s): RIGHT LITHOTRIPSY x 3, RAMANDEEP INGUINAL HERNIA REPAIR, Past Anesthesia/Blood Transfusion Reactions: No Reported Reaction Past Psychological History: No Psychological Hx Reported Smoking Status: Never smoker Past Alcohol Use History: None Reported Past Drug Use History: None Reported - Past Family History Father Family Medical History: Cancer Medications and Allergies Home Medications Medication Instructions Recorded Confirmed Type Docusate [Colace] 100 mg PO BID PRN cap 06/02/22 06/25/22 Rx Acetaminophen Tab [Tylenol] 650 mg PO QID PRN 06/25/22 06/25/22 History Amiodarone [Cordarone] 200 mg PO DAILY@0800 06/25/22 06/25/22 History Apixaban [Eliquis] 2.5 mg PO BID@0800,199906/25/22 06/25/22 History Calcium Carbonate [Tums] 1,000 mg PO Q6H PRN 06/25/22 06/25/22 History Melatonin 3 mg PO HS 06/25/22 06/25/22 History Metoprolol Succinate (ER) [Toprol 25 mg PO DAILY@0800 06/25/22 06/25/22 History XL] Mirtazapine [Remeron] 15 mg PO HS@199906/25/22 06/25/22 History lisinopriL [Zestril] 2.5 mg PO DAILY@0800 06/25/22 06/25/22 History Allergies Allergy/AdvReac Type Severity Reaction Status Date / Time No Known Allergies Allergy Verified 06/25/22 12:08 Surgical - Exam Vital Signs Temp Pulse Resp BP Pulse Ox 98.5 F 115 H 18 103/76 96 06/25/22 09:06 06/25/22 09:06 06/25/22 09:06 06/25/22 09:06 06/25/22 09:06 - General no distress, no pain - Eyes normal ocular movement, no pale - ENT normal nares, normal mucosa - Respiratory normal expansion, normal respiratory effort - Abdomen Abdomen: soft, non tender - Psychiatric oriented to time, oriented to person, oriented to place Results - Labs 06/27/22 08:49 06/27/22 08:49 Abnormal Lab Results - Last 24 Hours (Table) 06/26/22 06/26/22 Range/Units 08:20 08:20 RBC 3.90 L (4.30-5.90) m/uL Hgb 11.9 L (13.0-17.5) gm/dL Hct 37.2 L (39.0-53.0) % Plt Count 44 L (150-450) k/uL Chloride 113 H (98-107) mmol/L Carbon Dioxide 20 L (22-30) mmol/L BUN 51 H (9-20) mg/dL Creatinine 1.85 H (0.66-1.25) mg/dL Calcium 8.0 L (8.4-10.2) mg/dL Total Protein 4.7 L (6.3-8.2) g/dL Albumin 2.3 L (3.5-5.0) g/dL Microbiology - Last 24 Hours (Table) 06/25/22 09:21 Urine Culture - Preliminary Urine,Voided Diabetes panel 06/26/22 Range/Units 08:20 Sodium 140 (137-145) mmol/L Potassium 4.2 (3.5-5.1) mmol/L Chloride 113 H (98-107) mmol/L Carbon Dioxide 20 L (22-30) mmol/L BUN 51 H (9-20) mg/dL Creatinine 1.85 H (0.66-1.25) mg/dL Glucose 92 (74-99) mg/dL Calcium 8.0 L (8.4-10.2) mg/dL AST 34 (17-59) U/L ALT 32 (4-49) U/L Alkaline Phosphatase 77 (38-126) U/L Total Protein 4.7 L (6.3-8.2) g/dL Albumin 2.3 L (3.5-5.0) g/dL Calcium panel 06/26/22 Range/Units 08:20 Calcium 8.0 L (8.4-10.2) mg/dL Albumin 2.3 L (3.5-5.0) g/dL Pituitary panel 06/26/22 Range/Units 08:20 Sodium 140 (137-145) mmol/L Potassium 4.2 (3.5-5.1) mmol/L Chloride 113 H (98-107) mmol/L Carbon Dioxide 20 L (22-30) mmol/L BUN 51 H (9-20) mg/dL Creatinine 1.85 H (0.66-1.25) mg/dL Glucose 92 (74-99) mg/dL Calcium 8.0 L (8.4-10.2) mg/dL Adrenal panel 06/26/22 Range/Units 08:20 Sodium 140 (137-145) mmol/L Potassium 4.2 (3.5-5.1) mmol/L Chloride 113 H (98-107) mmol/L Carbon Dioxide 20 L (22-30) mmol/L BUN 51 H (9-20) mg/dL Creatinine 1.85 H (0.66-1.25) mg/dL Glucose 92 (74-99) mg/dL Calcium 8.0 L (8.4-10.2) mg/dL Total Bilirubin 0.7 (0.2-1.3) mg/dL AST 34 (17-59) U/L ALT 32 (4-49) U/L Alkaline Phosphatase 77 (38-126) U/L Total Protein 4.7 L (6.3-8.2) g/dL Albumin 2.3 L (3.5-5.0) g/dL Assessment and Plan Assessment: 87-year-old male with history of recurrent kidney stones, having right-sided hydronephrosis, creatinine 3.09 trending down to 1.85 with hydration. Baseline is 1.1. Denies any flank pain. -We'll obtain a CT abdomen and pelvis to rule out kidney stone as the cause of hydronephrosis -Continue to trend creatinine
--- NOTE | 2022-06-27 11:10 | P.PN ---
Subjective Progress Note Date: 06/27/22 No acute overnight events, creatinine is down to 1.46. CT yesterday showed evidence of right-sided hydronephrosis, and fairly thickened bladder. No evidence of obstructive stone on CT. Compared to CT from 2019 bladder wall thickening is a new finding Objective - Vital Signs Vital signs: Vital Signs Temp 97.8 F 06/27/22 03:55 Pulse 59 L 06/27/22 10:06 Resp 15 06/27/22 07:54 BP 95/61 06/27/22 07:54 Pulse Ox 95 06/27/22 07:54 FiO2 Intake & Output 06/26/22 06/27/22 06/27/22 18:59 06:59 18:59 Intake Total 240 Output Total 900 825 200 Balance -900 -585 -200 Weight 60.328 kg Intake: Oral 240 Output: Urine 900 825 200 Stool 0 Other: Voiding Method Indwelling Catheter Indwelling Catheter Indwelling Catheter - Constitutional General appearance: Present: no acute distress - Gastrointestinal General gastrointestinal: Present: soft. Absent: distended, tenderness - Labs CBC & Chem 7: 06/27/22 08:49 06/27/22 08:49 Labs: Abnormal Lab Results - Last 24 Hours (Table) 06/26/22 06/27/22 06/27/22 Range/Units 18:06 08:49 08:49 RBC 3.67 L (4.30-5.90) m/uL Hgb 11.3 L (13.0-17.5) gm/dL Hct 35.9 L (39.0-53.0) % Plt Count 66 L (150-450) k/uL Lymphocytes # 0.9 L (1.0-4.8) k/uL Chloride 114 H (98-107) mmol/L Carbon Dioxide 20 L (22-30) mmol/L BUN 35 H (9-20) mg/dL Creatinine 1.46 H (0.66-1.25) mg/dL Calcium 8.1 L (8.4-10.2) mg/dL Total Protein (PEP) 5.1 L (6.2-8.2) g/dL Microbiology - Last 24 Hours (Table) 06/25/22 09:21 Urine Culture - Preliminary Urine,Voided Gram Neg Bacilli Assessment and Plan Assessment: 87-year-old male with history of recurrent kidney stones, having right-sided hydronephrosis, creatinine 3.09 trending down to 1.46 with hydration. Baseline is 1.1. Denies any flank pain. CT yesterday showed a evidence of right-sided hydronephrosis with dilated ureter down to the bladder, the bladder is fairly thick-walled. Compared to a CAT scan from 2019 this is new finding. A prolonged discussion with the patient given the bladder wall thickening and the new finding of hydronephrosis and the gross hematuria he will need an outpatient cystoscopy. He is a patient of Dr. Baig in we'll arrange for outpatient cystoscopy to be done by him. -Li can be removed prior to discharge, please check postvoid residual, less than 400 mL's Li can stay out -Outpatient cystoscopy with Dr. Baig
[2022-06-27] MEDS: SODIUM CHLORIDE 0.9% 1,000 ML IV SCH ×2 (12:14→22:44)
--- NOTE | 2022-06-27 12:41 | P.PN ---
Subjective This is a pleasant 87-year-old patient who follows with visiting physicians. Chronic stable medical conditions include hard of hearing, right kidney stone, prostate disorder, chronic gait dysfunction. Patient was previously living alone now for about a week has moved into [facility] assisted [facility]. Does able to walk a few feet with physical therapy. Per ER physician patient was less responsive at breakfast. Patient has been feeling tired. Decreased appetite. Has been losing weight. Denies any cough or shortness of breath. Has a bowel m ovement daily. Just feels tired and rundown. Atrial fibrillation was uncontrolled in the ER. Pain to be dehydrated. Given IV fluids. Admitted with uncontrolled atrial fibrillation, because decrease appetite, hypertension, moderate protein calorie malnutrition, acute on chronic medical debility, acute UTI with cystitis, possible acute kidney injury. Started on IV fluids. Zestril held. IV ceftriaxone. June 26: Sitting up in a chair. But more awake. Getting IV fluids. Patient declined food. We'll change to supervised feeding and ground diet. Continue IV fluids, IV ceftriaxone. Because of low platelets eliquis held. Patient had a platelet count of 169 on June 01. Consult hematology. Recent 2-D echo showed an EF of 20%. Resume care of the patient today 06/27/2022 This is a pleasant 87 years old male who presents with acute kidney injury and CAT scan show evidence of right hydronephrosis and hydroureter with thickened urinary bladder wall, has been evaluated by urologist and his been found to have urinary tract infection with culture growing gram-negative bacilli, currently covered with ceftriaxone pending final culture results Per urologist Li catheter can be discontinued but patient will need outpatient cystoscopy. Ct Technician on the case for thrombocytopenia, platelet count improved 44 up to 66, thought secondary to sepsis. Continue with ceftriaxone For A. fib and RVR patient is currently rate controlled on amiodarone 200 mg with dietary service aide on the case Patient has evidence of gallbladder sludge disease however no right upper quadrant pain or tenderness and no elevated liver enzymes, this can be addressed as an outpatient. Objective - Vital Signs Vital signs: Vital Signs Temp 97.8 F 06/27/22 03:55 Pulse 84 06/27/22 11:34 Resp 17 06/27/22 11:34 BP 92/60 06/27/22 11:34 Pulse Ox 100 06/27/22 11:34 FiO2 Intake & Output 06/26/22 06/27/22 06/27/22 18:59 06:59 18:59 Intake Total 240 Output Total 900 825 200 Balance -900 -585 -200 Weight 60.328 kg Intake: Oral 240 Output: Urine 900 825 200 Stool 0 Other: Voiding Method Indwelling Catheter Indwelling Catheter Indwelling Catheter - Exam -GENERAL: The patient is alert and oriented x3, not in any acute distress. Well developed, well nourished. Genital weak and lethargic HEENT: Pupils are round and equally reacting to light. EOMI. No scleral icterus. No conjunctival pallor. Normocephalic, atraumatic. No pharyngeal erythema. No thyromegaly. CARDIOVASCULAR: S1 and S2 present. No murmurs, rubs, or gallops. PULMONARY: Chest is clear to auscultation, no wheezing or crackles. -ABDOMEN: Soft, nontender, nondistended, normoactive bowel sounds. No palpable organomegaly. Li catheter is in place MUSCULOSKELETAL: No joint swelling or deformity. EXTREMITIES: No cyanosis, clubbing, or pedal edema. NEUROLOGICAL: Gross neurological examination did not reveal any focal deficits. SKIN: No rashes. no petechiae. - Labs CBC & Chem 7: 06/27/22 08:49 06/27/22 08:49 Labs: Abnormal Lab Results - Last 24 Hours (Table) 06/26/22 06/27/22 06/27/22 Range/Units 18:06 08:49 08:49 RBC 3.67 L (4.30-5.90) m/uL Hgb 11.3 L (13.0-17.5) gm/dL Hct 35.9 L (39.0-53.0) % Plt Count 66 L (150-450) k/uL Lymphocytes # 0.9 L (1.0-4.8) k/uL Chloride 114 H (98-107) mmol/L Carbon Dioxide 20 L (22-30) mmol/L BUN 35 H (9-20) mg/dL Creatinine 1.46 H (0.66-1.25) mg/dL Calcium 8.1 L (8.4-10.2) mg/dL Total Protein (PEP) 5.1 L (6.2-8.2) g/dL Microbiology - Last 24 Hours (Table) 06/25/22 09:21 Urine Culture - Preliminary Urine,Voided Gram Neg Bacilli Assessment and Plan Assessment: Acute urinary tract infection secondary to gram-negative bacilli Right hydronephrosis and hydroureter with thickened gallbladder, rule out urinary bladder or renal disease, need cystoscopy as an outpatient. Chronic atrial fibrillation on liquids Thrombocytopenia suspected secondary to sepsis Metabolic/encephalitis follow-up FE, completely resolved Hypertension, Gallbladder disease, with sludge, asymptomatic, no evidence of cholecystitis clinically. Enlarged prostate 5.7 centimeter on CAT scan Plan: This is a pleasant 87 years old male with UTI, hydronephrosis Continue with ceftriaxone follow-up urine culture Urologist on the case and the recommended cystoscopy as an outpatient Several consultants on the case including mechanical operator, supervisor brine, urologist, dietary service aide Labs and medication were reviewed.. Continue same treatment. Continue with symptomatic treatment. Resume home medication. Monitor lytes and vitals. DVT and GI prophylaxis. Further recommendations as per clinical course of the patient DVT prophylaxis: no Subcutaneous heparin in view of thrombocytopenia GI Prophylaxis: Pepcid PT/OT: Subacute rehab, director social welfare consult Prognosis is guarded
--- NOTE | 2022-06-27 13:50 | P.PN ---
Subjective Progress Note Date: 06/27/22 Follow-up for acute kidney injury. Urine output of 1.8 L. Objective - Vital Signs Vital signs: Vital Signs Temp 97.8 F 06/27/22 03:55 Pulse 84 06/27/22 11:34 Resp 17 06/27/22 11:34 BP 92/60 06/27/22 11:34 Pulse Ox 100 06/27/22 11:34 FiO2 Intake & Output 06/26/22 06/27/22 06/27/22 18:59 06:59 18:59 Intake Total 240 Output Total 900 825 200 Balance -900 -585 -200 Weight 60.328 kg Intake: Oral 240 Output: Urine 900 825 200 Stool 0 Other: Voiding Method Indwelling Catheter Indwelling Catheter Indwelling Catheter - Exam No acute distress S1-S2 heard Lungs clear No edema Li - Labs CBC & Chem 7: 06/27/22 08:49 06/27/22 08:49 Labs: Abnormal Lab Results - Last 24 Hours (Table) 06/26/22 06/27/22 06/27/22 Range/Units 18:06 08:49 08:49 RBC 3.67 L (4.30-5.90) m/uL Hgb 11.3 L (13.0-17.5) gm/dL Hct 35.9 L (39.0-53.0) % Plt Count 66 L (150-450) k/uL Lymphocytes # 0.9 L (1.0-4.8) k/uL Chloride 114 H (98-107) mmol/L Carbon Dioxide 20 L (22-30) mmol/L BUN 35 H (9-20) mg/dL Creatinine 1.46 H (0.66-1.25) mg/dL Calcium 8.1 L (8.4-10.2) mg/dL Total Protein (PEP) 5.1 L (6.2-8.2) g/dL Microbiology - Last 24 Hours (Table) 06/25/22 09:21 Urine Culture - Preliminary Urine,Voided Gram Neg Bacilli Assessment and Plan Assessment: #1 acute kidney injury secondary to obstructive uropathy with right hydronephrosis. #2 CK D stage IIIa with a baseline creatinine of 1.1 MG per DL secondary to nephrosclerosis #3 hypertension with chronic kidney disease #4 lactic acidosis resolved Plan: #1 renal function improving. Appreciate urology input #2 continue with IV fluids today, can be stopped by tomorrow #3 avoid nephrotoxic agents. #4 continue to hold all antihypertensive agents for now with hypotension.
[2022-06-27] MEDS: MIRTAZAPINE 15 MG TAB PO SCH (19:56)
--- NOTE | 2022-06-28 06:22 | P.PN ---
Subjective Progress Note Date: 06/28/22 Principal diagnosis: Cardiomyopathy This is an 87-year-old gentleman with a past medical history significant for cardiomyopathy unknown etiology as well as persistent atrial fibrillation who was admitted to the hospital with a change in mental status and was found to have thrombocytopenia. We consulted to see the patient for the management of atrial fibrillation. The patient was seen this morning. He remains a stable overall from a cardiovascular standpoint and remains asymptomatic. He does have mild change in mental status. Platelets are low and that currently has been under investigation by hematology/oncology service. For that reason anticoagulation are on hold. He is on amiodarone as well as beta nathalia. Lisinopril was held closed of the low blood pressure. Last echo showed an EF of 20%. 12/27/2021 The patient was seen this morning. He remains stable from a cardiovascular standpoint of view and remains asymptomatic. He is euvolemic on examination as well. Platelet are slightly better. Anticoagulation continues to be on hold at this point. The last echo showed an ejection fraction of 20% but he seems euvolemic when he was seen and evaluated this morning. From the cardiac vascular standpoint of view, would continue the current medical regimen, continue holding anticoagulation until the patient is evaluated by the pathology service, consider adding small dose of JENN inhibitor to the current medical regimen, creatinine has been stable, and will follow-up with the patient on when necessary Objective - Vital Signs Vital signs: Vital Signs Temp 98.8 F 06/28/22 03:35 Pulse 72 06/28/22 03:35 Resp 16 06/28/22 03:35 BP 116/65 06/28/22 03:35 Pulse Ox 95 06/28/22 03:35 FiO2 Intake & Output 06/27/22 06/27/22 06/28/22 06:59 18:59 06:59 Intake Total 240 480 Output Total 825 400 650 Balance -585 -400 -170 Weight 60.328 kg Intake: Oral 240 480 Output: Urine 825 400 550 Post Void Residual 100 Other: Voiding Method Indwelling Catheter Urinal External Catheter # Voids 1 1 # Bowel Movements 1 - Constitutional General appearance: Present: no acute distress - Respiratory Respiratory: bilateral: diminished - Cardiovascular Rhythm: irregularly irregular Heart sounds: normal: S1, S2 - Labs CBC & Chem 7: 06/27/22 08:49 06/27/22 08:49 Labs: Abnormal Lab Results - Last 24 Hours (Table) 06/27/22 06/27/22 Range/Units 08:49 08:49 RBC 3.67 L (4.30-5.90) m/uL Hgb 11.3 L (13.0-17.5) gm/dL Hct 35.9 L (39.0-53.0) % Plt Count 66 L (150-450) k/uL Lymphocytes # 0.9 L (1.0-4.8) k/uL Chloride 114 H (98-107) mmol/L Carbon Dioxide 20 L (22-30) mmol/L BUN 35 H (9-20) mg/dL Creatinine 1.46 H (0.66-1.25) mg/dL Calcium 8.1 L (8.4-10.2) mg/dL Microbiology - Last 24 Hours (Table) 06/25/22 09:21 Urine Culture - Final Urine,Voided Pseudomonas aeruginosa Assessment and Plan Assessment: Assessment Severe cardiomyopathy of unknown etiology Persistent atrial fibrillation was controlled heart rate Change in mental status Thrombocytopenia Plan Continue holding anticoagulation Thrombocytopenia to be investigated by hematology service Continue beta nathalia and amiodarone Add a small dose of JENN inhibitor 2.5 mg daily Follow-up with the patient on when necessary case
[2022-06-28] MEDS: METOPROLOL SUCCINATE (ER) 25 MG TAB.ER.24H PO SCH (08:22)
[2022-06-28] MEDS: AMIODARONE 200 MG TAB PO SCH (08:22)
[2022-06-28 08:53] LABS: Basophils % (A) 0 %; Eosinophils # (A) 0.1 k/uL (0-0.7); Eosinophils % (A) 1 %; HCT 35.6 % (39.0-53.0); HGB 11.3 gm/dL (13.0-17.5); Hypochromasia Slight; Lymphocytes # (A) 0.8 k/uL (1.0-4.8); Lymphocytes % (A) 16 %; MCH 30.8 pg (25.0-35.0); MCHC 31.7 g/dL (31.0-37.0); Mean Platelet Volume 8.5; Monocytes # (A) 0.3 k/uL (0-1.0); Monocytes % (A) 6 %; Neutrophils # (A) 3.9 k/uL (1.3-7.7); Neutrophils % (A) 75 %; RBC 3.67 m/uL (4.30-5.90); RDW 13.7 % (11.5-15.5); WBC 5.2 k/uL (3.8-10.6)
[2022-06-28 09:00] LABS: Platelet Count 104 k/uL (150-450)
[2022-06-28 09:13] LABS: Calcium 8.1 mg/dL (8.4-10.2)
--- NOTE | 2022-06-28 10:54 | P.PN ---
Subjective Progress Note Date: 06/28/22 Follow-up for acute kidney injury. Urine output of 1.0 L. Objective - Vital Signs Vital signs: Vital Signs Temp 98.9 F 06/28/22 07:54 Pulse 58 L 06/28/22 08:20 Resp 17 06/28/22 07:54 BP 120/71 06/28/22 07:54 Pulse Ox 96 06/28/22 07:54 FiO2 Intake & Output 06/27/22 06/28/22 06/28/22 18:59 06:59 18:59 Intake Total 480 Output Total 400 650 Balance -400 -170 Weight 60.328 kg Intake: Oral 480 Output: Urine 400 550 Post Void Residual 100 Other: Voiding Method Urinal External Catheter External Catheter # Voids 1 1 # Bowel Movements 1 - Exam No acute distress S1-S2 heard Lungs clear No edema Li - Labs CBC & Chem 7: 06/28/22 08:21 06/28/22 08:21 Labs: Abnormal Lab Results - Last 24 Hours (Table) 06/28/22 06/28/22 Range/Units 08:21 08:21 RBC 3.67 L (4.30-5.90) m/uL Hgb 11.3 L (13.0-17.5) gm/dL Hct 35.6 L (39.0-53.0) % Plt Count 104 L D (150-450) k/uL Lymphocytes # 0.8 L (1.0-4.8) k/uL Chloride 112 H (98-107) mmol/L BUN 31 H (9-20) mg/dL Creatinine 1.28 H (0.66-1.25) mg/dL Glucose 120 H (74-99) mg/dL Calcium 8.1 L (8.4-10.2) mg/dL Microbiology - Last 24 Hours (Table) 06/25/22 09:21 Urine Culture - Final Urine,Voided Pseudomonas aeruginosa Assessment and Plan Assessment: #1 acute kidney injury secondary to obstructive uropathy with right hydronephrosis. #2 CK D stage IIIa with a baseline creatinine of 1.1 MG per DL secondary to nephrosclerosis #3 hypertension with chronic kidney disease #4 lactic acidosis resolved Plan: #1 renal function improving. Appreciate urology input #2 continue with IV fluids today, can be stopped by tomorrow #3 avoid nephrotoxic agents. #4 continue to hold all antihypertensive agents for now with hypotension.
--- NOTE | 2022-06-28 11:11 | P.PN ---
Subjective This is a pleasant 87-year-old patient who follows with visiting physicians. Chronic stable medical conditions include hard of hearing, right kidney stone, prostate disorder, chronic gait dysfunction. Patient was previously living alone now for about a week has moved into [facility] assisted living. Does able to walk a few feet with physical therapy. Per ER physician patient was less responsive at breakfast. Patient has been feeling tired. Decreased appetite. Has been losing weight. Denies any cough or shortness of breath. Has a bowel m ovement daily. Just feels tired and rundown. Atrial fibrillation was uncontrolled in the ER. Pain to be dehydrated. Given IV fluids. Admitted with uncontrolled atrial fibrillation, because decrease appetite, hypertension, moderate protein calorie malnutrition, acute on chronic medical debility, acute UTI with cystitis, possible acute kidney injury. Started on IV fluids. Zestril held. IV ceftriaxone. June 26: Sitting up in a chair. But more awake. Getting IV fluids. Patient declined food. We'll change to supervised feeding and ground diet. Continue IV fluids, IV ceftriaxone. Because of low platelets eliquis held. Patient had a platelet count of 169 on June 01. Consult hematology. Recent 2-D echo showed an EF of 20%. Resume care of the patient today 06/27/2022 This is a pleasant 87 years old male who presents with acute kidney injury and CAT scan show evidence of right hydronephrosis and hydroureter with thickened urinary bladder wall, has been evaluated by urologist and his been found to have urinary tract infection with culture growing gram-negative bacilli, currently covered with ceftriaxone pending final culture results Per urologist Li catheter can be discontinued but patient will need outpatient cystoscopy. Tailing Hand on the case for thrombocytopenia, platelet count improved 44 up to 66, thought secondary to sepsis. Continue with ceftriaxone For A. fib and RVR patient is currently rate controlled on amiodarone 200 mg with merchandise presentation manager on the case Patient has evidence of gallbladder sludge disease however no right upper quadrant pain or tenderness and no elevated liver enzymes, this can be addressed as an outpatient. 06/28/2022 Patient clinically improving slowly and gradually. Urine cultures, positive to pseudomonas and antibiotic was adjusted to Levaquin based on sensitivity. Discontinue it on gentle hydration with 75 mL/h. Lisinopril 2.5 today and continue on amiodarone and beta nathalia. Neurologist plan for outpatient cystoscopy with Dr. Zoila his urologist for his history of kidney stone, right hydronephrosis and thickened gallbladder urinary bladder. Thrombocytopenia improving up to 140 daily. Creatinine coming down 1.2. Patient has evidence of gallbladder filled with sludge, however patient with no right upper quadrant pain or tenderness, liver enzymes elevated. Patient refers as an outpatient with general surgery, see discharge instructions Objective - Vital Signs Vital signs: Vital Signs Temp 98.9 F 06/28/22 07:54 Pulse 58 L 06/28/22 08:20 Resp 17 06/28/22 07:54 BP 120/71 06/28/22 07:54 Pulse Ox 96 06/28/22 07:54 FiO2 Intake & Output 06/27/22 06/28/22 06/28/22 18:59 06:59 18:59 Intake Total 480 Output Total 400 650 Balance -400 -170 Weight 60.328 kg Intake: Oral 480 Output: Urine 400 550 Post Void Residual 100 Other: Voiding Method Urinal External Catheter External Catheter # Voids 1 1 # Bowel Movements 1 - Exam -GENERAL: The patient is alert and oriented x3, not in any acute distress. Well developed, well nourished. Genital weak and lethargic HEENT: Pupils are round and equally reacting to light. EOMI. No scleral icterus. No conjunctival pallor. Normocephalic, atraumatic. No pharyngeal erythema. No thyromegaly. CARDIOVASCULAR: S1 and S2 present. No murmurs, rubs, or gallops. PULMONARY: Chest is clear to auscultation, no wheezing or crackles. -ABDOMEN: Soft, nontender, nondistended, normoactive bowel sounds. No palpable organomegaly. Li catheter is in place MUSCULOSKELETAL: No joint swelling or deformity. EXTREMITIES: No cyanosis, clubbing, or pedal edema. NEUROLOGICAL: Gross neurological examination did not reveal any focal deficits. SKIN: No rashes. no petechiae. - Labs CBC & Chem 7: 06/28/22 08:21 06/28/22 08:21 Labs: Abnormal Lab Results - Last 24 Hours (Table) 06/27/22 06/28/22 06/28/22 Range/Units 08:49 08:21 08:21 RBC 3.67 L (4.30-5.90) m/uL Hgb 11.3 L (13.0-17.5) gm/dL Hct 35.6 L (39.0-53.0) % Plt Count 104 L D (150-450) k/uL Lymphocytes # 0.8 L (1.0-4.8) k/uL Chloride 114 H 112 H (98-107) mmol/L Carbon Dioxide 20 L (22-30) mmol/L BUN 35 H 31 H (9-20) mg/dL Creatinine 1.46 H 1.28 H (0.66-1.25) mg/dL Glucose 120 H (74-99) mg/dL Calcium 8.1 L 8.1 L (8.4-10.2) mg/dL Microbiology - Last 24 Hours (Table) 06/25/22 09:21 Urine Culture - Final Urine,Voided Pseudomonas aeruginosa Assessment and Plan Assessment: Acute kidney injury, improving Acute urinary tract infection secondary to pseudomonas Right hydronephrosis and hydroureter with thickened gallbladder, rule out urinary bladder or renal disease, need cystoscopy as an outpatient. Chronic atrial fibrillation on eliquis Thrombocytopenia suspected secondary to sepsis. Improving Metabolic/encephalitis follow-up FE, completely resolved Hypertension, Gallbladder disease, with sludge, asymptomatic, no evidence of cholecystitis clinically. Enlarged prostate 5.7 centimeter on CAT scan Plan: This is a pleasant 87 years old male with UTI, hydronephrosis Change antibiotics to Levaquin follow-up urine culture, final results Urologist on the case and the recommended cystoscopy as an outpatient Continue with normal saline at 75 mL/h monitor creatinine Several consultants on the case including flask maker, typecasting machine operator, urologist, merchandise presentation manager Labs and medication were reviewed.. Continue same treatment. Continue with symptomatic treatment. Resume home medication. Monitor lytes and vitals. DVT and GI prophylaxis. Further recommendations as per clinical course of the patient DVT prophylaxis: no Subcutaneous heparin in view of thrombocytopenia GI Prophylaxis: Pepcid PT/OT: Subacute rehab, outreach and education social worker consult Prognosis is guarded
[2022-06-28] MEDS: SODIUM CHLORIDE 0.9% 1,000 ML IV SCH ×2 (11:42→23:23)
[2022-06-28] MEDS ORDERED: LEVOFLOXACIN 500MG-D5W PMX 500 MG in DEXTROSE/WATER 1 100ML.BAG IVPB SCH (12:00)
[2022-06-28] MEDS: MIRTAZAPINE 15 MG TAB PO SCH (19:34)
[2022-06-29] MEDS: METOPROLOL SUCCINATE (ER) 25 MG TAB.ER.24H PO SCH (08:24)
[2022-06-29 08:38] LABS: Basophils % (A) 0 %; Eosinophils # (A) 0.1 k/uL (0-0.7); Eosinophils % (A) 2 %; HCT 37.9 % (39.0-53.0); HGB 12.3 gm/dL (13.0-17.5); Hypochromasia Slight; Lymphocytes # (A) 0.8 k/uL (1.0-4.8); Lymphocytes % (A) 17 %; MCH 31.3 pg (25.0-35.0); MCHC 32.5 g/dL (31.0-37.0); MCV 96.3 fL (80.0-100.0); Mean Platelet Volume 8.9; Monocytes # (A) 0.3 k/uL (0-1.0); Monocytes % (A) 5 %; Neutrophils # (A) 3.7 k/uL (1.3-7.7); Neutrophils % (A) 74 %; Platelet Count 151 k/uL (150-450); RBC 3.93 m/uL (4.30-5.90); RDW 13.6 % (11.5-15.5)
[2022-06-29 09:02] LABS: Potassium 3.8 mmol/L (3.5-5.1)
--- NOTE | 2022-06-29 10:29 | P.PN ---
Subjective Patient is seen in follow-up for acute kidney injury on chronic kidney disease. Renal function continues to improve. Nonoliguric. No vomiting or diarrhea. Hemodynamically stable. Vital signs are stable. General: Awake. No acute distress. HEENT: Head exam is unremarkable. LUNGS: Breath sounds decreased. HEART: Rate and Rhythm are regular. ABDOMEN: Soft, no distention. EXTREMITITES: No edema. Objective - Vital Signs Vital signs: Vital Signs Temp 98.0 F 06/29/22 07:45 Pulse 65 06/29/22 08:25 Resp 17 06/29/22 07:45 BP 133/75 06/29/22 07:45 Pulse Ox 99 06/29/22 07:45 FiO2 Intake & Output 06/28/22 06/29/22 06/29/22 18:59 06:59 18:59 Intake Total 240 358 Output Total 975 Balance -735 358 Intake: Oral 240 358 Output: Urine 975 Other: Voiding Method External Catheter External Catheter External Catheter # Voids 1 # Bowel Movements 0 1 - Labs CBC & Chem 7: 06/29/22 08:13 06/29/22 08:13 Labs: Abnormal Lab Results - Last 24 Hours (Table) 06/29/22 06/29/22 Range/Units 08:13 08:13 RBC 3.93 L (4.30-5.90) m/uL Hgb 12.3 L (13.0-17.5) gm/dL Hct 37.9 L (39.0-53.0) % Lymphocytes # 0.8 L (1.0-4.8) k/uL Chloride 109 H (98-107) mmol/L BUN 26 H (9-20) mg/dL Glucose 128 H (74-99) mg/dL Calcium 8.0 L (8.4-10.2) mg/dL Assessment and Plan Plan: Assessment: 1. Acute kidney injury mostly prerenal component of obstructive uropathy. Improving. Creatinine 1.16 today. 2. Right hydronephrosis. Urology following. Cystoscopy outpatient. 3. Chronic kidney disease stage III a baseline creatinine near 1.1 secondary to nephrosclerosis. Plan: Decrease normal saline rate to 50 mL an hour. Avoid nephrotoxins. Encouraged oral intake. Follow up outpatient in 1-2 weeks post discharge.
[2022-06-29 11:18] LABS: Free Kappa Lt Chain Qnt, Serum 4.16 mg/dL (0.33-1.94); Free Lambda Lt Chain Qnt, Seru 3.14 mg/dL (0.57-2.63)
[2022-06-29] MEDS: LEVOFLOXACIN 250MG-D5W PMX 250 MG in DEXTROSE/WATER 1 50ML.BAG IVPB SCH (12:53)
[2022-06-29 14:04] LABS: Albumin 2.25 g/dL (3.80-4.90); Gamma Globulin 0.87 g/dL (0.70-1.50)
[2022-06-29] MEDS: MIRTAZAPINE 15 MG TAB PO SCH (21:03)
[2022-06-30] MEDS: SODIUM CHLORIDE 0.9% 1,000 ML IV SCH (03:43)
[2022-06-30] MEDS: METOPROLOL SUCCINATE (ER) 25 MG TAB.ER.24H PO SCH (09:12)
[2022-06-30 09:35] LABS: HCT 36.1 % (39.0-53.0); HGB 11.8 gm/dL (13.0-17.5); MCH 31.3 pg (25.0-35.0); MCHC 32.7 g/dL (31.0-37.0); MCV 95.7 fL (80.0-100.0); Mean Platelet Volume 8.7; Platelet Count 180 k/uL (150-450); RBC 3.77 m/uL (4.30-5.90); RDW 14.1 % (11.5-15.5); WBC 6.7 k/uL (3.8-10.6)
--- NOTE | 2022-06-30 09:51 | P.PN ---
Subjective Progress Note Date: 06/29/22 This is a pleasant 87-year-old patient who follows with visiting physicians. Chronic stable medical conditions include hard of hearing, right kidney stone, prostate disorder, chronic gait dysfunction. Patient was previously living alone now for about a week has moved into [facility] assisted living. Does able to walk a few feet with physical therapy. Per ER physician patient was less responsive at breakfast. Patient has been feeling tired. Decreased appetite. Has been losing weight. Denies any cough or shortness of breath. Has a bowel movement daily. Just feels tired and rundown. Atrial fibrillation was uncontrolled in the ER. Pain to be dehydrated. Given IV fluids. Admitted with uncontrolled atrial fibrillation, because decrease appetite, hypertension, moderate protein calorie malnutrition, acute on chronic medical debility, acute UTI with cystitis, possible acute kidney injury. Started on IV fluids. Zestril held. IV ceftriaxone. June 26: Sitting up in a chair. But more awake. Getting IV fluids. Patient declined food. We'll change to supervised feeding and ground diet. Continue IV fluids, IV ceftriaxone. Because of low platelets eliquis held. Patient had a platelet count of 169 on June 01. Consult hematology. Recent 2-D echo showed an EF of 20%. Resume care of the patient today 06/27/2022 This is a pleasant 87 years old male who presents with acute kidney injury and CAT scan show evidence of right hydronephrosis and hydroureter with thickened urinary bladder wall, has been evaluated by urologist and his been found to have urinary tract infection with culture growing gram-negative bacilli, currently covered with ceftriaxone pending final culture results Per urologist Li catheter can be discontinued but patient will need outpatient cystoscopy. Mailroom Assistant on the case for thrombocytopenia, platelet count improved 44 up to 66, thought secondary to sepsis. Continue with ceftriaxone For A. fib and RVR patient is currently rate controlled on amiodarone 200 mg with photoengraving etcher on the case Patient has evidence of gallbladder sludge disease however no right upper quadrant pain or tenderness and no elevated liver enzymes, this can be addressed as an outpatient. 06/28/2022 Patient clinically improving slowly and gradually. Urine cultures, positive to pseudomonas and antibiotic was adjusted to Levaquin based on sensitivity. Discontinue it on gentle hydration with 75 mL/h. Lisinopril 2.5 today and continue on amiodarone and beta nathalia. Neurologist plan for outpatient cystoscopy with Dr. Cummings his urologist for his history of kidney stone, right hydronephrosis and thickened gallbladder urinary bladder. Thrombocytopenia improving up to 140 daily. Creatinine coming down 1.2. Patient has evidence of gallbladder filled with sludge, however patient with no right upper quadrant pain or tenderness, liver enzymes elevated. Patient refers as an outpatient with general surgery, see discharge instructions 06/29/2022 Patient is currently in bed. Awake alert and oriented. No complaints of chest pain or shortness of breath. No fever no chills. Renal function improved. Patient was found to have Pseudomonas urinary tract infection and was started on Levaquin. Denied any nausea vomiting or abdominal pain. Tolerating oral diet slowly. Patient will need outpatient follow-up with urology and general surgery due to gallbladder sludge. No cough or sputum production. Anticipate discharge in next 24 hours with marked clinical improvement Current medications reviewed. Objective - Vital Signs Vital signs: Vital Signs Temp 97.3 F L 06/30/22 08:00 Pulse 64 06/30/22 08:00 Resp 18 06/30/22 08:00 BP 123/69 06/30/22 08:00 Pulse Ox 99 06/30/22 08:00 FiO2 Intake & Output 06/29/22 06/30/22 06/30/22 18:59 06:59 18:59 Intake Total 598 Output Total 850 1050 900 Balance -252 1050 -900 Weight 63 kg Intake: Oral 598 Output: Urine 850 1050 900 Other: Voiding Method External Catheter External Catheter - Exam - Exam -GENERAL: The patient is alert and oriented x3, not in any acute distress. Well developed, well nourished. Genital weak and lethargic HEENT: Pupils are round and equally reacting to light. EOMI. No scleral icterus. No conjunctival pallor. Normocephalic, atraumatic. No pharyngeal erythema. No thyromegaly. CARDIOVASCULAR: S1 and S2 present. No murmurs, rubs, or gallops. PULMONARY: Chest is clear to auscultation, no wheezing or crackles. -ABDOMEN: Soft, nontender, nondistended, normoactive bowel sounds. No palpable organomegaly. Li catheter is in place MUSCULOSKELETAL: No joint swelling or deformity. EXTREMITIES: No cyanosis, clubbing, or pedal edema. NEUROLOGICAL: Gross neurological examination did not reveal any focal deficits. SKIN: No rashes. no petechiae. - Labs CBC & Chem 7: 07/01/22 08:46 07/01/22 08:46 Labs: Abnormal Lab Results - Last 24 Hours (Table) 06/26/22 06/26/22 06/30/22 Range/Units 18:06 18:06 08:03 RBC 3.77 L (4.30-5.90) m/uL Hgb 11.8 L (13.0-17.5) gm/dL Hct 36.1 L (39.0-53.0) % Albumin (PEP) 2.25 L (3.80-4.90) g/dL Methylmalonic Acid 0.83 H (<0.40) umol/L Free [place] LC, Quant 4.16 H (0.33-1.94) mg/dL Free [place]ambda LC, Quant 3.14 H (0.57-2.63) mg/dL Assessment and Plan Assessment: Acute kidney injury, improving Acute urinary tract infection secondary to pseudomonas Right hydronephrosis and hydroureter with thickened bladder, rule out urinary bladder or renal disease, need cystoscopy as an outpatient. Chronic atrial fibrillation on eliquis Thrombocytopenia suspected secondary to sepsis. Improving Metabolic/encephalitis follow-up FE, completely resolved Hypertension, Gallbladder disease, with sludge, asymptomatic, no evidence of cholecystitis clinically. Enlarged prostate 5.7 centimeter on CAT scan Plan: This is a pleasant 87 years old male with UTI, hydronephrosis Change antibiotics to Levaquin follow-up urine culture, final results Urologist on the case and the recommended cystoscopy as an outpatient Continue with normal saline at 75 mL/h monitor creatinine Several consultants on the case including academic records specialist, runner out, urologist, photoengraving etcher Labs and medication were reviewed.. Monitor lytes and vitals. DVT and GI prophylaxis. DVT prophylaxis: no Subcutaneous heparin in view of thrombocytopenia GI Prophylaxis: Pepcid PT/OT: Subacute rehab, social work associate consult Prognosis is guarded Time with Patient: Greater than 30
--- NOTE | 2022-06-30 10:14 | P.PN ---
Subjective Patient is seen in follow-up for acute kidney injury on chronic kidney disease. Renal function improved. Nonoliguric. No vomiting or diarrhea. H emodynamically stable. Vital signs are stable. General: Awake. No acute distress. HEENT: Head exam is unremarkable. LUNGS: Breath sounds decreased. HEART: Rate and Rhythm are regular. ABDOMEN: Soft, no distention. EXTREMITITES: No edema. Objective - Vital Signs Vital signs: Vital Signs Temp 97.3 F L 06/30/22 08:00 Pulse 64 06/30/22 08:00 Resp 18 06/30/22 08:00 BP 123/69 06/30/22 08:00 Pulse Ox 99 06/30/22 08:00 FiO2 Intake & Output 06/29/22 06/30/22 06/30/22 18:59 06:59 18:59 Intake Total 598 118 Output Total 850 1050 900 Balance -252 -1050 -782 Weight 63 kg Intake: Oral 598 118 Output: Urine 850 1050 900 Other: Voiding Method External Catheter External Catheter - Labs CBC & Chem 7: 06/30/22 08:03 06/29/22 08:13 Labs: Abnormal Lab Results - Last 24 Hours (Table) 06/26/22 06/26/22 06/30/22 Range/Units 18:06 18:06 08:03 RBC 3.77 L (4.30-5.90) m/uL Hgb 11.8 L (13.0-17.5) gm/dL Hct 36.1 L (39.0-53.0) % Albumin (PEP) 2.25 L (3.80-4.90) g/dL Methylmalonic Acid 0.83 H (<0.40) umol/L Free [place] LC, Quant 4.16 H (0.33-1.94) mg/dL Free [place]ambda LC, Quant 3.14 H (0.57-2.63) mg/dL Assessment and Plan Plan: Assessment: 1. Acute kidney injury mostly prerenal component of obstructive uropathy. Improved. 2. Right hydronephrosis. Urology following. Cystoscopy outpatient. 3. Chronic kidney disease stage IIIa baseline creatinine near 1.1 secondary to nephrosclerosis. Plan: Hep-Lock IV fluids. Avoid nephrotoxins. Encouraged oral intake. Follow up outpatient in 1-2 weeks post discharge.
--- NOTE | 2022-06-30 10:36 | CDI ---
Documentation Clarification Form Date: 06/30/2022 10:13:25 AM From: Tuyet Delarosa RN CCDS Admit Date: 06/25/2022 12:32:00 PM Patient Name: Master Chamberlain Visit Number: [id number] Discharge Date: ATTENTION: The Clinical Documentation Specialists (CDI) and [facility] Coding Staff appreciate your assistance in clarifying documentation. Please respond to the clarification below the line at the bottom and electronically sign. The CDI & [facility] Coding staff will review the response and follow-up if needed. Please note: Queries are made part of the Legal Health Record. If you have any questions, please contact the author of this message via ITS. Dr. Cornell There is documentation of Metabolic encephalitis, 06/29, Medicine Note. Additional clarification is requested. History/Risk Factors: 87-year-old male presents to the ED via EMS with altered mental status. The patient has been less responsive. Medical History: Atrial Fibrillation, CVA/TIA and Prostate disorder. ED note, 06/25. Clinical Indicators: Admitting diagnosis: UTI with Sepsis VSS: B/P 103/76; HR 115; Temp 98.5 F Oral; RR 18; SpO2 96% room air LABS: 06/25 Wbc 14.6; Rbc 4.20; Hgb 12.6; Plt count 58; Neutrophils 12.4. Urine culture: 06/[address]: 06/25 No acute intracranial hemorrhage or midline shift. There is mild to moderate diffuse age-related cerebral atrophy and chronic small vessel ischemic change along with areas of suspected old infarct all redemonstrated. Medicine Note, 06/29 Metabolic / encephalitis follow- up FE, completely resolved. Treatment: 06/25 0.9NS 1.5L Bolus; 06/25 Rocephin IVP x 1; 06/25 06/26 Ceftriaxone IVPB Q12HR; 06/27 06/28 Ceftriaxone IVPB Q24HR; 06/27 Keflex 500mg PO QID one dose and d/cd; 06/28 Levofloxacin 500mg IVPB Q24HR changed 06/29 to 250mg Q24HR Can you please clarify Metabolic Encephalitis? [ ] Metabolic Encephalopathy [ ] Other, please specify [ ] Unable to determine answered on Medicine progress note 06/30 Improving Metabolic Encephalopathy resolved. Dr. Watson (Template Last Revised: November 2020) MTDD
[2022-06-30 11:57] VITALS: BMI 20.5
[2022-06-30] MEDS: APIXABAN 2.5 MG TABLET PO SCH ×2 (12:52→21:05)
[2022-06-30] MEDS: LEVOFLOXACIN 250MG-D5W PMX 250 MG in DEXTROSE/WATER 1 50ML.BAG IVPB SCH (12:52)
--- NOTE | 2022-06-30 17:03 | P.PN ---
Subjective Progress Note Date: 06/30/22 Principal diagnosis: thrombocytopenia In f/u pt is mildly confused, denies pain, SOB. Objective - Vital Signs Vital signs: Vital Signs Temp 97.3 F L 06/30/22 08:00 Pulse 64 06/30/22 08:00 Resp 18 06/30/22 08:00 BP 123/69 06/30/22 08:00 Pulse Ox 99 06/30/22 08:00 FiO2 Intake & Output 06/29/22 06/30/22 06/30/22 18:59 06:59 18:59 Intake Total 598 118 Output Total 850 1050 900 Balance -878 -1050 -782 Weight 63 kg Intake: Oral 598 118 Output: Urine 850 1050 900 Other: Voiding Method External Catheter External Catheter External Catheter - Constitutional General appearance: Present: average body habitus, cooperative, no acute distress - EENT Eyes: Present: anicteric sclerae, EOMI ENT: Present: hearing grossly normal - Respiratory Details: resp even unlabored, laying flat sleeping upon entry to room - Peripheral edema leg Peripheral Edema: bilateral: None - Neurologic Neurologic: Present: CNII-XII intact (grossly) - Musculoskeletal Musculoskeletal: Present: generalized weakness - Psychiatric Psychiatric: Present: A&O x's 3, appropriate affect - Labs CBC & Chem 7: 06/30/22 08:03 06/29/22 08:13 Labs: Abnormal Lab Results - Last 24 Hours (Table) 06/26/22 06/26/22 06/30/22 Range/Units 18:06 18:06 08:03 RBC 3.77 L (4.30-5.90) m/uL Hgb 11.8 L (13.0-17.5) gm/dL Hct 36.1 L (39.0-53.0) % Albumin (PEP) 2.25 L (3.80-4.90) g/dL Methylmalonic Acid 0.83 H (<0.40) umol/L - Imaging and Cardiology US - abdomen: report reviewed Assessment and Plan (1) Thrombocytopenia Current Visit: Yes Status: Acute Priority: High Code(s): D69.6 - THROMBOCYTOPENIA, UNSPECIFIED SNOMED Code(s): 919200972 Plan: Patient's platelets have recovered spontaneously. Workup including US of the abdomen and pelvis was negative for chronic liver disease or splenomegaly. Hit antibody was negative. Autoimmune workup was negative as well as paraproteinemia workup. B12 mid normal range, with an elevated MMA. Homocystine and folate ordered. Okay to resume eliquis at this time as platelets are adequate. We will follow up until all workup has been resulted. attests: I have seen and examined patient, performed H&P, developed impression and plan of care. Discussed with dictator. Agree with documentation, dictated as a scribe
[2022-06-30] MEDS: MIRTAZAPINE 15 MG TAB PO SCH (21:06)
[2022-07-01] MEDS: METOPROLOL SUCCINATE (ER) 25 MG TAB.ER.24H PO SCH (08:00)
[2022-07-01] MEDS: APIXABAN 2.5 MG TABLET PO SCH ×2 (08:00→20:31)
[2022-07-01 09:32] LABS: HCT 33.7 % (39.0-53.0); HGB 11.7 gm/dL (13.0-17.5); MCHC 34.8 g/dL (31.0-37.0); MCV 94.8 fL (80.0-100.0); Mean Platelet Volume 8.2; Platelet Count 156 k/uL (150-450); RBC 3.56 m/uL (4.30-5.90); WBC 5.9 k/uL (3.8-10.6)
[2022-07-01 09:48] LABS: Calcium 8.1 mg/dL (8.4-10.2); Potassium 4.2 mmol/L (3.5-5.1)
--- NOTE | 2022-07-01 09:50 | P.PN ---
Subjective Progress Note Date: 06/30/22 This is a pleasant 87-year-old patient who follows with visiting physicians. Chronic stable medical conditions include hard of hearing, right kidney stone, prostate disorder, chronic gait dysfunction. Patient was previously living alone now for about a week has moved into [facility] assisted [facility]. Does able to walk a few feet with physical therapy. Per ER physician patient was less responsive at breakfast. Patient has been feeling tired. Decreased appetite. Has been losing weight. Denies any cough or shortness of breath. Has a bowel movement daily. Just feels tired and rundown. Atrial fibrillation was uncontrolled in the ER. Pain to be dehydrated. Given IV fluids. Admitted with uncontrolled atrial fibrillation, because decrease appetite, hypertension, moderate protein calorie malnutrition, acute on chronic medical debility, acute UTI with cystitis, possible acute kidney injury. Started on IV fluids. Zestril held. IV ceftriaxone. June 26: Sitting up in a chair. But more awake. Getting IV fluids. Patient declined food. We'll change to supervised feeding and ground diet. Continue IV fluids, IV ceftriaxone. Because of low platelets eliquis held. Patient had a platelet count of 169 on June 01. Consult hematology. Recent 2-D echo showed an EF of 20%. Resume care of the patient today 06/27/2022 This is a pleasant 87 years old male who presents with acute kidney injury and CAT scan show evidence of right hydronephrosis and hydroureter with thickened urinary bladder wall, has been evaluated by urologist and his been found to have urinary tract infection with culture growing gram-negative bacilli, currently covered with ceftriaxone pending final culture results Per urologist Li catheter can be discontinued but patient will need outpatient cystoscopy. Handicraft Or Hobby Shop Manager on the case for thrombocytopenia, platelet count improved 44 up to 66, thought secondary to sepsis. Continue with ceftriaxone For A. fib and RVR patient is currently rate controlled on amiodarone 200 mg with rice drier on the case Patient has evidence of gallbladder sludge disease however no right upper quadrant pain or tenderness and no elevated liver enzymes, this can be addressed as an outpatient. 06/28/2022 Patient clinically improving slowly and gradually. Urine cultures, positive to pseudomonas and antibiotic was adjusted to Levaquin based on sensitivity. Discontinue it on gentle hydration with 75 mL/h. Lisinopril 2.5 today and continue on amiodarone and beta nathalia. Neurologist plan for outpatient cystoscopy with Dr. Cummings his urologist for his history of kidney stone, right hydronephrosis and thickened gallbladder urinary bladder. Thrombocytopenia improving up to 140 daily. Creatinine coming down 1.2. Patient has evidence of gallbladder filled with sludge, however patient with no right upper quadrant pain or tenderness, liver enzymes elevated. Patient refers as an outpatient with general surgery, see discharge instructions 06/29/2022 Patient is currently in bed. Awake alert and oriented. No complaints of chest pain or shortness of breath. No fever no chills. Renal function improved. Patient was found to have Pseudomonas urinary tract infection and was started on Levaquin. Denied any nausea vomiting or abdominal pain. Tolerating oral diet slowly. Patient will need outpatient follow-up with urology and general surgery due to gallbladder sludge. No cough or sputum production. Anticipate discharge in next 24 hours with marked clinical improvement 06/30/22 Patient is currently lying in the bed. Awake alert but still confused. Improving clinically. No complaints of chest pain or shortness of breath. No fever no chills. Patient is being continued on antibiotics, Levaquin due to Pseudomonas urinary tract infection. Patient function normalized with creatinine 1.16 Denied any cough or sputum production. No nausea vomiting or abdominal pain or diarrhea Laboratory data showed WBC 6.7 hemoglobin 11.8 and platelets 180 Dermatology is on board and being worked up for thrombocytopenia. Otherwise platelet count recovered Current medications reviewed. Objective - Vital Signs Vital signs: Vital Signs Temp 97.3 F L 06/30/22 08:00 Pulse 68 06/30/22 16:00 Resp 18 06/30/22 16:00 BP 107/68 06/30/22 16:00 Pulse Ox 96 06/30/22 16:00 FiO2 Intake & Output 06/30/22 06/30/22 07/01/22 06:59 18:59 06:59 Intake Total 354 Output Total 1050 1800 Balance -1050 -1446 Weight 63 kg 63 kg Intake: Oral 354 Output: Urine 1050 1800 Other: Voiding Method External Catheter External Catheter - Exam - Exam -GENERAL: The patient is alert and oriented x3, not in any acute distress. Well developed, well nourished. Genital weak and lethargic HEENT: Pupils are round and equally reacting to light. EOMI. No scleral icterus. No conjunctival pallor. Normocephalic, atraumatic. No pharyngeal erythema. No thyromegaly. CARDIOVASCULAR: S1 and S2 present. No murmurs, rubs, or gallops. PULMONARY: Chest is clear to auscultation, no wheezing or crackles. -ABDOMEN: Soft, nontender, nondistended, normoactive bowel sounds. No palpable organomegaly. Li catheter is in place MUSCULOSKELETAL: No joint swelling or deformity. EXTREMITIES: No cyanosis, clubbing, or pedal edema. NEUROLOGICAL: Gross neurological examination did not reveal any focal deficits. SKIN: No rashes. no petechiae. - Labs CBC & Chem 7: 07/01/22 08:46 07/01/22 08:46 Labs: Abnormal Lab Results - Last 24 Hours (Table) 06/26/22 06/30/22 Range/Units 18:06 08:03 RBC 3.77 L (4.30-5.90) m/uL Hgb 11.8 L (13.0-17.5) gm/dL Hct 36.1 L (39.0-53.0) % Methylmalonic Acid 0.83 H (<0.40) umol/L Assessment and Plan Assessment: Acute kidney injury, improving Acute urinary tract infection secondary to pseudomonas Right hydronephrosis and hydroureter with thickened bladder, rule out urinary bladder or renal disease, need cystoscopy as an outpatient. Chronic atrial fibrillation on eliquis Thrombocytopenia suspected secondary to sepsis. Improving Metabolic encephalopathy. resolved Hypertension, Gallbladder disease, with sludge, asymptomatic, no evidence of cholecystitis clinically. Enlarged prostate 5.7 centimeter on CAT scan Plan: This is a pleasant 87 years old male with UTI, hydronephrosis Change antibiotics to Levaquin. Urine culture showed Pseudomonas. Urologist on the case and the recommended cystoscopy as an outpatient Continue with normal saline at 75 mL/h monitor creatinine Several consultants on the case including cutter helper, basket filler, urologist, rice drier Workup for thrombocytopenia has been negative so far. Anticoagulation has been resumed. Labs and medication were reviewed.. Monitor lytes and vitals. DVT and GI prophylaxis. DVT prophylaxis: on eliquis. GI Prophylaxis: Pepcid PT/OT: Subacute rehab, social sciences professor consult Prognosis is guarded Time with Patient: Greater than 30
--- NOTE | 2022-07-01 11:39 | P.PN ---
Subjective Patient is seen in follow-up for acute kidney injury on chronic kidney disease. Renal function stable. Nonoliguric. No vomiting or diarrhea. Hemodynamically stable. No active complaints. Vital signs are stable. General: Awake. No acute distress. HEENT: Head exam is unremarkable. LUNGS: Breath sounds decreased. HEART: Rate and Rhythm are regular. ABDOMEN: Soft, no distention. EXTREMITITES: No edema. Objective - Vital Signs Vital signs: Vital Signs Temp 98.3 F 07/01/22 07:56 Pulse 65 07/01/22 07:56 Resp 18 07/01/22 07:56 BP 111/65 07/01/22 07:56 Pulse Ox 96 07/01/22 07:56 FiO2 Intake & Output 06/30/22 07/01/22 07/01/22 18:59 06:59 18:59 Intake Total 354 550 472 Output Total 1800 500 Balance -1446 50 472 Weight 63 kg Intake: Intake, IV Titration 300 Amount Levofloxacin 250Mg-D5w 0 Pmx 250 mg In Dextrose/ Water 1 50ml.bag @ 50 mls /hr IVPB Q24H VAISHNAVI Rx#: [id number] Sodium Chloride 0.9% 1, 300 000 ml @ 50 mls/hr IV . Q20H VAISHNAVI Rx#:[id number] Oral 354 250 472 Output: Urine 1800 500 Other: Voiding Method External Catheter External Catheter External Catheter - Labs CBC & Chem 7: 07/01/22 08:46 07/01/22 08:46 Labs: Abnormal Lab Results - Last 24 Hours (Table) 07/01/22 07/01/22 Range/Units 08:46 08:46 RBC 3.56 L (4.30-5.90) m/uL Hgb 11.7 L (13.0-17.5) gm/dL Hct 33.7 L (39.0-53.0) % Sodium 135 L (137-145) mmol/L BUN 27 H (9-20) mg/dL Glucose 141 H (74-99) mg/dL Calcium 8.1 L (8.4-10.2) mg/dL Assessment and Plan Plan: Assessment: 1. Acute kidney injury mostly prerenal component of obstructive uropathy. Improved. Creatinine stable at 1.18 today. 2. Right hydronephrosis. Urology following. Cystoscopy outpatient. 3. Chronic kidney disease stage IIIa baseline creatinine near 1.1 secondary to nephrosclerosis. 4. Mild hypomagnesemia from poor intake. Plan: Currently off IV fluids. Avoid nephrotoxins. Encouraged oral intake. Add oral magnesium oxide. Follow up outpatient in 1-2 weeks post discharge.
[2022-07-01] MEDS: IOPAMIDOL CONTRAST (ORAL USE) VIAL PO PRN ×2 (11:59→12:40)
[2022-07-01] MEDS ORDERED: LEVOFLOXACIN 500 MG TAB PO SCH (12:00)
[2022-07-01] MEDS: MAGNESIUM OXIDE 400 MG TAB PO SCH (12:28)
--- NOTE | 2022-07-01 13:22 | CT ---
EXAMINATION TYPE: CT ChestAbdPelvis wo con DATE OF EXAM: 07/01/2022 COMPARISON: 06/26/2022 HISTORY: possible mets CT DLP: 563.6 mGycm. Automated Exposure Control for Dose Reduction was Utilized. TECHNIQUE: Chest: Large soft tissue nodule in the right paratracheal region possibly thyroid measuring 4 cm diff icult to determine due to lack of contrast. There is bilateral consolidation and small effusion. Clive nary artery calcification is seen and there is atherosclerotic change of the aorta and cardiomegaly. Dense coronary artery calcification. Hypodensities within the liver are again noted and there is limited assessment due to lack of contras t. Largest measures 2.4 cm and 5 Hounsfield units suggestive of cyst. There is bilateral perinephric edema with severe right-sided hydronephrosis and hydroureter to the le sha the bladder. Bladder wall thickening is seen and there is no definite calcification. Large hypode nse cyst extending off the lower pole the left kidney measures 2.5 cm and 8 Hounsfield units. Pancreas homogeneous in attenuation. There is a calcification near the head of the pancreas which cou ld be within the distal CBD. Gallbladder is not well seen correlate for previous surgical history. Hypertrophic and degenerative change of the spine with grade 1 anterolisthesis L5 on S1 with bilatera l spondylolysis. No definite destructive lesions. Suspect very mild left-sided hydronephrosis as well . The prostate appears heterogeneous and contains calcifications. Small fat-containing bilateral ingu inal hernia. Bowel gas pattern nonspecific. No pathologic adenopathy by noncontrast technique. Incidental note mad e of a vertebral body hemangioma. There is ectasia or mild aneurysmal dilation of the common iliac ar teries. IMPRESSION: 1. Small bilateral pleural effusion and basilar infiltrate. 2. Cardiomegaly with dense coronary artery calcification. 3. No pathologic adenopathy 4. Severe right-sided hydronephrosis with bladder wall thickening correlate for cystitis versus mucos al lesion. 5. Hepatic cysts. 6. Recommend correlation with ultrasound to assess possible calcification within the pancreatic head could be related to a distal CBD. 7. Large right thyroid lesion measuring 4 cm.
--- NOTE | 2022-07-01 14:58 | P.PN ---
Progress Note - Text Progress Note Date: 07/01/22 Chief Complaint: Irregular heartbeat This is a pleasant 87-year-old patient who follows with visiting physicians. Chronic stable medical conditions include hard of hearing, right kidney stone, prostate disorder, chronic gait dysfunction. Patient was previously living alone now for about a week has moved into [facility] assisted living. Does able to walk a few feet with physical therapy. Per ER physician patient was less responsive at breakfast. Patient has been feeling tired. Decreased appetite. Has been losing weight. Denies any cough or shortness of breath. Has a bowel movement daily. Just feels tired and rundown. Atrial fibrillation was uncontrolled in the ER. Pain to be dehydrated. Given IV fluids. Admitted with uncontrolled atrial fibrillation, because decrease appetite, hypertension, moderate protein calorie malnutrition, acute on chronic medical debility, acute UTI with cystitis, possible acute kidney injury. Started on IV fluids. Zestril held. IV ceftriaxone. June 26: Sitting up in a chair. But more awake. Getting IV fluids. Patient declined food. We'll change to supervised feeding and ground diet. Continue IV fluids, IV ceftriaxone. Because of low platelets eliquis held. Patient had a platelet count of 169 on June 01. Consult hematology. Recent 2-D echo showed an EF of 20%. Resume care of the patient today 06/27/2022 This is a pleasant 87 years old male who presents with acute kidney injury and CAT scan show evidence of right hydronephrosis and hydroureter with thickened urinary bladder wall, has been evaluated by urologist and his been found to have urinary tract infection with culture growing gram-negative bacilli, currently covered with ceftriaxone pending final culture results Per urologist Li catheter can be discontinued but patient will need outpatient cystoscopy. Crop Roller on the case for thrombocytopenia, platelet count improved 44 up to 66, thought secondary to sepsis. Continue with ceftriaxone For A. fib and RVR patient is currently rate controlled on amiodarone 200 mg with canvas goods supervisor on the case Patient has evidence of gallbladder sludge disease however no right upper quadrant pain or tenderness and no elevated liver enzymes, this can be addressed as an outpatient. 06/28/2022 Patient clinically improving slowly and gradually. Urine cultures, positive to pseudomonas and antibiotic was adjusted to Levaquin based on sensitivity. Discontinue it on gentle hydration with 75 mL/h. Lisinopril 2.5 today and continue on amiodarone and beta nathalia. Neurologist plan for outpatient cystoscopy with Dr. Cummings his urologist for his history of kidney stone, right hydronephrosis and thickened gallbladder urinary bladder. Thrombocytopenia improving up to 140 daily. Creatinine coming down 1.2. Patient has evidence of gallbladder filled with sludge, however patient with no right upper quadrant pain or tenderness, liver enzymes elevated. Patient refers as an outpatient with general surgery, see discharge instructions 06/29/2022 Patient is currently in bed. Awake alert and oriented. No complaints of chest pain or shortness of breath. No fever no chills. Renal function improved. Patient was found to have Pseudomonas urinary tract infection and was started on Levaquin. Denied any nausea vomiting or abdominal pain. Tolerating oral diet slowly. Patient will need outpatient follow-up with urology and general surgery due to gallbladder sludge. No cough or sputum production. Anticipate discharge in next 24 hours with marked clinical improvement 06/30/22 Patient is currently lying in the bed. Awake alert but still confused. Improving clinically. No complaints of chest pain or shortness of breath. No fever no chills. Patient is being continued on antibiotics, Levaquin due to Pseudomonas urinary tract infection. Patient function normalized with creatinine 1.16 Denied any cough or sputum production. No nausea vomiting or abdominal pain or diarrhea Laboratory data showed WBC 6.7 hemoglobin 11.8 and platelets 180 Dermatology is on board and being worked up for thrombocytopenia. Otherwise platelet count recovered 07/01/2022: I resumed care of the patient from [facility] today. Laying in bed. Tired. Urology possible outpatient cystoscopy. Changed to by mouth Levaquin for Pseudomonas UTI. He got a computed tomography scan abdomen chest pelvis to rule out any underlying malignancy. Active Medications Acetaminophen (Acetaminophen Tab 325 Mg Tab) 650 mg PO Q6HR PRN PRN Reason: Mild Pain or Fever > 100.5 Apixaban (Apixaban 2.5 Mg Tablet) 2.5 mg PO BID VAISHNAVI; Protocol Last Admin: 07/01/22 08:00 Dose: 2.5 mg Calcium Carbonate/Glycine (Calcium Carbonate 500 Mg Chewable) 1,000 mg PO Q4HR PRN PRN Reason: Dyspepsia Lactulose (Lactulose 20 Gm/30 Ml Cup) 20 gm PO DAILY PRN PRN Reason: Constipation Levofloxacin (Levofloxacin 500 Mg Tab) 500 mg PO Q24H VAISHNAVI; Protocol Stop: 07/01/22 15:00 Last Admin: 07/01/22 11:59 Dose: 500 mg Levofloxacin (Levofloxacin 250 Mg Tab) 250 mg PO Q24H [facility]; Protocol Lisinopril (Lisinopril 2.5 Mg Tab) 2.5 mg PO DAILY [facility] Last Admin: 07/01/22 08:00 Dose: 2.5 mg Lorazepam (Lorazepam 0.5 Mg Tab) 0.5 mg PO Q6HR PRN PRN Reason: Anxiety Magnesium Oxide (Magnesium Oxide 400 Mg Tab) 400 mg PO DAILY [facility] Last Admin: 07/01/22 12:28 Dose: 400 mg Metoprolol Succinate (Metoprolol Succinate (Er) 25 Mg Tab.Er.24h) 25 mg PO DAILY@0800 [facility] Last Admin: 07/01/22 08:00 Dose: 25 mg Mirtazapine (Mirtazapine 15 Mg Tab) 15 mg PO HS@2000 [facility] Last Admin: 06/30/22 21:06 Dose: 15 mg Naloxone HCl (Naloxone 0.4 Mg/Ml 1 Ml Vial) 0.2 mg IV Q2M PRN PRN Reason: Opioid Reversal Past medical history to include: Atrial fibrillation, hard of hearing, prostate disorder, right renal calculi, mini strokes Social history: Assisted-living, [facility]. No smoking or alcohol Physical examination: VITAL SIGNS: 98.3, 65, 16, 1 21 x 60, 98% room air GENERAL: Retiring in bed, awake, EYES: Pupils equal. Conjunctiva normal. HEENT: External appearance of nose and ears normal, oral cavity normal NECK: JVD not raised; masses not palpable. HEART: Heart sounds irregular no edema. LUNGS: Respiratory rate normal; clear to auscultation. ABDOMEN: Soft, nontender, liver spleen not palpable, no masses palpable. PSYCH: Alert and oriented x3; mood and affect tiredl. MUSCULOSKELETAL:No Clubbing/cyanosis;muscles-grossly intact, bony prominence, awake, loss muscle muscle mass INVESTIGATIONS, reviewed in the clinical context: July 01: White count 5.9 hemoglobin 11.7 potassium 4.[address]: Lumbar spondylolisthesis. Other bony findings. Right-sided hydronephrosis and hydroureter. No obstructing calculus. Irregular wall thickening of the bladder. large prostate with calcifications. Renal ultrasound: Right kidney hydronephrosis. Urine culture positive: Klebsiella oxytoca June 26: WBC 8 hemoglobin 11.9 platelets 44 potassium 4.2 BUN 51 creatinine 1.85 albumin 2.3 White count 14.6 hemoglobin 12.6 platelets 58 sodium 134 potassium 4.7 BUN 85 creatinine 3.09 albumin 3.1 TSH 1.1 UA positive for blood, leukoesterase, RBC, WBC EKG tracing personally reviewed by me-atrial fibrillation rate 120 Chest x-ray film personally reviewed by me-cardiomegaly Previous studies: 2-D echocardiogram open 05/28/2022]: EF 20%. Global hypokinesis. Assessment and plan: -Persistent atrial fibrillation: Controlled Telemetry. Seen by cardiology. Eliquis- Resumed. -Acute thrombocytopenia. Platelet count of 169 on June 01.: Corrected . Seen by hematology. Eliquis resumed -worsening weight loss, decrease appetite. Need to rule out underlying malignancy. Computed tomography scan chest abdomen pelvis ordered without IV contrast. -Hypotensive with contribution from uncontrolled atrial fibrillation and dehydration: Better IV fluids. Stop Zestril -Moderate protein calorie malnutrition Ensure. Consult dietitian -Acute on chronic medical debility Fall precaution. PTOT. -Acute UTI with cystitis causing sepsis, with culture positive for Pseudomonas aeruginosa Changed to by mouth Levaquin -Chronic insomnia Remeron -Acute kidney injury mostly prerenal component of obstructive uropathy.: Improved Seen by nephrology. -Chronic kidney disease stage III a baseline creatinine near 1.1 seconds nephrosclerosis -Right hydronephrosis, with hydroureter. Seen by Dr. gutierrez from urology. For outpatient cystoscopy -Right thyroid lesion 4 cm Outpatient follow-up with endocrinology. No services available in the hospital. Order thyroid ultrasound. Thyroid function test. -BPH - full code Continue current medication treatment plan. Computed tomography scan abdomen chest pelvis without IV contrast. Plan for discharge tomorrow.
--- NOTE | 2022-07-01 16:25 | US ---
EXAMINATION TYPE: US thyroid st tissue head/neck DATE OF EXAM: 07/01/2022 COMPARISON: NONE CLINICAL HISTORY: Right thyroid lesion. right thyroid lesion visualized on recent CT exam GLAND SIZE: Right Lobe: 6.5 x 2.9 x 3.0 cm Overall Parenchyma: heterogenous Left Lobe: 4.9 x 1.4 x 1.9 cm Overall Parenchyma: heterogeneous Isthmus Thickness: 0.4 cm NODULES RIGHT: # of nodules measured on right: 1 1. 4.2 X 3.6 x 3.5 cm, lower , mixed cystic and solid, isoechoic nodule, which is taller than wide, with smooth margins, without echogenic foci. TR 4 lesion. Prior size: no prior Multiple additional subcentimeter foci are scattered within the left and right lobe LEFT: # of nodules measured on left: 1 1. 0.8 X 0.4 x 0.6 cm, mid , mixed cystic and solid, hypoechoic nodule, which is wider than tall, w ith smooth margins, without echogenic foci. Prior size: no prior ISTHMUS: # of nodules measured in the isthmus: 1 1. 0.8 X 0.5 x 0.9 cm solid or almost completely solid, hypoechoic nodule, which is wider than tall , with smooth margins, with echogenic foci. TR 4 lesion Prior size: no prior Bilateral neck scanned, no evidence of lymphadenopathy. IMPRESSION: Suspicious lesion right lobe of the gland, fine-needle aspiration should BE considered 2017 ACR TI-RADS LEVEL: TR 4 *Highest TI-RADS level nodule reported
[2022-07-01] MEDS: MIRTAZAPINE 15 MG TAB PO SCH (20:31)
[2022-07-02 08:17] VITALS: RESP 18; TEMP 97.8
[2022-07-02] MEDS: APIXABAN 2.5 MG TABLET PO SCH (08:17)
[2022-07-02] MEDS: METOPROLOL SUCCINATE (ER) 25 MG TAB.ER.24H PO SCH (08:17)
[2022-07-02] MEDS: MAGNESIUM OXIDE 400 MG TAB PO SCH (08:17)
[2022-07-02] MEDS ORDERED: LEVOFLOXACIN 250 MG TAB PO SCH (12:00)
--- NOTE | 2022-07-02 12:16 | P.PN ---
Subjective Patient is seen for follow-up for acute kidney injury on top of chronic kidney disease. Renal function has improved. No significant complaints today. Possible discharge soon Objective - Vital Signs Vital signs: Vital Signs Temp 97.8 F 07/02/22 08:16 Pulse 70 07/02/22 08:16 Resp 18 07/02/22 08:24 BP 94/64 07/02/22 08:16 Pulse Ox 93 L 07/02/22 08:16 FiO2 Intake & Output 07/01/22 07/02/22 07/02/22 18:59 06:59 18:59 Intake Total 1550 237 Output Total 900 1300 Balance 650 -1300 237 Intake: Oral 1550 237 Output: Urine 900 1300 Other: Voiding Method External Catheter External Catheter Urinal # Voids 1 # Bowel Movements 1 - Exam Awake, comfortable, not in any acute distress Examination of the heart S1 and S2 Examination of the lungs decreased breath sounds at the bases Abdomen is soft nontender Examination of the lower extremities shows no evidence of edema REPEATER CHIEF exam grossly intact - Labs CBC & Chem 7: 07/01/22 08:46 07/01/22 08:46 Assessment and Plan Assessment: 1. Acute kidney injury prerenal as well as obstructive uropathy with right hydronephrosis noted on ultrasound. No hydronephrosis detected on the left kidney. Blood pressure was low on admission. Status post IV fluids. Currently with indwelling Li catheter with significant improvement in renal function. 2. Right moderate hydronephrosis, urology has been consulted. Patient has history of nephrolithiasis. No stones noted on current ultrasound, patient will likely need CT of the abdomen. For cystoscopy as outpatient 3. Lactic acidosis on initial admission associated with hypotension and hypoperfusion 4. Complicated UTI maintained on antibiotics. Urine culture grew Pseudomonas Plan: Continue with Li catheter Follow-up with urology as outpatient Encourage increased oral intake Follow-up with nephrology in about 2 weeks post discharge
[2022-07-02 12:33] VITALS: BP 109/72; PULSE 90
--- NOTE | 2022-07-02 17:29 | P.DS ---
Providers Date of admission: 06/25/22 12:32 Expected date of discharge: 07/02/22 Attending physician: Timbo Miller Consults: 06/25/22 12:32 Consult Physician Urgent Consulting Provider: Pamela Steen Consult Reason/Comments: mariela Do you want consulting provider notified?: Yes 06/25/22 16:49 Consult Physician Routine Consulting Provider: David Soriano Consult Reason/Comments: A. fib Do you want consulting provider notified?: Yes 06/26/22 09:29 Consult Physician Routine Consulting Provider: Aravind Oneil Consult Reason/Comments: hydronephrosis, retention Do you want consulting provider notified?: Yes 06/26/22 13:13 Consult Physician Routine Consulting Provider: Benton Bethea Consult Reason/Comments: Acute thrombocytopenia Do you want consulting provider notified?: Yes 06/26/22 13:23 Consult Physician Routine Consulting Provider: Ruben Gutierrez Consult Reason/Comments: Right hydronephrosis Do you want consulting provider notified?: Yes Primary care physician: [facility] Course: Chief Complaint: Irregular heartbeat This is a pleasant 87-year-old patient who follows with visiting physicians. Chronic stable medical conditions include hard of hearing, right kidney stone, prostate disorder, chronic gait dysfunction. Patient was previously living alone now for about a week has moved into [facility] assisted living. Does able to walk a few feet with physical therapy. Per ER physician patient was less responsive at breakfast. Patient has been feeling tired. Decreased appetite. Has been losing weight. Denies any cough or shortness of breath. Has a bowel movement daily. Just feels tired and rundown. Atrial fibrillation was uncontrolled in the ER. Pain to be dehydrated. Given IV fluids. Admitted with uncontrolled atrial fibrillation, because decrease appetite, hypertension, moderate protein calorie malnutrition, acute on chronic medical debility, acute UTI with cystitis, possible acute kidney injury. Started on IV fluids. Zestril held. IV ceftriaxone. June 26: Sitting up in a chair. But more awake. Getting IV fluids. Patient declined food. We'll change to supervised feeding and ground diet. Continue IV fluids, IV ceftriaxone. Because of low platelets eliquis held. Patient had a platelet count of 169 on June 01. Consult hematology. Recent 2-D echo showed an EF of 20%. Resume care of the patient today 06/27/2022 This is a pleasant 87 years old male who presents with acute kidney injury and CAT scan show evidence of right hydronephrosis and hydroureter with thickened ur inary bladder wall, has been evaluated by urologist and his been found to have urinary tract infection with culture growing gram-negative bacilli, currently covered with ceftriaxone pending final culture results Per urologist Li catheter can be discontinued but patient will need outpatient cystoscopy. Scratch Polisher on the case for thrombocytopenia, platelet count improved 44 up to 66, thought secondary to sepsis. Continue with ceftriaxone For A. fib and RVR patient is currently rate controlled on amiodarone 200 mg with wallpaper inspector on the case Patient has evidence of gallbladder sludge disease however no right upper quadrant pain or tenderness and no elevated liver enzymes, this can be addressed as an outpatient. 06/28/2022 Patient clinically improving slowly and gradually. Urine cultures, positive to pseudomonas and antibiotic was adjusted to Levaquin based on sensitivity. Discontinue it on gentle hydration with 75 mL/h. Lisinopril 2.5 today and continue on amiodarone and beta nathalia. Neurologist plan for outpatient cystoscopy with Dr. Cummings his urologist for his history of kidney stone, right hydronephrosis and thickened gallbladder urinary bladder. Thrombocytopenia improving up to 140 daily. Creatinine coming down 1.2. Patient has evidence of gallbladder filled with sludge, however patient with no right upper quadrant pain or tenderness, liver enzymes elevated. Patient refers as an outpatient with general surgery, see discharge instructions 06/29/2022 Patient is currently in bed. Awake alert and oriented. No complaints of chest pain or shortness of breath. No fever no chills. Renal function improved. Patient was found to have Pseudomonas urinary tract infection and was started on Levaquin. Denied any nausea vomiting or abdominal pain. Tolerating oral diet slowly. Patient will need outpatient follow-up with urology and general surgery due to gallbladder sludge. No cough or sputum production. Anticipate discharge in next 24 hours with marked clinical improvement 06/30/22 Patient is currently lying in the bed. Awake alert but still confused. Improving clinically. No complaints of chest pain or shortness of breath. No fever no chills. Patient is being continued on antibiotics, Levaquin due to Pseudomonas urinary tract infection. Patient function normalized with creatinine 1.16 Denied any cough or sputum production. No nausea vomiting or abdominal pain or diarrhea Laboratory data showed WBC 6.7 hemoglobin 11.8 and platelets 180 Dermatology is on board and being worked up for thrombocytopenia. Otherwise platelet count recovered 07/01/2022: I resumed care of the patient from [facility] today. Laying in bed. Tired. Urology possible outpatient cystoscopy. Changed to by mouth Levaquin for Pseudomonas UTI. He got a computed tomography scan abdomen chest pelvis to rule out any underlying malignancy. 07/02/2022: Outpatient right thyroid nodule biopsy with interventional radiology. Outpatient follow-up with urology for cystoscopy. Discussed with patient. Complete a course of Levaquin. Discussion and discharge planning more than 35 minutes Past medical history to include: Atrial fibrillation, hard of hearing, prostate disorder, right renal calculi, mini strokes Social history: Assisted-living, [place]. No smoking or alcohol Physical examination: VITAL SIGNS: 97.8, 90, 18, 10 9 x 72, 97% room air GENERAL: Comfortable awake, EYES: Pupils equal. Conjunctiva normal. HEENT: External appearance of nose and ears normal, oral cavity normal NECK: JVD not raised; masses not palpable. HEART: Heart sounds irregular no edema. LUNGS: Respiratory rate normal; clear to auscultation. ABDOMEN: Soft, nontender, liver spleen not palpable, no masses palpable. PSYCH: Alert and oriented x3; mood and affect tiredl. MUSCULOSKELETAL:No Clubbing/cyanosis;muscles-grossly intact, bony prominence, awake, loss muscle muscle mass INVESTIGATIONS, reviewed in the clinical context: July 01: White count 5.9 hemoglobin 11.7 potassium 4.2 creatinine 1.18 Thyroid ultrasound: Suspicious lesion right lobe of the gland Renal CT: Lumbar spondylolisthesis. Other bony findings. Right-sided hydronephrosis and hydroureter. No obstructing calculus. Irregular wall thickening of the bladder. large prostate with calcifications. Renal ultrasound: Right kidney hydronephrosis. Urine culture positive: Klebsiella oxytoca June 26: WBC 8 hemoglobin 11.9 platelets 44 potassium 4.2 BUN 51 creatinine 1.85 albumin 2.3 White count 14.6 hemoglobin 12.6 platelets 58 sodium 134 potassium 4.7 BUN 85 creatinine 3.09 albumin 3.1 TSH 1.1 UA positive for blood, leukoesterase, RBC, WBC EKG tracing personally reviewed by me-atrial fibrillation rate 120 Chest x-ray film personally reviewed by me-cardiomegaly Previous studies: 2-D echocardiogram open 05/28/2022]: EF 20%. Global hypokinesis. Assessment and plan: -Persistent atrial fibrillation: Controlled Telemetry. Seen by cardiology. Eliquis- Resumed. -Acute thrombocytopenia. Platelet count of 169 on June 01.: Corrected . Seen by hematology. Eliquis resumed -Hypotensive with contribution from uncontrolled atrial fibrillation and dehydration: Better IV fluids. Stop Zestril -Moderate protein calorie malnutrition Ensure. Consult dietitian -Acute on chronic medical debility Fall precaution. PTOT. -Acute UTI with cystitis causing sepsis, with culture positive for Pseudomonas aeruginosa Changed to by mouth Levaquin -Chronic insomnia Remeron -Acute kidney injury mostly prerenal component of obstructive uropathy.: Improved Seen by nephrology. -Chronic kidney disease stage III a baseline creatinine near 1.1 seconds nephrosclerosis -Right hydronephrosis, with hydroureter. Seen by Dr. gutierrez from urology. For outpatient cystoscopy -Right thyroid lesion 4 cm Outpatient follow-up with Dr. Felix. No services available in the hospital. Outpatient interventional radiology to do a thyroid biopsy. Thyroid function test. -BPH - full code Disposition: [facility] Plan - Discharge Summary New Discharge Prescriptions: New Levofloxacin [Levaquin] 250 mg PO Q24H #7 tab Continue Amiodarone [Cordarone] 200 mg PO DAILY@0800 Apixaban [Eliquis] 2.5 mg PO BID@799,1999 Acetaminophen Tab [Tylenol] 650 mg PO QID PRN PRN Reason: Pain Calcium Carbonate [Tums] 1,000 mg PO Q6H PRN PRN Reason: Dyspepsia lisinopriL [Zestril] 2.5 mg PO DAILY@0800 Melatonin 3 mg PO HS Metoprolol Succinate (ER) [Toprol XL] 25 mg PO DAILY@0800 Mirtazapine [Remeron] 15 mg PO HS@1999 Discontinued Docusate [Colace] 100 mg PO BID PRN cap PRN Reason: Constipation Discharge Medication List Acetaminophen Tab [Tylenol] 650 mg PO QID PRN 06/25/22 [History] Amiodarone [Cordarone] 200 mg PO DAILY@0800 06/25/22 [History] Apixaban [Eliquis] 2.5 mg PO BID@799,199906/25/22 [History] Calcium Carbonate [Tums] 1,000 mg PO Q6H PRN 06/25/22 [History] Melatonin 3 mg PO HS 06/25/22 [History] Metoprolol Succinate (ER) [Toprol XL] 25 mg PO DAILY@79906/25/22 [History] Mirtazapine [Remeron] 15 mg PO HS@199906/25/22 [History] lisinopriL [Zestril] 2.5 mg PO DAILY@79906/25/22 [History] Levofloxacin [Levaquin] 250 mg PO Q24H #7 tab 07/02/22 [Rx] Follow up Appointment(s)/Referral(s): Adryan Baig MD [STAFF PHYSICIAN] - 08/03/22 8:40 am (cystoscopy) Kenyon Felix MD [REFERRING] - 2 Weeks (Please call to schedule follow up.) Isauro Goetz MD [Primary Care Provider] - 1-2 days Ranulfo Morgan MD [STAFF PHYSICIAN] - 07/14/22 1:15 pm () Patient Instructions/Handouts: A-fib (Atrial Fibrillation) (DC), Acute Kidney Injury (DC) Activity/Diet/Wound Care/Special Instructions: Scheduling will call to set up date and time for biopsy of thyroid Discharge Disposition: HOME SELF-CARE
== END 2022-07-02 14:10 | disposition home or self-care (01) | DRG 871 ==
LOC: SUPCPDRO 09:02 → EC 09:02 → 3SCARD 12:32
PROVIDERS: ADMIT Hospitalist; ATTEND Hospitalist
DX: A41.89 Other specified sepsis (principal); G93.41 Metabolic encephalopathy; E44.0 Moderate protein-calorie malnutrition; E87.20 Acidosis, unspecified; N17.9 Acute kidney failure, unspecified; I42.9 Cardiomyopathy, unspecified; I48.19 Other persistent atrial fibrillation; N13.6 Pyonephrosis; Z68.1 Body mass index [BMI] 19.9 or less, adult; D69.6 Thrombocytopenia, unspecified; I13.10 Hypertensive heart and chronic kidney disease without heart failure, with stage 1 through stage 4 chronic kidney disease, or unspecified chronic kidney disease; E04.1 Nontoxic single thyroid nodule; N18.31 Chronic kidney disease, stage 3a; I44.7 Left bundle-branch block, unspecified; N40.0 Benign prostatic hyperplasia without lower urinary tract symptoms; H91.90 Unspecified hearing loss, unspecified ear; R26.9 Unspecified abnormalities of gait and mobility; E86.0 Dehydration; R53.81 Other malaise; F51.04 Psychophysiologic insomnia; B96.1 Klebsiella pneumoniae [K. pneumoniae] as the cause of diseases classified elsewhere; B96.5 Pseudomonas (aeruginosa) (mallei) (pseudomallei) as the cause of diseases classified elsewhere; E83.42 Hypomagnesemia; K82.8 Other specified diseases of gallbladder; Z28.310 Unvaccinated for COVID-19; R29.6 Repeated falls; Z79.01 Long term (current) use of anticoagulants; Z86.73 Personal history of transient ischemic attack (TIA), and cerebral infarction without residual deficits; Z85.46 Personal history of malignant neoplasm of prostate; Z92.3 Personal history of irradiation; Z87.442 Personal history of urinary calculi; Z91.81 History of falling; Z79.899 Other long term (current) drug therapy
CPT/HCPCS: 36415; 70450; 71046; 71250; 74150; 74176; 76536; 76705; 76770; 80048; 80053; 81001; 82607; 82746; 83090; 83605; 83735; 83883; 83921; 84165; 84443; 84484; 85025; 85027; 85384; 85610; 85730; 86022; 86038; 86334; 86431; 87077; 87086; 87186; 93005; 96361; 96374; 99285

== ENCOUNTER → 2022-09-30 | Outpatient (CLI) | payer MEDICARE ==
[2022-09-30 15:00] LABS: Basophils # (A) 0.04 X 10*3/uL (0.00-0.10); Basophils % (A) 0.7 %; Eosinophils # (A) 0.13 X 10*3/uL (0.04-0.35); Eosinophils % (A) 2.4 %; HCT 39.2 % (39.6-50.0); HGB 12.1 g/dL (13.0-17.0); Immature Grans, Automated 0.5 %; Lymphocytes # (A) 1.59 X 10*3/uL (0.90-5.00); Lymphocytes % (A) 28.9 %; MCH 30.5 pg (27.0-32.0); MCHC 30.9 g/dL (32.0-37.0); MCV 98.7 fL (80.0-97.0); Mean Platelet Volume 9.9 fL (9.5-12.2); Monocytes % (A) 7.3 %; NRBC Per 100 WBC 0 /100 WBCS (0.0-0.0); Neutrophils # (A) 3.32 X 10*3/uL (1.80-7.70); Neutrophils % (A) 60.2 %; Platelet Count 140 X 10*3/uL (140-440); RBC 3.97 X 10*6/uL (4.40-5.60); RDW 13.7 % (11.5-14.5); WBC 5.51 X 10*3/uL (4.50-10.00)
[2022-09-30 16:25] LABS: Anion Gap 8.3 mmol/L (10.00-18.00); BUN/Creat Ratio 12.01 Ratio (12.00-20.00); Blood Urea Nitrogen 18.5 mg/dL (9.0-27.0); Calcium 9.4 mg/dL (8.7-10.3); Carbon Dioxide 25.9 mmol/L (20.0-27.5); Non-African American GFR(CKD) 40.5 (60.0-200.0); Potassium 4.7 mmol/L (3.5-5.5)
== END | disposition home or self-care (01) ==
LOC: LABWHC1 08:36
PROVIDERS: ATTEND Urology
DX: Z01.812 Encounter for preprocedural laboratory examination (principal); R31.29 Other microscopic hematuria; N13.2 Hydronephrosis with renal and ureteral calculous obstruction
CPT/HCPCS: 36415; 80048; 85025

== ENCOUNTER → 2022-12-30 | Outpatient (CLI) | payer MEDICARE ==
[2022-12-30 15:26] LABS: Basophils # (A) 0.03 X 10*3/uL (0.00-0.10); Basophils % (A) 0.6 %; Eosinophils # (A) 0.07 X 10*3/uL (0.04-0.35); Eosinophils % (A) 1.3 %; HCT 42.7 % (39.6-50.0); HGB 13.1 g/dL (13.0-17.0); Immature Grans, Automated 0.2 %; Lymphocytes # (A) 1.73 X 10*3/uL (0.90-5.00); Lymphocytes % (A) 33.1 %; MCH 29.2 pg (27.0-32.0); MCHC 30.7 g/dL (32.0-37.0); MCV 95.1 fL (80.0-97.0); Mean Platelet Volume 9.5 fL (9.5-12.2); Monocytes # (A) 0.38 X 10*3/uL (0.20-1.00); Monocytes % (A) 7.3 %; NRBC Per 100 WBC 0 /100 WBCS (0.0-0.0); Neutrophils % (A) 57.5 %; Platelet Count 169 X 10*3/uL (140-440); RBC 4.49 X 10*6/uL (4.40-5.60); RDW 14.3 % (11.5-14.5); WBC 5.22 X 10*3/uL (4.50-10.00)
[2022-12-30 15:58] LABS: African American GFR (CKD) 37.9 (60.0-200.0); Anion Gap 11.2 mmol/L (10.00-18.00); BUN/Creat Ratio 13.75 Ratio (12.00-20.00); Blood Urea Nitrogen 25.3 mg/dL (9.0-27.0); Calcium 9.5 mg/dL (8.7-10.3); Carbon Dioxide 25.9 mmol/L (20.0-27.5); Non-African American GFR(CKD) 32.7 (60.0-200.0); Potassium 4.5 mmol/L (3.5-5.5)
[2022-12-30 18:03] LABS: Appearance,Urine Turbid (Clear); Bacteria,Urine 3+ /HPF (None Seen); Bilirubin,Urine Negative (Negative); Blood,Urine Large (Negative); Color,Urine Yellow (Yellow); Ketones,Urine Negative (Negative); Nitrite,Urine Positive (Negative); PH, Urine 6.5 (5.0-8.0); Specific Gravity,Urine 1.014 (1.001-1.030); Urobilinogen,Urine 0.2 (0.2,1.0)
== END | disposition home or self-care (01) ==
LOC: LABWHC1 08:41
PROVIDERS: ATTEND Internal Medicine Cardiovascular Disease
DX: I48.11 Longstanding persistent atrial fibrillation (principal)
CPT/HCPCS: 36415; 80048; 81001; 84443; 84450; 84460; 85025; 87086

== ENCOUNTER → 2023-01-07 | Day surgery (SDC) | payer MEDICARE ==
[~2023-01-07] MED LIST changes: +IOPAMIDOL-370 50ML BTL IRRIGATION ONE; +LACTATED RINGERS 1,000 ML IV ONE; -LIDOCAINE 1% (10MG/ML) FOR IV START INTRADERMA PRN; +LIDOCAINE 2% INJ 20 MG/ML (2 ML VIAL) ONE; -MIDAZOLAM 2 MG/2 ML VIAL IV PRN; +MIDAZOLAM 2 MG/2 ML VIAL ONE; +PROPOFOL 10 MG/ML 20 ML VIAL IV ONE; +SODIUM CHLORIDE 0.9% 100 ML IV ONE; +fentaNYL (PF) 50 MCG/ML 2 ML AMP ONE
--- NOTE | 2023-01-07 07:04 | P.GSHP ---
History of Present Illness H&P Date: 01/07/23 Chief Complaint: Right hydronephrosis The patient is an 87-year-old white male diagnosed with prostate cancer in 2018. He was treated with radiation therapy and hormone therapy. His PSA level in May 2022 was 0.23, consistent with excellent control of his cancer. Campos eladio, he developed gross hematuria last fall. He was treated for UTIs. CT scan in June 2022 showed right hydroureteronephrosis of indeterminate etiology. - Constitutional Constitutional: Reports fever, Denies chills - Gastrointestinal Gastrointestinal: Denies abdominal pain - Genitourinary (Male) Genitourinary: Reports hematuria, Denies flank pain Past Medical History Past Medical History: Atrial Fibrillation, CVA/TIA, Hearing Disorder / Deafness, Prostate Disorder, Renal Disease Additional Past Medical History / Comment(s): RIGHT RENAL CALCULI, STATES HX "MINI STROKES", [place] bilaterally, BPH, CKD, UTI, slightly unsteady. History of Any Multi-Drug Resistant Organisms: None Reported Past Surgical History: Hernia Repair Additional Past Surgical History / Comment(s): RIGHT LITHOTRIPSY x 3, RAMANDEEP INGUINAL HERNIA REPAIR Past Anesthesia/Blood Transfusion Reactions: No Reported Reaction Additional Past Anesthesia/Blood Transfusion Reaction / Comment(s): Pt has never had a blood transfusion. Smoking Status: Never smoker - Past Family History Father Family Medical History: Cancer Medications and Allergies Home Medications Medication Instructions Recorded Confirmed Type Amiodarone [Cordarone] 200 mg PO DAILY@0800 06/25/22 01/01/23 History Melatonin 3 mg PO HS 06/25/22 01/01/23 History Metoprolol Succinate (ER) [Toprol 25 mg PO DAILY@0800 06/25/22 01/01/23 History XL] Mirtazapine [Remeron] 15 mg PO HS@199906/25/22 01/01/23 History Warfarin [Coumadin] 2 mg PO HS 01/01/23 01/01/23 History Allergies Allergy/AdvReac Type Severity Reaction Status Date / Time No Known Allergies Allergy Verified 01/01/23 14:00 Surgical - Exam - General well developed, well nourished, no distress - Respiratory normal respiratory effort - Abdomen Abdomen: soft, non tender, no guarding, no rigid, no rebound - Genitourinary normal penis with no external lesions, testicles non-tender Results - Imaging CT scan - abdomen: report reviewed, image reviewed Assessment and Plan Assessment: The patient has been treated for UTIs. He reported gross hematuria starting last fall. CT scan shows right hydroureteronephrosis. (1) Unspecified hydronephrosis Status: Acute Code(s): N13.30 - UNSPECIFIED HYDRONEPHROSIS SNOMED Code(s): 66229275 (2) Gross hematuria Status: Acute Code(s): R31.0 - GROSS HEMATURIA SNOMED Code(s): 064285320 Plan: Cystoscopy, right retrograde pyelogram, right ureteroscopy, possible right ureteral stent insertion, possible transurethral resection of bladder tumor. The procedure has been reviewed in detail with the patient and his guardian. They're aware of potential risks, which include anesthesia, bleeding, infection, bladder perforation, and ureteral injury.
[2023-01-07 13:59] LABS: INR 1.1 (<1.2); Prothrombin Time 11.1 sec (9.0-12.0)
--- NOTE | 2023-01-07 16:30 | P.OP ---
Date of Procedure: 01/07/23 Preoperative Diagnosis: Right hydronephrosis, gross hematuria Postoperative Diagnosis: Urethral stricture, right hydronephrosis secondary to right ureteral stricture Procedure(s) Performed: Urethral dilation, cystoscopy, right retrograde pyelogram, right ureteroscopy with balloon dilation of right distal ureteral stricture, right ureteral stent insertion Anesthesia: SRINIVASA Surgeon: Adryan Baig Estimated Blood Loss (ml): 10 IV fluids (ml): 700 Pathology: none sent Condition: stable Disposition: PACU Indications for Procedure: The patient is an 87-year-old white male diagnosed with prostate cancer in 2018. He was treated with radiation therapy and hormone therapy. His PSA level in May 2022 was 0.23, consistent with excellent control of his cancer. However, he developed gross hematuria last fall. He was treated for UTIs. CT scan in June 2022 showed right hydroureteronephrosis of indeterminate etiology. Operative Findings: 1) Bulbous urethral stricture. 2) Right hydronephrosis secondary to right distal ureteral stricture. Description of Procedure: The patient was taken to the operating room and placed in the dorsolithotomy position, with legs supported in Timothy stirrups. The external genitalia was prepped and draped sterilely. The 30 lens was used to introduce the 22-[place]grin Storz cystoscopic sheath through the urethra under direct vision. A bulbous urethral stricture was encountered, through which the cystoscope could not be advanced. Therefore, a 0.038 inch Glidewire was passed through the urethra and into the bladder. As dilators were used to dilate the urethra to 20-Montenegrin. The 19-Montenegrin Stortz cystoscopic sheath was then passed through the urethra and into the bladder under direct vision. The prostatic urethra showed evidence of mild lateral lobe enlargement. The bladder was examined in its entirety. Upon entering the bladder, the urine was noted to be cloudy. A urine specimen was obtained and sent for culture and sensitivity. After irrigating the bladder, the bladder was inspected. Both ureteral orifices were normal anatomic location and configuration. No tumors or foreign bodies were seen. Using a 10-Montenegrin cone-tipped catheter, a right retrograde pyelogram was performed. The terminal ureter appeared normal, but the ureter proximal to this showed significant dilation and tortuosity. An abrupt cutoff was noted. The cystoscope was removed, and the ACMI semirigid ureteroscope was passed into the bladder under direct vision. The right ureteral orifice was cannulated, and the ureteroscope was slowly advanced under direct vision. 1-2 cm proximal to the orifice was an area of narrowing, through which the ureteroscope could not be advanced. The Glidewire was passed through the lumen and advanced up to the right renal pelvis. A 15-Montenegrin, 4 cm balloon dilating catheter was used to dilate what appeared to be a ureteral stricture. After removing the balloon dilating catheter, ureteroscopy was repeated. It was possible to advance the ureteroscope through what appeared to be a stricture. The ureter proximal to this was markedly dilated. No papillary lesions suggestive of malignancy were seen. The Glidewire was passed through the ureteroscope, which was removed. The Glidewire was then backloaded into the cystoscope, which was passed into the bladder. A 26 cm, 6-Montenegrin double-J ureteral stent was placed over the wire. Proper stent positioning was verified fluoroscopically and endoscopically. The bladder was emptied and the cystoscope removed. The patient tolerated the procedure well and was taken to the recovery room in stable condition.
[2023-01-07 16:39] VITALS: TEMP 97.6
--- NOTE | 2023-01-07 16:39 | FL ---
EXAMINATION TYPE: FL guidance operating room DATE OF EXAM: 01/07/2023 CLINICAL HISTORY: Right ureter stricture TECHNIQUE: Fluoroscopy. COMPARISON: Whole-body CT July 01, 2022 FINDINGS: Fluoroscopic guidance was provided during ureteroscope procedure performed by Dr. Baig. A total of 18 seconds of fluoroscopic time was utilized during the procedure and 4 spot images was a cquired. Images acquired show dilated distal ureter with eventual placement of ureter stent. IMPRESSION: As Above. TOTAL DAP = 1.3001 Gy x cm2
[2023-01-07 20:19] VITALS: BP 148/75; PULSE 60; RESP 16
== END | disposition home or self-care (01) ==
LOC: OR 12:36
PROVIDERS: ATTEND Urology
DX: N13.1 Hydronephrosis with ureteral stricture, not elsewhere classified (principal); I48.91 Unspecified atrial fibrillation; R31.0 Gross hematuria; I12.9 Hypertensive chronic kidney disease with stage 1 through stage 4 chronic kidney disease, or unspecified chronic kidney disease; N18.9 Chronic kidney disease, unspecified; Z85.46 Personal history of malignant neoplasm of prostate; Z87.440 Personal history of urinary (tract) infections; Z86.73 Personal history of transient ischemic attack (TIA), and cerebral infarction without residual deficits; Z87.890 Personal history of sex reassignment; Z79.01 Long term (current) use of anticoagulants; Z79.899 Other long term (current) drug therapy; Z95.5 Presence of coronary angioplasty implant and graft; Z79.891 Long term (current) use of opiate analgesic
CPT/HCPCS: 85610; 87086; 52332; 52344; C1758; C1769; J2250; J1100; J2405; J3010; J2704; Q9967; J2001; 87077; 87186

== ENCOUNTER → 2023-02-10 | Outpatient (CLI) | payer MEDICARE ==
[2023-02-10 15:25] LABS: Basophils # (A) 0.02 X 10*3/uL (0.00-0.10); Basophils % (A) 0.2 %; Eosinophils # (A) 0.07 X 10*3/uL (0.04-0.35); Eosinophils % (A) 0.7 %; HCT 44.5 % (39.6-50.0); HGB 14.1 g/dL (13.0-17.0); Immature Grans, Automated 0.2 %; Lymphocytes # (A) 2.56 X 10*3/uL (0.90-5.00); Lymphocytes % (A) 26.7 %; MCH 29.4 pg (27.0-32.0); MCHC 31.7 g/dL (32.0-37.0); MCV 92.9 fL (80.0-97.0); Mean Platelet Volume 10.3 fL (9.5-12.2); Monocytes # (A) 0.74 X 10*3/uL (0.20-1.00); Monocytes % (A) 7.7 %; NRBC Per 100 WBC 0 /100 WBCS (0.0-0.0); Neutrophils # (A) 6.18 X 10*3/uL (1.80-7.70); Neutrophils % (A) 64.5 %; Platelet Count 140 X 10*3/uL (140-440); RBC 4.79 X 10*6/uL (4.40-5.60); RDW 13.6 % (11.5-14.5); WBC 9.59 X 10*3/uL (4.50-10.00)
[2023-02-10 15:50] LABS: African American GFR (CKD) 40.5 (60.0-200.0); BUN/Creat Ratio 13.28 Ratio (12.00-20.00); Blood Urea Nitrogen 23.1 mg/dL (9.0-27.0); Calcium 9.6 mg/dL (8.7-10.3); Carbon Dioxide 26.2 mmol/L (20.0-27.5)
== END | disposition home or self-care (01) ==
LOC: LABPAT 09:02
PROVIDERS: ATTEND Urology
DX: Z01.812 Encounter for preprocedural laboratory examination (principal); N13.1 Hydronephrosis with ureteral stricture, not elsewhere classified
CPT/HCPCS: 36415; 80048; 85025; 87077; 87086; 87186

== ENCOUNTER 2023-02-18 06:00 | Day surgery (SDC) | payer MEDICARE ==
--- NOTE | 2023-02-16 07:07 | P.GSHP ---
History of Present Illness H&P Date: 02/16/23 Chief Complaint: Right hydronephrosis The patient is an 87-year-old white male diagnosed with prostate cancer in 2018. He was treated with radiation therapy and hormone therapy. His PSA level in May 2022 was 0.23, consistent with excellent control of his cancer. Campos eladio, he developed gross hematuria last fall. He was treated for UTIs. CT scan in June 2022 showed right hydroureteronephrosis of indeterminate etiology. On January 07, he underwent cystoscopy. A bulbous urethral stricture was encountered and was dilated. He was then found to have a right distal ureteral stricture, and balloon dilation was performed. A ureteral stent was placed. He now comes for stent removal and ureteroscopy. - Constitutional Constitutional: Denies chills, Denies fever - Gastrointestinal Gastrointestinal: Denies abdominal pain - Genitourinary (Male) Genitourinary: Denies flank pain, Denies hematuria Past Medical History Past Medical History: Atrial Fibrillation, CVA/TIA, Hearing Disorder / Deafness, Prostate Disorder, Renal Disease Additional Past Medical History / Comment(s): RIGHT RENAL CALCULI, STATES HX "MINI STROKES", [place] bilaterally, BPH, CKD, UTI, slightly unsteady. History of Any Multi-Drug Resistant Organisms: None Reported Past Surgical History: Hernia Repair Additional Past Surgical History / Comment(s): RIGHT LITHOTRIPSY x 3, RAMANDEEP INGUINAL HERNIA REPAIR Past Anesthesia/Blood Transfusion Reactions: No Reported Reaction Additional Past Anesthesia/Blood Transfusion Reaction / Comment(s): Pt has never had a blood transfusion. Smoking Status: Never smoker - Past Family History Father Family Medical History: Cancer Medications and Allergies Home Medications Medication Instructions Recorded Confirmed Type Amiodarone [Cordarone] 200 mg PO DAILY@0800 06/25/22 01/07/23 History Melatonin 3 mg PO HS 06/25/22 01/07/23 History Metoprolol Succinate (ER) [Toprol 25 mg PO DAILY@0800 06/25/22 01/07/23 History XL] Mirtazapine [Remeron] 15 mg PO HS@199906/25/22 01/07/23 History Warfarin [Coumadin] 2 mg PO HS 01/01/23 01/07/23 History Ciprofloxacin HCl [Cipro] 500 mg PO BID 1 Days #20 tab 01/07/23 Rx Allergies Allergy/AdvReac Type Severity Reaction Status Date / Time No Known Allergies Allergy Verified 01/07/23 13:24 Surgical - Exam - General well developed, well nourished, no distress - Respiratory normal respiratory effort - Abdomen Abdomen: soft, non tender, no guarding, no rigid, no rebound - Genitourinary normal penis with no external lesions, testicles non-tender - Psychiatric oriented to time, oriented to person, oriented to place, speech is normal, memory intact Assessment and Plan (1) Hydronephrosis with ureteral stricture, not elsewhere classified Status: Acute Code(s): N13.1 - HYDRONEPHROSIS W URETERAL STRICTURE, NEC SNOMED Code(s): 18556010 (2) Bulbous urethral stricture Status: Acute Code(s): N35.912 - UNSPECIFIED BULBOUS URETHRAL STRICTURE, MALE SNOMED Code(s): 03648159 Plan: Cystoscopy, right ureteral stent removal, right ureteroscopy. If the patient has a recurrent urethral stricture, it may be necessary to perform urethral dilation for a DVIU. Depending on the ureteroscopic findings, it may be necessary to replace the right ureteral stent. The procedure has been reviewed in detail with the patient and his guardian. They have been made aware of potential risks, which include anesthesia, bleeding, infection, and ureteral injury.
[2023-02-16 17:29] VITALS: BMI 20.2
[~2023-02-18 06:00] MED LIST changes: -DEXAMETHASONE SOD PHOSPHATE 4 MG/ML 1 ML VIAL IV ONE; -HYDROmorphone 0.5 MG/0.5 ML SYRINGE IVP PRN; -IOPAMIDOL-370 50ML BTL IRRIGATION ONE; -LACTATED RINGERS 1,000 ML IV ONE; -LACTATED RINGERS 1,000 ML IV SCH; +LEVOFLOXACIN 500MG-D5W PMX 500 MG in DEXTROSE/WATER 1 100ML.BAG IVPB PRN; -LIDOCAINE 2% INJ 20 MG/ML (2 ML VIAL) ONE; -MIDAZOLAM 2 MG/2 ML VIAL ONE; -ONDANSETRON 4 MG/2 ML VIAL IVP ONE; -PROPOFOL 10 MG/ML 20 ML VIAL IV ONE; -SODIUM CHLORIDE 0.9% 100 ML IV ONE; -fentaNYL (PF) 50 MCG/ML 2 ML AMP ONE
[2023-02-18] MEDS ORDERED: DEXAMETHASONE SOD PHOSPHATE 4 MG/ML 1 ML VIAL IV ONE (06:03)
[2023-02-18] MEDS ORDERED: MIDAZOLAM 2 MG/2 ML VIAL IV PRN (06:03)
[2023-02-18] MEDS ORDERED: ONDANSETRON 4 MG/2 ML VIAL IVP ONE (06:03)
[2023-02-18] MEDS: LACTATED RINGERS 1,000 ML IV SCH ×2 (06:54→07:32)
[2023-02-18] MEDS ORDERED: HYDROmorphone 0.5 MG/0.5 ML SYRINGE IVP PRN (07:00)
[2023-02-18] MEDS ORDERED: PROPOFOL 10 MG/ML 20 ML VIAL IV ONE (07:30)
[2023-02-18] MEDS ORDERED: fentaNYL (PF) 50 MCG/ML 2 ML AMP ONE (07:30)
[2023-02-18] MEDS ORDERED: ePHEDrine 50 MG/ML 1 ML VIAL ONE (07:30)
[2023-02-18] MEDS ORDERED: LIDOCAINE 2% INJ 20 MG/ML (2 ML VIAL) ONE (07:30)
[2023-02-18 07:32] LABS: Calcium 9.1 mg/dL (8.4-10.2)
[2023-02-18 08:30] VITALS: TEMP 97.1
--- NOTE | 2023-02-18 08:32 | P.OP ---
Date of Procedure: 02/18/23 Preoperative Diagnosis: Urethral stricture, right ureteral stricture Postoperative Diagnosis: Same Procedure(s) Performed: Cystoscopy, urethral dilation, right ureteral stent removal, right ureteroscopy Anesthesia: VIETA Surgeon: Adryan Baig Estimated Blood Loss (ml): 5 IV fluids (ml): 300 Pathology: none sent Condition: stable Disposition: PACU Indications for Procedure: The patient is an 87-year-old white male diagnosed with prostate cancer in 2018. He was treated with radiation therapy and hormone therapy. His PSA level in May 2022 was 0.23, consistent with excellent control of his cancer. However, he developed gross hematuria last fall. He was treated for UTIs. CT scan in June 2022 showed right hydroureteronephrosis of indeterminate etiology. On January 07, he underwent cystoscopy. A bulbous urethral stricture was encountered and was dilated. He was then found to have a right distal ureteral stricture, and balloon dilation was performed. A ureteral stent was placed. He now comes for stent removal and ureteroscopy. Operative Findings: 1) Membranous urethral stricture. 2) Patent right distal ureter. Description of Procedure: The patient was taken to the operating room and placed in the dorsolithotomy position, with legs supported in Timothy stirrups. The external genitalia was prepped and draped sterilely. The 30 lens was used to introduce the 22-Welsh Storz cystoscopic sheath through the urethra under direct vision. A bulbomembranous urethral stricture was encountered, through which the cystoscope could not be advanced. Therefore, [place] sounds were used to dilate the urethra. It was then possible to advance the cystoscope into the bladder. The prostatic urethra showed evidence of mild lateral lobe enlargement. The bladder was examined in its entirety. Upon entering the bladder, the urine was noted to be cloudy. The bladder was irrigated several times, and at that time visualization was excellent. The bladder appeared unremarkable. Grasping forceps were used to grasp the distal end of the right ureteral stent, which was removed along with the cystoscope. The ACMI semirigid ureteroscope was advanced through the urethra and into the bladder under direct vision. The right ureteral orifice was cannulated, and the ureteroscope was slowly advanced. The distal ureteral stricture, which had been previously dilated, was wide open. No urothelial changes were seen. The ureter was dilated. The ureteroscope was slowly withdrawn and the procedure was terminated. The patient tolerated the procedure well and was taken to the recovery room in stable condition.
[2023-02-18 10:44] VITALS: RESP 16
[2023-02-18] MEDS ORDERED: IV FLUID CONTINUATION 1,000 ML IV ONE (10:44)
[2023-02-18 12:14] VITALS: BP 142/73; PULSE 57
== END 2023-02-18 13:05 | disposition home or self-care (01) ==
LOC: OR 06:00
PROVIDERS: ATTEND Urology
DX: N13.1 Hydronephrosis with ureteral stricture, not elsewhere classified (principal); I48.91 Unspecified atrial fibrillation; H91.90 Unspecified hearing loss, unspecified ear; N40.0 Benign prostatic hyperplasia without lower urinary tract symptoms; N18.9 Chronic kidney disease, unspecified; Z86.73 Personal history of transient ischemic attack (TIA), and cerebral infarction without residual deficits; Z87.440 Personal history of urinary (tract) infections; Z98.890 Other specified postprocedural states
CPT/HCPCS: 80048; 85610; 52310; C1769; J1100; J2405; J1956; J3010; J2704; J2001

== ENCOUNTER → 2023-05-05 | Outpatient (CLI) | payer MEDICARE ==
--- NOTE | 2023-05-05 20:16 | US ---
EXAMINATION TYPE: US kidneys/renal and bladder DATE OF EXAM: 05/05/2023 COMPARISON: NONE CLINICAL INDICATION: Male, 88 years old with history of N13.30 UNSPECIFIED HYDRONEPHROSIS; [place] r[facility] t. EXAM MEASUREMENTS: Right Kidney: 11.3 x 5.5 x 4.4 cm Left Kidney: cm Right Kidney: Limited due to bowel gas. Anechoic area lower pole 2.6 cm. Hydronephrosis visualized. Left Kidney: 9.6 x 5.3 x 4.1 cm Bladder: Anechoic with debris within. Bilateral Jets seen: yes Urinary bladder has a somewhat irregular wall. Debris is within the urinary bladder. Additional tegan p recommended.. IMPRESSION: 1. Moderate right hydronephrosis. 2. Inferior pole renal cyst. 3. Debris within urinary bladder with irregular urinary bladder wall. Additional workup recommended.
== END | disposition home or self-care (01) ==
LOC: RADUSWWP 14:54
PROVIDERS: ATTEND Urology
DX: N28.1 Cyst of kidney, acquired (principal); N13.30 Unspecified hydronephrosis; N32.89 Other specified disorders of bladder
CPT/HCPCS: 76770

== ENCOUNTER → 2023-11-05 | Outpatient (CLI) | payer MEDICARE | END | disposition home or self-care (01) | LOC: LABWHC1 12:41 | PROVIDERS: ATTEND Urology | DX: Z53.9 Procedure and treatment not carried out, unspecified reason (principal) ==

== ENCOUNTER → 2023-11-05 | Outpatient (CLI) | payer MEDICARE ==
[2023-11-05 20:15] LABS: Prostate Specific Antigen 0.32 ng/mL (0.000-6.500)
--- NOTE | 2023-11-07 15:17 | US ---
EXAMINATION TYPE: US kidneys/renal and bladder DATE OF EXAM: 11/05/2023 COMPARISON: 05/05/2023 CLINICAL INDICATION: Male, 88 years old with history of N13.30 UNSPECIFIED HYDRONEPHROSIS; h/o hydron ephrosis, no symptoms, h/o renal stones EXAM MEASUREMENTS: Right Kidney: 11.7 x 4.7 x 5.7 cm Left Kidney: 9.9 x 5.3 x 5.7 cm Right Kidney: Mild to moderate hydronephrosis, exophytic cyst = 2.0 x 2.0 x 2.4cm Left Kidney: Mild to moderate hydronephrosis, multiple inferior stones seen, largest = 1.1 x 1.0cm Bladder: irregular bladder wall IMPRESSION: 1. Ongoing mild to moderate bilateral hydronephrosis. 2. Clustered left lower pole renal calculi suggested measuring up to 1.1 cm. 3. Redemonstrated diffusely irregular bladder wall or bladder wall trabeculations.
== END | disposition home or self-care (01) ==
LOC: RADUSWWP 12:11
PROVIDERS: ATTEND Urology
DX: N13.30 Unspecified hydronephrosis (principal); C61 Malignant neoplasm of prostate; N20.0 Calculus of kidney; N32.89 Other specified disorders of bladder
CPT/HCPCS: 76770; 84153; 84403

== ENCOUNTER → 2023-12-10 | Outpatient (CLI) | payer MEDICARE ==
[2023-12-10 18:58] LABS: BUN/Creat Ratio 17.88 Ratio (12.00-20.00); Blood Urea Nitrogen 30.4 mg/dL (9.0-27.0); Calcium 9.5 mg/dL (8.7-10.3); Chloride 103 mmol/L (96-109); Glucose 81 mg/dL (70-110); Potassium 3.9 mmol/L (3.5-5.5); Sodium 139 mmol/L (135-145)
[2023-12-10 20:23] LABS: Basophils # (A) 0.05 X 10*3/uL (0.00-0.10); Basophils % (A) 0.7 %; Eosinophils # (A) 0.26 X 10*3/uL (0.04-0.35); Eosinophils % (A) 3.6 %; HCT 44.3 % (39.6-50.0); Lymphocytes % (A) 37.6 %; MCH 29.6 pg (27.0-32.0); MCHC 31.6 g/dL (32.0-37.0); MCV 93.7 FL (80.0-97.0); Mean Platelet Volume 9.7 FL (9.5-12.2); Monocytes # (A) 0.57 X 10*3/uL (0.20-1.00); Monocytes % (A) 7.9 %; NRBC Per 100 WBC 0 X 10*3/uL (0.00-0.01); Neutrophils # (A) 3.58 X 10*3/uL (1.80-7.70); Neutrophils % (A) 49.9 %; Platelet Count 147 X 10*3/uL (140-440); RBC 4.73 X 10*6/uL (4.40-5.60); RDW 13.9 % (11.5-14.5); WBC 7.18 X 10*3/uL (4.50-10.00)
== END | disposition home or self-care (01) ==
LOC: LABPAT 13:12
PROVIDERS: ATTEND Urology
DX: Z01.812 Encounter for preprocedural laboratory examination (principal); N13.30 Unspecified hydronephrosis; N35.912 Unspecified bulbous urethral stricture, male
CPT/HCPCS: 36415; 80048; 85025

== ENCOUNTER → 2023-12-16 | Day surgery (SDC) | payer MEDICARE ==
--- NOTE | 2023-12-15 19:04 | P.GSHP ---
History of Present Illness H&P Date: 12/15/23 Chief Complaint: Right hydronephrosis The patient is an 88-year-old white male diagnosed with prostate cancer in 2018. He was treated with radiation therapy and hormone therapy. His PSA level in May 2022 was 0.23, consistent with excellent control of his cancer. Campos eladio, he developed gross hematuria in late 2021. He was treated for UTIs. CT scan in June 2022 showed right hydroureteronephrosis of indeterminate etiology. On January 07, 2023 he underwent cystoscopy. A bulbous urethral stricture was encountered and was dilated. He was then found to have a right distal ureteral stricture, and balloon dilation was performed. A ureteral stent was placed, which was removed in February 2023. His most recent PSA level is 0.32. However, renal ultrasound in October 2023 showed mild to moderate bilateral hydronephrosis as well as a left lower pole renal calculus. He has been treated for recurrent Pseudomonas UTIs. He now comes for cystoscopy him and bilateral retrograde pyelograms, possible bilateral ureteral stent insertion, possible direct visual internal urethrotomy (DVIU). - Constitutional Constitutional: Denies chills, Denies fever - Genitourinary (Male) Genitourinary: Reports hematuria, Denies dysuria, Denies flank pain Past Medical History Past Medical History: Atrial Fibrillation, CVA/TIA, Hearing Disorder / Deafness, Prostate Disorder, Renal Disease Additional Past Medical History / Comment(s): HX RIGHT RENAL CALCULI, HX "MINI STROKES", hard of hearing bilaterally, BPH, CKD, HX UTI, slightly unsteady. History of Any Multi-Drug Resistant Organisms: None Reported Past Surgical History: Hernia Repair Additional Past Surgical History / Comment(s): RIGHT LITHOTRIPSY X3, BILATERAL INGUINAL HERNIA REPAIR. Past Anesthesia/Blood Transfusion Reactions: No Reported Reaction Additional Past Anesthesia/Blood Transfusion Reaction / Comment(s): Pt has never had a blood transfusion. Smoking Status: Never smoker - Past Family History Father Family Medical History: Cancer Medications and Allergies Home Medications Medication Instructions Recorded Confirmed Type Melatonin 3 mg PO HS@199906/25/22 12/10/23 History Metoprolol Succinate (ER) [Toprol 25 mg PO DAILY@0800 06/25/22 12/10/23 History XL] Mirtazapine [Remeron] 15 mg PO HS@199906/25/22 12/10/23 History Cyanocobalamin (Vitamin B-12) 1,000 mcg PO DAILY 02/16/23 12/10/23 History [Vitamin B-12] Acetaminophen [Tylenol] 640 mg PO QID PRN 12/10/23 12/10/23 History Amiodarone [Cordarone] 100 mg PO DAILY@0800 12/10/23 12/10/23 History Nando-Gest 500mg Chew 2 tab PO Q6H 12/10/23 12/10/23 History Cholecalciferol (Vitamin D3) 125 mcg PO DAILY 12/10/23 12/10/23 History [Vitamin D3 (125 MCG = 5,000 IU)] Ciprofloxacin HCl [Cipro] 500 mg PO BID 12/10/23 12/10/23 History Docusate Sodium [Dok] 100 mg PO BID PRN 12/10/23 12/10/23 History Losartan Potassium 25 mg PO DAILY@0800 12/10/23 12/10/23 History Warfarin Sodium 4 mg PO HS 12/10/23 12/10/23 History Allergies Allergy/AdvReac Type Severity Reaction Status Date / Time No Known Allergies Allergy Verified 12/10/23 15:02 Surgical - Exam - General well developed, well nourished, no distress - Respiratory normal respiratory effort - Abdomen Abdomen: soft, non tender, no guarding, no rigid, no rebound - Genitourinary normal penis with no external lesions, testicles non-tender - Psychiatric oriented to time, oriented to person, oriented to place, speech is normal, memory intact Results - Imaging US - kidney/bladder: report reviewed Assessment and Plan (1) Hydronephrosis with ureteral stricture, not elsewhere classified Status: Acute Code(s): N13.1 - HYDRONEPHROSIS W URETERAL STRICTURE, NEC SNOMED Code(s): 99123216 Plan: Cystoscopy, bilateral retrograde pyelograms, possible DVIU, possible ureteral stent insertion. The procedure has been reviewed in detail with the patient and his legal guardian. They aware aware of potential risks, which include anesthesia, bleeding, infection, and ureteral injury. He is being treated with ciprofloxacin perioperatively.
[~2023-12-16] MED LIST changes: +GLYCOPYRROLATE 0.2 MG/ML 2 ML VIAL ONE; +HYDROmorphone 0.5 MG/0.5 ML SYRINGE IVP PRN; -LEVOFLOXACIN 500MG-D5W PMX 500 MG in DEXTROSE/WATER 1 100ML.BAG IVPB PRN; +LIDOCAINE 1% INJ 10MG/ML (20 ML MDV) ONE; +NEOSTIGMINE 1 MG/ML 10 ML VIAL ONE; +PROPOFOL 10 MG/ML 20 ML VIAL IV ONE; +ROCURONIUM 10 MG/ML (5 ML VIAL) IV ONE; +SUCCINYLCHOLINE CHLORIDE 200 MG/10 ML VIAL IV ONE; +VASOPRESSIN 20 UNIT/ML 1 ML VIAL ONE; +ePHEDrine 50 MG/ML 1 ML VIAL ONE; +fentaNYL (PF) 50 MCG/ML 2 ML AMP ONE
[2023-12-16] MEDS: LACTATED RINGERS 1,000 ML IV SCH (11:37)
[2023-12-16] MEDS: ONDANSETRON 4 MG/2 ML VIAL IVP ONE (12:18)
[2023-12-16] MEDS: IOPAMIDOL-370 100ML BTL MISCELLANE ONE (14:28)
[2023-12-16] MEDS: LEVOFLOXACIN 500MG-D5W PMX 500 MG in DEXTROSE/WATER 1 100ML.BAG IVPB PRN (14:28)
--- NOTE | 2023-12-16 15:35 | P.OP ---
Date of Procedure: 12/16/23 Preoperative Diagnosis: Urethral stricture, bilateral hydronephrosis Postoperative Diagnosis: Urethral stricture, bilateral hydronephrosis, bladder calculi Procedure(s) Performed: Cystoscopy, direct visual internal urethrotomy (DVIU), removal of bladder ca lculi, bilateral retrograde pyelograms, bilateral ureteral stent insertion Anesthesia: SRINIVASA Surgeon: Adryan Baig Estimated Blood Loss (ml): 10 IV fluids (ml): 700 Pathology: other (Bladder calculi, sent for chemical analysis) Condition: stable Disposition: PACU Indications for Procedure: The patient is an 88-year-old white male diagnosed with prostate cancer in 2018. He was treated with radiation therapy and hormone therapy. His PSA level in May 2022 was 0.23, consistent with excellent control of his cancer. However, he developed gross hematuria in late 2021. He was treated for UTIs. CT scan in June 2022 showed right hydroureteronephrosis of indeterminate etiology. On January 07, 2023 he underwent cystoscopy. A bulbous urethral stricture was encountered and was dilated. He was then found to have a right distal ureteral stricture, and balloon dilation was performed. A ureteral stent was placed, which was removed in February 2023. His most recent PSA level is 0.32. However, renal ultrasound in October 2023 showed mild to moderate bilateral hydronephrosis as well as a left lower pole renal calculus. He has been treated for recurrent Pseudomonas UTIs. He now comes for cystoscopy him and bilateral retrograde pyelograms, possible bilateral ureteral stent insertion, possible direct visual internal urethrotomy (DVIU). Operative Findings: Bulbous urethral stricture. Multiple tiny bladder calculi measuring up to 3 mm in size. Bilateral hydroureteronephrosis. There appear to be radiolucent calculi within the left distal ureter. Description of Procedure: The patient was taken to the operating room and placed in the dorsolithotomy position, with his legs supported in Timothy stirrups. The external genitalia was prepped draped sterilely. The 0 degree lens was used to introduce the visual urethrotome into the urethra. A bulbous urethral stricture was encountered, measuring approximately 12 Haitian in caliber. The cold knife was used to incise the stricture at the 12 o'clock position, down to vascular tissue. It was then possible to advance the visual urethrotome into the bladder. The visual urethrotome was removed, and the 30 degree lens was used to introduce the 22 Haitian start cystoscopic sheath through the urethra and into the bladder under direct vision. The prostate was small, and there was no evidence of prostatic obstruction. Upon entering the bladder, the urine was noted to be cloudy. The bladder was irrigated several times. The bladder was then inspected, and numerous small, round calculi were seen measuring up to 3 mm in size. These were removed through the cystoscope. Using a 10 Haitian cone-tip catheter, bilateral retrograde pyelograms were performed. The ureters were dilated bilaterally. There was no evidence of left hydronephrosis. Contrast did not reach the right renal pelvis. There appeared to be round filling defects within the left distal ureter suggestive of radiolucent calculi. A 0.035 inch Glidewire was passed through the cystoscope. The left ureteral orifice was cannulated, and the Glidewire was advanced up to the left renal pelvis. A 26 cm, 6 Haitian double-J ureteral stent was placed over the wire. Proper stent positioning was verified fluoroscopically and endoscopically. The same was then performed on the contralateral side. There was no evidence of a "hydronephrotic avery" on either side, and no cloudy urine was seen to drain from the ureter on either side. The cystoscope was removed, and an 18 Haitian Li catheter was placed. The return was faintly pink-tinged. The patient tolerated the procedure well and was taken to the recovery in stable condition.
--- NOTE | 2023-12-16 15:47 | FL ---
EXAMINATION TYPE: FL guidance operating room DATE OF EXAM: 12/16/2023 HISTORY: Fluoroscopy time Total dose area product (DAP) in uGy*m?, mGy*cm? (or similar): 0.9942 IMPRESSION: 1. Fluoroscopy time.
[2023-12-16 16:05] VITALS: TEMP 97.2
[2023-12-16 16:40] VITALS: RESP 14
[2023-12-16 16:41] VITALS: BP 120/63; PULSE 58
== END | disposition home or self-care (01) ==
LOC: OR 11:10
PROVIDERS: ATTEND Urology
DX: N35.912 Unspecified bulbous urethral stricture, male (principal); N13.1 Hydronephrosis with ureteral stricture, not elsewhere classified; N21.0 Calculus in bladder; I48.91 Unspecified atrial fibrillation; Z86.73 Personal history of transient ischemic attack (TIA), and cerebral infarction without residual deficits; Z98.890 Other specified postprocedural states; Z92.3 Personal history of irradiation; Z79.899 Other long term (current) drug therapy; Z79.01 Long term (current) use of anticoagulants
CPT/HCPCS: 82365; 52332; 52276; C2625; C1758; C1769; J0330; J2710; J2405; J1956; J2001; J3010; J2704; Q9967

== ENCOUNTER 2024-01-13 10:39 | Inpatient (IN) | payer MEDICARE ==
--- NOTE | 2024-01-13 11:09 | ED ---
General Adult HPI - General Stated complaint: Weakness Time Seen by Provider: 01/13/24 10:42 Source: EMS Mode of arrival: EMS Limitations: no limitations - History of Present Illness Initial comments: Dictation was produced using [employer] dictation software. please excuse any grammatical, word or spelling errors. Chief Complaint: 88-year-old male sent here from halfway facility by legal guardian for poor living conditions History of Present Illness: Patient is 88-year-old male with multiple comorbidities. Past medical history of A-fib, stroke, pancreatic cancer. He states that the local halfway facilities. Legal guardian request that patient be brought to the emergency department for hospital evaluation. Apparently he has had a cough for several days that has not been addressed. Patient has no complaints. States that he has poor appetite has been feeling weak. Patient is a poor historian. History present illness obtained mostly from EMS. Patient feels weak. Denies any chest pain. No shortness of breath. No abdominal pain. No nausea vomiting or diarrhea. Denies any constitutional symptoms. Patient does take anticoagulation medications. The ROS documented in this emergency department record has been reviewed and confirmed by me. Those systems with pertinent positive or negative responses have been documented in the HPI. All other systems are other negative and/or noncontributory. - Related Data Home Medications Medication Instructions Recorded Confirmed Melatonin 3 mg PO HS@199906/25/22 01/13/24 Metoprolol Succinate (ER) [Toprol 25 mg PO DAILY@0800 06/25/22 01/13/24 XL] Mirtazapine [Remeron] 15 mg PO HS@199906/25/22 01/13/24 Cyanocobalamin (Vitamin B-12) 1,000 mcg PO DAILY@79902/16/23 01/13/24 [Vitamin B-12] Acetaminophen [Tylenol] 650 mg PO QID PRN 12/10/23 01/13/24 Amiodarone [Cordarone] 100 mg PO DAILY@79912/10/23 01/13/24 Nando-Gest 500mg Chew 2 tab PO Q6H 12/10/23 01/13/24 Cholecalciferol (Vitamin D3) 125 mcg PO DAILY@0800 12/10/23 01/13/24 [Vitamin D3 (125 MCG = 5,000 IU)] Docusate Sodium [Dok] 100 mg PO BID PRN 12/10/23 01/13/24 Losartan [Cozaar] 25 mg PO DAILY@0800 01/13/24 01/13/24 guaiFENesin [Mucinex] 1,200 mg PO BID@0800,199901/13/24 01/13/24 Allergies Allergy/AdvReac Type Severity Reaction Status Date / Time No Known Allergies Allergy Verified 01/13/24 11:54 Review of Systems ROS Statement: Those systems with pertinent positive or pertinent negative responses have been documented in the HPI. ROS Other: All systems not noted in ROS Statement are negative. Past Medical History Past Medical History: Atrial Fibrillation, CVA/TIA, Hearing Disorder / Deafness, Prostate Disorder, Renal Disease Additional Past Medical History / Comment(s): HX RIGHT RENAL CALCULI, HX "MINI STROKES", hard of hearing bilaterally, BPH, CKD, HX UTI, slightly unsteady. History of Any Multi-Drug Resistant Organisms: None Reported Past Surgical History: Hernia Repair Additional Past Surgical History / Comment(s): RIGHT LITHOTRIPSY X3, BILATERAL INGUINAL HERNIA REPAIR. Past Anesthesia/Blood Transfusion Reactions: No Reported Reaction Additional Past Anesthesia/Blood Transfusion Reaction / Comment(s): Pt has never had a blood transfusion. Past Psychological History: No Psychological Hx Reported Smoking Status: Never smoker - Past Family History Father Family Medical History: Cancer General Exam - General Exam Comments Initial Comments: PHYSICAL EXAM: General Impression: Alert and oriented, not in acute distress, cachectic HEENT: Normocephalic atraumatic, extra-ocular movements intact, pupils equal and reactive to light bilaterally, mucous membranes moist. Cardiovascular: Heart regular rate and rhythm Chest: Able to complete full sentences, no retractions, no tachypnea Abdomen: abdomen soft, non-tender, non-distended, no organomegaly Musculoskeletal: Pulses present and equal in all extremities, no peripheral edema Motor: no focal deficits noted Neurological: CN II-XII grossly intact, no focal motor or sensory deficits noted Skin: Intact with no visualized rashes Psych: Normal affect and mood Limitations: no limitations Course Vital Signs 01/13/24 10:46 Temperature 97.3 F L Pulse Rate 75 Respiratory 16 Rate Blood Pressure 94/63 O2 Sat by Pulse 96 Oximetry EKG Findings - EKG Comments: EKG Findings:: My EKG interpretation: Ventricular rate 74, sinus rhythm,. 266, cures 174, QTc 462. No OR prolongation, no QTC prolongation, no ST or T-wave changes noted. EKG compared to June 25, 2022 showing no changes. Overall, this EKG is unremarkable Medical Decision Making - Medical Decision Making Was pt. sent in by a medical professional or institution (FLORIAN Khalil, BILLING ADJUDICATOR, urgent care, hospital, or intermediate...) When possible be specific @ -No Did you speak to anyone other than the patient for history (EMS, parent, family, police, friend...)? What history was obtained from this source @ -No Did you review nursing and triage notes (agree or disagree)? Why? @ -I reviewed and agree with nursing and triage notes Were old charts reviewed (outside hosp., previous admission, EMS record, old EKG, old radiological studies, urgent care reports/EKG's, intermediate records)? Report findings @ -No old charts were reviewed Differential Diagnosis (chest pain, altered mental status, abdominal pain women, abdominal pain men, vaginal bleeding, musculoskeletal, weakness, fever, dyspnea, syncope, headache, dizziness, GI bleed, back pain, seizure, CVA, palpatations, mental health)? @ -Differential Weakness: Hypoglycemia, shock, sepsis, hyponatremia, anemia, infection, [place], ETOH, adverse medicine reaction, overdose, stroke, this is not meant to be an all-inclusive list. EKG interpreted by me (3pts min.). @ -See above. X-rays interpreted by me (1pt min.). @ -Chest x-ray shows no acute processes CT interpreted by me (1pt min.). @ -None done U/S interpreted by me (1pt. min.). @ -None done What testing was considered but not performed or refused? (CT, X-rays, U/S, labs)? Why? @ -None What meds were considered but not given or refused? Why? @ -None Did you discuss the management of the patient with other professionals (professionals i.e. FLORIAN Khalil, BILLING ADJUDICATOR, lab, RT, psych nurse, nursing home social worker, factorer, teacher, aoc airspace control officer, pillowcase cleaner)? Give summary @ -Case discussed with hospitalist for admission Was smoking cessation discussed for >3mins.? @ -No Was critical care preformed (if so, how long)? @ -No Were there social determinants of health that impacted care today? How? (Homelessness, low income, unemployed, alcoholism, drug addiction, transportation, low edu. Level, literacy, decrease access to med. care, prison, rehab)? @ -No Was there de-escalation of care discussed even if they declined (Discuss DNR or withdrawal of care, Hospice)? DNR status @ -No What co-morbidities impacted this encounter? (DM, HTN, Smoking, COPD, CAD, Cancer, CVA, ARF, Chemo, Hep., AIDS, mental health diagnosis, sleep apnea, morbid obesity)? @ -None Was patient admitted / discharged? Hospital course, mention meds given and route, prescriptions, significant lab abnormalities, going to OR and other pertinent info. @ -88-year-old male presents emergency department for failure to thrive and worsening functional status. There is concern that perhaps patient's levels of assistance are inadequate at his current fpc. Vital signs upon arrival are within acceptable limits. Perhaps may be soft blood pressure. Physical examination shows well-appearing male. He appears cachectic however denies any medical complaints. Does report feeling weak but otherwise nonfocal symptoms. Laboratory evaluation shows leukocytosis of 18.8. Coag panel shows INR of 3.9. Metabolic panel shows sodium 132, potassium 6.0, bicarb of 19. Creatinine of 3.57 with a BUN of 85. Lactic acidosis 2.1. Troponin 0.023 likely secondary to acute kidney injury. Viral testing is negative. Patient treated for hyperkalemia. There does appear to be widening of his QRS raising suspicion of cardiac effect of hyperkalemia. Patient received hyperkalemia cocktail including calcium gluconate. Will be admitted with consultation to nephrology. Undiagnosed new problem with uncertain prognosis? @ -No Drug Therapy requiring intensive monitoring for toxicity (Heparin, Nitro, Insulin, Cardizem)? @ -No Were any procedures done? @ -No Diagnosis/symptom? Acute, or Chronic, or Acute on Chronic? Uncomplicated (without systemic symptoms) or Complicated (systemic symptoms)? @ -Acute kidney injury complicated by hyperkalemia Side effects of treatment? @ -No Exacerbation, Progression, or Severe Exacerbation? @ -No Poses a threat to life or bodily function? How? (Chest pain, [place], [place], pneumonia, PE, COPD, DKA, ARF, appy, cholecystitis, CVA, Diverticulitis, Homicidal, Suicidal, threat to staff... and all critical care pts) @ -yes - Lab Data Result diagrams: 01/13/24 11:15 01/13/24 11:15 Lab Results 01/13/24 01/13/24 01/13/24 Range/Units 11:15 11:15 11:15 WBC 18.8 H (3.8-10.6) k/uL RBC 4.82 (4.30-5.90) m/uL Hgb 14.7 (13.0-17.5) gm/dL Hct 43.9 (39.0-53.0) % MCV 91.0 (80.0-100.0) fL MCH 30.5 (25.0-35.0) pg MCHC 33.5 (31.0-37.0) g/dL RDW 13.6 (11.5-15.5) % Plt Count 299 (150-450) k/uL MPV 7.7 Neutrophils % 88 % Lymphocytes % 8 % Monocytes % 3 % Eosinophils % 0 % Basophils % 0 % Neutrophils # 16.5 H (1.3-7.7) k/uL Lymphocytes # 1.6 (1.0-4.8) k/uL Monocytes # 0.6 (0-1.0) k/uL Eosinophils # 0.0 (0-0.7) k/uL Basophils # 0.0 (0-0.2) k/uL Manual Slide Review Performed PT 38.4 H (10.0-12.5) sec INR 3.9 H (<1.2) APTT 45.9 H (22.0-30.0) sec Sodium 132 L (137-145) mmol/L Potassium 6.0 H (3.5-5.1) mmol/L Chloride 100 (98-107) mmol/L Carbon Dioxide 19 L (22-30) mmol/L Anion Gap 13 mmol/L BUN 85 H (9-20) mg/dL Creatinine 3.57 H (0.66-1.25) mg/dL Est GFR (CKD-EPI)AfAm 17 (>60 ml/min/1.73 sqM) Est GFR (CKD-EPI)NonAf 15 (>60 ml/min/1.73 sqM) Glucose 152 H (74-99) mg/dL Plasma Lactic Acid Moy (0.7-2.0) mmol/L Calcium 8.8 (8.4-10.2) mg/dL Magnesium 2.3 (1.6-2.3) mg/dL Total Bilirubin 0.9 (0.2-1.3) mg/dL AST 33 (17-59) U/L ALT 33 (4-49) U/L Alkaline Phosphatase 168 H (38-126) U/L Troponin I (0.000-0.034) ng/mL Total Protein 7.1 (6.3-8.2) g/dL Albumin 3.2 L (3.5-5.0) g/dL Influenza Type A (PCR) (Not Detectd) Influenza Type B (PCR) (Not Detectd) RSV (PCR) (Not Detectd) SARS-CoV-2 (PCR) (Not Detectd) 01/13/24 01/13/24 01/13/24 Range/Units 11:15 11:15 11:15 WBC (3.8-10.6) k/uL RBC (4.30-5.90) m/uL Hgb (13.0-17.5) gm/dL Hct (39.0-53.0) % MCV (80.0-100.0) fL MCH (25.0-35.0) pg MCHC (31.0-37.0) g/dL RDW (11.5-15.5) % Plt Count (150-450) k/uL MPV Neutrophils % % Lymphocytes % % Monocytes % % Eosinophils % % Basophils % % Neutrophils # (1.3-7.7) k/uL Lymphocytes # (1.0-4.8) k/uL Monocytes # (0-1.0) k/uL Eosinophils # (0-0.7) k/uL Basophils # (0-0.2) k/uL Manual Slide Review PT (10.0-12.5) sec INR (<1.2) APTT (22.0-30.0) sec Sodium (137-145) mmol/L Potassium (3.5-5.1) mmol/L Chloride (98-107) mmol/L Carbon Dioxide (22-30) mmol/L Anion Gap mmol/L BUN (9-20) mg/dL Creatinine (0.66-1.25) mg/dL Est GFR (CKD-EPI)AfAm (>60 ml/min/1.73 sqM) Est GFR (CKD-EPI)NonAf (>60 ml/min/1.73 sqM) Glucose (74-99) mg/dL Plasma Lactic Acid Moy 2.1 H* (0.7-2.0) mmol/L Calcium (8.4-10.2) mg/dL Magnesium (1.6-2.3) mg/dL Total Bilirubin (0.2-1.3) mg/dL AST (17-59) U/L ALT (4-49) U/L Alkaline Phosphatase (38-126) U/L Troponin I 0.023 (0.000-0.034) ng/mL Total Protein (6.3-8.2) g/dL Albumin (3.5-5.0) g/dL Influenza Type A (PCR) Not Detected (Not Detectd) Influenza Type B (PCR) Not Detected (Not Detectd) RSV (PCR) Not Detected (Not Detectd) SARS-CoV-2 (PCR) Not Detected (Not Detectd) Disposition Clinical Impression: Acute kidney injury Disposition: ADMITTED IP TO THIS HOSP Condition: Fair Referrals: Isauro Goetz MD [Primary Care Provider] - 1-2 days Decision Time: 13:29
[2024-01-13 11:37] LABS: Basophils % (A) 0 %; Eosinophils % (A) 0 %; HCT 43.9 % (39.0-53.0); HGB 14.7 gm/dL (13.0-17.5); Lymphocytes # (A) 1.6 k/uL (1.0-4.8); Lymphocytes % (A) 8 %; MCH 30.5 pg (25.0-35.0); MCHC 33.5 g/dL (31.0-37.0); Mean Platelet Volume 7.7; Monocytes # (A) 0.6 k/uL (0-1.0); Monocytes % (A) 3 %; Neutrophils # (A) 16.5 k/uL (1.3-7.7); Neutrophils % (A) 88 %; Platelet Count 299 k/uL (150-450); RBC 4.82 m/uL (4.30-5.90); RDW 13.6 % (11.5-15.5); WBC 18.8 k/uL (3.8-10.6)
[2024-01-13 11:42] LABS: INR 3.9 (<1.2); Partial Thromboplastin Time 45.9 sec (22.0-30.0); Prothrombin Time 38.4 sec (10.0-12.5)
--- NOTE | 2024-01-13 12:04 | XR ---
EXAMINATION TYPE: XR chest 2V DATE OF EXAM: 01/13/2024 COMPARISON: 06/25/2022 HISTORY: 88-year-old male with generalized weakness TECHNIQUE: AP and lateral views FINDINGS: Heart upper limits of normal in size. Tortuous/ectatic thoracic aorta. Low lung volumes. No consolida tion or pleural effusion. Colonic interposition below the right hemidiaphragm incidentally noted. IMPRESSION: Hypoventilatory changes. Borderline heart size. No definite acute process.
[2024-01-13 12:42] LABS: ALT 33 U/L (4-49); AST 33 U/L (17-59); African American GFR (CKD) 17 (>60 ml/min/1.73 sqM); Albumin 3.2 g/dL (3.5-5.0); Alkaline Phosphatase 168 U/L (38-126); Anion Gap 13 mmol/L; Blood Urea Nitrogen 85 mg/dL (9-20); Calcium 8.8 mg/dL (8.4-10.2); Carbon Dioxide 19 mmol/L (22-30); Chloride 100 mmol/L (98-107); Glucose 152 mg/dL (74-99); Magnesium 2.3 mg/dL (1.6-2.3); Non-African American GFR(CKD) 15 (>60 ml/min/1.73 sqM); Sodium 132 mmol/L (137-145); Total Bilirubin 0.9 mg/dL (0.2-1.3); Total Protein 7.1 g/dL (6.3-8.2)
[2024-01-13] MEDS ORDERED: NALOXONE 0.4 MG/ML 1 ML VIAL IV PRN (13:22)
[2024-01-13] MEDS: INSULIN REGULAR 100 UNIT/ML VIAL (IV) IV ONE (14:21)
[2024-01-13] MEDS: CALCIUM GLUCONATE IN NACL 2 GM in SALINE 1 100ML.BAG IVPB ONE (14:22)
[2024-01-13] MEDS: SODIUM ZIRCONIUM CYCLOSILICATE 10 GM PACKET PO ONE (14:22)
[2024-01-13] MEDS: DEXTROSE 50% SYRINGE 50 ML IVP ONE (14:22)
[2024-01-13] MEDS: SODIUM CHLORIDE 0.9% 1,000 ML IV SCH (14:23)
[2024-01-13] MEDS: SODIUM CHLORIDE 0.9% 1,000 ML IV STA (14:23)
[2024-01-13] MEDS ORDERED: ACETAMINOPHEN TAB 325 MG TAB PO PRN (15:39)
--- NOTE | 2024-01-13 16:20 | P.HPIM ---
History of Present Illness H&P Date: 01/13/24 Chief Complaint: Tired This is a pleasant 88-year-old patient who follows with visiting physicians. Chronic stable medical conditions include hard of hearing, right kidney stone, prostate disorder, A-fib, chronic gait dysfunction. lives at [facility] assisted [facility]. Patient presents with few days of worsening appetite. Not able to eat. Weak tired. Even difficult to get about. Denies any fever and chills. Decreased urine output. Diagnosis prostate cancer in 2019. Treated with radiation treatment and hormonal therapy. PSA in May 2022 was 0.23. December 2021 patient underwent cystoscopy. 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 Stent was placed. Stent was removed and February 2023. Review of systems: GEN.: Decreased appetite, weight loss EYES: None HEENT: Hard of hearing NECK: None RESPIRATORY: None CARDIOVASCULAR: None GASTROINTESTINAL: None GENITOURINARY: None MUSCULOSKELETAL: Joint pains and generalized weakness LYMPHATICS: None HEMATOLOGICAL: None PSYCHIATRY: A bit forgetful NEUROLOGICAL: None Past medical history to include: Atrial fibrillation, hard of hearing, prostate disorder, right renal calculi, mini strokes Social history: Assisted-living, [place] [facility]. No smoking or alcohol Physical examination: VITAL SIGNS: 97.3, 76, 16, 112/54, 95% room air GENERAL: BMI 20.7, laying in bed. Loss of muscle mass and subcutaneous fat EYES: Pupils equal. Conjunctiva normal. HEENT: External appearance of nose and ears normal, oral cavity dry mucous membranes. NECK: JVD not raised; masses not palpable. HEART: Heart sounds irregular no edema. LUNGS: Respiratory rate normal; clear to auscultation. ABDOMEN: Soft, nontender, liver spleen not palpable, no masses palpable. PSYCH: Alert and oriented x3; mood and affect tiredl. MUSCULOSKELETAL:No Clubbing/cyanosis;muscles-grossly intact, bony prominence, awake, loss muscle muscle mass NEUROLOGICAL: Cranial nerves grossly intact; no facial asymmetry, power and sensation grossly intact. LYMPHATICS: No lymph nodes palpable in the axilla and neck INVESTIGATIONS, reviewed in the clinical context: January 13, 2024: White count 8.8 hemoglobin 14.7 platelets 299 INR 3.9 sodium 132 potassium 6 BUN 85 creatinine 3.57 Lactic acid 2.1. Troponin I 0.023 albumin 3.2 EKG tracing personally reviewed by me-sinus rhythm. Left bundle branch block. Previous labs: Creatinine 1.[address]: Lumbar spondylolisthesis. Other bony findings. Right-sided hydronephrosis and hydroureter. No obstructing calculus. Irregular wall thickening of the bladder. large prostate with calcifications. Renal ultrasound: Right kidney hydronephrosis. 2-D echocardiogram open 05/28/2022]: EF 20%. Global hypokinesis. Assessment and plan: -Acute kidney injury likely combination of prerenal and ATN. Decreased oral intake. Hold Cozaar. IV fluids. Strict I's and O's. Renal diet -Paroxysmal atrial fibrillation: In sinus rhythm On amiodarone -Moderate protein calorie malnutrition Ensure. Consult dietitian -Acute on chronic medical debility Fall precaution. PTOT. -Acute UTI with cystitis causing sepsis, with culture positive for Pseudomonas aeruginosa Changed to by mouth Levaquin -Chronic insomnia Melatonin -Chronic kidney disease stage III a baseline creatinine near 1.1 seconds nephros clerosis -Previous history of prostate cancer treated with radiation and hormone therapy in 11/09/2021. -Prior urethral stricture with dilatation. Prior right ureteral stricture with dilatation stent that was later removed. -Right thyroid lesion 4 cm Patient was to follow-up with Dr. Felix outpatient -Acute medical debility due to poor oral intake renal failure malnutrition -BPH Discussed with patient. Nephrology consulted. Past Medical History Past Medical History: Atrial Fibrillation, CVA/TIA, Hearing Disorder / Deafness, Prostate Disorder, Renal Disease Additional Past Medical History / Comment(s): HX RIGHT RENAL CALCULI, HX "MINI STROKES", hard of hearing bilaterally, BPH, CKD, HX UTI, slightly unsteady. History of Any Multi-Drug Resistant Organisms: None Reported Past Surgical History: Hernia Repair Additional Past Surgical History / Comment(s): RIGHT LITHOTRIPSY X3, BILATERAL INGUINAL HERNIA REPAIR. Past Anesthesia/Blood Transfusion Reactions: No Reported Reaction Additional Past Anesthesia/Blood Transfusion Reaction / Comment(s): Pt has never had a blood transfusion. Past Psychological History: No Psychological Hx Reported Smoking Status: Never smoker - Past Family History Father Family Medical History: Cancer Medications and Allergies Home Medications Medication Instructions Recorded Confirmed Type Melatonin 3 mg PO HS@199906/25/22 01/13/24 History Metoprolol Succinate (ER) [Toprol 25 mg PO DAILY@0800 06/25/22 01/13/24 History XL] Mirtazapine [Remeron] 15 mg PO HS@199906/25/22 01/13/24 History Cyanocobalamin (Vitamin B-12) 1,000 mcg PO DAILY@0800 02/16/23 01/13/24 History [Vitamin B-12] Acetaminophen [Tylenol] 650 mg PO QID PRN 12/10/23 01/13/24 History Amiodarone [Cordarone] 100 mg PO DAILY@79912/10/23 01/13/24 History Nando-Gest 500mg Chew 2 tab PO Q6H 12/10/23 01/13/24 History Cholecalciferol (Vitamin D3) 125 mcg PO DAILY@79912/10/23 01/13/24 History [Vitamin D3 (125 MCG = 5,000 IU)] Docusate Sodium [Dok] 100 mg PO BID PRN 12/10/23 01/13/24 History Losartan [Cozaar] 25 mg PO DAILY@79901/13/24 01/13/24 History guaiFENesin [Mucinex] 1,200 mg PO BID@799,199901/13/24 01/13/24 History Allergies Allergy/AdvReac Type Severity Reaction Status Date / Time No Known Allergies Allergy Verified 01/13/24 11:54 Physical Exam Vitals: Vital Signs Temp Pulse Resp BP Pulse Ox 01/13/24 14:33 76 16 112/54 95 01/13/24 10:46 97.3 F L 75 16 94/63 96 Intake and Output 01/13/24 01/13/24 01/13/24 06:59 14:59 22:59 Other: Weight 63.503 kg Results CBC & Chem 7: 01/13/24 11:15 01/13/24 11:15 Labs: Abnormal Lab Results - Last 24 Hours (Table) 01/13/24 01/13/24 01/13/24 Range/Units 11:15 11:15 11:15 WBC 18.8 H (3.8-10.6) k/uL Neutrophils # 16.5 H (1.3-7.7) k/uL PT 38.4 H (10.0-12.5) sec INR 3.9 H (<1.2) APTT 45.9 H (22.0-30.0) sec Sodium 132 L (137-145) mmol/L Potassium 6.0 H (3.5-5.1) mmol/L Carbon Dioxide 19 L (22-30) mmol/L BUN 85 H (9-20) mg/dL Creatinine 3.57 H (0.66-1.25) mg/dL Glucose 152 H (74-99) mg/dL Plasma Lactic Acid Moy (0.7-2.0) mmol/L Alkaline Phosphatase 168 H (38-126) U/L Albumin 3.2 L (3.5-5.0) g/dL 01/13/24 01/13/24 Range/Units 11:15 15:00 WBC (3.8-10.6) k/uL Neutrophils # (1.3-7.7) k/uL PT (10.0-12.5) sec INR (<1.2) APTT (22.0-30.0) sec Sodium (137-145) mmol/L Potassium (3.5-5.1) mmol/L Carbon Dioxide (22-30) mmol/L BUN (9-20) mg/dL Creatinine (0.66-1.25) mg/dL Glucose (74-99) mg/dL Plasma Lactic Acid Moy 2.1 H* 2.8 H* (0.7-2.0) mmol/L Alkaline Phosphatase (38-126) U/L Albumin (3.5-5.0) g/dL
[2024-01-13 18:27] LABS: Appearance,Urine Turbid (Clear); Bilirubin,Urine Negative (Negative); Blood,Urine Large (Negative); Color,Urine Red; Glucose,Urine (UA) Negative (Negative); Ketones,Urine Negative (Negative); Leukocyte Esterase,Urine Large (Negative); Nitrite,Urine Negative (Negative); Protein,Urine 2+ (Negative); RBC,Urine >182 /hpf (0-5); Urobilinogen,Urine <2.0 mg/dL (<2.0); WBC,Urine >182 /hpf (0-5)
[2024-01-13 18:32] LABS: Specific Gravity,Urine 1.015 (1.001-1.035)
[2024-01-13] MEDS: MELATONIN 3 MG TABLET PO SCH (21:52)
[2024-01-13] MEDS: MIRTAZAPINE 15 MG TAB PO SCH (22:15)
[2024-01-14 07:56] LABS: African American GFR (CKD) 22 (>60 ml/min/1.73 sqM); Anion Gap 10 mmol/L; Blood Urea Nitrogen 72 mg/dL (9-20); Calcium 8.8 mg/dL (8.4-10.2); Carbon Dioxide 18 mmol/L (22-30); Chloride 104 mmol/L (98-107); Glucose 82 mg/dL (74-99); Magnesium 2.1 mg/dL (1.6-2.3); Non-African American GFR(CKD) 19 (>60 ml/min/1.73 sqM); Potassium 4.9 mmol/L (3.5-5.1); Sodium 132 mmol/L (137-145)
[2024-01-14] MEDS: CYANOCOBALAMIN 500 MCG TAB PO SCH (08:41)
[2024-01-14] MEDS: METOPROLOL SUCCINATE (ER) 25 MG TAB.ER.24H PO SCH (08:41)
[2024-01-14] MEDS: AMIODARONE 100 MG TAB PO SCH (08:41)
--- NOTE | 2024-01-14 10:46 | P.NPCON ---
History of Present Illness - Reason for Consult acute renal failure, chronic renal failure - History of Present Illness Reason for consultation: Acute kidney injury on chronic kidney disease History of present illness: Patient is 88-year-old male seen in renal consultation for acute kidney injury on chronic kidney disease. Patient has chronic kidney disease stage IIIb with baseline creatinine near 1.7 from April 2023 as well as November 2023. Creatinine this admission was 3.57 and is down to 2.83 today. Patient came to the hospital due to generalized weakness and a nonproductive cough. Patient states he has been feeling weak for the last 1 to 2 weeks. He has been voiding. Denies gross hematuria or dysuria. Blood pressure was noted to be low in the systolic 90s and he did receive 1 L of normal saline on admission and is currently maintained on normal saline at 75 cc an hour. Blood pressure improved. Patient denies use of nonsteroidals. He denies family history of renal disease. Denies history of diabetes. Denies history of coronary artery disease. Patient was taking losartan at home and potassium was 6 on admission. It is down to 4.9 this morning. Denies vomiting or diarrhea. Vital signs are stable. General: No acute distress. HEENT: Head exam is unremarkable. LUNGS: No audible rhonchi or wheezes. HEART: Rate and Rhythm are regular. ABDOMEN: Nontender. EXTREMITITES: No edema. Past Medical History Past Medical History: Atrial Fibrillation, CVA/TIA, Hearing Disorder / Deafness, Prostate Disorder, Renal Disease Additional Past Medical History / Comment(s): HX RIGHT RENAL CALCULI, HX "MINI STROKES", hard of hearing bilaterally, BPH, CKD, HX UTI, slightly unsteady. History of Any Multi-Drug Resistant Organisms: None Reported Past Surgical History: Hernia Repair Additional Past Surgical History / Comment(s): RIGHT LITHOTRIPSY X3, BILATERAL INGUINAL HERNIA REPAIR. Past Anesthesia/Blood Transfusion Reactions: No Reported Reaction Additional Past Anesthesia/Blood Transfusion Reaction / Comment(s): Pt has never had a blood transfusion. Past Psychological History: No Psychological Hx Reported Smoking Status: Never smoker - Past Family History Father Family Medical History: Cancer Medications and Allergies Home Medications Medication Instructions Recorded Confirmed Type Melatonin 3 mg PO HS@199906/25/22 01/13/24 History Metoprolol Succinate (ER) [Toprol 25 mg PO DAILY@0800 06/25/22 01/13/24 History XL] Mirtazapine [Remeron] 15 mg PO HS@199906/25/22 01/13/24 History Cyanocobalamin (Vitamin B-12) 1,000 mcg PO DAILY@79902/16/23 01/13/24 History [Vitamin B-12] Acetaminophen [Tylenol] 650 mg PO QID PRN 12/10/23 01/13/24 History Amiodarone [Cordarone] 100 mg PO DAILY@79912/10/23 01/13/24 History Nando-Gest 500mg Chew 2 tab PO Q6H 12/10/23 01/13/24 History Cholecalciferol (Vitamin D3) 125 mcg PO DAILY@79912/10/23 01/13/24 History [Vitamin D3 (125 MCG = 5,000 IU)] Docusate Sodium [Dok] 100 mg PO BID PRN 12/10/23 01/13/24 History Losartan [Cozaar] 25 mg PO DAILY@79901/13/24 01/13/24 History guaiFENesin [Mucinex] 1,200 mg PO BID@01/13/24 01/13/24 History Allergies Allergy/AdvReac Type Severity Reaction Status Date / Time No Known Allergies Allergy Verified 01/13/24 11:54 Physical Exam Vitals: Vital Signs Temp Pulse Resp BP Pulse Ox 01/14/24 08:46 75 18 112/65 97 01/14/24 02:00 74 20 114/62 95 01/13/24 23:00 79 20 116/72 96 01/13/24 18:00 66 18 92/80 98 01/13/24 17:00 68 20 106/64 97 01/13/24 15:00 76 22 91/59 89 L 01/13/24 14:33 76 16 112/54 95 01/13/24 14:00 70 20 102/65 01/13/24 11:00 75 22 94/63 01/13/24 10:46 97.3 F L 75 16 94/63 96 Intake and Output 01/13/24 01/14/24 01/14/24 22:59 06:59 14:59 Output Total 125 Balance -125 Output: Urine 125 Results - Lab Results Most recent lab results Calcium 8.8 mg/dL (8.4-10.2) 01/14/24 06:43 Magnesium 2.1 mg/dL (1.6-2.3) 01/14/24 06:43 01/13/24 11:15 01/14/24 06:43 Assessment and Plan Plan: Assessment: 1. Acute kidney injury secondary to ATN secondary to hypotension further worsen with the use of ARB. Creatinine 3.57 on admission and is 2.833. 2. Chronic kidney disease stage IIIb with baseline creatinine near 1.7. Suspect nephrosclerosis. 3. History of prostate cancer. 4. Urethral stricture status post balloon dilation and stent placement and subsequent removal in the past. CAT scan from June 2022 showed severe right- sided hydronephrosis and hydroureter. 5. Hyperkalemia secondary to acute kidney injury on losartan. Improved with m edical management. Plan: Maintain normal saline. Check bladder scan to rule out urinary retention. Follow-up renal ultrasound. Continue to hold all antihypertensives. Avoid nephrotoxins. Continue to monitor renal function and urine output. Thank you for the consultation. I will continue to follow the patient with you during his hospital stay.
--- NOTE | 2024-01-14 12:56 | US ---
EXAMINATION TYPE: US kidneys/renal and bladder DATE OF EXAM: 01/13/2024 COMPARISON: 11/05/23 CLINICAL INDICATION: Male, 88 years old with history of CKD. Previous ureteral stent; CKD, hx of hyd ro EXAM MEASUREMENTS: Right Kidney: 11.3 x 4.9 x 5.1 cm Left Kidney: 10.9 x 6.1 x 6.3 cm Right Kidney: Cyst seen laterally measuring 2.2 x 2.3 x 2.5cm. Mild to moderate hydro seen Left Kidney: Mild to moderate hydro seen Bladder: Layer of debris seen. Irregular, trabeculated bladder wall. Bilateral Jets seen: No IMPRESSION: 1. Ongoing bilateral [id number] hydronephrosis. 2. Layering debris in the bladder. Correlate with urinalysis. 3. Prominently irregular and trabeculated bladder wall probably relating to chronic bladder obstructi on. Correlate with urine cytology and patient's symptoms.
[2024-01-14] MEDS: SODIUM BICARBONATE TAB 650 MG TAB PO SCH (13:12)
--- NOTE | 2024-01-14 14:54 | P.PN ---
Progress Note - Text Progress Note Date: 01/14/24 Chief Complaint: Tired This is a pleasant 88-year-old patient who follows with visiting physicians. Chronic stable medical conditions include hard of hearing, right kidney stone, prostate disorder, A-fib, chronic gait dysfunction. lives at [facility] assisted [facility]. Patient presents with few days of worsening appetite. Not able to eat. Weak tired. Even difficult to get about. Denies any fever and chills. Decreased urine output. Diagnosis prostate cancer in 2019. Treated with radiation treatment and hormonal therapy. PSA in May 2022 was 0.23. December 2021 patient underwent cystoscopy. 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 Stent was placed. Stent was removed and February 2023. January 13: Laying in bed. Feeling a bit better. Did tolerate some diet. Some improvement in creatinine. At Active Medications Acetaminophen (Acetaminophen Tab 325 Mg Tab) 650 mg PO QID PRN PRN Reason: Pain Amiodarone HCl (Amiodarone 100 Mg Tab) 100 mg PO DAILY@08 [facility] Last Admin: 01/14/24 08:41 Dose: 100 mg Cyanocobalamin (Cyanocobalamin 500 Mcg Tab) 1,000 mcg PO DAILY@0800 [facility] Last Admin: 01/14/24 08:41 Dose: 1,000 mcg Sodium Chloride (Saline 0.9%) 1,000 mls @ 75 mls/hr IV .[id number] [facility] Last Admin: 01/14/24 03:12 Dose: 75 mls/hr Melatonin (Melatonin 3 Mg Tablet) 3 mg PO HS@1999 [facility] Last Admin: 01/13/24 21:52 Dose: 3 mg Metoprolol Succinate (Metoprolol Succinate (Er) 25 Mg Tab.Er.24h) 25 mg PO DAILY@0800 [facility] Last Admin: 01/14/24 08:41 Dose: 25 mg Mirtazapine (Mirtazapine 15 Mg Tab) 15 mg PO HS@1999 [facility] Last Admin: 01/13/24 22:15 Dose: 15 mg Naloxone HCl (Naloxone 0.4 Mg/Ml 1 Ml Vial) 0.2 mg IV Q2M PRN PRN Reason: Opioid Reversal Sodium Bicarbonate (Sodium Bicarbonate Tab 650 Mg Tab) 650 mg PO BID [facility] Last Admin: 01/14/24 13:12 Dose: 650 mg Past medical history to include: Atrial fibrillation, hard of hearing, prostate disorder, right renal calculi, mini strokes Social history: Assisted-living, [facility]. No smoking or alcohol Physical examination: VITAL SIGNS: Afebrile, 68, 16, 98/63, 95% room air GENERAL: BMI 20.7, laying in bed. Loss of muscle mass and subcutaneous fat EYES: Pupils equal. Conjunctiva normal. HEENT: External appearance of nose and ears normal, oral cavity dry mucous membranes. NECK: JVD not raised; masses not palpable. HEART: Heart sounds irregular no edema. LUNGS: Respiratory rate normal; clear to auscultation. ABDOMEN: Soft, nontender, liver spleen not palpable, no masses palpable. PSYCH: Alert and oriented x3; mood and affect tiredl. MUSCULOSKELETAL:No Clubbing/cyanosis;muscles-grossly intact, bony prominence, awake, loss muscle muscle mass INVESTIGATIONS, reviewed in the clinical context: Renal ultrasound: Ongoing bilateral mid to moderate hydronephrosis. Laying debris in the bladder. Some evidence of chronic bladder obstruction. January 07: Sodium 132 potassium 4.9 BUN 32 creatinine 2.83 January 13, 2024: White count 8.8 hemoglobin 14.7 platelets 299 INR 3.9 sodium 132 potassium 6 BUN 85 creatinine 3.57 Lactic acid 2.1. Troponin I 0.023 albumin 3.2 EKG tracing personally reviewed by me-sinus rhythm. Left bundle branch block. Previous labs: Creatinine 1.[address]: Lumbar spondylolisthesis. Other bony findings. Right-sided hydronephrosis and hydroureter. No obstructing calculus. Irregular wall thickening of the bladder. large prostate with calcifications. Renal ultrasound: Right kidney hydronephrosis. 2-D echocardiogram open 05/28/2022]: EF 20%. Global hypokinesis. Assessment and plan: -Acute kidney injury likely combination of prerenal and ATN. Decreased oral intake. Hold Cozaar.: Slow to respond IV fluids 75 cc an hour. Strict I's and O's. Renal diet -Paroxysmal atrial fibrillation: In sinus rhythm On amiodarone -Bilateral mild to moderate hydronephrosis Consult urology -Chronic congestive heart failure from systolic dysfunction. EF 20%: Stable Follow clinically Repeat 2D echo -Moderate protein calorie malnutrition Ensure. Dietitian consulted -No UTI. No sepsis -Chronic insomnia Melatonin -Chronic kidney disease stage III a baseline creatinine near 1.1 seconds nephrosclerosis -Previous history of prostate cancer treated with radiation and hormone therapy in 11/09/2021. -Prior urethral stricture with dilatation. Prior right ureteral stricture with dilatation stent that was later removed. -Right thyroid lesion 4 cm Patient was to follow-up with Dr. Felix outpatient -Acute medical debility due to poor oral intake renal failure malnutrition -BPH Current current medication treatment plan. Saw urology Past Medical History Past Medical History: Atrial Fibrillation, CVA/TIA, Hearing Disorder / Deafness, Prostate Disorder, Renal Disease Additional Past Medical History / Comment(s): HX RIGHT RENAL CALCULI, HX "MINI STROKES", hard of hearing bilaterally, BPH, CKD, HX UTI, slightly unsteady. History of Any Multi-Drug Resistant Organisms: None Reported Past Surgical History: Hernia Repair Additional Past Surgical History / Comment(s): RIGHT LITHOTRIPSY X3, BILATERAL INGUINAL HERNIA REPAIR. Past Anesthesia/Blood Transfusion Reactions: No Reported Reaction Additional Past Anesthesia/Blood Transfusion Reaction / Comment(s): Pt has never had a blood transfusion. Past Psychological History: No Psychological Hx Reported Smoking Status: Never smoker
[2024-01-15 09:17] LABS: African American GFR (CKD) 29 (>60 ml/min/1.73 sqM); Anion Gap 11 mmol/L; Blood Urea Nitrogen 70 mg/dL (9-20); Calcium 8.2 mg/dL (8.4-10.2); Carbon Dioxide 16 mmol/L (22-30); Chloride 106 mmol/L (98-107); Glucose 73 mg/dL (74-99); Non-African American GFR(CKD) 25 (>60 ml/min/1.73 sqM); Sodium 133 mmol/L (137-145)
[2024-01-15 09:31] LABS: Potassium 5.3 mmol/L (3.5-5.1)
--- NOTE | 2024-01-15 10:41 | P.GSCN ---
History of Present Illness Consult date: 01/15/24 History of present illness: 88 yo male admitted to the hospital because of weakness. He possible has a uti. He is known TO DR Baig for a history of urethral strictures and hydronephrosis. He had a urlogical procedure on 12/15. He had a dviu for his urethral stricture. He had bilateral retrogades with apparent stones in the distal left ureter and a possible stricture in the right ureter. He had bilateral stents placed. Review of Systems All systems: negative - Constitutional Denies fever, Denies weight loss - EENT Eyes: denies blurred vision Ears, nose, mouth and throat: Denies dysphagia - Cardiovascular Denies chest pain, Denies shortness of breath - Respiratory Denies cough, Denies 7 - Gastrointestinal Reports as per HPI - Genitourinary Denies dysuria, Denies hematuria - Integumentary Denies rash, Denies unusual bruising - Neurological Denies headaches, Denies syncope - Hematologic/Lymphatic Denies easy bleeding, Denies easy bruising Past Medical History Past Medical History: Atrial Fibrillation, CVA/TIA, Hearing Disorder / Deafness, Prostate Disorder, Renal Disease Additional Past Medical History / Comment(s): HX RIGHT RENAL CALCULI, HX "MINI STROKES", hard of hearing bilaterally, BPH, CKD, HX UTI, slightly unsteady. History of Any Multi-Drug Resistant Organisms: None Reported Past Surgical History: Hernia Repair Additional Past Surgical History / Comment(s): RIGHT LITHOTRIPSY X3, BILATERAL INGUINAL HERNIA REPAIR. Past Anesthesia/Blood Transfusion Reactions: No Reported Reaction Additional Past Anesthesia/Blood Transfusion Reaction / Comm: Pt has never had a blood transfusion. Past Psychological History: No Psychological Hx Reported Additional Psychological History / Comment(s): Pt has a public legal guardian, Yogesh Quarles. Pt resides at [facility]. Smoking Status: Never smoker Past Alcohol Use History: None Reported Past Drug Use History: None Reported - Past Family History Father Family Medical History: Cancer Medications and Allergies Home Medications Medication Instructions Recorded Confirmed Type Melatonin 3 mg PO HS@199906/25/22 01/13/24 History Metoprolol Succinate (ER) [Toprol 25 mg PO DAILY@0800 06/25/22 01/13/24 History XL] Mirtazapine [Remeron] 15 mg PO HS@199906/25/22 01/13/24 History Cyanocobalamin (Vitamin B-12) 1,000 mcg PO DAILY@0800 02/16/23 01/13/24 History [Vitamin B-12] Acetaminophen [Tylenol] 650 mg PO QID PRN 12/10/23 01/13/24 History Amiodarone [Cordarone] 100 mg PO DAILY@0800 12/10/23 01/13/24 History Nando-Gest 500mg Chew 2 tab PO Q6H 12/10/23 01/13/24 History Cholecalciferol (Vitamin D3) 125 mcg PO DAILY@0800 12/10/23 01/13/24 History [Vitamin D3 (125 MCG = 5,000 IU)] Docusate Sodium [Dok] 100 mg PO BID PRN 12/10/23 01/13/24 History Losartan [Cozaar] 25 mg PO DAILY@0800 01/13/24 01/13/24 History guaiFENesin [Mucinex] 1,200 mg PO BID@08,199901/13/24 01/13/24 History Allergies Allergy/AdvReac Type Severity Reaction Status Date / Time No Known Allergies Allergy Verified 01/13/24 11:54 Surgical - Exam Vital Signs Temp Pulse Resp BP Pulse Ox 97.3 F L 75 16 94/63 96 01/13/24 10:46 01/13/24 10:46 01/13/24 10:46 01/13/24 10:46 01/13/24 10:46 - General well developed, well nourished, no distress - Eyes normal ocular movement, no icteric - ENT no hearing loss, no congestion - Neck no masses, trachea midline - Respiratory normal respiratory effort, clear to auscultation - Abdomen Abdomen: soft, non tender, no guarding, no rigid, no rebound - Integumentary no rash, no abnormal pigmentation - Neurologic no disoriented, no combative - Psychiatric oriented to time, oriented to person, oriented to place, speech is normal, memory intact Results - Labs 01/13/24 11:15 01/15/24 08:20 Microbiology - Last 24 Hours (Table) 01/13/24 14:59 Blood Culture - Preliminary Blood - Imaging US - kidney/bladder: report reviewed Assessment and Plan Assessment: Impression: uti. Bilateral hydronephrosis, chronic. s/p bilateral ureteral stent placement. Plan: I will obtain a kub to assure appropriate stent placement. He will eventually need surgery to remove the stone stents in the future. Dr Jovanni edwards probably do this as an outpatient after the uti has been treated.
--- NOTE | 2024-01-15 11:12 | CA ---
Transthoracic Echo Report Name: Master Chamberlain Age: 88 Gender: M : 1935 Exam Date: 01/15/2024 08:00 Exam Location: [facility] Ht (in): 69 Wt (lb): 140 Ordering Physician: Timbo Miller MD Attending/Referring Phys: [employer] Kinza Adamson RDCS Procedure CPT: Indications: evaluate EF Cardiac Hx: Technical Quality: Very technically difficult study Contrast 1: Definity Total Dose (mL): 2 Contrast 2: Total Dose (mL): MEASUREMENTS (Male / Female) Normal Values FINDINGS Left Ventricle Left ventricle not well visualized. Left ventricular ejection fraction is estimated at 20-25 % Right Ventricle Right ventricle not well visualized. Right Atrium Right atrium not well visualized. Left Atrium Normal left atrial size by visual. Mitral Valve Mitral valve thickened. Aortic Valve Aortic valve not well visualized. Tricuspid Valve Tricuspid valve not well visualized. Pulmonic Valve Pulmonic valve not well visualized. Pericardium No pericardial effusion. Aorta Aortic root and proximal ascending aorta not well visualized. CONCLUSIONS Technically suboptimal study secondary to poor echo windows There is severe LV systolic dysfunction noted Previewed by: Dr. Shreyas Connors MD (Electronically Signed) Final Date: 15 January 2024 11:11
--- NOTE | 2024-01-15 14:00 | P.PN ---
Subjective Progress Note Date: 01/15/24 Patient seen in follow-up for ANAIS. Feeling OK and tolerating diet. No new complaints. Vital signs are stable. General: No acute distress. HEENT: Head exam is unremarkable. LUNGS: No audible rhonchi or wheezes. HEART: Rate and Rhythm are regular. ABDOMEN: Nontender. EXTREMITITES: No edema. Objective - Vital Signs Vital signs: Vital Signs Temp 98.1 F 01/15/24 08:00 Pulse 73 01/15/24 08:00 Resp 17 01/15/24 08:00 BP 87/60 01/15/24 08:00 Pulse Ox 99 01/15/24 08:00 FiO2 Intake & Output 01/14/24 01/15/24 01/15/24 18:59 06:59 18:59 Intake Total 180 Output Total 250 650 Balance -250 -650 180 Weight 63.503 kg Intake: Oral 180 Output: Urine 250 650 Other: Voiding Method Urinal - Labs CBC & Chem 7: 01/13/24 11:15 01/15/24 08:20 Labs: Abnormal Lab Results - Last 24 Hours (Table) 01/15/24 Range/Units 08:20 Sodium 133 L (137-145) mmol/L Potassium 5.3 H (3.5-5.1) mmol/L Carbon Dioxide 16 L (22-30) mmol/L BUN 70 H (9-20) mg/dL Creatinine 2.29 H (0.66-1.25) mg/dL Glucose 73 L (74-99) mg/dL Calcium 8.2 L (8.4-10.2) mg/dL Microbiology - Last 24 Hours (Table) 01/13/24 14:59 Blood Culture - Preliminary Blood Assessment and Plan Plan: Assessment: 1. Acute kidney injury secondary to ATN secondary to hypotension further worsen with the use of ARB. Creatinine 3.57 on admission, now 2.3. Renal US shows bilatral mild to moderate hydronephrosis. 2. Chronic kidney disease stage IIIb with baseline creatinine near 1.7. Suspect nephrosclerosis. 3. History of prostate cancer. 4. Urethral stricture status post balloon dilation and stent placement and subsequent removal in the past. CAT scan from June 2022 showed severe right- sided hydronephrosis and hydroureter. 5. Hyperkalemia secondary to acute kidney injury on losartan. Improved with medical management. Plan: Maintain normal saline. Consult urology due to hydronephrosis bilaterally. May need Li. Continue to hold all antihypertensives. Avoid nephrotoxins. Continue to monitor renal function and urine output.
--- NOTE | 2024-01-15 15:20 | P.PN ---
Progress Note - Text Progress Note Date: 01/15/24 Chief Complaint: Tired This is a pleasant 88-year-old patient who follows with visiting physicians. Chronic stable medical conditions include hard of hearing, right kidney stone, prostate disorder, A-fib, chronic gait dysfunction. lives at [facility] assisted [facility]. Patient presents with few days of worsening appetite. Not able to eat. Weak tired. Even difficult to get about. Denies any fever and chills. Decreased urine output. Diagnosis prostate cancer in 2019. Treated with radiation treatment and hormonal therapy. PSA in May 2022 was 0.23. December 2021 patient underwent cystoscopy. 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 Stent was placed. Stent was removed and February 2023. January 13: Laying in bed. Feeling a bit better. Did tolerate some diet. Some improvement in creatinine. January 14: Has an external catheter. Good urine output. Creatinine coming down. Eating better. Active Medications Acetaminophen (Acetaminophen Tab 325 Mg Tab) 650 mg PO QID PRN PRN Reason: Pain Amiodarone HCl (Amiodarone 100 Mg Tab) 100 mg PO DAILY@0800 [facility] Last Admin: 01/15/24 12:55 Dose: 100 mg Cyanocobalamin (Cyanocobalamin 500 Mcg Tab) 1,000 mcg PO DAILY@08 [facility] Last Admin: 01/15/24 12:54 Dose: 1,000 mcg Sodium Chloride (Saline 0.9%) 1,000 mls @ 75 mls/hr IV .[id number] [facility] Last Admin: 01/15/24 04:48 Dose: 75 mls/hr Melatonin (Melatonin 3 Mg Tablet) 3 mg PO HS@1999 [facility] Last Admin: 01/14/24 20:02 Dose: 3 mg Metoprolol Succinate (Metoprolol Succinate (Er) 25 Mg Tab.Er.24h) 25 mg PO DAILY@0800 [facility] Last Admin: 01/15/24 12:54 Dose: 25 mg Mirtazapine (Mirtazapine 15 Mg Tab) 15 mg PO HS@1999 [facility] Last Admin: 01/14/24 20:02 Dose: 15 mg Naloxone HCl (Naloxone 0.4 Mg/Ml 1 Ml Vial) 0.2 mg IV Q2M PRN PRN Reason: Opioid Reversal Sodium Bicarbonate (Sodium Bicarbonate Tab 650 Mg Tab) 650 mg PO BID [facility] Last Admin: 01/15/24 12:54 Dose: 650 mg Past medical history to include: Atrial fibrillation, hard of hearing, prostate disorder, right renal calculi, mini strokes Social history: Assisted-living, [facility]. No smoking or alcohol Physical examination: VITAL SIGNS: 97.7, 67, 17, 93/60, 98% room air GENERAL: Propped up in bed, looking a bit better. Loss of muscle mass and subcutaneous fat EYES: Pupils equal. Conjunctiva normal. HEENT: External appearance of nose and ears normal, oral cavity dry mucous membranes. NECK: JVD not raised; masses not palpable. HEART: Heart sounds irregular no edema. LUNGS: Respiratory rate normal; clear to auscultation. ABDOMEN: Soft, nontender, liver spleen not palpable, no masses palpable. PSYCH: Alert and oriented x3; mood and affect normal MUSCULOSKELETAL:No Clubbing/cyanosis;muscles-grossly intact, bony prominence, awake, loss muscle muscle mass INVESTIGATIONS, reviewed in the clinical context: Limited 2D echocardiogram: EF 20-25% January 14: Sodium 133 potassium 5.3 BUN 70 creatinine 2.29 Renal ultrasound: Ongoing bilateral mid to moderate hydronephrosis. Laying debris in the bladder. Some evidence of chronic bladder obstruction. January 13: Sodium 132 potassium 4.9 BUN 32 creatinine 2.83 January 13, 2024: White count 8.8 hemoglobin 14.7 platelets 299 INR 3.9 sodium 132 potassium 6 BUN 85 creatinine 3.57 Lactic acid 2.1. Troponin I 0.023 albumin 3.2 EKG tracing personally reviewed by me-sinus rhythm. Left bundle branch block. Previous labs: Creatinine 1.[address]: Lumbar spondylolisthesis. Other bony findings. Right-sided hydronephrosis and hydroureter. No obstructing calculus. Irregular wall thickening of the bladder. large prostate with calcifications. Renal ultrasound: Right kidney hydronephrosis. 2-D echocardiogram open 05/28/2022]: EF 20%. Global hypokinesis. Assessment and plan: -Acute kidney injury likely combination of prerenal and ATN. Decreased oral intake. Hold Cozaar.: Slow to respond IV fluids 75 cc an hour. Strict I's and O's. Renal diet -Paroxysmal atrial fibrillation: In sinus rhythm On amiodarone -Bilateral mild to moderate hydronephrosis Seen by Dr. Waller from urology. Is ordering KUB to check on bilateral stent placement position. -Chronic congestive heart failure from systolic dysfunction. EF 20%: Stable Follow clinically -Metabolic acidosis due to renal failure Sodium bicarbonate -Moderate protein calorie malnutrition Ensure. Dietitian consulted -No UTI. No sepsis -Chronic insomnia Melatonin -Chronic kidney disease stage III a baseline creatinine near 1.1 / nephrosclerosis -Previous history of prostate cancer treated with radiation and hormone therapy in 11/09/2021. -Prior urethral stricture with dilatation. Prior right ureteral stricture with dilatation stent that was later removed. -Right thyroid lesion 4 cm Patient was to follow-up with Dr. Felix outpatient -Acute medical debility due to poor oral intake renal failure malnutrition -BPH -Full code Continue IV fluids. KUB. Follow-up. Past Medical History Past Medical History: Atrial Fibrillation, CVA/TIA, Hearing Disorder / Deafness, Prostate Disorder, Renal Disease Additional Past Medical History / Comment(s): HX RIGHT RENAL CALCULI, HX "MINI STROKES", hard of hearing bilaterally, BPH, CKD, HX UTI, slightly unsteady. History of Any Multi-Drug Resistant Organisms: None Reported Past Surgical History: Hernia Repair Additional Past Surgical History / Comment(s): RIGHT LITHOTRIPSY X3, BILATERAL INGUINAL HERNIA REPAIR. Past Anesthesia/Blood Transfusion Reactions: No Reported Reaction Additional Past Anesthesia/Blood Transfusion Reaction / Comment(s): Pt has never had a blood transfusion. Past Psychological History: No Psychological Hx Reported Smoking Status: Never smoker
--- NOTE | 2024-01-15 19:06 | XR ---
EXAMINATION TYPE: XR KUB DATE OF EXAM: 01/15/2024 6:15 PM CLINICAL INDICATION:Male, 88 years old with history of ureteral stent placement; [facility] COMPARISON: None. TECHNIQUE: Supine radiographic view/s of the abdomen/pelvis obtained. FINDINGS: Bilateral double-J ureteral stents appear in the expected position. There is a calculus or calculus c luster measuring 14.5 mm in greatest dimension just medial and superior to the proximal pigtail on th e right, likely renal calculi. Mild gaseous distention of the stomach. Scattered gas in small bowel without significant distention s een. Mild to moderate stool throughout the colon. No evidence of pneumoperitoneum on this supine view . Mild diffuse osseous degenerative changes. No evidence to suggest fracture. IMPRESSION: 1. Bilateral double-J ureteral stents in place. 2. A 14 mm calculus/calculus cluster near the proximal pigtail on the right.
[2024-01-16 07:25] LABS: African American GFR (CKD) 34 (>60 ml/min/1.73 sqM); Anion Gap 9 mmol/L; Blood Urea Nitrogen 61 mg/dL (9-20); Calcium 7.8 mg/dL (8.4-10.2); Carbon Dioxide 15 mmol/L (22-30); Chloride 109 mmol/L (98-107); Glucose 101 mg/dL (74-99); Non-African American GFR(CKD) 30 (>60 ml/min/1.73 sqM); Potassium 4.4 mmol/L (3.5-5.1); Sodium 133 mmol/L (137-145)
--- NOTE | 2024-01-16 09:33 | P.PN ---
Subjective Progress Note Date: 01/16/24 The patient is in thehospital with weakness and possible uti His cr has come down He had a kub to determine stent placement which is good. Objective - Vital Signs Vital signs: Vital Signs Temp 97.7 F 01/16/24 03:58 Pulse 71 01/16/24 03:58 Resp 17 01/16/24 03:58 BP 112/71 01/16/24 03:58 Pulse Ox 98 01/16/24 03:58 FiO2 Intake & Output 01/15/24 01/15/24 01/16/24 06:59 18:59 06:59 Intake Total 360 Output Total 650 900 500 Balance -650 -540 -500 Weight 63.503 kg 63.503 kg Intake: Oral 360 Output: Urine 650 900 500 Other: Voiding Method Urinal Urinal External Catheter - Labs CBC & Chem 7: 01/13/24 11:15 01/16/24 06:44 Labs: Abnormal Lab Results - Last 24 Hours (Table) 01/15/24 Range/Units 08:20 Sodium 133 L (137-145) mmol/L Potassium 5.3 H (3.5-5.1) mmol/L Carbon Dioxide 16 L (22-30) mmol/L BUN 70 H (9-20) mg/dL Creatinine 2.29 H (0.66-1.25) mg/dL Glucose 73 L (74-99) mg/dL Calcium 8.2 L (8.4-10.2) mg/dL Microbiology - Last 24 Hours (Table) 01/13/24 14:59 Blood Culture - Preliminary Blood Assessment and Plan Assessment: Impression/plan: the patient has dehydration that is improving. He has bilateral stents with left ureteral stones that will need to be taken care but this can be at a later date.
--- NOTE | 2024-01-16 10:56 | P.PN ---
Subjective Progress Note Date: 01/16/24 Patient seen in follow-up for ANAIS. Feeling OK and tolerating diet. No new complaints. Vital signs are stable. General: No acute distress. HEENT: Head exam is unremarkable. LUNGS: No audible rhonchi or wheezes. HEART: Rate and Rhythm are regular. ABDOMEN: Nontender. EXTREMITITES: No edema. Objective - Vital Signs Vital signs: Vital Signs Temp 97.7 F 01/16/24 03:58 Pulse 71 01/16/24 03:58 Resp 17 01/16/24 03:58 BP 112/71 01/16/24 03:58 Pulse Ox 98 01/16/24 03:58 FiO2 Intake & Output 01/15/24 01/16/24 01/16/24 18:59 06:59 18:59 Intake Total 360 Output Total 900 500 650 Balance -540 -500 -650 Weight 63.503 kg 45.5 kg Intake: Oral 360 Output: Urine 900 500 650 Other: Voiding Method Urinal External Catheter - Labs CBC & Chem 7: 01/13/24 11:15 01/16/24 06:44 Labs: Abnormal Lab Results - Last 24 Hours (Table) 01/15/24 01/16/24 Range/Units 08:20 06:44 Sodium 133 L 133 L (137-145) mmol/L Potassium 5.3 H (3.5-5.1) mmol/L Chloride 109 H (98-107) mmol/L Carbon Dioxide 16 L 15 L (22-30) mmol/L BUN 70 H 61 H (9-20) mg/dL Creatinine 2.29 H 1.98 H (0.66-1.25) mg/dL Glucose 73 L 101 H (74-99) mg/dL Calcium 8.2 L 7.8 L (8.4-10.2) mg/dL Microbiology - Last 24 Hours (Table) 01/13/24 14:59 Blood Culture - Preliminary Blood Assessment and Plan Plan: Assessment: 1. Acute kidney injury secondary to ATN secondary to hypotension further worsen with the use of ARB. Creatinine 3.57 on admission, now 2.0. Renal US shows bilateral mild to moderate hydronephrosis. 2. Chronic kidney disease stage IIIb with baseline creatinine near 1.7. Suspec t nephrosclerosis. 3. History of prostate cancer. 4. Urethral stricture status post balloon dilation and stent placement and subsequent removal in the past. CAT scan from June 2022 showed severe right- sided hydronephrosis and hydroureter. Urology following. 5. Hyperkalemia secondary to acute kidney injury on losartan. Improved with medical management. Plan: Discontinue IVF Continue to hold all antihypertensives. Avoid nephrotoxins. Continue sodium bicarb PO Continue to monitor renal function and urine output.
[2024-01-16] MEDS: SODIUM BICARBONATE TAB 650 MG TAB PO SCH (15:26)
--- NOTE | 2024-01-16 16:03 | P.PN ---
Progress Note - Text Progress Note Date: 01/16/24 Chief Complaint: Tired This is a pleasant 88-year-old patient who follows with visiting physicians. Chronic stable medical conditions include hard of hearing, right kidney stone, prostate disorder, A-fib, chronic gait dysfunction. lives at [facility]. Patient presents with few days of worsening appetite. Not able to eat. Weak tired. Even difficult to get about. Denies any fever and chills. Decreased urine output. Diagnosis prostate cancer in 2018. Treated with radiation treatment and hormonal therapy. PSA in May 2022 was 0.23. December 2021 patient underwent cystoscopy. 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 Stent was placed. Stent was removed and February 2023. January 13: Laying in bed. Feeling a bit better. Did tolerate some diet. Some improvement in creatinine. January 14: Has an external catheter. Good urine output. Creatinine coming down. Eating better. January 15: Urology does feel that patient does have a UTI. Cultures are growing MRSA and Klebsiella pneumoniae. Patient just restarted patient on IV Unasyn and nitrofurantoin. Eating slightly better. Active Medications Acetaminophen (Acetaminophen Tab 325 Mg Tab) 650 mg PO QID PRN PRN Reason: Pain Amiodarone HCl (Amiodarone 100 Mg Tab) 100 mg PO DAILY@08 [facility] Last Admin: 01/16/24 08:55 Dose: 100 mg Cyanocobalamin (Cyanocobalamin 500 Mcg Tab) 1,000 mcg PO DAILY@799 [facility] Last Admin: 01/16/24 08:55 Dose: 1,000 mcg Ampicillin Sodium/Sulbactam (Sodium 1.5 gm/ Sodium Chloride) 50 mls @ 100 mls/hr IVPB Q8HR [facility]; Protocol Melatonin (Melatonin 3 Mg Tablet) 3 mg PO HS@1999 [facility] Last Admin: 01/15/24 20:07 Dose: 3 mg Metoprolol Succinate (Metoprolol Succinate (Er) 25 Mg Tab.Er.24h) 25 mg PO DAILY@08 [facility] Last Admin: 01/16/24 08:55 Dose: 25 mg Mirtazapine (Mirtazapine 15 Mg Tab) 15 mg PO HS@1999 [facility] Last Admin: 01/15/24 20:07 Dose: 15 mg Naloxone HCl (Naloxone 0.4 Mg/Ml 1 Ml Vial) 0.2 mg IV Q2M PRN PRN Reason: Opioid Reversal Nitrofurantoin Macrocrystals (Nitrofurantoin Monohyd/M-Cryst 100 Mg Cap) 100 mg PO BID [facility]; Protocol Sodium Bicarbonate (Sodium Bicarbonate Tab 650 Mg Tab) 650 mg PO TID [facility] Last Admin: 01/16/24 15:26 Dose: 650 mg Past medical history to include: Atrial fibrillation, hard of hearing, prostate disorder, right renal calculi, mini strokes Social history: Assisted-living, [facility]. No smoking or alcohol Physical examination: VITAL SIGNS: T7.5, 65, 16, 97 x 60, 95% room air GENERAL: Propped up in bed, tired. Loss of muscle mass and subcutaneous fat EYES: Pupils equal. Conjunctiva normal. HEENT: External appearance of nose and ears normal, oral cavity dry mucous membranes. NECK: JVD not raised; masses not palpable. HEART: Heart sounds irregular no edema. LUNGS: Respiratory rate normal; clear to auscultation. ABDOMEN: Soft, nontender, liver spleen not palpable, no masses palpable. PSYCH: Alert and oriented x3; mood and affect normal MUSCULOSKELETAL:No Clubbing/cyanosis;muscles-grossly intact, bony prominence, awake, loss muscle muscle mass INVESTIGATIONS, reviewed in the clinical context: KUB: Bilateral double-J stent ureteral stents in place. Urine culture: Klebsiella pneumoniae, MRSA January 15: Sodium 133 potassium 4.4 BUN 61 creatinine 1.98 bicarb 15 Limited 2D echocardiogram: EF 20-25% January 14: Sodium 133 potassium 5.3 BUN 70 creatinine 2.29 Renal ultrasound: Ongoing bilateral mid to moderate hydronephrosis. Laying debris in the bladder. Some evidence of chronic bladder obstruction. January 13: Sodium 132 potassium 4.9 BUN 32 creatinine 2.83 January 13, 2024: White count 8.8 hemoglobin 14.7 platelets 299 INR 3.9 sodium 132 potassium 6 BUN 85 creatinine 3.57 Lactic acid 2.1. Troponin I 0.023 albumin 3.2 EKG tracing personally reviewed by me-sinus rhythm. Left bundle branch block. Previous labs: Creatinine 1.[address]: Lumbar spondylolisthesis. Other bony findings. Right-sided hydronephrosis and hydroureter. No obstructing calculus. Irregular wall thickening of the bladder. large prostate with calcifications. Renal ultrasound: Right kidney hydronephrosis. 2-D echocardiogram open 05/28/2022]: EF 20%. Global hypokinesis. Assessment and plan: -Acute kidney injury likely combination of prerenal and ATN. Decreased oral intake. Hold Cozaar.: Slow to respond IV fluids 75 cc an hour. Strict I's and O's. Renal diet -Paroxysmal atrial fibrillation: In sinus rhythm On amiodarone -Bilateral mild to moderate hydronephrosis Bilateral double-J stent prior placement, confirmed by KUB Seen by Dr. Oneil from urology.-Plan for removal of stents when UTI is treated -Chronic congestive heart failure from systolic dysfunction. EF 20%: Stable Follow clinically -Metabolic acidosis due to renal failure Sodium bicarbonate increased to 650 mg 3 times daily -Moderate protein calorie malnutrition Ensure. Dietitian consulted -Acute UTI with cystitis as per urology. Cultures positive for Klebsiella pneumonia and MRSA Start patient on IV Unasyn and nitrofurantoin -Chronic insomnia Melatonin -Chronic kidney disease stage III a baseline creatinine near 1.1 / nephrosclerosis -Previous history of prostate cancer treated with radiation and hormone therapy in 11/09/2021. -Prior urethral stricture with dilatation. -Right thyroid lesion 4 cm Patient was to follow-up with Dr. Felix outpatient -Acute medical debility due to poor oral intake renal failure malnutrition -BPH -Full code Of Unasyn and nitrofurantoin added. Follow labs Past Medical History Past Medical History: Atrial Fibrillation, CVA/TIA, Hearing Disorder / Deafness, Prostate Disorder, Renal Disease Additional Past Medical History / Comment(s): HX RIGHT RENAL CALCULI, HX "MINI STROKES", hard of hearing bilaterally, BPH, CKD, HX UTI, slightly unsteady. History of Any Multi-Drug Resistant Organisms: None Reported Past Surgical History: Hernia Repair Additional Past Surgical History / Comment(s): RIGHT LITHOTRIPSY X3, BILATERAL INGUINAL HERNIA REPAIR. Past Anesthesia/Blood Transfusion Reactions: No Reported Reaction Additional Past Anesthesia/Blood Transfusion Reaction / Comment(s): Pt has never had a blood transfusion. Past Psychological History: No Psychological Hx Reported Smoking Status: Never smoker
[2024-01-16] MEDS: NITROFURANTOIN MONOHYD/M-CRYST 100 MG CAP PO SCH (17:21)
[2024-01-16] MEDS: AMPICILLIN-SULBACTAM 1.5 GM in SODIUM CHLORIDE 0.9% 50 ML IVPB SCH (17:21)
--- NOTE | 2024-01-17 10:55 | CDI ---
Documentation Clarification Form Date: 01/17/2024 From: Esther Oliveira Phone: [phone] Admit Date: 01/13/2024 01:25:00 PM Patient Name: Master Chamberlain Visit Number: [id number] Discharge Date: ATTENTION: The Clinical Documentation Specialists (CDI) and [facility] Coding Staff appreciate your assistance in clarifying documentation. Please respond to the clarification below the line at the bottom and electronically sign. The CDI & [facility] Coding staff will review the response and follow-up if needed. Please note: Queries are made part of the Legal Health Record. If you have any questions, please contact the author of this message via ITS. Dr. Timbo Miller: Conflicting documentation has been found in the medical record. As attending physician, please provide clarification. 01/12 H&P, Assessment and Plan: "Acute UTI with cystitis causing sepsis" 01/13 IM PN, Assessment and Plan: "Not UTI. No sepsis." 01/15 IM PN, Assessment and Plan: Acute UTI with cystitis as per urology. Cultures positive for Klebsiella pneumoniae and MRSA." History/Risk Factors: Kidney stones, A-fib, CKD3b, BPH who presents with worsening appetite, weak and tired Clinical Indicators: 01/12 Triage VS: 94/63, 97.3, 75, 16, 96% room air 01/14 Urology consult, Assessment and Plan, Impression: "UTI. Bilateral hydronephrosis, chronic." 01/12 WBC: 18.8 01/12 Lactic Acid: 2.1, 2.8, 2.4, 1.7 01/12 Urine culture: MRSA, Klebsiella pneumoniae 01/12 Blood culture: No growth after 72 hours Treatment: Unasyn 1.5gram IV [id number] start 01/15 Rocephin 1gram IV [id number] 01/15 (one dose given) Please clarify which diagnosis is most appropriate: [ ] Acute UTI with Sepsis POA [ ] Acute UTI with Sepsis developed during admission [ + ] Acute UTI without Sepsis [ ] Other (please specify) [ ] Unable to determine MTDD
--- NOTE | 2024-01-17 11:47 | P.PN ---
Subjective patient is seen for follow-up for acute kidney injury. Overall much improved. serum creatinine decreased to 1.9 today. status post IV fluids. patient has chronic bilateral hydronephrosis with urethral stricture status post bilateral ureteral stents previously. 24 hour urine output at 2000 ML. Objective - Vital Signs Vital signs: Vital Signs Temp 97.9 F 01/17/24 09:38 Pulse 70 01/17/24 09:38 Resp 16 01/17/24 09:38 BP 103/66 01/17/24 09:38 Pulse Ox 96 01/17/24 09:38 FiO2 Intake & Output 01/16/24 01/17/24 01/17/24 18:59 06:59 18:59 Intake Total 2019 246 Output Total 1150 850 Balance 870 -850 246 Intake: IV 10 Invasive Line 2 10 Intake, IV Titration 700 Amount Ampicillin-Sulbactam 1.5 50 gm In Sodium Chloride 0.9 % 50 ml @ 100 mls/hr IVPB Q8HR [facility] Rx#:[id number] Sodium Chloride 0.9% 1, 600 000 ml @ 75 mls/hr IV . [id number] [facility] Rx#:[id number] 1 gm In 50 Sodium Chloride 0.9% 50 ml @ 100 mls/hr IVPB Q24HR [facility] Rx#:[id number] Oral 1320 236 Output: Urine 1150 850 Other: Voiding Method External Catheter External Catheter External Catheter # Bowel Movements 1 - Exam patient is awake, comfortable, no acute distress Examination of the heart S1 and S2 Examination of the lungs bilateral breath sounds are heard Abdomen is soft nontender Examination of lower extremities shows no significant edema - Labs CBC & Chem 7: 01/13/24 11:15 01/16/24 06:44 Labs: Microbiology - Last 24 Hours (Table) 01/13/24 14:59 Blood Culture - Preliminary Blood 01/13/24 17:53 Urine Culture - Final Urine,Voided Methicillin resist S. aureus Klebsiella pneumoniae Assessment and Plan Assessment: 1. Acute kidney injury secondary to ATN secondary to hypotension further worsened with the use of ARB. Creatinine 3.57 on admission, now 1.9. Renal US shows bilateral mild to moderate hydronephrosis. 2. Chronic kidney disease stage IIIb with baseline creatinine near 1.7. Suspect nephrosclerosis. 3. History of prostate cancer. 4. Urethral stricture status post balloon dilation and stent placement and subsequent removal in the past. CAT scan from June 2022 showed severe right- sided hydronephrosis and hydroureter. Urology following. 5. Hyperkalemia secondary to acute kidney injury on losartan. Improved with medical management. 6. Non-gap metabolic acidosis maintained on oral sodium bicarb 7. UTI with urine culture growing MRSA and Klebsiella pneumonia, started on Bactrim Plan: continue off of IV fluids. Continue with oral sodium bicarb Repeat labs in a.m. Monitor creatinine with use of Bactrim. Maintain follow-up with urology.
[2024-01-17 11:55] LABS: African American GFR (CKD) 43 (>60 ml/min/1.73 sqM); Anion Gap 6 mmol/L; Blood Urea Nitrogen 50 mg/dL (9-20); Calcium 8.2 mg/dL (8.4-10.2); Carbon Dioxide 20 mmol/L (22-30); Chloride 110 mmol/L (98-107); Glucose 133 mg/dL (74-99); Non-African American GFR(CKD) 37 (>60 ml/min/1.73 sqM); Potassium 4.2 mmol/L (3.5-5.1); Sodium 136 mmol/L (137-145)
[2024-01-17] MEDS: SULFAMETHOX-TMP 400-80MG 1 EACH TAB PO SCH (12:29)
--- NOTE | 2024-01-17 15:50 | P.PN ---
Progress Note - Text Progress Note Date: 01/17/24 Chief Complaint: Tired This is a pleasant 88-year-old patient who follows with visiting physicians. Chronic stable medical conditions include hard of hearing, right kidney stone, prostate disorder, A-fib, chronic gait dysfunction. lives at [facility]. Patient presents with few days of worsening appetite. Not able to eat. Weak tired. Even difficult to get about. Denies any fever and chills. Decreased urine output. Diagnosis prostate cancer in 2018. Treated with radiation treatment and hormonal therapy. PSA in May 2022 was 0.23. December 2021 patient underwent cystoscopy. 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 Stent was placed. Stent was removed and February 2023. January 13: Laying in bed. Feeling a bit better. Did tolerate some diet. Some improvement in creatinine. January 14: Has an external catheter. Good urine output. Creatinine coming down. Eating better. January 15: Urology does feel that patient does have a UTI. Cultures are growing MRSA and Klebsiella pneumoniae. Patient just restarted patient on IV Unasyn and nitrofurantoin. Eating slightly better. January 16: Antibiotics after discussing with pharmacy adjusted to Bactrim. Eat ing some. Patient walked 120 feet with a rolling walker with physical therapy. Just BRITTANY Active Medications Acetaminophen (Acetaminophen Tab 325 Mg Tab) 650 mg PO QID PRN PRN Reason: Pain Amiodarone HCl (Amiodarone 100 Mg Tab) 100 mg PO DAILY@08 [facility] Last Admin: 01/17/24 09:43 Dose: 100 mg Cyanocobalamin (Cyanocobalamin 500 Mcg Tab) 1,000 mcg PO DAILY@799 [facility] Last Admin: 01/17/24 09:43 Dose: 1,000 mcg Melatonin (Melatonin 3 Mg Tablet) 3 mg PO HS@1999 [facility] Last Admin: 01/16/24 21:44 Dose: 3 mg Metoprolol Succinate (Metoprolol Succinate (Er) 25 Mg Tab.Er.24h) 25 mg PO DAILY@799 [facility] Last Admin: 01/17/24 09:43 Dose: 25 mg Mirtazapine (Mirtazapine 15 Mg Tab) 15 mg PO HS@1999 [facility] Last Admin: 01/16/24 21:45 Dose: 15 mg Naloxone HCl (Naloxone 0.4 Mg/Ml 1 Ml Vial) 0.2 mg IV Q2M PRN PRN Reason: Opioid Reversal Sodium Bicarbonate (Sodium Bicarbonate Tab 650 Mg Tab) 650 mg PO TID [facility] Last Admin: 01/17/24 09:43 Dose: 650 mg Trimethoprim/Sulfamethoxazole (Sulfamethox-Tmp 400-80mg 1 Each Tab) 1 each PO BID [facility]; Protocol Last Admin: 01/17/24 12:29 Dose: 1 each Past medical history to include: Atrial fibrillation, hard of hearing, prostate disorder, right renal calculi, mini strokes Social history: Assisted-living, [facility]. No smoking or alcohol Physical examination: VITAL SIGNS: 1, 66, 20, 98/55, 99% room air GENERAL: Up in chair loss of muscle mass and subcutaneous fat EYES: Pupils equal. Conjunctiva normal. HEENT: External appearance of nose and ears normal, oral cavity dry mucous membranes. NECK: JVD not raised; masses not palpable. HEART: Heart sounds irregular no edema. LUNGS: Respiratory rate normal; clear to auscultation. ABDOMEN: Soft, nontender, liver spleen not palpable, no masses palpable. PSYCH: Alert and oriented x3; mood and affect normal MUSCULOSKELETAL:No Clubbing/cyanosis;muscles-grossly intact, bony prominence, awake, loss muscle muscle mass INVESTIGATIONS, reviewed in the clinical context: January 16: Sodium 136 potassium 4.2 BUN 50 creatinine 1.64 KUB: Bilateral double-J stent ureteral stents in place. Urine culture: Klebsiella pneumoniae, MRSA January 15: Sodium 133 potassium 4.4 BUN 61 creatinine 1.98 bicarb 15 Limited 2D echocardiogram: EF 20-25% January 14: Sodium 133 potassium 5.3 BUN 70 creatinine 2.29 Renal ultrasound: Ongoing bilateral mid to moderate hydronephrosis. Laying debris in the bladder. Some evidence of chronic bladder obstruction. January 13: Sodium 132 potassium 4.9 BUN 32 creatinine 2.83 January 13, 2024: White count 8.8 hemoglobin 14.7 platelets 299 INR 3.9 sodium 132 potassium 6 BUN 85 creatinine 3.57 Lactic acid 2.1. Troponin I 0.023 albumin 3.2 EKG tracing personally reviewed by nj-sinus rhythm. Left bundle branch block. Previous labs: Creatinine 1.[address]: Lumbar spondylolisthesis. Other bony findings. Right-sided hydronephrosis and hydroureter. No obstructing calculus. Irregular wall thickening of the bladder. large prostate with calcifications. Renal ultrasound: Right kidney hydronephrosis. 2-D echocardiogram open 05/28/2022]: EF 20%. Global hypokinesis. Assessment and plan: -Acute kidney injury likely combination of prerenal and ATN. Decreased oral intake. Hold Cozaar.: Improvement IV fluids 75 cc an hour. Strict I's and O's. Renal diet -Paroxysmal atrial fibrillation: In sinus rhythm On amiodarone -Hyperkalemia from kidney disease, improved -Bilateral mild to moderate hydronephrosis Bilateral double-J stent prior placement, confirmed by KUB Seen by Dr. Oneil from urology.-Plan for removal of stents when UTI is treated -Chronic congestive heart failure from systolic dysfunction. EF 20%: Stable Follow clinically -Nongap metabolic acidosis due to renal failure Sodium bicarbonate increased to 650 mg 3 times daily -Moderate protein calorie malnutrition Ensure. Dietitian consulted -Acute UTI with cystitis as per urology. Cultures positive for Klebsiella pneumonia and MRSA Biotic changed to Bactrim -Chronic insomnia Melatonin -Chronic kidney disease stage III a baseline creatinine near 1.1 / nephrosclerosis -Previous history of prostate cancer treated with radiation and hormone therapy in 11/09/2021. -Prior urethral stricture with dilatation. -Right thyroid lesion 4 cm Patient was to follow-up with Dr. Felix outpatient -Acute medical debility due to poor oral intake renal failure malnutrition -BPH -Full code Switched over to Bactrim. Off IV fluids. Follow labs. Past Medical History Past Medical History: Atrial Fibrillation, CVA/TIA, Hearing Disorder / Deafness, Prostate Disorder, Renal Disease Additional Past Medical History / Comment(s): HX RIGHT RENAL CALCULI, HX "MINI STROKES", hard of hearing bilaterally, BPH, CKD, HX UTI, slightly unsteady. History of Any Multi-Drug Resistant Organisms: None Reported Past Surgical History: Hernia Repair Additional Past Surgical History / Comment(s): RIGHT LITHOTRIPSY X3, BILATERAL INGUINAL HERNIA REPAIR. Past Anesthesia/Blood Transfusion Reactions: No Reported Reaction Additional Past Anesthesia/Blood Transfusion Reaction / Comment(s): Pt has never had a blood transfusion. Past Psychological History: No Psychological Hx Reported Smoking Status: Never smoker
--- NOTE | 2024-01-17 16:40 | P.PN ---
Subjective Progress Note Date: 01/17/24 No acute overnight, creat is down to 1.64 Objective - Vital Signs Vital signs: Vital Signs Temp 98.1 F 01/17/24 12:00 Pulse 66 01/17/24 12:00 Resp 20 01/17/24 12:00 BP 98/55 01/17/24 12:00 Pulse Ox 99 01/17/24 12:00 FiO2 Intake & Output 01/16/24 01/17/24 01/17/24 18:59 06:59 18:59 Intake Total 2020 246 Output Total 1150 850 700 Balance 870 850 -454 Intake: IV 10 Invasive Line 2 10 Intake, IV Titration 700 Amount Ampicillin-Sulbactam 1.5 50 gm In Sodium Chloride 0.9 % 50 ml @ 100 mls/hr IVPB Q8HR [facility] Rx#:[id number] Sodium Chloride 0.9% 1, 600 000 ml @ 75 mls/hr IV . [id number] [facility] Rx#:[id number] cefTRIAXone 1 gm In 50 Sodium Chloride 0.9% 50 ml @ 100 mls/hr IVPB Q24HR [facility] Rx#:[id number] Oral 1320 236 Output: Urine 1150 850 700 Other: Voiding Method External Catheter External Catheter External Catheter # Bowel Movements 1 - Constitutional General appearance: Present: no acute distress - Gastrointestinal General gastrointestinal: Present: soft. Absent: distended, tenderness - Psychiatric Psychiatric: Present: A&O x's 3 - Labs CBC & Chem 7: 01/13/24 11:15 01/17/24 11:16 Labs: Abnormal Lab Results - Last 24 Hours (Table) 01/17/24 Range/Units 11:16 Sodium 136 L (137-145) mmol/L Chloride 110 H (98-107) mmol/L Carbon Dioxide 20 L (22-30) mmol/L BUN 50 H (9-20) mg/dL Creatinine 1.64 H (0.66-1.25) mg/dL Glucose 133 H (74-99) mg/dL Calcium 8.2 L (8.4-10.2) mg/dL Microbiology - Last 24 Hours (Table) 01/13/24 14:59 Blood Culture - Preliminary Blood Assessment and Plan Assessment: S/P cysto with bilateral stent insertion on 12/15, Ucx showing Klebsiella and S Aureus. Creat is down to 1.64 -Ok for discharge from urology standpoint -F/U outpatient with Dr Baig for management of ureteral stricture - Ok for discharge from urology standpoint, recommend minumum 7 days of abx based on culture
[2024-01-18 09:35] VITALS: BMI 15.3
--- NOTE | 2024-01-18 11:39 | P.PN ---
Subjective patient is seen for follow-up for acute kidney injury. Overall much improved. serum creatinine decreased to 1.6 today. status post IV fluids. patient has chronic bilateral hydronephrosis with urethral stricture status post bilateral ureteral stents previously. 24 hour urine output at 1550 ML. Objective - Vital Signs Vital signs: Vital Signs Temp 98.0 F 01/18/24 08:06 Pulse 71 01/18/24 08:06 Resp 18 01/18/24 08:06 BP 104/63 01/18/24 08:06 Pulse Ox 97 01/18/24 08:06 FiO2 Intake & Output 01/17/24 01/18/24 01/18/24 18:59 06:59 18:59 Intake Total 246 128 Output Total 1100 450 225 Balance -854 -450 -97 Weight 47 kg 47 kg Intake: IV 10 10 Invasive Line 2 10 10 Oral 236 118 Output: Urine 1100 450 225 Other: Voiding Method External Catheter External Catheter External Catheter - Exam patient is awake, comfortable, no acute distress Examination of the heart S1 and S2 Examination of the lungs bilateral breath sounds are heard Abdomen is soft nontender Examination of lower extremities shows no significant edema - Labs CBC & Chem 7: 01/13/24 11:15 01/17/24 11:16 Labs: Abnormal Lab Results - Last 24 Hours (Table) 01/17/24 Range/Units 11:16 Sodium 136 L (137-145) mmol/L Chloride 110 H (98-107) mmol/L Carbon Dioxide 20 L (22-30) mmol/L BUN 50 H (9-20) mg/dL Creatinine 1.64 H (0.66-1.25) mg/dL Glucose 133 H (74-99) mg/dL Calcium 8.2 L (8.4-10.2) mg/dL Assessment and Plan Assessment: 1. Acute kidney injury secondary to ATN secondary to hypotension further worsened with the use of ARB. Creatinine 3.57 on admission, now 1.6. Renal US shows bilateral mild to moderate hydronephrosis. 2. Chronic kidney disease stage IIIb with baseline creatinine near 1.7. Suspect nephrosclerosis. 3. History of prostate cancer. 4. Urethral stricture status post balloon dilation and stent placement and subsequent removal in the past. CAT scan from June 2022 showed severe right- sided hydronephrosis and hydroureter. Urology following. 5. Hyperkalemia secondary to acute kidney injury on losartan. Improved with medical management. 6. Non-gap metabolic acidosis maintained on oral sodium bicarb 7. UTI with urine culture growing MRSA and Klebsiella pneumonia, started on Bactrim Plan: continue off of IV fluids. Continue with oral sodium bicarb Repeat labs in a.m. Monitor creatinine with use of Bactrim. Follow-up as outpatient in 1-2 weeks Maintain follow-up with urology.
[2024-01-18 11:40] LABS: African American GFR (CKD) 43 (>60 ml/min/1.73 sqM); Anion Gap 4 mmol/L; Blood Urea Nitrogen 48 mg/dL (9-20); Carbon Dioxide 22 mmol/L (22-30); Chloride 109 mmol/L (98-107); Glucose 121 mg/dL (74-99); Non-African American GFR(CKD) 37 (>60 ml/min/1.73 sqM); Sodium 135 mmol/L (137-145)
[2024-01-18 11:51] LABS: Potassium 4.9 mmol/L (3.5-5.1)
--- NOTE | 2024-01-18 12:32 | P.DS ---
Providers Date of admission: 01/13/24 13:25 Expected date of discharge: 01/18/24 Attending physician: Timbo Miller Consults: 01/13/24 13:22 Consult Physician Routine Consulting Provider: Cash Malin Consult Reason/Comments: mariela Do you want consulting provider notified?: Yes 01/14/24 14:52 Consult Physician Routine Consulting Provider: Adryan Baig Consult Reason/Comments: Hydronephrosis Do you want consulting provider notified?: Yes 01/15/24 11:16 Consult Physician Routine Consulting Provider: Aravind Oneil Consult Reason/Comments: hydronephrosis Do you want consulting provider notified?: Yes Primary care physician: [facility] Course: Chief Complaint: Tired This is a pleasant 88-year-old patient who follows with visiting physicians. Chronic stable medical conditions include hard of hearing, right kidney stone, prostate disorder, A-fib, chronic gait dysfunction. lives at [facility]. Patient presents with few days of worsening appetite. Not able to eat. Weak tired. Even difficult to get about. Denies any fever and chills. Decreased urine output. Diagnosis prostate cancer in 2019. Treated with radiation treatment and hormonal therapy. PSA in May 2022 was 0.23. December 2021 patient underwent cystoscopy. 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 Stent was placed. Stent was removed and February 2023. January 13: Laying in bed. Feeling a bit better. Did tolerate some diet. Some improvement in creatinine. January 14: Has an external catheter. Good urine output. Creatinine coming down. Eating better. January 15: Urology does feel that patient does have a UTI. Cultures are growing MRSA and Klebsiella pneumoniae. Patient just restarted patient on IV Unasyn and nitrofurantoin. Eating slightly better. January 16: Antibiotics after discussing with pharmacy adjusted to Bactrim. Eating some. Patient walked 120 feet with a rolling walker with physical therapy. January 17: Patient doing well. Tolerating diet. Discussed with Dr. Steen from nephrology. Will follow-up outpatient. Will give 10 days of Bactrim. Patient was to follow-up with urology. Patient return to assisted living. Walker prescription done. Discussion and discharge planning more than 35 minutes Past medical history to include: Atrial fibrillation, hard of hearing, prostate disorder, right renal calculi, mini strokes Social history: Assisted-living, [facility]. No smoking or alcohol Physical examination: VITAL SIGNS: 98, 71, 18, 104/63, 97% room air GENERAL: Comfortable, f muscle mass and subcutaneous fat EYES: Pupils equal. Conjunctiva normal. HEENT: External appearance of nose and ears normal, oral cavity dry mucous membranes. NECK: JVD not raised; masses not palpable. HEART: Heart sounds irregular no edema. LUNGS: Respiratory rate normal; clear to auscultation. ABDOMEN: Soft, nontender, liver spleen not palpable, no masses palpable. PSYCH: Alert and oriented x3; mood and affect normal MUSCULOSKELETAL:No Clubbing/cyanosis;muscles-grossly intact, bony prominence, awake, loss muscle muscle mass INVESTIGATIONS, reviewed in the clinical context: January 17: Sodium 135 potassium 4.9 BUN 48 creatinine 1.65 KUB: Bilateral double-J stent ureteral stents in place. Urine culture: Klebsiella pneumoniae, MRSA Limited 2D echocardiogram: EF 20-25% January 14: Sodium 133 potassium 5.3 BUN 70 creatinine 2.29 Renal ultrasound: Ongoing bilateral mid to moderate hydronephrosis. Laying debris in the bladder. Some evidence of chronic bladder obstruction. January 13: Sodium 132 potassium 4.9 BUN 32 creatinine 2.83 January 13, 2024: White count 8.8 hemoglobin 14.7 platelets 299 INR 3.9 sodium 132 potassium 6 BUN 85 creatinine 3.57 Lactic acid 2.1. Troponin I 0.023 albumin 3.2 EKG tracing personally reviewed by me-sinus rhythm. Left bundle branch block. Previous labs: Creatinine 1.[address]: Lumbar spondylolisthesis. Other bony findings. Right-sided hydronephrosis and hydroureter. No obstructing calculus. Irregular wall thickening of the bladder. large prostate with calcifications. Renal ultrasound: Right kidney hydronephrosis. 2-D echocardiogram open 05/28/2022]: EF 20%. Global hypokinesis. Assessment and plan: -Acute kidney injury likely combination of prerenal and ATN. Decreased oral intake. Hold Cozaar.: Improvement IV fluids 75 cc an hour. Strict I's and O's. Renal diet -Paroxysmal atrial fibrillation: In sinus rhythm On amiodarone -Hyperkalemia from kidney disease, improved -Bilateral mild to moderate hydronephrosis Bilateral double-J stent prior placement, confirmed by KUB Seen by Dr. Oneil from urology.-Plan for removal of stents when UTI is treated Follow-up with urology outpatient -Chronic congestive heart failure from systolic dysfunction. EF 20%: Stable Follow clinically -Nongap metabolic acidosis due to renal failure Sodium bicarbonate increased to 650 mg 3 times daily -Moderate protein calorie malnutrition Ensure. Dietitian consulted -Acute UTI with cystitis as per urology. Cultures positive for Klebsiella pneumonia and MRSA Biotic changed to Bactrim -Chronic insomnia Melatonin -Chronic kidney disease stage III a baseline creatinine near 1.1 / nephrosclerosis -Previous history of prostate cancer treated with radiation and hormone therapy in 11/09/2021. -Prior urethral stricture with dilatation. -Right thyroid lesion 4 cm Patient was to follow-up with Dr. Felix outpatient -Acute medical debility due to poor oral intake renal failure malnutrition -BPH -Full code Disposition: Assisted living, [facility] Past Medical History Past Medical History: Atrial Fibrillation, CVA/TIA, Hearing Disorder / Deafness, Prostate Disorder, Renal Disease Additional Past Medical History / Comment(s): HX RIGHT RENAL CALCULI, HX "MINI STROKES", hard of hearing bilaterally, BPH, CKD, HX UTI, slightly unsteady. History of Any Multi-Drug Resistant Organisms: None Reported Past Surgical History: Hernia Repair Additional Past Surgical History / Comment(s): RIGHT LITHOTRIPSY X3, BILATERAL INGUINAL HERNIA REPAIR. Past Anesthesia/Blood Transfusion Reactions: No Reported Reaction Additional Past Anesthesia/Blood Transfusion Reaction / Comment(s): Pt has never had a blood transfusion. Past Psychological History: No Psychological Hx Reported Smoking Status: Never smoker Patient Condition at Discharge: Fair Plan - Discharge Summary Discharge Rx Participant: Yes New Discharge Prescriptions: New Sodium Bicarbonate Tab 650 mg PO TID #90 tab Sulfamethox-Tmp 400-80Mg [Bactrim SS 400-80 mg] 1 each PO BID #20 tab Continue Cyanocobalamin (Vitamin B-12) [Vitamin B-12] 1,000 mcg PO DAILY@0800 Acetaminophen [Tylenol] 650 mg PO QID PRN PRN Reason: Pain Nando-Gest 500mg Chew 2 tab PO Q6H Melatonin 3 mg PO HS@2000 Metoprolol Succinate (ER) [Toprol XL] 25 mg PO DAILY@0800 Mirtazapine [Remeron] 15 mg PO HS@2000 Amiodarone [Cordarone] 100 mg PO DAILY@0800 Cholecalciferol (Vitamin D3) [Vitamin D3 (125 MCG = 5,000 IU)] 125 mcg PO DAILY@0800 Discontinued Losartan [Cozaar] 25 mg PO DAILY@0800 Docusate Sodium [Dok] 100 mg PO BID PRN PRN Reason: Constipation guaiFENesin [Mucinex] 1,200 mg PO BID@799,1999 Discharge Medication List Melatonin 3 mg PO HS@199906/25/22 [History] Metoprolol Succinate (ER) [Toprol XL] 25 mg PO DAILY@79906/25/22 [History] Mirtazapine [Remeron] 15 mg PO HS@199906/25/22 [History] Cyanocobalamin (Vitamin B-12) [Vitamin B-12] 1,000 mcg PO DAILY@79902/16/23 [History] Acetaminophen [Tylenol] 650 mg PO QID PRN 12/10/23 [History] Amiodarone [Cordarone] 100 mg PO DAILY@79912/10/23 [History] Nando-Gest 500mg Chew 2 tab PO Q6H 12/10/23 [History] Cholecalciferol (Vitamin D3) [Vitamin D3 (125 MCG = 5,000 IU)] 125 mcg PO DAILY@79912/10/23 [History] Sodium Bicarbonate Tab 650 mg PO TID #90 tab 01/18/24 [Rx] Sulfamethox-Tmp 400-80Mg [Bactrim SS 400-80 mg] 1 each PO BID #20 tab 01/18/24 [Rx] Follow up Appointment(s)/Referral(s): Pamela Steen MD [STAFF PHYSICIAN] - 01/25/24 9:00 am Adryan Baig MD [STAFF PHYSICIAN] - 02/01/24 11:00 am Isauro Goetz MD [Primary Care Provider] - 01/20/24 (office will call with time of appointment ) Patient Instructions/Handouts: Acute Kidney Injury (DC), Hydronephrosis (DC), Ureteral Stones (DC)
[2024-01-18 13:18] VITALS: BP 100/67; PULSE 70; RESP 20; TEMP 98.5
== END 2024-01-18 14:14 | DRG 689 ==
LOC: EC 10:39 → 3SCARD 13:25
PROVIDERS: ADMIT Hospitalist; ATTEND Hospitalist
DX: N39.0 Urinary tract infection, site not specified (principal); N17.0 Acute kidney failure with tubular necrosis; E44.0 Moderate protein-calorie malnutrition; I13.0 Hypertensive heart and chronic kidney disease with heart failure and stage 1 through stage 4 chronic kidney disease, or unspecified chronic kidney disease; I48.20 Chronic atrial fibrillation, unspecified; I50.22 Chronic systolic (congestive) heart failure; N20.2 Calculus of kidney with calculus of ureter; Z68.1 Body mass index [BMI] 19.9 or less, adult; M43.16 Spondylolisthesis, lumbar region; T46.5X5A Adverse effect of other antihypertensive drugs, initial encounter; B96.1 Klebsiella pneumoniae [K. pneumoniae] as the cause of diseases classified elsewhere; E86.0 Dehydration; E87.5 Hyperkalemia; I48.0 Paroxysmal atrial fibrillation; N18.32 Chronic kidney disease, stage 3b; Z79.01 Long term (current) use of anticoagulants; X58.XXXA Exposure to other specified factors, initial encounter; Z87.19 Personal history of other diseases of the digestive system
CPT/HCPCS: 36415; 51798; 71046; 74018; 76770; 80048; 80053; 81001; 82533; 83605; 83735; 84132; 84484; 85025; 85610; 85730; 87040; 87077; 87086; 87186; 87636; 93005; 93308; 96361; 96374; 96375; 99285

== ENCOUNTER 2024-01-26 20:43 | Inpatient (IN) | payer MEDICARE ==
[2024-01-26] MEDS: SODIUM CHLORIDE 0.9% 1,000 ML IV STA (21:45)
[2024-01-26 22:09] LABS: INR 1.4 (<1.2); Prothrombin Time 14.6 sec (10.0-12.5)
[2024-01-26 22:15] LABS: Basophils % (A) 0 %; Eosinophils # (A) 0.1 k/uL (0-0.7); Eosinophils % (A) 0 %; HCT 34.4 % (39.0-53.0); Lymphocytes # (A) 1.4 k/uL (1.0-4.8); Lymphocytes % (A) 9 %; MCH 28.9 pg (25.0-35.0); MCHC 31.4 g/dL (31.0-37.0); MCV 91.8 fL (80.0-100.0); Mean Platelet Volume 8.7; Monocytes # (A) 0.8 k/uL (0-1.0); Monocytes % (A) 5 %; Neutrophils # (A) 12.8 k/uL (1.3-7.7); Neutrophils % (A) 84 %; Platelet Count 286 k/uL (150-450); RBC 3.74 m/uL (4.30-5.90); RDW 14.3 % (11.5-15.5); WBC 15.2 k/uL (3.8-10.6)
[2024-01-26 22:16] LABS: HGB 10.8 gm/dL (13.0-17.5)
--- NOTE | 2024-01-26 22:27 | ED ---
Weakness HPI - General Chief complaint: Weakness Stated complaint: Weakness Source: EMS, RN notes reviewed, old records reviewed Mode of arrival: EMS Limitations: no limitations - History of Present Illness Initial comments: This is an 88-year-old male to the ER for evaluation today. Patient was today for evaluation of altered mental state poor historian presents for failure to thrive with low oxygen levels at [facility] MD Complaint: generalized weakness, lack of energy, difficulty walking -: days(s) Location: generalized Severity: severe Severity scale (1-10): 8 Quality: numbness Consistency: constant Improves with: none Worsens with: none Context: recent illness, history of similar Associated Symptoms: confusion, nausea/vomiting, shortness of breath - Related Data Home Medications Medication Instructions Recorded Confirmed Melatonin 3 mg PO HS@199906/25/22 02/05/24 Metoprolol Succinate (ER) [Toprol 12.5 mg PO DAILY@0800 06/25/22 02/05/24 XL] Mirtazapine [Remeron] 15 mg PO HS@199906/25/22 02/05/24 Cyanocobalamin (Vitamin B-12) 1,000 mcg PO DAILY@0800 02/16/23 02/05/24 [Vitamin B-12] Acetaminophen [Tylenol] 650 mg PO QID PRN 12/10/23 02/05/24 Amiodarone [Cordarone] 100 mg PO DAILY@0800 12/10/23 02/05/24 Nando-Gest 500mg Chew 2 tab PO Q6H PRN 12/10/23 02/05/24 Cholecalciferol (Vitamin D3) 125 mcg PO DAILY@0800 12/10/23 02/05/24 [Vitamin D3 (125 MCG = 5,000 IU)] Sodium Bicarbonate 325 mg PO DAILY@0800 01/27/24 02/05/24 Sodium Bicarbonate Tab 650 mg PO TID 01/27/24 02/05/24 Psyllium Husk (with Sugar) [Fiber 1 scoop PO BID@0800,1700 02/05/24 02/05/24 Powder] cefUROXime axetiL [Ceftin] 500 mg PO BID@0800,199902/05/24 02/05/24 Allergies Allergy/AdvReac Type Severity Reaction Status Date / Time No Known Allergies Allergy Verified 02/05/24 15:43 Review of Systems ROS Statement: Those systems with pertinent positive or pertinent negative responses have been documented in the HPI. ROS Other: All systems not noted in ROS Statement are negative. Past Medical History Past Medical History: Atrial Fibrillation, CVA/TIA, Hearing Disorder / Deafness, Prostate Disorder, Renal Disease Additional Past Medical History / Comment(s): HX RIGHT RENAL CALCULI, HX "MINI STROKES", hard of hearing bilaterally, BPH, CKD, HX UTI, slightly unsteady. History of Any Multi-Drug Resistant Organisms: None Reported Past Surgical History: Hernia Repair Additional Past Surgical History / Comment(s): RIGHT LITHOTRIPSY X3, BILATERAL INGUINAL HERNIA REPAIR. Past Anesthesia/Blood Transfusion Reactions: No Reported Reaction Additional Past Anesthesia/Blood Transfusion Reaction / Comment(s): Pt has never had a blood transfusion. Past Psychological History: No Psychological Hx Reported Smoking Status: Never smoker Past Alcohol Use History: None Reported Past Drug Use History: None Reported - Past Family History Father Family Medical History: Cancer General Exam General appearance: alert, in no apparent distress Head exam: Present: atraumatic, normocephalic, normal inspection Eye exam: Present: normal appearance, PERRL, EOMI. Absent: scleral icterus, conjunctival injection, periorbital swelling ENT exam: Present: normal exam, mucous membranes moist Neck exam: Present: normal inspection. Absent: tenderness, meningismus, lymphadenopathy Respiratory exam: Present: normal lung sounds bilaterally. Absent: respiratory distress, wheezes, rales, rhonchi, stridor Cardiovascular Exam: Present: regular rate, normal rhythm, normal heart sounds. Absent: systolic murmur, diastolic murmur, rubs, gallop, clicks GI/Abdominal exam: Present: soft, normal bowel sounds. Absent: distended, tenderness, guarding, rebound, rigid Extremities exam: Present: normal inspection, full ROM, normal capillary refill. Absent: tenderness, pedal edema, joint swelling, calf tenderness Back exam: Present: normal inspection Neurological exam: Present: alert, oriented X3, CN II-XII intact Psychiatric exam: Present: normal affect, normal mood Skin exam: Present: warm, dry, intact, normal color. Absent: rash Course Vital Signs 01/26/24 01/26/24 01/27/24 20:49 23:28 01:41 Temperature 97.3 F L Pulse Rate 73 71 74 Respiratory 16 16 16 Rate Blood Pressure 119/64 102/51 103/60 Blood Pressure [Left Arm] O2 Sat by Pulse 96 96 98 Oximetry 01/27/24 01/27/24 03:03 03:15 Temperature 98.2 F Pulse Rate 76 Respiratory 18 Rate Blood Pressure 119/63 Blood Pressure 126/69 [Left Arm] O2 Sat by Pulse 94 L 98 Oximetry - Reevaluation(s) Reevaluation #1: 01/26/24 23:44 Medical record is reviewed Reevaluation #2: 01/26/24 23:44 Patient symptoms unchanged Reevaluation #3: 01/26/24 23:44 Patient informed of results and questions answered Reevaluation #4: Was pt. sent in by a medical professional or institution (FLORIAN Khalil, ADJUNCT FACULTY INSTRUCTOR, urgent care, hospital, or long term...) When possible be specific @ -no Did you speak to anyone other than the patient for history (EMS, parent, family, police, friend...)? What history was obtained from this source @ -no Did you review nursing and triage notes (agree or disagree)? Why? @ -agree Are old charts reviewed (outside hosp., previous admission, EMS record, old EKG, old radiological studies, urgent care reports/EKG's, long term records)? Report findings @ -yes Differential Diagnosis (chest pain, altered mental status, abdominal pain women, abdominal pain men, vaginal bleeding, weakness, fever, dyspnea, syncope, headache, dizziness, GI bleed, back pain, seizure, CVA, palpatations, mental health, musculoskeletal)? @ -prior EKG interpreted by me (3pts min.). @ -yes X-rays interpreted by me (1pt min.). @ -yes negative for acute disease CT interpreted by me (1pt min.). @ -no U/S interpreted by me (1pt. min.). @ -no What testing was considered but not performed or refused? (CT, X-rays, U/S, labs)? Why? @ -none What meds were considered but not given or refused? Why? @ -none Did you discuss the management of the patient with other professionals (professionals i.e. FLORIAN Khalil, ADJUNCT FACULTY INSTRUCTOR, lab, RT, psych nurse, social media specialist, superintendent, teacher, artillery officer, special education case manager)? Give summary @ -no Was smoking cessation discussed for >3mins.? @ -no Was critical care preformed (if so, how long)? @ -yes31 Were there social determinants of health that impacted care today? How? (Homelessness, low income, unemployed, alcoholism, drug addiction, transportation, low edu. Level, literacy, decrease access to med. care, long-term, rehab)? @ -none Was there de-escalation of care discussed even if they declined (Discuss DNR or withdrawal of care, Hospice)? DNR status @ -no What co-morbidities impacted this encounter? (DM, HTN, Smoking, COPD, CAD, Ca ncer, CVA, ARF, Chemo, Hep., AIDS, mental health diagnosis, sleep apnea, morbid obesity)? @ -none Was patient admitted / discharged? Hospital course, mention meds given and route, prescriptions, significant lab abnormalities, going to OR and other pertinent info. @ - 88 male to the ER for evaluation today. Patient presents today for evaluation of weakness and dizziness. Patient will be admitted for further evaluation and management low oxygen level was noted both at extended-care facility and here Admitted Undiagnosed new problem with uncertain prognosis? @ -no Drug Therapy requiring intensive monitoring for toxicity (Heparin, Nitro, Insulin, Cardizem)? @ -no Were any procedures done? @ -no Diagnosis/symptom? @ -Hypoxia anemia altered mental status weakness Acute, or Chronic, or Acute on Chronic? @ -Acute Uncomplicated (without systemic symptoms) or Complicated (systemic symptoms)? @ -Complicated Side effects of treatment? @ -no Exacerbation, Progression, or Severe Exacerbation? @ -exacerbation Poses a threat to life or bodily function? How? (Chest pain, USA, UT, pneumonia, PE, COPD, DKA, ARF, appy, cholecystitis, CVA, Diverticulitis, Homicidal, Suicidal, threat to staff... and all critical care pts) @ -yes extremes of age Reevaluation #5: Differential Altered Mental Status: Hypoglycemia, DKA, hypercapnia, ETOH, overdose, CO poisoning, trauma, myxedema coma, HTN encephalopathy, infection, encephalitis, psychosis, intercranial hemorrhage, hepatic encephalopathy, meningitis, CVA, this is not meant to be an all-inclusive list Differential Weakness: Hypoglycemia, shock, sepsis, hyponatremia, anemia, infection, UT, ETOH, adverse medicine reaction, overdose, stroke, this is not meant to be an all-inclusive list. - Consultations Consultation #1: Spoke with Dr. Miller who agrees to admit this patient EKG Findings - EKG Comments: EKG Findings:: EKG is sinus 72 AK 284 QRS 150 QTc 483 Medical Decision Making - Medical Decision Making 88 male to the ER for evaluation today. Patient presents today for evaluation of weakness and dizziness. Patient will be admitted for further evaluation and management low oxygen level was noted both at [facility] and here - Lab Data Result diagrams: 01/28/24 06:43 01/31/24 05:26 Lab Results 01/26/24 01/26/24 01/26/24 Range/Units 21:46 21:46 21:46 WBC 15.2 H (3.8-10.6) k/uL RBC 3.74 L (4.30-5.90) m/uL Hgb 10.8 L D (13.0-17.5) gm/dL Hct 34.4 L (39.0-53.0) % MCV 91.8 (80.0-100.0) fL MCH 28.9 (25.0-35.0) pg MCHC 31.4 (31.0-37.0) g/dL RDW 14.3 (11.5-15.5) % Plt Count 286 (150-450) k/uL MPV 8.7 Neutrophils % 84 % Lymphocytes % 9 % Monocytes % 5 % Eosinophils % 0 % Basophils % 0 % Neutrophils # 12.8 H (1.3-7.7) k/uL Lymphocytes # 1.4 (1.0-4.8) k/uL Monocytes # 0.8 (0-1.0) k/uL Eosinophils # 0.1 (0-0.7) k/uL Basophils # 0.0 (0-0.2) k/uL PT 14.6 H (10.0-12.5) sec INR 1.4 H (<1.2) APTT 25.0 (22.0-30.0) sec Sodium 133 L (137-145) mmol/L Potassium 6.0 H (3.5-5.1) mmol/L Chloride 103 (98-107) mmol/L Carbon Dioxide 24 (22-30) mmol/L Anion Gap 6 mmol/L BUN 59 H (9-20) mg/dL Creatinine 2.23 H (0.66-1.25) mg/dL Est GFR (CKD-EPI)AfAm 30 (>60 ml/min/1.73 sqM) Est GFR (CKD-EPI)NonAf 26 (>60 ml/min/1.73 sqM) Glucose 115 H (74-99) mg/dL Lactic Ac Sepsis Rflx Plasma Lactic Acid Moy (0.7-2.0) mmol/L Calcium 8.6 (8.4-10.2) mg/dL Phosphorus 4.0 (2.5-4.5) mg/dL Magnesium 2.0 (1.6-2.3) mg/dL Total Bilirubin 0.4 (0.2-1.3) mg/dL AST 48 (17-59) U/L ALT 52 H (4-49) U/L Alkaline Phosphatase 158 H (38-126) U/L Troponin I (0.000-0.034) ng/mL NT-Pro-B Natriuret Pep 516 pg/mL Total Protein 5.7 L (6.3-8.2) g/dL Albumin 2.2 L (3.5-5.0) g/dL TSH 0.246 L (0.465-4.680) mIU/L Urine Color Urine Appearance (Clear) Urine pH (5.0-8.0) Ur Specific Jonancy (1.001-1.035) Urine Protein (Negative) Urine Glucose (UA) (Negative) Urine Ketones (Negative) Urine Blood (Negative) Urine Nitrite (Negative) Urine Bilirubin (Negative) Urine Urobilinogen (<2.0) mg/dL Ur Leukocyte Esterase (Negative) Urine RBC (0-5) /hpf Urine WBC (0-5) /hpf Urine WBC Clumps (None) /hpf Ur Squamous Epith Cells (0-4) /hpf Urine Bacteria (None) /hpf 01/26/24 01/26/24 01/26/24 Range/Units 21:46 21:46 23:07 WBC (3.8-10.6) k/uL RBC (4.30-5.90) m/uL Hgb (13.0-17.5) gm/dL Hct (39.0-53.0) % MCV (80.0-100.0) fL MCH (25.0-35.0) pg MCHC (31.0-37.0) g/dL RDW (11.5-15.5) % Plt Count (150-450) k/uL MPV Neutrophils % % Lymphocytes % % Monocytes % % Eosinophils % % Basophils % % Neutrophils # (1.3-7.7) k/uL Lymphocytes # (1.0-4.8) k/uL Monocytes # (0-1.0) k/uL Eosinophils # (0-0.7) k/uL Basophils # (0-0.2) k/uL PT (10.0-12.5) sec INR (<1.2) APTT (22.0-30.0) sec Sodium (137-145) mmol/L Potassium (3.5-5.1) mmol/L Chloride (98-107) mmol/L Carbon Dioxide (22-30) mmol/L Anion Gap mmol/L BUN (9-20) mg/dL Creatinine (0.66-1.25) mg/dL Est GFR (CKD-EPI)AfAm (>60 ml/min/1.73 sqM) Est GFR (CKD-EPI)NonAf (>60 ml/min/1.73 sqM) Glucose (74-99) mg/dL Lactic Ac Sepsis Rflx Y Plasma Lactic Acid Moy 2.3 H* (0.7-2.0) mmol/L Calcium (8.4-10.2) mg/dL Phosphorus (2.5-4.5) mg/dL Magnesium (1.6-2.3) mg/dL Total Bilirubin (0.2-1.3) mg/dL AST (17-59) U/L ALT (4-49) U/L Alkaline Phosphatase (38-126) U/L Troponin I <0.012 (0.000-0.034) ng/mL NT-Pro-B Natriuret Pep pg/mL Total Protein (6.3-8.2) g/dL Albumin (3.5-5.0) g/dL TSH (0.465-4.680) mIU/L Urine Color Urine Appearance (Clear) Urine pH (5.0-8.0) Ur Specific Jonancy (1.001-1.035) Urine Protein (Negative) Urine Glucose (UA) (Negative) Urine Ketones (Negative) Urine Blood (Negative) Urine Nitrite (Negative) Urine Bilirubin (Negative) Urine Urobilinogen (<2.0) mg/dL Ur Leukocyte Esterase (Negative) Urine RBC (0-5) /hpf Urine WBC (0-5) /hpf Urine WBC Clumps (None) /hpf Ur Squamous Epith Cells (0-4) /hpf Urine Bacteria (None) /hpf 01/26/24 Range/Units 23:30 WBC (3.8-10.6) k/uL RBC (4.30-5.90) m/uL Hgb (13.0-17.5) gm/dL Hct (39.0-53.0) % MCV (80.0-100.0) fL MCH (25.0-35.0) pg MCHC (31.0-37.0) g/dL RDW (11.5-15.5) % Plt Count (150-450) k/uL MPV Neutrophils % % Lymphocytes % % Monocytes % % Eosinophils % % Basophils % % Neutrophils # (1.3-7.7) k/uL Lymphocytes # (1.0-4.8) k/uL Monocytes # (0-1.0) k/uL Eosinophils # (0-0.7) k/uL Basophils # (0-0.2) k/uL PT (10.0-12.5) sec INR (<1.2) APTT (22.0-30.0) sec Sodium (137-145) mmol/L Potassium (3.5-5.1) mmol/L Chloride (98-107) mmol/L Carbon Dioxide (22-30) mmol/L Anion Gap mmol/L BUN (9-20) mg/dL Creatinine (0.66-1.25) mg/dL Est GFR (CKD-EPI)AfAm (>60 ml/min/1.73 sqM) Est GFR (CKD-EPI)NonAf (>60 ml/min/1.73 sqM) Glucose (74-99) mg/dL Lactic Ac Sepsis Rflx Plasma Lactic Acid Moy (0.7-2.0) mmol/L Calcium (8.4-10.2) mg/dL Phosphorus (2.5-4.5) mg/dL Magnesium (1.6-2.3) mg/dL Total Bilirubin (0.2-1.3) mg/dL AST (17-59) U/L ALT (4-49) U/L Alkaline Phosphatase (38-126) U/L Troponin I (0.000-0.034) ng/mL NT-Pro-B Natriuret Pep pg/mL Total Protein (6.3-8.2) g/dL Albumin (3.5-5.0) g/dL TSH (0.465-4.680) mIU/L Urine Color Yellow Urine Appearance Cloudy (Clear) Urine pH 6.0 (5.0-8.0) Ur Specific Jonancy 1.015 (1.001-1.035) Urine Protein 1+ H (Negative) Urine Glucose (UA) Negative (Negative) Urine Ketones Negative (Negative) Urine Blood Moderate H (Negative) Urine Nitrite Negative (Negative) Urine Bilirubin Negative (Negative) Urine Urobilinogen <2.0 (<2.0) mg/dL Ur Leukocyte Esterase Large H (Negative) Urine RBC >182 H (0-5) /hpf Urine WBC >182 H (0-5) /hpf Urine WBC Clumps Moderate H (None) /hpf Ur Squamous Epith Cells 1 (0-4) /hpf Urine Bacteria Moderate H (None) /hpf - EKG Data -: EKG Interpreted by Me - Radiology Data Radiology results: report reviewed (Chest x-ray is negative for acute disease), image reviewed Critical Care Time Critical Care Time: Yes Total Critical Care Time: 31 Disposition Clinical Impression: Dehydration, Failure to thrive, Calculus of kidney, NAAIS (acute kidney injury), Anemia, Hypoxemia Disposition: ADMITTED IP TO THIS [facility] Condition: Fair Is patient prescribed a controlled substance at d/c from ED?: No Time of Disposition: 23:45
[2024-01-26 22:37] LABS: ALT 52 U/L (4-49); African American GFR (CKD) 30 (>60 ml/min/1.73 sqM); Albumin 2.2 g/dL (3.5-5.0); Anion Gap 6 mmol/L; Blood Urea Nitrogen 59 mg/dL (9-20); Calcium 8.6 mg/dL (8.4-10.2); Carbon Dioxide 24 mmol/L (22-30); Chloride 103 mmol/L (98-107); Glucose 115 mg/dL (74-99); Non-African American GFR(CKD) 26 (>60 ml/min/1.73 sqM); Sodium 133 mmol/L (137-145); Total Bilirubin 0.4 mg/dL (0.2-1.3); Total Protein 5.7 g/dL (6.3-8.2)
[2024-01-26 22:46] LABS: NT-Pro-B-Type Natriuretic Pept 516 pg/mL
[2024-01-26 23:08] LABS: AST 48 U/L (17-59); Alkaline Phosphatase 158 U/L (38-126)
[2024-01-27] MEDS ORDERED: NALOXONE 0.4 MG/ML 1 ML VIAL IV PRN (00:06)
[2024-01-27] MEDS ORDERED: ONDANSETRON 4 MG/2 ML VIAL IVP PRN (00:06)
[2024-01-27] MEDS ORDERED: MORPHINE SULFATE 4 MG/ML SYRINGE IV PRN (00:06)
[2024-01-27 00:17] LABS: Appearance,Urine Cloudy (Clear); Bacteria,Urine Moderate /hpf; Bilirubin,Urine Negative (Negative); Blood,Urine Moderate (Negative); Color,Urine Yellow; Glucose,Urine (UA) Negative (Negative); Ketones,Urine Negative (Negative); Leukocyte Esterase,Urine Large (Negative); Nitrite,Urine Negative (Negative); Protein,Urine 1+ (Negative); RBC,Urine >182 /hpf (0-5); Specific Gravity,Urine 1.015 (1.001-1.035); Squamous Epithelial Cell,Urine 1 /hpf (0-4); Urobilinogen,Urine <2.0 mg/dL (<2.0); WBC,Urine >182 /hpf (0-5)
--- NOTE | 2024-01-27 00:26 | XR ---
EXAM: XR Chest, 1 View CLINICAL HISTORY: ITS.REASON XR Reason: weak TECHNIQUE: Frontal view of the chest. COMPARISON: CT 07/01/2022 FINDINGS: Lungs: Low lung volumes. No consolidation. Pleural space: No acute findings. No pneumothorax. Heart: No cardiomegaly. Bones/joints: Osteopenia. Vasculature: Mild calcified plaque thoracic aorta. IMPRESSION: No acute findings in the chest.
[2024-01-27] MEDS: SODIUM CHLORIDE 0.9% 1,000 ML IV SCH (01:43)
[2024-01-27] MEDS ORDERED: ACETAMINOPHEN TAB 325 MG TAB PO PRN (09:45)
[2024-01-27] MEDS: CYANOCOBALAMIN 500 MCG TAB PO SCH (11:06)
[2024-01-27] MEDS: SODIUM BICARBONATE TAB 650 MG TAB PO SCH ×2 (11:07→19:49)
[2024-01-27] MEDS: AMIODARONE 100 MG TAB PO SCH (11:07)
[2024-01-27] MEDS: METOPROLOL SUCCINATE (ER) 25 MG TAB.ER.24H PO SCH (11:07)
--- NOTE | 2024-01-27 12:22 | P.NPCON ---
History of Present Illness - Reason for Consult acute renal failure, chronic renal failure - History of Present Illness Reason for consultation: Acute kidney injury on chronic kidney disease History of present illness: Patient is 88-year-old male seen in renal consultation for acute kidney injury on chronic kidney disease. Patient has chronic kidney disease stage IIIb with baseline creatinine 1.5-1.7. Patient presents from an extended care facility due to weakness. Patient is not a reliable historian and minimally responsive to verbal questions. Creatinine on admission yesterday was 2.23. Labs from this morning are pending. Patient is currently on room air. Blood pressure is controlled. Afebrile. I do see Bactrim on his home medication list but unclear if he has been taking this or not. He is currently receiving normal saline at 75 cc an hour. Patient has been voiding but is incontinent. I do not see any NSAIDs on his home medication list. No history of diabetes. Vital signs are stable. General: No acute distress. HEENT: Head exam is unremarkable. LUNGS: No audible rhonchi or wheezes. HEART: Rate and Rhythm are regular. ABDOMEN: Nontender. EXTREMITITES: No edema. Past Medical History Past Medical History: Atrial Fibrillation, CVA/TIA, Hearing Disorder / Deafness, Prostate Disorder, Renal Disease Additional Past Medical History / Comment(s): HX RIGHT RENAL CALCULI, HX "MINI STROKES", hard of hearing bilaterally, BPH, CKD, HX UTI, slightly unsteady. History of Any Multi-Drug Resistant Organisms: None Reported Past Surgical History: Hernia Repair Additional Past Surgical History / Comment(s): RIGHT LITHOTRIPSY X3, BILATERAL INGUINAL HERNIA REPAIR. Past Anesthesia/Blood Transfusion Reactions: No Reported Reaction Additional Past Anesthesia/Blood Transfusion Reaction / Comment(s): Pt has never had a blood transfusion. Past Psychological History: No Psychological Hx Reported Additional Psychological History / Comment(s): Pt has a public legal guardian, Yogesh Robina. Pt resides at [facility]. Smoking Status: Never smoker Past Alcohol Use History: None Reported Past Drug Use History: None Reported - Past Family History Father Family Medical History: Cancer Medications and Allergies Home Medications Medication Instructions Recorded Confirmed Type Melatonin 3 mg PO HS@199906/25/22 01/27/24 History Metoprolol Succinate (ER) [Toprol 12.5 mg PO DAILY@0800 06/25/22 01/27/24 History XL] Mirtazapine [Remeron] 15 mg PO HS@199906/25/22 01/27/24 History Cyanocobalamin (Vitamin B-12) 1,000 mcg PO DAILY@79902/16/23 01/27/24 History [Vitamin B-12] Acetaminophen [Tylenol] 650 mg PO QID PRN 12/10/23 01/27/24 History Amiodarone [Cordarone] 100 mg PO DAILY@79912/10/23 01/27/24 History Nando-Gest 500mg Chew 2 tab PO Q6H PRN 12/10/23 01/27/24 History Cholecalciferol (Vitamin D3) 125 mcg PO DAILY@79912/10/23 01/27/24 History [Vitamin D3 (125 MCG = 5,000 IU)] Docusate [Colace] 100 mg PO BID PRN 01/27/24 01/27/24 History Losartan [Cozaar] 25 mg PO DAILY@79901/27/24 01/27/24 History Sodium Bicarbonate 325 mg PO DAILY@79901/27/24 01/27/24 History Sodium Bicarbonate Tab 650 mg PO HS@199901/27/24 01/27/24 History Sulfamethox-Tmp 400-80Mg [Bactrim 1 tab PO BID@01/27/24 01/27/24 Hi story SS 400-80 mg] Allergies Allergy/AdvReac Type Severity Reaction Status Date / Time No Known Allergies Allergy Verified 01/26/24 20:55 Physical Exam Vitals: Vital Signs Temp Pulse Pulse Resp BP BP Pulse Ox 01/27/24 11:10 81 112/64 01/27/24 08:14 98 01/27/24 06:53 97.6 F 77 17 116/71 97 01/27/24 03:15 76 18 119/63 98 01/27/24 03:03 98.2 F 126/69 94 L 01/27/24 01:41 74 16 103/60 98 01/26/24 23:28 71 16 102/51 96 01/26/24 20:49 97.3 F L 73 16 119/64 96 Intake and Output 01/26/24 01/27/24 01/27/24 22:59 06:59 14:59 Other: Voiding Method Diaper Diaper Weight 62.596 kg 62.596 kg Results - Lab Results Most recent lab results Calcium 8.6 mg/dL (8.4-10.2) 01/26/24 21:46 Phosphorus 4.0 mg/dL (2.5-4.5) 01/26/24 21:46 Magnesium 2.0 mg/dL (1.6-2.3) 01/26/24 21:46 01/26/24 21:46 01/27/24 02:15 Assessment and Plan Plan: Assessment: 1. Acute kidney injury secondary to ATN secondary to hypovolemia. Creatinine 2.23 on admission. 2. Chronic kidney disease stage IIIb with baseline creatinine 1.5-1.7 secondary to obstructive uropathy. 3. UTI on antibiotics. 4. Hypertension with chronic kidney disease. Blood pressure currently on the lower side. 5. Chronic systolic CHF with ejection fraction of 20 to 25%. 6. Bilateral hydronephrosis. This appears to be chronic. Noted on ultrasound on January 13, 2024 and prior imaging as well. Patient had bilateral ureteral stents placed December 16, 2023. Plan: Maintain IV fluids. Check bladder scan to rule out urinary retention. Check renal ultrasound. Hold antihypertensives. Avoid nephrotoxins. Continue to monitor renal function and urine output. Thank you for the consultation. I will continue to follow the patient with you during his hospital stay.
--- NOTE | 2024-01-27 14:23 | US ---
EXAMINATION TYPE: US kidneys/renal and bladder DATE OF EXAM: 01/27/2024 COMPARISON: NONE CLINICAL INDICATION: Male, 88 years old with history of anais; ANAIS. History of hydronephrosis EXAM MEASUREMENTS: Right Kidney: 12.1 x 5.8 x 5.1 cm Left Kidney: 11.1 x 5.7 x 5.7 cm Technical limitations, patient scanned in chair Right Kidney: limited evaluation. cyst laterally = 2.5 x 2.2 x 2.5cm. Mild to moderate hydronephrosis Left Kidney: mild to moderate hydronephrosis Bladder: debris noted. septation noted Bilateral Jets seen: no Renal cortical thickness and echogenicity maintained. IMPRESSION: 1. Bilateral [id number] hydronephrosis stable 2. Layering debris within the bladder correlate with urinalysis could be postinfectious or represent blood product. Trabeculation of bladder wall can be associated with chronic infection or bladder outl et obstruction. Incidental note made of a bladder septation. Could be a sequela of prior infection or inflammatory change.
--- NOTE | 2024-01-27 19:15 | P.HPIM ---
History of Present Illness H&P Date: 01/27/24 Chief Complaint: Week This is a pleasant 88-year-old patient who follows with visiting physicians. Chronic stable medical conditions include hard of hearing, right kidney stone, prostate disorder, A-fib, chronic gait dysfunction. lives at [facility]. In the hospital from January 12 through January 17. Diagnosis prostate cancer in 2019. Treated with radiation treatment and hormonal therapy. PSA in May 2022 was 0.23. December 2021 patient underwent cystoscopy. 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 Stent was placed. Stent was removed and February 2023. Recently admitted from January 12 through January 18, 2024. Treated for UTI with growing MRSA and Klebsiella pneumoniae. Time of discharge had walked 120 feet with a rolling walker with physical therapy. Was discharged on Bactrim. As per the EMS report: Patient had become weaker than normal. Decrease in mentation. Focal weakness. Today patient tells me a bit otherwise. He thinks his appetite is okay. Had been using his walker. Had a bowel movement. No fever no chills. External catheter has been placed. Patient's creatinine had bumped up to 2.23 on this admission from a week ago at 1.65. Patient denies any urinary symptoms. Review of systems: GEN.: Tired EYES: None HEENT: Hard of hearing NECK: None RESPIRATORY: None CARDIOVASCULAR: None GASTROINTESTINAL: None GENITOURINARY: None MUSCULOSKELETAL: Joint pains and generalized weakness LYMPHATICS: None HEMATOLOGICAL: None PSYCHIATRY: A bit forgetful NEUROLOGICAL: Does use a walker Social history: Assisted-living, [facility]. No smoking or alcohol Physical examination: VITAL SIGNS: 97.3, 73, 16, 1 one 9 x 64, 96% room air GENERAL: BMI 20.4, sitting up in chair awake tired EYES: Pupils equal. Conjunctiva normal. HEENT: External appearance of nose and ears normal, oral cavity dry mucous membranes. Decreased hearing NECK: JVD not raised; masses not palpable. HEART: Heart sounds irregular no edema. LUNGS: Respiratory rate normal; clear to auscultation. ABDOMEN: Soft, nontender, liver spleen not palpable, no masses palpable. PSYCH: Able to answer simple questions MUSCULOSKELETAL:No Clubbing/cyanosis;muscles-grossly intact, bony prominence, awake, loss muscle muscle mass NEUROLOGICAL: Cranial nerves grossly intact; no facial asymmetry, power and sensation grossly intact. LYMPHATICS: No lymph nodes palpable in the axilla and neck INVESTIGATIONS, reviewed in the clinical context: January 25: White count 15.2 hemoglobin 10.8 platelets 26 sodium 133 potassium 6 BUN 59 creatinine 2.23 Troponin I less than 0.012 Previous labs [within the last 10 days] January 17: Sodium 135 potassium 4.9 BUN 48 creatinine 1.65 KUB: Bilateral double-J stent ureteral stents in place. Urine culture: Klebsiella pneumoniae, MRSA Limited 2D echocardiogram: EF 20-25% Renal ultrasound: Ongoing bilateral mid to moderate hydronephrosis. Laying debris in the bladder. Some evidence of chronic bladder obstruction. Assessment and plan: -Acute kidney injury likely combination of prerenal and ATN. Decreased oral intake. Patient also on Bactrim that may be contributing. Creatinine up to 2.23, from 1.65 a week ago Stop Bactrim. Hold Cozaar. IV fluids -Paroxysmal atrial fibrillation: In sinus rhythm On amiodarone -Hyperkalemia from acute on chronic kidney disease Renal diet -Bilateral mild to moderate hydronephrosis Bilateral double-J stent prior placement, confirmed by KUB Last admission seen by Dr. Oneil. Plan was to removal of stents. -Chronic congestive heart failure from systolic dysfunction. EF 20%: Stable Follow clinically -Nongap metabolic acidosis due to renal failure Sodium bicarbonate 650 mg a day -Moderate protein calorie malnutrition Nepro supplement -Recent UTI with cystitis. Cultures positive for Klebsiella pneumonia and MRSA. Patient was discharged on Bactrim. Nearly completed course Patient does not have any fever. Weak tired. Not sure this is asymptomatic bacteriuria. With IV fluids will see if white count also comes down along with renal function improving. -Chronic insomnia Melatonin -Chronic kidney disease stage III a Baseline creatinine near 1.1 / nephrosclerosis -Previous history of prostate cancer treated with radiation and hormone therapy in 11/09/2021. -Prior urethral stricture with dilatation. -Right thyroid lesion 4 cm follow-up with Dr. Felix outpatient -Acute medical debility due to poor oral intake, renal failure malnutrition -BPH -Full code Consult urology, nephrology. Home medications resumed. Renal diet. IV fluids. Given the complexity and severity of patient's condition expect the patient to be in the hospital at least for 2 overnights Past Medical History Past Medical History: Atrial Fibrillation, CVA/TIA, Hearing Disorder / Deafness, Prostate Disorder, Renal Disease Additional Past Medical History / Comment(s): HX RIGHT RENAL CALCULI, HX "MINI STROKES", hard of hearing bilaterally, BPH, CKD, HX UTI, slightly unsteady. History of Any Multi-Drug Resistant Organisms: None Reported Past Surgical History: Hernia Repair Additional Past Surgical History / Comment(s): RIGHT LITHOTRIPSY X3, BILATERAL I NGUINAL HERNIA REPAIR. Past Anesthesia/Blood Transfusion Reactions: No Reported Reaction Additional Past Anesthesia/Blood Transfusion Reaction / Comment(s): Pt has never had a blood transfusion. Past Psychological History: No Psychological Hx Reported Additional Psychological History / Comment(s): Pt has a public legal guardian, Yogesh Robina. Pt resides at [facility]. Smoking Status: Never smoker Past Alcohol Use History: None Reported Past Drug Use History: None Reported - Past Family History Father Family Medical History: Cancer Medications and Allergies Home Medications Medication Instructions Recorded Confirmed Type Melatonin 3 mg PO HS@199906/25/22 01/27/24 History Metoprolol Succinate (ER) [Toprol 12.5 mg PO DAILY@79906/25/22 01/27/24 History XL] Mirtazapine [Remeron] 15 mg PO HS@199906/25/22 01/27/24 History Cyanocobalamin (Vitamin B-12) 1,000 mcg PO DAILY@79902/16/23 01/27/24 History [Vitamin B-12] Acetaminophen [Tylenol] 650 mg PO QID PRN 12/10/23 01/27/24 History Amiodarone [Cordarone] 100 mg PO DAILY@79912/10/23 01/27/24 History Nando-Gest 500mg Chew 2 tab PO Q6H PRN 12/10/23 01/27/24 History Cholecalciferol (Vitamin D3) 125 mcg PO DAILY@79912/10/23 01/27/24 History [Vitamin D3 (125 MCG = 5,000 IU)] Docusate [Colace] 100 mg PO BID PRN 01/27/24 01/27/24 History Losartan [Cozaar] 25 mg PO DAILY@79901/27/24 01/27/24 History Sodium Bicarbonate 325 mg PO DAILY@79901/27/24 01/27/24 History Sodium Bicarbonate Tab 650 mg PO HS@199901/27/24 01/27/24 History Sulfamethox-Tmp 400-80Mg [Bactrim 1 tab PO BID@01/27/24 01/27/24 Histo ry SS 400-80 mg] Allergies Allergy/AdvReac Type Severity Reaction Status Date / Time No Known Allergies Allergy Verified 01/26/24 20:55 Physical Exam Vitals: Vital Signs Temp Pulse Pulse Resp BP BP Pulse Ox 01/27/24 08:14 98 01/27/24 06:53 97.6 F 77 17 116/71 97 01/27/24 03:15 76 18 119/63 98 01/27/24 03:03 98.2 F 126/69 94 L 01/27/24 01:41 74 16 103/60 98 01/26/24 23:28 71 16 102/51 96 01/26/24 20:49 97.3 F L 73 16 119/64 96 Intake and Output 01/26/24 01/27/24 01/27/24 22:59 06:59 14:59 Other: Voiding Method Diaper Weight 62.596 kg 62.596 kg Results CBC & Chem 7: 01/26/24 21:46 01/27/24 02:15 Labs: Abnormal Lab Results - Last 24 Hours (Table) 01/26/24 01/26/24 01/26/24 Range/Units 21:46 21:46 21:46 WBC 15.2 H (3.8-10.6) k/uL RBC 3.74 L (4.30-5.90) m/uL Hgb 10.8 L D (13.0-17.5) gm/dL Hct 34.4 L (39.0-53.0) % Neutrophils # 12.8 H (1.3-7.7) k/uL PT 14.6 H (10.0-12.5) sec INR 1.4 H (<1.2) Sodium 133 L (137-145) mmol/L Potassium 6.0 H (3.5-5.1) mmol/L BUN 59 H (9-20) mg/dL Creatinine 2.23 H (0.66-1.25) mg/dL Glucose 115 H (74-99) mg/dL Plasma Lactic Acid Moy (0.7-2.0) mmol/L ALT 52 H (4-49) U/L Alkaline Phosphatase 158 H (38-126) U/L Total Protein 5.7 L (6.3-8.2) g/dL Albumin 2.2 L (3.5-5.0) g/dL TSH 0.246 L (0.465-4.680) mIU/L Urine Protein (Negative) Urine Blood (Negative) Ur Leukocyte Esterase (Negative) Urine RBC (0-5) /hpf Urine WBC (0-5) /hpf Urine WBC Clumps (None) /hpf Urine Bacteria (None) /hpf 01/26/24 01/26/24 Range/Units 21:46 23:30 WBC (3.8-10.6) k/uL RBC (4.30-5.90) m/uL Hgb (13.0-17.5) gm/dL Hct (39.0-53.0) % Neutrophils # (1.3-7.7) k/uL PT (10.0-12.5) sec INR (<1.2) Sodium (137-145) mmol/L Potassium (3.5-5.1) mmol/L BUN (9-20) mg/dL Creatinine (0.66-1.25) mg/dL Glucose (74-99) mg/dL Plasma Lactic Acid Moy 2.3 H* (0.7-2.0) mmol/L ALT (4-49) U/L Alkaline Phosphatase (38-126) U/L Total Protein (6.3-8.2) g/dL Albumin (3.5-5.0) g/dL TSH (0.465-4.680) mIU/L Urine Protein 1+ H (Negative) Urine Blood Moderate H (Negative) Ur Leukocyte Esterase Large H (Negative) Urine RBC >182 H (0-5) /hpf Urine WBC >182 H (0-5) /hpf Urine WBC Clumps Moderate H (None) /hpf Urine Bacteria Moderate H (None) /hpf Thrombosis Risk Factor Assmnt - Choose All That Apply Any of the Below Risk Factors Present?: Yes Each Risk Factor Represents 3 Points: Age 75 years or older Thrombosis Risk Factor Assessment Total Risk Factor Score: 3 Thrombosis Risk Factor Assessment Level: Moderate Risk
[2024-01-27] MEDS: MIRTAZAPINE 15 MG TAB PO SCH (19:49)
[2024-01-27] MEDS: MELATONIN 3 MG TABLET PO SCH (19:49)
--- NOTE | 2024-01-27 22:39 | P.GSCN ---
History of Present Illness Consult date: 01/27/24 Reason for Consult: Hydronephrosis Requesting physician: Timbo Miller History of present illness: The patient is an 88-year-old white male diagnosed with prostate cancer in 2018. He was treated with radiation therapy and hormone therapy. His PSA level in October 2023 was 0.32, consistent with excellent control of his cancer. However, he developed gross hematuria in late 2021. He was treated for UTIs. CT scan in June 2022 showed right hydroureteronephrosis of indeterminate etiology. On January 07, 2023 he underwent cystoscopy. A bulbous urethral stricture was encountered and was dilated. He was then found to have a right distal ureteral stricture, and balloon dilation was performed. A ureteral stent was placed, which was removed in February 2023. However, renal ultrasound in October 2023 showed mild to moderate bilateral hydronephrosis as well as a left lower pole renal calculus. He has been treated for recurrent Pseudomonas UTIs. On December 16, 2023, he underwent cystoscopy, direct visual internal urethrotomy, bilateral retrograde pyelograms, and bilateral ureteral stent insertion. Multiple calculi were removed from the bladder. There was no evidence of left hydronephrosis, but there was evidence of right hydronephrosis. There appeared to be radiolucent calculi within the right distal ureter. His serum creatinine level has failed to improve since that time. Ultrasound done earlier today shows bilateral mild to moderate hydronephrosis. Review of Systems - Constitutional Reports weakness, Denies chills, Denies fever - Genitourinary Denies dysuria, Denies hematuria Past Medical History Past Medical History: Atrial Fibrillation, CVA/TIA, Hearing Disorder / Deafness, Prostate Disorder, Renal Disease Additional Past Medical History / Comment(s): HX RIGHT RENAL CALCULI, HX "MINI STROKES", hard of hearing bilaterally, BPH, CKD, HX UTI, slightly unsteady. History of Any Multi-Drug Resistant Organisms: None Reported Past Surgical History: Hernia Repair Additional Past Surgical History / Comment(s): RIGHT LITHOTRIPSY X3, BILATERAL INGUINAL HERNIA REPAIR. Past Anesthesia/Blood Transfusion Reactions: No Reported Reaction Additional Past Anesthesia/Blood Transfusion Reaction / Comm: Pt has never had a blood transfusion. Past Psychological History: No Psychological Hx Reported Additional Psychological History / Comment(s): Pt has a public legal guardian, Yogesh Quarles. Pt resides at [place]. Smoking Status: Never smoker Past Alcohol Use History: None Reported Past Drug Use History: None Reported - Past Family History Father Family Medical History: Cancer Medications and Allergies Home Medications Medication Instructions Recorded Confirmed Type Melatonin 3 mg PO HS@199906/25/22 01/27/24 History Metoprolol Succinate (ER) [Toprol 12.5 mg PO DAILY@79906/25/22 01/27/24 History XL] Mirtazapine [Remeron] 15 mg PO HS@199906/25/22 01/27/24 History Cyanocobalamin (Vitamin B-12) 1,000 mcg PO DAILY@79902/16/23 01/27/24 History [Vitamin B-12] Acetaminophen [Tylenol] 650 mg PO QID PRN 12/10/23 01/27/24 History Amiodarone [Cordarone] 100 mg PO DAILY@79912/10/23 01/27/24 History Nando-Gest 500mg Chew 2 tab PO Q6H PRN 12/10/23 01/27/24 History Cholecalciferol (Vitamin D3) 125 mcg PO DAILY@79912/10/23 01/27/24 History [Vitamin D3 (125 MCG = 5,000 IU)] Docusate [Colace] 100 mg PO BID PRN 01/27/24 01/27/24 History Losartan [Cozaar] 25 mg PO DAILY@79901/27/24 01/27/24 History Sodium Bicarbonate 325 mg PO DAILY@79901/27/24 01/27/24 History Sodium Bicarbonate Tab 650 mg PO HS@199901/27/24 01/27/24 History Sulfamethox-Tmp 400-80Mg [Bactrim 1 tab PO BID@799,199901/27/24 01/27/24 History SS 400-80 mg] Allergies Allergy/AdvReac Type Severity Reaction Status Date / Time No Known Allergies Allergy Verified 01/26/24 20:55 Surgical - Exam Vital Signs Temp Pulse Resp BP Pulse Ox 97.3 F L 73 16 119/64 96 01/26/24 20:49 01/26/24 20:49 01/26/24 20:49 01/26/24 20:49 01/26/24 20:49 - General well developed, well nourished, no distress - Respiratory normal respiratory effort - Abdomen Abdomen: soft, non tender, no guarding, no rigid, no rebound - Genitourinary normal penis with no external lesions, testicles non-tender - Psychiatric oriented to time, oriented to person, oriented to place, speech is normal, memory intact Results - Labs 01/26/24 21:46 01/27/24 02:15 Abnormal Lab Results - Last 24 Hours (Table) 01/26/24 01/26/24 01/26/24 Range/Units 21:46 21:46 21:46 WBC 15.2 H (3.8-10.6) k/uL RBC 3.74 L (4.30-5.90) m/uL Hgb 10.8 L D (13.0-17.5) gm/dL Hct 34.4 L (39.0-53.0) % Neutrophils # 12.8 H (1.3-7.7) k/uL PT 14.6 H (10.0-12.5) sec INR 1.4 H (<1.2) Sodium 133 L (137-145) mmol/L Potassium 6.0 H (3.5-5.1) mmol/L BUN 59 H (9-20) mg/dL Creatinine 2.23 H (0.66-1.25) mg/dL Glucose 115 H (74-99) mg/dL Plasma Lactic Acid Moy (0.7-2.0) mmol/L ALT 52 H (4-49) U/L Alkaline Phosphatase 158 H (38-126) U/L Total Protein 5.7 L (6.3-8.2) g/dL Albumin 2.2 L (3.5-5.0) g/dL TSH 0.246 L (0.465-4.680) mIU/L Urine Protein (Negative) Urine Blood (Negative) Ur Leukocyte Esterase (Negative) Urine RBC (0-5) /hpf Urine WBC (0-5) /hpf Urine WBC Clumps (None) /hpf Urine Bacteria (None) /hpf 01/26/24 01/26/24 Range/Units 21:46 23:30 WBC (3.8-10.6) k/uL RBC (4.30-5.90) m/uL Hgb (13.0-17.5) gm/dL Hct (39.0-53.0) % Neutrophils # (1.3-7.7) k/uL PT (10.0-12.5) sec INR (<1.2) Sodium (137-145) mmol/L Potassium (3.5-5.1) mmol/L BUN (9-20) mg/dL Creatinine (0.66-1.25) mg/dL Glucose (74-99) mg/dL Plasma Lactic Acid Moy 2.3 H* (0.7-2.0) mmol/L ALT (4-49) U/L Alkaline Phosphatase (38-126) U/L Total Protein (6.3-8.2) g/dL Albumin (3.5-5.0) g/dL TSH (0.465-4.680) mIU/L Urine Protein 1+ H (Negative) Urine Blood Moderate H (Negative) Ur Leukocyte Esterase Large H (Negative) Urine RBC >182 H (0-5) /hpf Urine WBC >182 H (0-5) /hpf Urine WBC Clumps Moderate H (None) /hpf Urine Bacteria Moderate H (None) /hpf Diabetes panel 01/26/24 01/27/24 Range/Units 21:46 02:15 Sodium 133 L (137-145) mmol/L Potassium 6.0 H 5.0 (3.5-5.1) mmol/L Chloride 103 (98-107) mmol/L Carbon Dioxide 24 (22-30) mmol/L BUN 59 H (9-20) mg/dL Creatinine 2.23 H (0.66-1.25) mg/dL Glucose 115 H (74-99) mg/dL Calcium 8.6 (8.4-10.2) mg/dL AST 48 (17-59) U/L ALT 52 H (4-49) U/L Alkaline Phosphatase 158 H (38-126) U/L Total Protein 5.7 L (6.3-8.2) g/dL Albumin 2.2 L (3.5-5.0) g/dL Thyroid panel 01/26/24 Range/Units 21:46 TSH 0.246 L (0.465-4.680) mIU/L Calcium panel 01/26/24 Range/Units 21:46 Calcium 8.6 (8.4-10.2) mg/dL Phosphorus 4.0 (2.5-4.5) mg/dL Albumin 2.2 L (3.5-5.0) g/dL Pituitary panel 01/26/24 01/27/24 Range/Units 21:46 02:15 Sodium 133 L (137-145) mmol/L Potassium 6.0 H 5.0 (3.5-5.1) mmol/L Chloride 103 (98-107) mmol/L Carbon Dioxide 24 (22-30) mmol/L BUN 59 H (9-20) mg/dL Creatinine 2.23 H (0.66-1.25) mg/dL Glucose 115 H (74-99) mg/dL Calcium 8.6 (8.4-10.2) mg/dL TSH 0.246 L (0.465-4.680) mIU/L Adrenal panel 01/26/24 01/27/24 Range/Units 21:46 02:15 Sodium 133 L (137-145) mmol/L Potassium 6.0 H 5.0 (3.5-5.1) mmol/L Chloride 103 (98-107) mmol/L Carbon Dioxide 24 (22-30) mmol/L BUN 59 H (9-20) mg/dL Creatinine 2.23 H (0.66-1.25) mg/dL Glucose 115 H (74-99) mg/dL Calcium 8.6 (8.4-10.2) mg/dL Total Bilirubin 0.4 (0.2-1.3) mg/dL AST 48 (17-59) U/L ALT 52 H (4-49) U/L Alkaline Phosphatase 158 H (38-126) U/L Total Protein 5.7 L (6.3-8.2) g/dL Albumin 2.2 L (3.5-5.0) g/dL - Imaging US - kidney/bladder: report reviewed Assessment and Plan (1) Hydronephrosis with ureteral stricture, not elsewhere classified Current Visit: No Status: Acute Code(s): N13.1 - HYDRONEPHROSIS W URETERAL STRICTURE, NEC SNOMED Code(s): 79929677 Plan: The patient does not appear to have benefited in any way from ureteral stent placement, as his serum creatinine level has failed to improve and the urine per Li catheter currently appears very cloudy suggestive of infection. The only urologic condition which could contribute to his current symptomatology is infection. I will recommend that he undergo cystoscopy with removal of bilateral ureteral stents in the operating room, to allow right ureteroscopy with removal of any right ureteral calculi if present. This can be done electively as an outpatient, once his overall condition has improved. I have ordered a urine culture, and I would suggest he continue to receive ceftriaxone. Time with Patient: Greater than 30
[2024-01-28 10:53] LABS: Basophils # (A) 0.05 X 10*3/uL (0.00-0.10); Basophils % (A) 0.3 %; Eosinophils % (A) 0.7 %; HCT 31.4 % (39.6-50.0); HGB 10.1 g/dL (13.0-17.0); Lymphocytes # (A) 1.47 X 10*3/uL (0.90-5.00); Lymphocytes % (A) 10.2 %; MCH 28.9 pg (27.0-32.0); MCHC 32.2 g/dL (32.0-37.0); Mean Platelet Volume 9.4 FL (9.5-12.2); Monocytes # (A) 0.69 X 10*3/uL (0.20-1.00); Monocytes % (A) 4.8 %; NRBC Per 100 WBC 0 X 10*3/uL (0.00-0.01); Neutrophils # (A) 12.08 X 10*3/uL (1.80-7.70); Neutrophils % (A) 83.4 %; Platelet Count 254 X 10*3/uL (140-440); RBC 3.49 X 10*6/uL (4.40-5.60); RDW 15.7 % (11.5-14.5); WBC 14.48 X 10*3/uL (4.50-10.00)
[2024-01-28 11:05] LABS: ALT 50 U/L (10-49); AST 51 U/L (14-35); Albumin/Globulin Ratio 0.67 Ratio (1.60-3.17); Alkaline Phosphatase 146 U/L (41-126); BUN/Creat Ratio 21.88 Ratio (12.00-20.00); Blood Urea Nitrogen 37.2 mg/dL (9.0-27.0); Calcium 7.8 mg/dL (8.7-10.3); Carbon Dioxide 21.2 mmol/L (21.6-31.8); Chloride 107 mmol/L (96-109); Glucose 76 mg/dL (70-110); Magnesium 1.9 mg/dL (1.5-2.4); Phosphorus 3.4 mg/dL (2.4-5.1); Potassium 4.6 mmol/L (3.5-5.5); Sodium 138 mmol/L (135-145); Total Bilirubin 0.3 mg/dL (0.3-1.2)
--- NOTE | 2024-01-28 11:44 | P.PN ---
Subjective Patient is seen in follow-up for acute kidney injury on chronic kidney disease. Renal function improved. Has Li catheter. Nonoliguric. Receiving IV fluids. Currently having breakfast. Vital signs are stable. General: No acute distress. HEENT: Head exam is unremarkable. LUNGS: No audible rhonchi or wheezes. HEART: Rate and Rhythm are regular. ABDOMEN: Nontender. EXTREMITITES: No edema. Objective - Vital Signs Vital signs: Vital Signs Temp 97.8 F 01/28/24 02:08 Pulse 70 01/28/24 10:06 Resp 16 01/28/24 07:07 BP 121/66 01/28/24 10:06 Pulse Ox 94 L 01/28/24 07:07 FiO2 Intake & Output 01/27/24 01/28/24 01/28/24 18:59 06:59 18:59 Intake Total 900 Output Total 1200 925 Balance -300 -925 Intake: Intake, IV Titration 900 Amount Sodium Chloride 0.9% 1, 900 000 ml @ 75 mls/hr IV . [id number] [facility] Rx#:[id number] Output: Urine 600 925 Uretheral (Li) 600 600 Post Void Residual 600 Other: Voiding Method Diaper Indwelling Catheter - Labs CBC & Chem 7: 01/28/24 06:43 01/28/24 06:43 Labs: Abnormal Lab Results - Last 24 Hours (Table) 01/28/24 01/28/24 Range/Units 06:43 06:43 WBC 14.48 H (4.50-10.00) X 10*3/uL RBC 3.49 L (4.40-5.60) X 10*6/uL Hgb 10.1 L (13.0-17.0) g/dL Hct 31.4 L (39.6-50.0) % RDW 15.7 H (11.5-14.5) % MPV 9.4 L (9.5-12.2) FL Immature Gran # 0.09 H (0.00-0.04) X 10*3/uL Neutrophils # 12.08 H (1.80-7.70) X 10*3/uL Carbon Dioxide 21.2 L (21.6-31.8) mmol/L BUN 37.2 H (9.0-27.0) mg/dL Creatinine 1.7 H (0.6-1.5) mg/dL Est GFR (CKD-EPI) 39 L (>=60) BUN/Creatinine Ratio 21.88 H (12.00-20.00) Ratio Calcium 7.8 L (8.7-10.3) mg/dL AST 51 H (14-35) U/L ALT 50 H (10-49) U/L Alkaline Phosphatase 146 H (41-126) U/L Total Protein 5.0 L (6.2-8.2) g/dL Albumin 2.0 L (3.8-4.9) g/dL Albumin/Globulin Ratio 0.67 L (1.60-3.17) Ratio Assessment and Plan Plan: Assessment: 1. Acute kidney injury secondary to ATN secondary to hypovolemia. Creatinine 2.23 on admission - 1.7 today. 2. Chronic kidney disease stage IIIb with baseline creatinine 1.5-1.7 secondary to obstructive uropathy. 3. UTI on antibiotics. 4. Hypertension with chronic kidney disease. Stable. 5. Chronic systolic CHF with ejection fraction of 20 to 25%. 6. Bilateral hydronephrosis. This appears to be chronic. Noted on ultrasound on January 13, 2024 and prior imaging as well. Patient had bilateral ureteral stents placed December 16, 2023. Urology following. Plan: Maintain IV fluids. Encouraged oral intake. Continue to hold antihypertensives. Avoid nephrotoxins. Continue to monitor renal function and urine output.
--- NOTE | 2024-01-28 13:53 | P.PN ---
Progress Note - Text Progress Note Date: 01/28/24 Chief Complaint: Week This is a pleasant 88-year-old patient who follows with visiting physicians. Chronic stable medical conditions include hard of hearing, right kidney stone, prostate disorder, A-fib, chronic gait dysfunction. lives at [facility]. In the hospital from January 12 through January 17. Diagnosis prostate cancer in 2019. Treated with radiation treatment and hormonal therapy. PSA in May 2022 was 0.23. December 2021 patient underwent cystoscopy. 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 Stent was placed. Stent was removed and February 2023. Recently admitted from January 12 through January 18, 2024. Treated for UTI with growing MRSA and Klebsiella pneumoniae. Time of discharge had walked 120 feet with a rolling walker with physical therapy. Was discharged on Bactrim. As per the EMS report: Patient had become weaker than normal. Decrease in mentation. Focal weakness. Today patient tells me a bit otherwise. He thinks his appetite is okay. Had been using his walker. Had a bowel movement. No fever no chills. External catheter has been placed. Patient's creatinine had bumped up to 2.23 on this admission from a week ago at 1.65. Patient denies any urinary symptoms. January 28, 2024: Admitted with weakness and acute kidney injury. Bactrim was discontinued. On IV ceftriaxone. Did eat some today. Propped up in bed. Tired. Urine culture pending. Cloudy urine. Some improvement in creatinine Active Medications Acetaminophen (Acetaminophen Tab 325 Mg Tab) 650 mg PO QID PRN PRN Reason: Pain Amiodarone HCl (Amiodarone 100 Mg Tab) 100 mg PO DAILY@0800 [facility] Last Admin: 01/28/24 10:09 Dose: 100 mg Cyanocobalamin (Cyanocobalamin 500 Mcg Tab) 1,000 mcg PO DAILY@0800 [facility] Last Admin: 01/28/24 10:08 Dose: 1,000 mcg Sodium Chloride (Saline 0.9%) 1,000 mls @ 75 mls/hr IV .[id number] [facility] Last Admin: 01/28/24 04:05 Dose: Not Given Ceftriaxone Sodium 1 gm/ (Sodium Chloride) 50 mls @ 100 mls/hr IVPB Q24HR [facility]; Protocol Last Admin: 01/28/24 10:04 Dose: 100 mls/hr Melatonin (Melatonin 3 Mg Tablet) 3 mg PO HS@1999 [facility] Last Admin: 01/27/24 19:49 Dose: 3 mg Metoprolol Succinate (Metoprolol Succinate (Er) 25 Mg Tab.Er.24h) 12.5 mg PO DAILY@08 [facility] Last Admin: 01/28/24 10:07 Dose: 12.5 mg Mirtazapine (Mirtazapine 15 Mg Tab) 15 mg PO HS@1999 [facility] Last Admin: 01/27/24 19:49 Dose: 15 mg Morphine Sulfate (Morphine Sulfate 4 Mg/Ml Syringe) 4 mg IV Q4HR PRN PRN Reason: Severe Pain (Scale 7 to 10) Naloxone HCl (Naloxone 0.4 Mg/Ml 1 Ml Vial) 0.2 mg IV Q2M PRN PRN Reason: Opioid Reversal Ondansetron HCl (Ondansetron 4 Mg/2 Ml Vial) 4 mg IVP Q8HR PRN PRN Reason: Nausea And Vomiting Sodium Bicarbonate (Sodium Bicarbonate Tab 650 Mg Tab) 650 mg PO HS@1999 [facility] Last Admin: 01/27/24 19:49 Dose: 650 mg Sodium Bicarbonate (Sodium Bicarbonate Tab 650 Mg Tab) 325 mg PO DAILY@799 [facility] Last Admin: 01/28/24 10:08 Dose: 325 mg Social history: Assisted-living, [facility]. No smoking or alcohol Physical examination: VITAL SIGNS: 7.8, 69, 16, 121/66, 94% room air GENERAL: Propped up in bed, tired EYES: Pupils equal. Conjunctiva normal. HEENT: External appearance of nose and ears normal, oral cavity dry mucous membranes. Decreased hearing NECK: JVD not raised; masses not palpable. HEART: Heart sounds irregular no edema. LUNGS: Respiratory rate normal; clear to auscultation. ABDOMEN: Soft, nontender, liver spleen not palpable, no masses palpable. PSYCH: Able to answer simple questions MUSCULOSKELETAL:No Clubbing/cyanosis;muscles-grossly intact, bony prominence, awake, loss muscle muscle mass INVESTIGATIONS, reviewed in the clinical context: January 27: White count 14.4 hemoglobin 10.1 platelets 254 potassium 4.6 BUN 37.2 creatinine 1.7 January 25: White count 15.2 hemoglobin 10.8 platelets 26 sodium 133 potassium 6 BUN 59 creatinine 2.23 Troponin I less than 0.012 Previous labs [within the last 10 days] January 17: Sodium 135 potassium 4.9 BUN 48 creatinine 1.65 KUB: Bilateral double-J stent ureteral stents in place. Urine culture: Klebsiella pneumoniae, MRSA Limited 2D echocardiogram: EF 20-25% Renal ultrasound: Ongoing bilateral mid to moderate hydronephrosis. Laying debris in the bladder. Some evidence of chronic bladder obstruction. Assessment and plan: -Acute kidney injury likely combination of prerenal and ATN. Decreased oral intake. Patient also on Bactrim that may be contributing.: Slow to respond Creatinine up to 2.23, from 1.65 a week ago Stop Bactrim. Hold Cozaar. IV fluids -Paroxysmal atrial fibrillation: In sinus rhythm On amiodarone -Hyperkalemia from acute on chronic kidney disease: Corrected Renal diet -Bilateral mild to moderate hydronephrosis Bilateral double-J stent prior placement, confirmed by recent KUB This admission seen by Dr. Baig. Plan to removal of stents. -Chronic congestive heart failure from systolic dysfunction. EF 20%: Stable Follow clinically -Nongap metabolic acidosis due to renal failure Sodium bicarbonate 650 mg a day -Moderate protein calorie malnutrition Nepro supplement -Acute persistent UTI with cystitis. Cultures positive for Klebsiella pneumonia and MRSA. Patient was discharged on Bactrim. Nearly completed course IV ceftriaxone Pending culture -Chronic insomnia Melatonin -Chronic kidney disease stage III a Baseline creatinine near 1.1 / nephrosclerosis -Previous history of prostate cancer treated with radiation and hormone therapy in 11/09/2021. -Prior urethral stricture with dilatation. -Right thyroid lesion 4 cm follow-up with Dr. Felix outpatient -Acute medical debility due to poor oral intake, renal failure malnutrition -BPH -Full code -Legal guardian, Yogesh Francoismary Continue with IV antibiotics gentle hydration. Encourage oral intake. Discussed with Dr. Baig from urology. Probable intervention of the stents with cystoscopy/urethroscopy. And decision based on if stones are present on the right side. Past Medical History Past Medical History: Atrial Fibrillation, CVA/TIA, Hearing Disorder / Deafness, Prostate Disorder, Renal Disease Additional Past Medical History / Comment(s): HX RIGHT RENAL CALCULI, HX "MINI STROKES", hard of hearing bilaterally, BPH, CKD, HX UTI, slightly unsteady. History of Any Multi-Drug Resistant Organisms: None Reported Past Surgical History: Hernia Repair Additional Past Surgical History / Comment(s): RIGHT LITHOTRIPSY X3, BILATERAL INGUINAL HERNIA REPAIR. Past Anesthesia/Blood Transfusion Reactions: No Reported Reaction Additional Past Anesthesia/Blood Transfusion Reaction / Comment(s): Pt has never had a blood transfusion. Past Psychological History: No Psychological Hx Reported Additional Psychological History / Comment(s): Pt has a public legal guardian, Yogesh Quarles. Pt resides at [facility]. Smoking Status: Never smoker Past Alcohol Use History: None Reported Past Drug Use History: None Reported
[2024-01-28 14:24] VITALS: BMI 20.3
--- NOTE | 2024-01-28 16:36 | P.EN ---
Advance care planning: This was done with patient's legal guardian Yogesh Jennings. He was appraised of patient's overall condition. He understands that patient is declining. CODE STATUS discussed. Also updated him about the plan at the hospital. He wishes an increased for the patient to proceed to become a DNR. Orders being placed. Time spent about 25 minutes
[2024-01-29 09:25] LABS: Magnesium 1.8 mg/dL (1.5-2.4)
[2024-01-29 09:44] LABS: BUN/Creat Ratio 24.13 Ratio (12.00-20.00); Blood Urea Nitrogen 36.2 mg/dL (9.0-27.0); Chloride 109 mmol/L (96-109); Glucose 120 mg/dL (70-110); Potassium 4.3 mmol/L (3.5-5.5); Sodium 139 mmol/L (135-145)
[2024-01-29 09:45] LABS: Calcium 7.8 mg/dL (8.7-10.3)
--- NOTE | 2024-01-29 12:23 | P.PN ---
Subjective Progress Note Date: 01/29/24 Principal diagnosis: UTI, hydronephrosis The patient has no complaints at this time. The Li catheter is draining clear yellow urine. He has been changed to No Code STATUS. I discussed with Dr. Miller yesterday the fact that the ureteral stents have not improved the patient's condition, nor have the reduced the frequency of his infections. I am thus in favor of removing the stents. However, when the stents were placed a right retrograde pyelogram suggested the presence of radiolucent right distal ureteral calculi. Objective - Vital Signs Vital signs: Vital Signs Temp 99.3 F 01/29/24 06:57 Pulse 71 01/29/24 06:57 Resp 18 01/29/24 08:00 BP 94/51 01/29/24 06:57 Pulse Ox 93 L 01/29/24 06:57 FiO2 Intake & Output 01/28/24 01/29/24 01/29/24 18:59 06:59 18:59 Intake Total 500 Output Total 900 525 Balance -900 -525 500 Weight 62.596 kg Intake: Oral 500 Output: Urine 900 525 Other: Voiding Method Indwelling Catheter Indwelling Catheter Indwelling Catheter # Bowel Movements 0 - Constitutional General appearance: Present: average body habitus, cooperative, no acute distress - Psychiatric Psychiatric: Present: A&O x's 3 - Labs CBC & Chem 7: 01/28/24 06:43 01/29/24 06:22 Labs: Abnormal Lab Results - Last 24 Hours (Table) 01/29/24 Range/Units 06:22 BUN 36.2 H (9.0-27.0) mg/dL Est GFR (CKD-EPI) 45 L (>=60) BUN/Creatinine Ratio 24.13 H (12.00-20.00) Ratio Glucose 120 H (70-110) mg/dL Calcium 7.8 L (8.7-10.3) mg/dL Microbiology - Last 24 Hours (Table) 01/28/24 06:05 Urine Culture - Final Urine,Catheterized Assessment and Plan (1) Hydronephrosis with ureteral stricture, not elsewhere classified Current Visit: No Status: Acute Code(s): N13.1 - HYDRONEPHROSIS W URETERAL STRICTURE, NEC SNOMED Code(s): 09667867 Plan: I have ordered a CT scan to help to determine whether or not there are calculi within the right distal ureter. If there are not, arrangements will be made for the stents to be removed in the office. Conversely, if there are right distal ureteral calculi, the stents will be removed in the operating room so that right ureteroscopy with laser lithotripsy can be performed. I intend to discuss this with the patient's legal guardian once the CT scan results are known.
--- NOTE | 2024-01-29 13:25 | P.PN ---
Subjective Progress Note Date: 01/29/24 Patient is seen in follow-up for acute kidney injury on chronic kidney disease. Renal function improved. Has Li catheter. Nonoliguric. Receiving IV fluids. Vital signs are stable. General: No acute distress. HEENT: Head exam is unremarkable. LUNGS: No audible rhonchi or wheezes. HEART: Rate and Rhythm are regular. ABDOMEN: Nontender. EXTREMITITES: No edema. Objective - Vital Signs Vital signs: Vital Signs Temp 99.3 F 01/29/24 06:57 Pulse 71 01/29/24 06:57 Resp 16 01/29/24 06:57 BP 94/51 01/29/24 06:57 Pulse Ox 93 L 01/29/24 06:57 FiO2 Intake & Output 01/28/24 01/29/24 01/29/24 18:59 06:59 18:59 Intake Total 500 Output Total 900 525 Balance -900 -525 500 Weight 62.596 kg Intake: Oral 500 Output: Urine 900 525 Other: Voiding Method Indwelling Catheter Indwelling Catheter # Bowel Movements 0 - Labs CBC & Chem 7: 01/28/24 06:43 01/29/24 06:22 Labs: Abnormal Lab Results - Last 24 Hours (Table) 01/28/24 01/29/24 Range/Units 06:43 06:22 Carbon Dioxide 21.2 L (21.6-31.8) mmol/L BUN 37.2 H 36.2 H (9.0-27.0) mg/dL Creatinine 1.7 H (0.6-1.5) mg/dL Est GFR (CKD-EPI) 39 L 45 L (>=60) BUN/Creatinine Ratio 21.88 H 24.13 H (12.00-20.00) Ratio Glucose 120 H (70-110) mg/dL Calcium 7.8 L 7.8 L (8.7-10.3) mg/dL AST 51 H (14-35) U/L ALT 50 H (10-49) U/L Alkaline Phosphatase 146 H (41-126) U/L Total Protein 5.0 L (6.2-8.2) g/dL Albumin 2.0 L (3.8-4.9) g/dL Albumin/Globulin Ratio 0.67 L (1.60-3.17) Ratio Assessment and Plan Plan: Assessment: 1. Acute kidney injury secondary to ATN secondary to hypovolemia. Creatinine 2.23 on admission - 1.5 today which is baseline. 2. Chronic kidney disease stage IIIb with baseline creatinine 1.5-1.7 secondary to obstructive uropathy. 3. UTI on antibiotics. 4. Hypertension with chronic kidney disease. Stable. 5. Chronic systolic CHF with ejection fraction of 20 to 25%. 6. Bilateral hydronephrosis. This appears to be chronic. Noted on ultrasound on January 13, 2024 and prior imaging as well. Patient had bilateral ureteral stents placed December 16, 2023. Urology following. Plan: Maintain IV fluids until PO intake adequate. Encouraged oral intake. Continue to hold antihypertensives. Avoid nephrotoxins. Clear for discharge form nephrology standpoint
--- NOTE | 2024-01-29 15:37 | P.PN ---
Progress Note - Text Progress Note Date: 01/29/24 Chief Complaint: Week This is a pleasant 88-year-old patient who follows with visiting physicians. Chronic stable medical conditions include hard of hearing, right kidney stone, prostate disorder, A-fib, chronic gait dysfunction. lives at [facility]. In the hospital from January 12 through January 17. Diagnosis prostate cancer in 2019. Treated with radiation treatment and hormonal therapy. PSA in May 2022 was 0.23. December 2021 patient underwent cystoscopy. 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 Stent was placed. Stent was removed and February 2023. Recently admitted from January 12 through January 18, 2024. Treated for UTI with growing MRSA and Klebsiella pneumoniae. Time of discharge had walked 120 feet with a rolling walker with physical therapy. Was discharged on Bactrim. As per the EMS report: Patient had become weaker than normal. Decrease in mentation. Focal weakness. Today patient tells me a bit otherwise. He thinks his appetite is okay. Had been using his walker. Had a bowel movement. No fever no chills. External catheter has been placed. Patient's creatinine had bumped up to 2.23 on this admission from a week ago at 1.65. Patient denies any urinary symptoms. January 28, 2024: Admitted with weakness and acute kidney injury. Bactrim was discontinued. On IV ceftriaxone. Did eat some today. Propped up in bed. Tired. Urine culture pending. Cloudy urine. Some improvement in creatinine January 29, 2024: Propped up in bed. More perked up r. Eating a bit better. Concentrated urine. Urine culture negative. Improvement in creatinine further. Spoke to patient's legal guardian yesterday. Made DNR. Active Medications Acetaminophen (Acetaminophen Tab 325 Mg Tab) 650 mg PO QID PRN PRN Reason: Pain Amiodarone HCl (Amiodarone 100 Mg Tab) 100 mg PO DAILY@0800 [facility] Last Admin: 01/29/24 08:27 Dose: 100 mg Cyanocobalamin (Cyanocobalamin 500 Mcg Tab) 1,000 mcg PO DAILY@0800 [facility] Last Admin: 01/29/24 08:26 Dose: 1,000 mcg Sodium Chloride (Saline 0.9%) 1,000 mls @ 75 mls/hr IV .[id number] [facility] Last Admin: 01/29/24 08:31 Dose: 75 mls/hr Ceftriaxone Sodium 1 gm/ (Sodium Chloride) 50 mls @ 100 mls/hr IVPB Q24HR [facility]; Protocol Last Admin: 01/29/24 08:30 Dose: 100 mls/hr Melatonin (Melatonin 3 Mg Tablet) 3 mg PO HS@1999 [facility] Last Admin: 01/28/24 19:56 Dose: 3 mg Metoprolol Succinate (Metoprolol Succinate (Er) 25 Mg Tab.Er.24h) 12.5 mg PO DAILY@08 [facility] Last Admin: 01/29/24 08:27 Dose: 12.5 mg Mirtazapine (Mirtazapine 15 Mg Tab) 15 mg PO HS@1999 [facility] Last Admin: 01/28/24 19:56 Dose: 15 mg Morphine Sulfate (Morphine Sulfate 4 Mg/Ml Syringe) 4 mg IV Q4HR PRN PRN Reason: Severe Pain (Scale 7 to 10) Naloxone HCl (Naloxone 0.4 Mg/Ml 1 Ml Vial) 0.2 mg IV Q2M PRN PRN Reason: Opioid Reversal Ondansetron HCl (Ondansetron 4 Mg/2 Ml Vial) 4 mg IVP Q8HR PRN PRN Reason: Nausea And Vomiting Sodium Bicarbonate (Sodium Bicarbonate Tab 650 Mg Tab) 650 mg PO HS@1999 [facility] Last Admin: 01/28/24 19:56 Dose: 650 mg Sodium Bicarbonate (Sodium Bicarbonate Tab 650 Mg Tab) 325 mg PO DAILY@799 [facility] Last Admin: 01/29/24 08:27 Dose: 325 mg Social history: Assisted-living, [facility]. No smoking or alcohol Physical examination: VITAL SIGNS: 98.5, 72, 17, 99/66, 92% room air GENERAL: Propped up in bed, less tired EYES: Pupils equal. Conjunctiva normal. HEENT: External appearance of nose and ears normal, oral cavity dry mucous membranes. Decreased hearing NECK: JVD not raised; masses not palpable. HEART: Heart sounds irregular no edema. LUNGS: Respiratory rate normal; clear to auscultation. ABDOMEN: Soft, nontender, liver spleen not palpable, no masses palpable. PSYCH: Able to answer simple questions MUSCULOSKELETAL:No Clubbing/cyanosis;muscles-grossly intact, bony prominence, awake, loss muscle muscle mass INVESTIGATIONS, reviewed in the clinical context: January 28: Potassium 4.3 creatinine 1.5 January 27: White count 14.4 hemoglobin 10.1 platelets 254 potassium 4.6 BUN 37.2 creatinine 1.7 January 25: White count 15.2 hemoglobin 10.8 platelets 26 sodium 133 potassium 6 BUN 59 creatinine 2.23 Troponin I less than 0.012 Previous labs [within the last 10 days] January 17: Sodium 135 potassium 4.9 BUN 48 creatinine 1.65 KUB: Bilateral double-J stent ureteral stents in place. Urine culture: Klebsiella pneumoniae, MRSA Limited 2D echocardiogram: EF 20-25% Renal ultrasound: Ongoing bilateral mid to moderate hydronephrosis. Laying debris in the bladder. Some evidence of chronic bladder obstruction. Assessment and plan: -Acute kidney injury likely combination of prerenal and ATN. Decreased oral intake. Patient also on Bactrim that may be contributing.: Slow to respond Creatinine up to 2.23, from 1.65 a week ago Stop Bactrim. Hold Cozaar. IV fluids -Paroxysmal atrial fibrillation: In sinus rhythm On amiodarone -Hyperkalemia from acute on chronic kidney disease: Corrected Renal diet -Bilateral mild to moderate hydronephrosis Bilateral double-J stent prior placement, confirmed by recent KUB This admission seen by Dr. Baig. Plan to removal of stents. -Chronic congestive heart failure from systolic dysfunction. EF 20%: Stable Follow clinically -Nongap metabolic acidosis due to renal failure Sodium bicarbonate 650 mg a day -Moderate protein calorie malnutrition Nepro supplement -Acute persistent UTI with cystitis. Cultures positive for Klebsiella pneumonia and MRSA. Patient was discharged on Bactrim. Nearly completed course IV ceftriaxone Pending culture -Chronic insomnia Melatonin -Chronic kidney disease stage III a Baseline creatinine near 1.1 / nephrosclerosis -Previous history of prostate cancer treated with radiation and hormone therapy in 11/09/2021. -Prior urethral stricture with dilatation. -Right thyroid lesion 4 cm follow-up with Dr. Felix outpatient -Acute medical debility due to poor oral intake, renal failure malnutrition -BPH -DNR Advance care planning: [January 28, 2024] This was done with patient's legal guardian Yogesh Jennings. He was appraised of patient's overall condition. He understands that patient is declining. CODE STATUS discussed. Also updated him about the plan at the hospital. He wishes an increased for the patient to proceed to become a DNR. Orders being placed. -Legal guardian, Yogesh Savage IV antibiotics gentle hydration. Hopefully discharge in next 24 to 48 hours Past Medical History Past Medical History: Atrial Fibrillation, CVA/TIA, Hearing Disorder / Deafness, Prostate Disorder, Renal Disease Additional Past Medical History / Comment(s): HX RIGHT RENAL CALCULI, HX "MINI STROKES", hard of hearing bilaterally, BPH, CKD, HX UTI, slightly unsteady. History of Any Multi-Drug Resistant Organisms: None Reported Past Surgical History: Hernia Repair Additional Past Surgical History / Comment(s): RIGHT LITHOTRIPSY X3, BILATERAL INGUINAL HERNIA REPAIR. Past Anesthesia/Blood Transfusion Reactions: No Reported Reaction Additional Past Anesthesia/Blood Transfusion Reaction / Comment(s): Pt has never had a blood transfusion. Past Psychological History: No Psychological Hx Reported Additional Psychological History / Comment(s): Pt has a public legal guardian, Yogesh Quarles. Pt resides at [facility]. Smoking Status: Never smoker Past Alcohol Use History: None Reported Past Drug Use History: None Reported
[2024-01-30 07:20] LABS: African American GFR (CKD) 52 (>60 ml/min/1.73 sqM); Anion Gap 4 mmol/L; Blood Urea Nitrogen 35 mg/dL (9-20); Calcium 8.1 mg/dL (8.4-10.2); Carbon Dioxide 23 mmol/L (22-30); Chloride 109 mmol/L (98-107); Glucose 88 mg/dL (74-99); Non-African American GFR(CKD) 45 (>60 ml/min/1.73 sqM); Potassium 4.1 mmol/L (3.5-5.1); Sodium 136 mmol/L (137-145)
--- NOTE | 2024-01-30 10:57 | P.PN ---
Subjective Progress Note Date: 01/30/24 Principal diagnosis: UTI, hydronephrosis The patient is comfortable. The Li catheter is draining clear yellow urine. Objective - Vital Signs Vital signs: Vital Signs Temp 98.7 F 01/30/24 07:14 Pulse 72 01/30/24 07:14 Resp 16 01/30/24 07:14 BP 93/59 01/30/24 07:14 Pulse Ox 97 01/30/24 07:14 FiO2 Intake & Output 01/29/24 01/30/24 01/30/24 18:59 06:59 18:59 Intake Total 1100 Output Total 620 600 Balance 480 -600 Intake: Oral 1100 Output: Urine 620 600 Other: Voiding Method Indwelling Catheter Indwelling Catheter - Constitutional General appearance: Present: average body habitus, cooperative, no acute distress - Labs CBC & Chem 7: 01/28/24 06:43 01/30/24 06:06 Labs: Abnormal Lab Results - Last 24 Hours (Table) 01/29/24 01/30/24 Range/Units 06:22 06:06 Sodium 136 L (137-145) mmol/L Chloride 109 H (98-107) mmol/L BUN 36.2 H 35 H (9.0-27.0) mg/dL Creatinine 1.40 H (0.66-1.25) mg/dL Est GFR (CKD-EPI) 45 L (>=60) BUN/Creatinine Ratio 24.13 H (12.00-20.00) Ratio Glucose 120 H (70-110) mg/dL Calcium 7.8 L 8.1 L (8.7-10.3) mg/dL Microbiology - Last 24 Hours (Table) 01/28/24 06:05 Urine Culture - Final Urine,Catheterized Assessment and Plan Assessment: I have reviewed the patient's CT scan. I do not see any evidence of right ureteral calculi. Urine culture obtained at the time of admission was negative. (1) Hydronephrosis with ureteral stricture, not elsewhere classified Current Visit: No Status: Acute Code(s): N13.1 - HYDRONEPHROSIS W URETERAL STRICTURE, NEC SNOMED Code(s): 33574408 Plan: - Remove Li catheter prior to discharge home - Follow-up with me in 1 to 2 weeks for office cystoscopy with stent removal -Please notify me if we can be of any further assistance during this hospitalization
--- NOTE | 2024-01-30 12:04 | P.PN ---
Subjective Progress Note Date: 01/30/24 Patient is seen in follow-up for acute kidney injury on chronic kidney disease. Renal function improved. Has Li catheter. Nonoliguric. Receiving IV fluids. Vital signs are stable. General: No acute distress. HEENT: Head exam is unremarkable. LUNGS: No audible rhonchi or wheezes. HEART: Rate and Rhythm are regular. ABDOMEN: Nontender. EXTREMITITES: No edema. Objective - Vital Signs Vital signs: Vital Signs Temp 98.7 F 01/30/24 07:14 Pulse 72 01/30/24 09:44 Resp 16 01/30/24 09:44 BP 93/59 01/30/24 07:14 Pulse Ox 97 01/30/24 07:14 FiO2 Intake & Output 01/29/24 01/30/24 01/30/24 18:59 06:59 18:59 Intake Total 1100 300 Output Total 620 600 Balance 480 -600 300 Intake: Oral 1100 300 Output: Urine 620 600 Other: Voiding Method Indwelling Catheter Indwelling Catheter Indwelling Catheter # Bowel Movements 0 - Labs CBC & Chem 7: 01/28/24 06:43 01/30/24 06:06 Labs: Abnormal Lab Results - Last 24 Hours (Table) 01/30/24 Range/Units 06:06 Sodium 136 L (137-145) mmol/L Chloride 109 H (98-107) mmol/L BUN 35 H (9-20) mg/dL Creatinine 1.40 H (0.66-1.25) mg/dL Calcium 8.1 L (8.4-10.2) mg/dL Microbiology - Last 24 Hours (Table) 01/28/24 06:05 Urine Culture - Final Urine,Catheterized Assessment and Plan Plan: Assessment: 1. Acute kidney injury secondary to ATN secondary to hypovolemia. Creatinine 2.23 on admission - 1.5 today which is baseline. 2. Chronic kidney disease stage IIIb with baseline creatinine 1.5-1.7 secondary to obstructive uropathy. 3. UTI on antibiotics. 4. Hypertension with chronic kidney disease. Stable. 5. Chronic systolic CHF with ejection fraction of 20 to 25%. 6. Bilateral hydronephrosis. This appears to be chronic. Noted on ultrasound on January 13, 2024 and prior imaging as well. Patient had bilateral ureteral st ents placed December 16, 2023. Urology following. Plan: Maintain IV fluids until PO intake adequate. Encouraged oral intake. Continue to hold antihypertensives. Avoid nephrotoxins. Clear for discharge form nephrology standpoint
--- NOTE | 2024-01-30 12:10 | CT ---
EXAMINATION TYPE: CT abdomen pelvis wo con DATE OF EXAM: 01/30/2024 COMPARISON: 07/01/2022 HISTORY: 88-year-old male with pain, RT ureteral calculi CT DLP: 720.9 mGycm. Automated exposure control for dose reduction was used. TECHNIQUE: Contiguous axial scanning of the abdomen and pelvis without IV contrast. Coronal and sagit zonia reconstructions performed. FINDINGS: Generalized anasarca changes. Large pulmonary arteries measuring up to 2.9 cm on the right. Coronary artery calcifications. Mild aneurysm ascending aorta 4.0 cm. Small (the right pleural effusions with adjacent atelectasis. Diffuse diminished attenuation of the hepatic parenchyma. Gallbladder appears collapsed. There are calcifications in the pancreatic head region, increased from 2021 measuring up to 1.7 cm. S maller calcifications just above measure up to 4 mm. Possible cystic change or dilatation of the main pancreatic duct particularly in the head and neck of the pancreas up to 1.2 cm thick which appears i ncreased from 2021. Unable to determine if there is a fluid collection or mass located in the right upper quadrant anteri or to the second portion of the duodenum, axial image 75 and coronal image 28. This measures 7.0 x 6. 1 x 2.9 cm. Trace abdominal ascites. Moderate pelvic ascites. Diffuse mesenteric and retroperitoneal edema. No obvious abdominal adenopathy. Bilateral nephrostomy tubes are present. No hydronephrosis. Bilateral perinephric stranding. R redemo nstrated 2.2 cm exophytic cyst lateral lower pole right kidney. Bilateral nephrostomy tubes are in pl tracey. Spleen and right adrenal gland within normal limits. Slight nodular thickening left adrenal gland is unchanged. No dilated small bowel or free air. There is colonic interposition on the right. Scattered mild stool . 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 Patulous right inguinal canal. Moderate to severe circumferential bladder wall thickening. A Li catheter is present and the dista l loops of the bilateral ureteral stents are in place. Prostate gland enlargement 5.1 cm wide. No obv ious pelvic adenopathy. Bones: Osteopenia. Degenerative bony ankylosis SI joints. Grade 2 anterolisthesis L5-S1 secondary to bilateral L5 pars defects. [facility] throughout the thoracic spine. Moderately advanced spondylotic change lumbar spine. IMPRESSION: 1. Correlate for third spacing/fluid overload state given small left greater than right pleural effu sions, pulmonary arterial hypertension, mild generalized anasarca change, and generalized mesenteric edema. Trace abdominal and moderate pelvic ascites. 2. Cystic change or dilatation of the main pancreatic duct particularly in the head and neck of the pancreas. This measures up to 1.2 cm thick, increased from 2021. Calcifications in the head of the pa ncreas also larger now measuring up to 1.7 cm. Unclear if this represents distal ductal stones and se condary pancreatic duct dilatation versus underlying cystic neoplasm such as IPMN. Correlate with vipul or markers and possible ERCP or EUS. 3. Either a 7.0 cm mass versus abnormal fluid collection right side of the mid abdominal mesentery a nterior to the second portion the duodenum. Consider ultrasound or contrast-enhanced CT to further ev aluate. 4. Moderate to severe circumferential bladder wall thickening. Correlate for any known diagnosis. Bi lateral ureteral stents in place without hydronephrosis. 5. 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
--- NOTE | 2024-01-30 16:02 | P.PN ---
Progress Note - Text Progress Note Date: 01/30/24 Chief Complaint: Week This is a pleasant 88-year-old patient who follows with visiting physicians. Chronic stable medical conditions include hard of hearing, right kidney stone, prostate disorder, A-fib, chronic gait dysfunction. lives at [facility]. In the hospital from January 12 through January 17. Diagnosis prostate cancer in 2019. Treated with radiation treatment and hormonal therapy. PSA in May 2022 was 0.23. December 2021 patient underwent cystoscopy. 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 Stent was placed. Stent was removed and February 2023. Recently admitted from January 12 through January 18, 2024. Treated for UTI with growing MRSA and Klebsiella pneumoniae. Time of discharge had walked 120 feet with a rolling walker with physical therapy. Was discharged on Bactrim. As per the EMS report: Patient had become weaker than normal. Decrease in mentation. Focal weakness. Today patient tells me a bit otherwise. He thinks his appetite is okay. Had been using his walker. Had a bowel movement. No fever no chills. External catheter has been placed. Patient's creatinine had bumped up to 2.23 on this admission from a week ago at 1.65. Patient denies any urinary symptoms. January 28, 2024: Admitted with weakness and acute kidney injury. Bactrim was discontinued. On IV ceftriaxone. Did eat some today. Propped up in bed. Tired. Urine culture pending. Cloudy urine. Some improvement in creatinine January 29, 2024: Propped up in bed. More perked up r. Eating a bit better. Concentrated urine. Urine culture negative. Improvement in creatinine further. Spoke to patient's legal guardian yesterday. Made DNR. January 30, 2024: Oral intake better. Answering questions. Tired. Creatinine 1.4. Plan for discharge tomorrow. Active Medications Acetaminophen (Acetaminophen Tab 325 Mg Tab) 650 mg PO QID PRN PRN Reason: Pain Amiodarone HCl (Amiodarone 100 Mg Tab) 100 mg PO DAILY@0800 [facility] Last Admin: 01/30/24 08:51 Dose: 100 mg Cyanocobalamin (Cyanocobalamin 500 Mcg Tab) 1,000 mcg PO DAILY@0800 [facility] Last Admin: 01/30/24 08:51 Dose: 1,000 mcg Sodium Chloride (Saline 0.9%) 1,000 mls @ 75 mls/hr IV .[id number] [facility] Last Admin: 01/30/24 09:52 Dose: Not Given Ceftriaxone Sodium 1 gm/ (Sodium Chloride) 50 mls @ 100 mls/hr IVPB Q24HR [facility]; Protocol Last Admin: 01/30/24 11:35 Dose: 100 mls/hr Melatonin (Melatonin 3 Mg Tablet) 3 mg PO HS@1999 [facility] Last Admin: 01/29/24 19:43 Dose: 3 mg Metoprolol Succinate (Metoprolol Succinate (Er) 25 Mg Tab.Er.24h) 12.5 mg PO DAILY@0800 [facility] Last Admin: 01/30/24 08:51 Dose: 12.5 mg Mirtazapine (Mirtazapine 15 Mg Tab) 15 mg PO HS@1999 [facility] Last Admin: 01/29/24 19:43 Dose: 15 mg Morphine Sulfate (Morphine Sulfate 4 Mg/Ml Syringe) 4 mg IV Q4HR PRN PRN Reason: Severe Pain (Scale 7 to 10) Naloxone HCl (Naloxone 0.4 Mg/Ml 1 Ml Vial) 0.2 mg IV Q2M PRN PRN Reason: Opioid Reversal Ondansetron HCl (Ondansetron 4 Mg/2 Ml Vial) 4 mg IVP Q8HR PRN PRN Reason: Nausea And Vomiting Sodium Bicarbonate (Sodium Bicarbonate Tab 650 Mg Tab) 650 mg PO HS@1999 [facility] Last Admin: 01/29/24 19:43 Dose: 650 mg Social history: Assisted-living, [place]. No smoking or alcohol Physical examination: VITAL SIGNS: 98.1, 70, 15, 94/57, 92% room air GENERAL: Propped up in bed, less tired EYES: Pupils equal. Conjunctiva normal. HEENT: External appearance of nose and ears normal, oral cavity dry mucous membranes. Decreased hearing NECK: JVD not raised; masses not palpable. HEART: Heart sounds irregular no edema. LUNGS: Respiratory rate normal; clear to auscultation. ABDOMEN: Soft, nontender, liver spleen not palpable, no masses palpable. PSYCH: Able to answer simple questions MUSCULOSKELETAL:No Clubbing/cyanosis;muscles-grossly intact, bony prominence, awake, loss muscle muscle mass INVESTIGATIONS, reviewed in the clinical context: January 29: Creatinine 1.4 January 28: Potassium 4.3 creatinine 1.5 January 27: White count 14.4 hemoglobin 10.1 platelets 254 potassium 4.6 BUN 37.2 creatinine 1.7 January 25: White count 15.2 hemoglobin 10.8 platelets 26 sodium 133 potassium 6 BUN 59 creatinine 2.23 Troponin I less than 0.012 Previous labs [within the last 10 days] January 17: Sodium 135 potassium 4.9 BUN 48 creatinine 1.65 KUB: Bilateral double-J stent ureteral stents in place. Urine culture: Klebsiella pneumoniae, MRSA Limited 2D echocardiogram: EF 20-25% Renal ultrasound: Ongoing bilateral mid to moderate hydronephrosis. Laying debris in the bladder. Some evidence of chronic bladder obstruction. Assessment and plan: -Acute kidney injury likely combination of prerenal and ATN. Decreased oral intake. Patient also on Bactrim that may be contributing.: Creatinine up to 2.23, from 1.65 a week ago Stop Bactrim. Hold Cozaar. IV fluids -Paroxysmal atrial fibrillation: In sinus rhythm On amiodarone -Hyperkalemia from acute on chronic kidney disease: Corrected Renal diet -Bilateral mild to moderate hydronephrosis Bilateral double-J stent prior placement, confirmed by recent KUB This admission seen by Dr. Baig. Plan to removal of stents. -Chronic congestive heart failure from systolic dysfunction. EF 20%: Stable Follow clinically -Nongap metabolic acidosis due to renal failure Sodium bicarbonate 650 mg a day -Moderate protein calorie malnutrition Nepro supplement -Acute persistent UTI with cystitis. Cultures positive for Klebsiella pneumonia and MRSA. Patient was discharged on Bactrim. Nearly completed course IV ceftriaxone Pending culture -Chronic insomnia Melatonin -Chronic kidney disease stage III a Baseline creatinine near 1.1 / nephrosclerosis -Previous history of prostate cancer treated with radiation and hormone therapy in 11/09/2021. -Prior urethral stricture with dilatation. -Right thyroid lesion 4 cm follow-up with Dr. Felix outpatient -Acute medical debility due to poor oral intake, renal failure malnutrition -BPH -DNR Advance care planning: [January 28, 2024] This was done with patient's legal guardian Yogesh Jennings. He was appraised of patient's overall condition. He understands that patient is declining. CODE STATUS discussed. Also updated him about the plan at the hospital. He wishes an increased for the patient to proceed to become a DNR. Orders being placed. -Legal guardian, Yogesh Savage Plan for discharge tomorrow. For outpatient double-J stent removal.-Follow-up with Dr. Baig Past Medical History Past Medical History: Atrial Fibrillation, CVA/TIA, Hearing Disorder / Deafness, Prostate Disorder, Renal Disease Additional Past Medical History / Comment(s): HX RIGHT RENAL CALCULI, HX "MINI STROKES", hard of hearing bilaterally, BPH, CKD, HX UTI, slightly unsteady. History of Any Multi-Drug Resistant Organisms: None Reported Past Surgical History: Hernia Repair Additional Past Surgical History / Comment(s): RIGHT LITHOTRIPSY X3, BILATERAL INGUINAL HERNIA REPAIR. Past Anesthesia/Blood Transfusion Reactions: No Reported Reaction Additional Past Anesthesia/Blood Transfusion Reaction / Comment(s): Pt has never had a blood transfusion. Past Psychological History: No Psychological Hx Reported Additional Psychological History / Comment(s): Pt has a public legal guardian, Yogesh Quarles. Pt resides at [place]. Smoking Status: Never smoker Past Alcohol Use History: None Reported Past Drug Use History: None Reported
[2024-01-30] MEDS: FUROSEMIDE 10 MG/ML 4 ML VIAL IV STA (20:06)
[2024-01-31 02:55] VITALS: TEMP 98.1
[2024-01-31 06:52] LABS: African American GFR (CKD) 49 (>60 ml/min/1.73 sqM); Anion Gap 2 mmol/L; Blood Urea Nitrogen 36 mg/dL (9-20); Carbon Dioxide 28 mmol/L (22-30); Chloride 105 mmol/L (98-107); Glucose 95 mg/dL (74-99); Non-African American GFR(CKD) 42 (>60 ml/min/1.73 sqM); Potassium 3.5 mmol/L (3.5-5.1); Sodium 135 mmol/L (137-145)
--- NOTE | 2024-01-31 12:14 | P.PN ---
Subjective patient is seen for follow-up for acute kidney injury. Renal function has improved and serum creatinine stable at 1.4 mg/dL. Patient has indwelling Li catheter for urine retention. urology has advised to remove Li catheter and follow-up in the office for cystoscopyas outpatient. Objective - Vital Signs Vital signs: Vital Signs Temp 98.1 F 01/31/24 07:41 Pulse 73 01/31/24 09:48 Resp 18 01/31/24 07:41 BP 84/56 01/31/24 09:48 Pulse Ox 96 01/31/24 07:41 FiO2 Intake & Output 01/30/24 01/31/24 01/31/24 18:59 06:59 18:59 Intake Total 1150 Output Total 2000 500 Balance 1150 -2000 -500 Intake: Oral 1150 Output: Urine 1999 500 Uretheral (Li) 500 Other: Voiding Method Indwelling Catheter Indwelling Catheter Indwelling Catheter # Bowel Movements 0 - Exam patient is awake, comfortable, no acute distress. Examination of the heart S1 and S2 Examination of the lungs bilateral breath sounds are heard Abdomen is soft nontender Examination of lower extremities shows no significant edema PRODUCT LEAD exam grossly intact - Labs CBC & Chem 7: 01/28/24 06:43 01/31/24 05:26 Labs: Abnormal Lab Results - Last 24 Hours (Table) 01/31/24 Range/Units 05:26 Sodium 135 L (137-145) mmol/L BUN 36 H (9-20) mg/dL Creatinine 1.49 H (0.66-1.25) mg/dL Calcium 8.0 L (8.4-10.2) mg/dL
[2024-01-31 13:30] VITALS: BP 101/67; PULSE 75; RESP 17
--- NOTE | 2024-01-31 16:58 | P.DS ---
Providers Date of admission: 01/27/24 00:07 Expected date of discharge: 01/31/24 Attending physician: Timbo Miller Consults: 01/27/24 00:06 Consult Physician Routine Consulting Provider: Cash Malin Consult Reason/Comments: mariela Do you want consulting provider notified?: Yes 01/27/24 19:11 Consult Physician Routine Consulting Provider: Aravind Oneil Consult Reason/Comments: Possible bilateral J stent removal Do you want consulting provider notified?: Yes Primary care physician: [facility] Course: Chief Complaint: Week This is a pleasant 88-year-old patient who follows with visiting physicians. Chronic stable medical conditions include hard of hearing, right kidney stone, prostate disorder, A-fib, chronic gait dysfunction. lives at [facility] living. In the hospital from January 12 through January 17. Diagnosis prostate cancer in 2019. Treated with radiation treatment and hormonal therapy. PSA in May 2022 was 0.23. December 2021 patient underwent cystoscopy. 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 Stent was placed. Stent was removed and February 2023. Recently admitted from January 12 through January 18, 2024. Treated for UTI with growing MRSA and Klebsiella pneumoniae. Time of discharge had walked 120 feet with a rolling walker with physical therapy. Was discharged on Bactrim. As per the EMS report: Patient had become weaker than normal. Decrease in mentation. Focal weakness. Today patient tells me a bit otherwise. He thinks his appetite is okay. Had been using his walker. Had a bowel movement. No fever no chills. External catheter has been placed. Patient's creatinine had bumped up to 2.23 on this admission from a week ago at 1.65. Patient denies any urinary symptoms. January 28, 2024: Admitted with weakness and acute kidney injury. Bactrim was discontinued. On IV ceftriaxone. Did eat some today. Propped up in bed. Tired. Urine culture pending. Cloudy urine. Some improvement in creatinine January 29, 2024: Propped up in bed. More perked up r. Eating a bit better. Concentrated urine. Urine culture negative. Improvement in creatinine further. Spoke to patient's legal guardian yesterday. Made DNR. January 30, 2024: Oral intake better. Answering questions. Tired. Creatinine 1.4. Plan for discharge tomorrow. January 31, 2024: Trial of DC Li was done. Did not make urine. Patient will be discharged with Li catheter. Will follow-up with Dr. Baig. Will receive 7 more days of Ceftin. Cultures were negative. Prognosis guarded. Discussion and discharge planning more than 35 minutes Social history: Assisted-living, [place]. No smoking or alcohol Physical examination: VITAL SIGNS: 98.1, 75, 17, 101/67, 100% room air GENERAL: Sitting up in a chair EYES: Pupils equal. Conjunctiva normal. HEENT: External appearance of nose and ears normal, oral cavity dry mucous membranes. Decreased hearing NECK: JVD not raised; masses not palpable. HEART: Heart sounds irregular no edema. LUNGS: Respiratory rate normal; clear to auscultation. ABDOMEN: Soft, nontender, liver spleen not palpable, no masses palpable. PSYCH: Able to answer simple questions MUSCULOSKELETAL:No Clubbing/cyanosis;muscles-grossly intact, bony prominence, awake, loss muscle muscle mass INVESTIGATIONS, reviewed in the clinical context: January 30: Potassium 3.5 creatinine 1.49 January 27: White count 14.4 hemoglobin 10.1 platelets 254 potassium 4.6 BUN 37.2 creatinine 1.7 January 25: White count 15.2 hemoglobin 10.8 platelets 26 sodium 133 potassium 6 BUN 59 creatinine 2.23 Troponin I less than 0.012 Previous labs [within the last 10 days] January 17: Sodium 135 potassium 4.9 BUN 48 creatinine 1.65 KUB: Bilateral double-J stent ureteral stents in place. Urine culture: Klebsiella pneumoniae, MRSA Limited 2D echocardiogram: EF 20-25% Renal ultrasound: Ongoing bilateral mid to moderate hydronephrosis. Laying debris in the bladder. Some evidence of chronic bladder obstruction. Assessment and plan: -Acute kidney injury likely combination of prerenal and ATN. Decreased oral intake. Patient also on Bactrim that may be contributing.: Creatinine up to 2.23, from 1.65 a week ago Stop Bactrim. Stop Cozaar. IV fluids -Paroxysmal atrial fibrillation: In sinus rhythm On amiodarone -Hyperkalemia from acute on chronic kidney disease: Corrected Renal diet -Bilateral mild to moderate hydronephrosis Bilateral double-J stent prior placement, confirmed by recent KUB This admission seen by Dr. Baig. Plan to removal of stents-outpatient. -Chronic congestive heart failure from systolic dysfunction. EF 20%: Stable Follow clinically -Nongap metabolic acidosis due to renal failure Sodium bicarbonate 650 mg a day -Moderate protein calorie malnutrition Nepro supplement -Acute persistent UTI with cystitis. Cultures positive for Klebsiella pneumonia and MRSA. Patient was discharged on Bactrim. Nearly completed course IV ceftriaxone Culture negative. Discharged on Ceftin 5 mg twice daily for 7 days -Chronic insomnia Melatonin -Chronic kidney disease stage III a Baseline creatinine near 1.1 / nephrosclerosis -Previous history of prostate cancer treated with radiation and hormone therapy in 11/09/2021. -Prior urethral stricture with dilatation. -Right thyroid lesion 4 cm follow-up with Dr. Felix outpatient -Acute medical debility due to poor oral intake, renal failure malnutrition -BPH -DNR Advance care planning: [January 28, 2024] This was done with patient's legal guardian Yogesh Jennings. He was appraised of patient's overall condition. He understands that patient is declining. CODE STATUS discussed. Also updated him about the plan at the hospital. He wishes an increased for the patient to proceed to become a DNR. Orders being placed. -Legal guardian, Yogesh Savage Disposition: [facility]. Past Medical History Past Medical History: Atrial Fibrillation, CVA/TIA, Hearing Disorder / Deafness, Prostate Disorder, Renal Disease Additional Past Medical History / Comment(s): HX RIGHT RENAL CALCULI, HX "MINI STROKES", hard of hearing bilaterally, BPH, CKD, HX UTI, slightly unsteady. History of Any Multi-Drug Resistant Organisms: None Reported Past Surgical History: Hernia Repair Additional Past Surgical History / Comment(s): RIGHT LITHOTRIPSY X3, BILATERAL INGUINAL HERNIA REPAIR. Past Anesthesia/Blood Transfusion Reactions: No Reported Reaction Additional Past Anesthesia/Blood Transfusion Reaction / Comment(s): Pt has never had a blood transfusion. Past Psychological History: No Psychological Hx Reported Additional Psychological History / Comment(s): Pt has a public legal guardian, Yogesh Quarles. Pt resides at [place]. Smoking Status: Never smoker Past Alcohol Use History: None Reported Past Drug Use History: None Reported Plan - Discharge Summary Discharge Rx Participant: No New Discharge Prescriptions: New Psyllium Husk (with Sugar) [Metamucil Powder] 1 gm PO BID #575 gm cefUROXime axetiL [Ceftin] 500 mg PO BID #14 tab Continue Cyanocobalamin (Vitamin B-12) [Vitamin B-12] 1,000 mcg PO DAILY@0800 Acetaminophen [Tylenol] 650 mg PO QID PRN PRN Reason: Pain Nando-Gest 500mg Chew 2 tab PO Q6H PRN PRN Reason: ANTIACID Sodium Bicarbonate 325 mg PO DAILY@0800 Melatonin 3 mg PO HS@1999 Metoprolol Succinate (ER) [Toprol XL] 12.5 mg PO DAILY@0800 Mirtazapine [Remeron] 15 mg PO HS@1999 Amiodarone [Cordarone] 100 mg PO DAILY@0800 Cholecalciferol (Vitamin D3) [Vitamin D3 (125 MCG = 5,000 IU)] 125 mcg PO DAILY@0800 Sodium Bicarbonate Tab 650 mg PO HS@1999 Discontinued Sulfamethox-Tmp 400-80Mg [Bactrim SS 400-80 mg] 1 tab PO BID@799,1999 Losartan [Cozaar] 25 mg PO DAILY@0800 Docusate [Colace] 100 mg PO BID PRN PRN Reason: Constipation Discharge Medication List Melatonin 3 mg PO HS@199906/25/22 [History] Metoprolol Succinate (ER) [Toprol XL] 12.5 mg PO DAILY@0800 06/25/22 [History] Mirtazapine [Remeron] 15 mg PO HS@199906/25/22 [History] Cyanocobalamin (Vitamin B-12) [Vitamin B-12] 1,000 mcg PO DAILY@0800 02/16/23 [History] Acetaminophen [Tylenol] 650 mg PO QID PRN 12/10/23 [History] Amiodarone [Cordarone] 100 mg PO DAILY@0800 12/10/23 [History] Nando-Gest 500mg Chew 2 tab PO Q6H PRN 12/10/23 [History] Cholecalciferol (Vitamin D3) [Vitamin D3 (125 MCG = 5,000 IU)] 125 mcg PO DAILY@0800 12/10/23 [History] Sodium Bicarbonate 325 mg PO DAILY@0800 01/27/24 [History] Sodium Bicarbonate Tab 650 mg PO HS@199901/27/24 [History] Psyllium Husk (with Sugar) [Metamucil Powder] 1 gm PO BID #575 gm 01/31/24 [Rx] cefUROXime axetiL [Ceftin] 500 mg PO BID #14 tab 01/31/24 [Rx] Follow up Appointment(s)/Referral(s): [facility], [NON-STAFF] - As Needed ([facility] will call you to schedule in home nursing, physical therapy, and occupational therapy visits. ) Adryan Baig MD [STAFF PHYSICIAN] - 02/16/24 10:00 am (The appointment on 01/31 was canceled and rescheduled for 02/15 at 10AM) Isauro Goetz MD [Primary Care Provider] - 1-2 days (Office is not answering at time of discharge. Please call for follow-up appointment.) Patient Instructions/Handouts: Acute Kidney Injury (DC), Weakness (DC) Activity/Diet/Wound Care/Special Instructions: Follow-up with Dr. Baig in 1 to 2 weeks for office cystoscopy with stent removal.
--- NOTE | 2024-02-09 16:40 | CDI ---
Documentation Clarification Form Date: 02/09/2024 04:19:09 PM From: Ignacia Marrufo RN, CCDS Phone: [phone] Admit Date: 01/27/2024 12:07:00 AM Patient Name: Master Chamberlain Visit Number: [id number] Discharge Date: 01/31/2024 05:19:00 PM ATTENTION: The Clinical Documentation Specialists (CDI) and [facility] Coding Staff appreciate your assistance in clarifying documentation. Please respond to the clarification below the line at the bottom and electronically sign. The CDI & [facility] Coding staff will review the response and follow-up if needed. Please note: Queries are made part of the Legal Health Record. If you have any questions, please contact the author of this message via ITS. Dr. Timbo Miller UTI is documented in the progress notes and patient had BL double-J ureteral stents in place. Additional clarification regarding the etiology of the UTI is requested. History/Risk Factors: [place], right kidney stone, prostate cancer, treated with radiation. BL double-J ureteral stents placed December 16, 2023. Recently admitted for UTI growing MRSA and klebsiella pneumoniae. Discharged on Bactrim. Presented this admission with weakness. Admitted with ANAIS and UTI, joel catheter placed. Clinical Indicators: 01/25 Urinalysis: cloudy, moderate bacteria, moderate WBC clumps, >182 WBC's, large leukocyte esterase, moderate blood 01/25 Lab results: WBC 15.2; Cr 2.23 01/26 Urology consult: "He has been treated for recurrent Pseudomonas UTIs.The patient does not appear to have benefited in any way from ureteral stent placement, as his serum creatinine level has failed to improve and the urine per Joel catheter currently appears very cloudy suggestive of infection.The only urologic condition which could contribute to his current symptomatology is infection." Discharge summary: "Acute persistent UTI with cystitis. Cultures positive for Klebsiella pneumonia and MRSA. Patient was discharged on Bactrim. Nearly completed course IIV ceftriaxone. Culture negative. Discharged on Ceftin 5 mg twice daily for 7 days." Treatment: Follow-up with Dr. Baig in 1 to 2 weeks for office cystoscopy with stent removal; IV Rocephin 1gm Q24H 01/26-01/30; 1L 0.9 NS IV bolus x1 on 01/25 Please clarify the etiology of the UTI, if known: [ ] UTI with cystitis due to ureteral stents [ ] UTI with cystitis not due to ureteral stents [ ] Other condition, please specify [ ] Unable to determine MTDD
== END 2024-01-31 17:19 | disposition home health service (06) | DRG 683 ==
LOC: EC 20:43 → 4SSUR 01-27 00:07
PROVIDERS: ADMIT Hospitalist; ATTEND Hospitalist
DX: N17.0 Acute kidney failure with tubular necrosis (principal); E44.0 Moderate protein-calorie malnutrition; I13.0 Hypertensive heart and chronic kidney disease with heart failure and stage 1 through stage 4 chronic kidney disease, or unspecified chronic kidney disease; I50.22 Chronic systolic (congestive) heart failure; E87.20 Acidosis, unspecified; N13.8 Other obstructive and reflux uropathy; D63.1 Anemia in chronic kidney disease; I48.0 Paroxysmal atrial fibrillation; N18.32 Chronic kidney disease, stage 3b; R62.7 Adult failure to thrive; Z66 Do not resuscitate; N13.6 Pyonephrosis; E86.0 Dehydration; E86.1 Hypovolemia; E87.5 Hyperkalemia; N40.1 Benign prostatic hyperplasia with lower urinary tract symptoms; N20.0 Calculus of kidney; R09.02 Hypoxemia; B96.1 Klebsiella pneumoniae [K. pneumoniae] as the cause of diseases classified elsewhere; B95.62 Methicillin resistant Staphylococcus aureus infection as the cause of diseases classified elsewhere; N39.498 Other specified urinary incontinence; F51.04 Psychophysiologic insomnia; H91.90 Unspecified hearing loss, unspecified ear; R26.9 Unspecified abnormalities of gait and mobility; E07.9 Disorder of thyroid, unspecified; Z71.3 Dietary counseling and surveillance; Z68.20 Body mass index [BMI] 20.0-20.9, adult; Z79.899 Other long term (current) drug therapy; Z85.46 Personal history of malignant neoplasm of prostate; Z92.3 Personal history of irradiation; Z87.440 Personal history of urinary (tract) infections
CPT/HCPCS: 36415; 71045; 74176; 76770; 80048; 80053; 81001; 83605; 83735; 83880; 84100; 84132; 84443; 84484; 85025; 85610; 85730; 87086; 93005; 94760; 96360; 96361; 99291

== ENCOUNTER 2024-02-05 09:51 | Inpatient (IN) | payer MEDICARE ==
--- NOTE | 2024-02-05 11:05 | ED ---
General Adult HPI - General Chief complaint: Syncope Stated complaint: syncope Time Seen by Provider: 02/05/24 10:02 Source: patient, EMS, RN notes reviewed Mode of arrival: EMS Limitations: no limitations - History of Present Illness Initial comments: Patient is an 88-year-old male present to the emergency department with concerns for reported syncopal episode. Patient states he was having breakfast. Patient states he does not know what happened but does believe he passed out. Report is that patient did pass out. Patient denies any other complaints at this time. During examination there is some discomfort on abdominal exam and patient agrees he is having some abdominal discomfort at that time. Patient states he did hit his head yesterday. Patient denies hitting his head today. - Related Data Home Medications Medication Instructions Recorded Confirmed Melatonin 3 mg PO HS@199906/25/22 01/27/24 Metoprolol Succinate (ER) [Toprol 12.5 mg PO DAILY@79906/25/22 01/27/24 XL] Mirtazapine [Remeron] 15 mg PO HS@199906/25/22 01/27/24 Cyanocobalamin (Vitamin B-12) 1,000 mcg PO DAILY@79902/16/23 01/27/24 [Vitamin B-12] Acetaminophen [Tylenol] 650 mg PO QID PRN 12/10/23 01/27/24 Amiodarone [Cordarone] 100 mg PO DAILY@79912/10/23 01/27/24 Nando-Gest 500mg Chew 2 tab PO Q6H PRN 12/10/23 01/27/24 Cholecalciferol (Vitamin D3) 125 mcg PO DAILY@79912/10/23 01/27/24 [Vitamin D3 (125 MCG = 5,000 IU)] Sodium Bicarbonate 325 mg PO DAILY@79901/27/24 01/27/24 Sodium Bicarbonate Tab 650 mg PO HS@199901/27/24 01/27/24 Previous Rx's Medication Instructions Recorded Psyllium Husk (with Sugar) 1 gm PO BID #575 gm 01/31/24 [Metamucil Powder] cefUROXime axetiL [Ceftin] 500 mg PO BID #14 tab 01/31/24 Allergies Allergy/AdvReac Type Severity Reaction Status Date / Time No Known Allergies Allergy Verified 05/18/24 09:58 Review of Systems ROS Statement: Those systems with pertinent positive or pertinent negative responses have been documented in the HPI. ROS Other: All systems not noted in ROS Statement are negative. Constitutional: Denies: fever Eyes: Denies: eye pain ENT: Denies: ear pain Respiratory: Denies: dyspnea Cardiovascular: Denies: chest pain Gastrointestinal: Reports: as per HPI Musculoskeletal: Denies: back pain Past Medical History Past Medical History: Atrial Fibrillation, CVA/TIA, Hearing Disorder / Deafness, Prostate Disorder, Renal Disease Additional Past Medical History / Comment(s): HX RIGHT RENAL CALCULI, HX "MINI STROKES", hard of hearing bilaterally, BPH, CKD, HX UTI, slightly unsteady. History of Any Multi-Drug Resistant Organisms: None Reported Past Surgical History: Hernia Repair Additional Past Surgical History / Comment(s): RIGHT LITHOTRIPSY X3, BILATERAL INGUINAL HERNIA REPAIR. Past Anesthesia/Blood Transfusion Reactions: No Reported Reaction Additional Past Anesthesia/Blood Transfusion Reaction / Comment(s): Pt has never had a blood transfusion. Past Psychological History: No Psychological Hx Reported Smoking Status: Never smoker Past Alcohol Use History: None Reported Past Drug Use History: None Reported - Past Family History Father Family Medical History: Cancer General Exam Limitations: no limitations General appearance: alert, in no apparent distress Head exam: Present: atraumatic Eye exam: Present: normal appearance, PERRL, EOMI ENT exam: Present: normal oropharynx Neck exam: Present: normal inspection. Absent: tenderness Respiratory exam: Present: normal lung sounds bilaterally Cardiovascular Exam: Present: regular rate, normal rhythm GI/Abdominal exam: Present: soft, tenderness (Mild diffuse tenderness). Absent: distended, guarding, rebound, rigid, pulsatile mass Extremities exam: Present: normal inspection Neurological exam: Present: alert, oriented X3, CN II-XII intact. Absent: motor sensory deficit Expanded Neurological exam: Present: protecting the airway Patient oriented to: Present: person, place, time Speech: Present: fluid speech Cranial nerves: EOM's Intact: Normal Motor strength exam: RUE: 5, LUE: 5, RLE: 5, LLE: 5 Eye Response: (4) open spontaneously Motor Response: (6) obeys commands Verbal Response: (5) oriented Psychiatric exam: Present: normal affect, normal mood Skin exam: Present: normal color Course Vital Signs 02/05/24 02/05/24 09:51 12:30 Temperature 97.6 F Pulse Rate 90 81 Respiratory 20 16 Rate Blood Pressure 103/67 102/63 O2 Sat by Pulse 99 97 Oximetry EKG Findings - EKG Results: EKG: interpreted by CLARENCE (Left bundle branch block. Nonspecific T waves.), sinus rhythm, normal axis Medical Decision Making - Medical Decision Making Was pt. sent in by a medical professional or institution (, PA, OPERATIONS MANAGER ASSISTANT, urgent care, hospital, or fpc...) When possible be specific @ -Patient was sent in from [facility] Did you speak to anyone other than the patient for history (EMS, parent, family, police, friend...)? What history was obtained from this source @ -[No] Did you review nursing and triage notes (agree or disagree)? Why? @ -[I reviewed and agree with nursing and triage notes] Were old charts reviewed (outside hosp., previous admission, EMS record, old EKG, old radiological studies, urgent care reports/EKG's, fpc records)? Report findings @ -Previous admission reviewed Differential Diagnosis (chest pain, altered mental status, abdominal pain women, abdominal pain men, vaginal bleeding, weakness, fever, dyspnea, syncope, head ache, dizziness, GI bleed, back pain, seizure, CVA, palpatations, mental health, musculoskeletal)? @ -Differential Syncope: Valvular disease, hypertrophic cardiomyopathy, pulmonary embolism, tamponade, tachycardia, bradycardia, OK, hypovolemia, hemorrhage, dissection, anemia, intracranial hemorrhage, seizure, hypoglycemia, carbon monoxide poisoning, this is not meant to be an all-inclusive list. EKG interpreted by me (3pts min.). @ -[As above] X-rays interpreted by me (1pt min.). @ -2 view chest x-ray shows no acute process COPD. CT interpreted by me (1pt min.). @ -CT scan of brain does not reveal acute abnormality, chronic changes. CT scan abdomen pelvis shows pulmonary emboli. Possible gastric ulcer. Possible fluid/acute hemorrhage. Also concern for possible common bile duct stone. U/S interpreted by me (1pt. min.). @ -[None done] What testing was considered but not performed or refused? (CT, X-rays, U/S, labs)? Why? @ -[None] What meds were considered but not given or refused? Why? @ -Consider anticoagulation secondary to pulmonary embolism however patient also has potential for active abdominal hemorrhage and this will be held at this time secondary to risk Did you discuss the management of the patient with other professionals (professionals i.e. , PA, OPERATIONS MANAGER ASSISTANT, lab, RT, psych nurse, social work coordinator, container finishing inspector, teacher, deputy probation officer, corrections caseworker)? Give summary @ -Case discussed with Dr. Portillo with surgery who did evaluate patient and will consult. He does not feel patient is an adequate surgical candidate at this time. Case also discussed with Dr. Posada who will admit covering Dr. Espinal. Was smoking cessation discussed for >3mins.? @ -[No] Was critical care preformed (if so, how long)? @ -31 minutes critical care time Were there social determinants of health that impacted care today? How? (Homelessness, low income, unemployed, alcoholism, drug addiction, transportation, low edu. Level, literacy, decrease access to med. care, alf, rehab)? @ -[No] Was there de-escalation of care discussed even if they declined (Discuss DNR or withdrawal of care, Hospice)? DNR status @ -I did discuss the case with patient's legal guardian, Yogesh Quarles at [phone]. He is familiar with this patient. Patient was recently made DNR. He would like patient to remain DNR. He did discuss this with family recently. He does not want the patient to have surgery even if emergent. He would consider possible hospice or comfort care What co-morbidities impacted this encounter? (DM, HTN, Smoking, COPD, CAD, Cancer, CVA, ARF, Chemo, Hep., AIDS, mental health diagnosis, sleep apnea, morbid obesity)? @ -[None] Was patient admitted / discharged? Hospital course, mention meds given and route, prescriptions, significant lab abnormalities, going to OR and other pertinent info. @ -Patient presents with syncopal episode. Patient has several significant l chaz-threatening processes including pulmonary embolism, possible active hemorrhage in the abdomen as well as obstructed duct. Patient will be admitted and seen by medicine. Patient may be comfort care or hospice soon. Patient was reevaluated and is resting comfortably in bed. Admission orders are written. Undiagnosed new problem with uncertain prognosis? @ -[No] Drug Therapy requiring intensive monitoring for toxicity (Heparin, Nitro, Insulin, Cardizem)? @ -[No] Were any procedures done? @ -[No] Diagnosis/symptom? @ -Syncope, pulmonary embolism, common bile duct stone, abdominal hemorrhage Acute, or Chronic, or Acute on Chronic? @ -Acute, acute, acute, acute Uncomplicated (without systemic symptoms) or Complicated (systemic symptoms)? @ -[default] Side effects of treatment? @ -[No] Exacerbation, Progression, or Severe Exacerbation? @ -[No] Poses a threat to life or bodily function? How? (Chest pain, USA, OK, pneumonia, PE, COPD, DKA, ARF, appy, cholecystitis, CVA, Diverticulitis, Homicidal, Suicidal, threat to staff... and all critical care pts) @ -Multiple threats to multiple organ systems and life - Lab Data Result diagrams: 02/05/24 11:11 02/05/24 11:11 Lab Results 02/05/24 02/05/24 02/05/24 Range/Units 11:11 11:11 11:11 WBC 20.6 H (3.8-10.6) k/uL RBC 3.43 L (4.30-5.90) m/uL Hgb 10.1 L (13.0-17.5) gm/dL Hct 32.0 L (39.0-53.0) % MCV 93.5 (80.0-100.0) fL MCH 29.5 (25.0-35.0) pg MCHC 31.6 (31.0-37.0) g/dL RDW 15.7 H (11.5-15.5) % Plt Count 264 (150-450) k/uL MPV 8.9 Neutrophils % 89 % Lymphocytes % 6 % Monocytes % 5 % Eosinophils % 0 % Basophils % 0 % Neutrophils # 18.3 H (1.3-7.7) k/uL Lymphocytes # 1.1 (1.0-4.8) k/uL Monocytes # 1.0 (0-1.0) k/uL Eosinophils # 0.0 (0-0.7) k/uL Basophils # 0.0 (0-0.2) k/uL PT (10.0-12.5) sec INR (<1.2) APTT (22.0-30.0) sec Sodium 138 (137-145) mmol/L Potassium 4.4 (3.5-5.1) mmol/L Chloride 104 (98-107) mmol/L Carbon Dioxide 28 (22-30) mmol/L Anion Gap 6 mmol/L BUN 49 H (9-20) mg/dL Creatinine 1.64 H (0.66-1.25) mg/dL Est GFR (CKD-EPI)AfAm 43 (>60 ml/min/1.73 sqM) Est GFR (CKD-EPI)NonAf 37 (>60 ml/min/1.73 sqM) Glucose 114 H (74-99) mg/dL Calcium 8.4 (8.4-10.2) mg/dL Magnesium 1.8 (1.6-2.3) mg/dL Total Bilirubin 0.9 (0.2-1.3) mg/dL AST 71 H (17-59) U/L ALT 55 H (4-49) U/L Alkaline Phosphatase 186 H (38-126) U/L Troponin I 0.027 (0.000-0.034) ng/mL Total Protein 5.4 L (6.3-8.2) g/dL Albumin 1.9 L (3.5-5.0) g/dL Amylase (30-110) U/L Lipase (23-300) U/L 02/05/24 02/05/24 Range/Units 11:11 11:57 WBC (3.8-10.6) k/uL RBC (4.30-5.90) m/uL Hgb (13.0-17.5) gm/dL Hct (39.0-53.0) % MCV (80.0-100.0) fL MCH (25.0-35.0) pg MCHC (31.0-37.0) g/dL RDW (11.5-15.5) % Plt Count (150-450) k/uL MPV Neutrophils % % Lymphocytes % % Monocytes % % Eosinophils % % Basophils % % Neutrophils # (1.3-7.7) k/uL Lymphocytes # (1.0-4.8) k/uL Monocytes # (0-1.0) k/uL Eosinophils # (0-0.7) k/uL Basophils # (0-0.2) k/uL PT 14.3 H (10.0-12.5) sec INR 1.4 H (<1.2) APTT 21.0 L (22.0-30.0) sec Sodium (137-145) mmol/L Potassium (3.5-5.1) mmol/L Chloride (98-107) mmol/L Carbon Dioxide (22-30) mmol/L Anion Gap mmol/L BUN (9-20) mg/dL Creatinine (0.66-1.25) mg/dL Est GFR (CKD-EPI)AfAm (>60 ml/min/1.73 sqM) Est GFR (CKD-EPI)NonAf (>60 ml/min/1.73 sqM) Glucose (74-99) mg/dL Calcium (8.4-10.2) mg/dL Magnesium (1.6-2.3) mg/dL Total Bilirubin (0.2-1.3) mg/dL AST (17-59) U/L ALT (4-49) U/L Alkaline Phosphatase (38-126) U/L Troponin I (0.000-0.034) ng/mL Total Protein (6.3-8.2) g/dL Albumin (3.5-5.0) g/dL Amylase 539 H* (30-110) U/L Lipase 590 H (23-300) U/L Critical Care Time Critical Care Time: Yes Total Critical Care Time: 31 Disposition Clinical Impression: Syncope Disposition: ADMITTED IP TO THIS HOSP Condition: Serious Is patient prescribed a controlled substance at d/c from ED?: No Referrals: Isauro Goetz MD [Primary Care Provider] - 1-2 days Time of Disposition: 14:55
[2024-02-05 11:30] LABS: Basophils % (A) 0 %; Eosinophils % (A) 0 %; HGB 10.1 gm/dL (13.0-17.5); Lymphocytes # (A) 1.1 k/uL (1.0-4.8); Lymphocytes % (A) 6 %; MCH 29.5 pg (25.0-35.0); MCHC 31.6 g/dL (31.0-37.0); MCV 93.5 fL (80.0-100.0); Mean Platelet Volume 8.9; Monocytes % (A) 5 %; Neutrophils # (A) 18.3 k/uL (1.3-7.7); Neutrophils % (A) 89 %; Platelet Count 264 k/uL (150-450); RBC 3.43 m/uL (4.30-5.90); RDW 15.7 % (11.5-15.5); WBC 20.6 k/uL (3.8-10.6)
[2024-02-05 11:44] LABS: ALT 55 U/L (4-49); AST 71 U/L (17-59); African American GFR (CKD) 43 (>60 ml/min/1.73 sqM); Albumin 1.9 g/dL (3.5-5.0); Alkaline Phosphatase 186 U/L (38-126); Anion Gap 6 mmol/L; Blood Urea Nitrogen 49 mg/dL (9-20); Calcium 8.4 mg/dL (8.4-10.2); Carbon Dioxide 28 mmol/L (22-30); Chloride 104 mmol/L (98-107); Glucose 114 mg/dL (74-99); Magnesium 1.8 mg/dL (1.6-2.3); Non-African American GFR(CKD) 37 (>60 ml/min/1.73 sqM); Potassium 4.4 mmol/L (3.5-5.1); Sodium 138 mmol/L (137-145); Total Bilirubin 0.9 mg/dL (0.2-1.3); Total Protein 5.4 g/dL (6.3-8.2)
--- NOTE | 2024-02-05 12:04 | XR ---
EXAMINATION TYPE: XR chest 2V DATE OF EXAM: 02/05/2024 11:21 AM CLINICAL INDICATION:Male, 88 years old with history of syncope; H COMPARISON: Chest radiographs from 01/27/2024 TECHNIQUE: XR chest 2V Frontal and lateral views of the chest. FINDINGS: Lungs/Pleura: There is flattening of the diaphragm with increased lucency of the lungs. No evidence o f pneumothorax, pleural effusion or focal consolidation. Pulmonary vascularity: Unremarkable. Heart/mediastinum: Cardiomediastinal silhouette is unremarkable. Musculoskeletal: No acute osseous pathology. IMPRESSION: 1. No acute cardiopulmonary disease process. 2. COPD changes.
[2024-02-05 12:25] LABS: INR 1.4 (<1.2); Prothrombin Time 14.3 sec (10.0-12.5)
--- NOTE | 2024-02-05 12:42 | CT ---
EXAMINATION TYPE: CT brain wo con CT DLP: 1191.4 mGycm, Automated exposure control for dose reduction was used. DATE OF EXAM: 02/05/2024 12:23 PM COMPARISON: 06/25/2022. CLINICAL INDICATION:Male, 88 years old with history of syncope, AMS AND UTI TECHNIQUE: Brain: Axial CT images of the brain were obtained with coronal and sagittal reformats created and rev iewed. Contrast used: None. Oral contrast used: None. FINDINGS: Brain: Extra-axial spaces: No abnormal extra-axial fluid collections. Ventricular system: Dilatation in proportion to cerebral atrophy. Cerebral parenchyma: Encephalomalacia the right occipital lobe. Remote injury to the right thalamus N o acute intraparenchymal hemorrhage or mass effect. The ch-white junction is well differentiated. Scattered hypoattenuating areas are seen within the white matter. Cerebellum: Unremarkable. Mass effect: No evidence of midline shift. Intracranial vasculature: Atherosclerotic calcifications of the intracranial vessels. Soft tissues: Normal. Calvarium/osseous structures: No depressed skull fracture. Paranasal sinuses and mastoid air cells: Mild scattered paranasal sinus disease. Visualized orbits: Orbital contents are intact. IMPRESSION: 1. No acute intracranial process. 2. 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
--- NOTE | 2024-02-05 13:07 | CT ---
EXAMINATION TYPE: CT abdomen pelvis w con CT DLP: 1012.7 mGycm, Automated exposure control for dose reduction was used. DATE OF EXAM: 02/05/2024 12:23 PM COMPARISON: CT abdomen pelvis most recent from 01/30/2024. CLINICAL INDICATION:Male, 88 years old with history of Abdominal pain and syncope; AMS, UTI AND LOWER ABDOMINAL PAIN TECHNIQUE: Axial CT abdomen pelvis w con;Sagittal and coronal reformats were created on a separate w orkstation. Contrast used:80ml mL of Isovue 300 with IV Contrast, (none if empty) Oral contrast used: without Oral Contrast (none if empty) FINDINGS: LOWER CHEST: There is evidence of filling defects within the pulmonary arterial vasculature bilateral ly. 201 image 1. Dilation of the pulmonary trunk up to 35 mm. RC/LV: 42:42=1. Trace bilateral pleural effusions. ABDOMEN LIVER: Diffuse low-attenuation to the liver parenchyma. GALLBLADDER AND BILE DUCTS: Unremarkable. PANCREAS: Large stone in the pancreatic head with upstream dilation of the duct. Stone measures up to 11 mm. Main pancreatic duct measures up to 11 mm. SPLEEN: Unremarkable. ADRENAL GLANDS: Unremarkable. KIDNEYS AND URETERS: Bilateral ureteral stents with pigtails in appropriate position. No evidence of hydronephrosis or renal calculus. The ureters are unremarkable. PELVIS BLADDER: Li catheter in place with the urinary bladder decompressed. REPRODUCTIVE: Coarse calcifications of the prostate gland are identified. ABDOMEN & PELVIS STOMACH AND BOWEL: No evidence of bowel obstruction. PERITONEUM/RETROPERITONEUM: No evidence of pneumoperitoneum. Complex fluid collection within the mese ntery remains and has increased in size compared to 01/30/2024. A fingerlike tract extends towards the diaphragm with suspected smaller fluid collections in the diaphragm. Fat stranding changes are centered around the upper abdomen near the gastric antrum series 201 image 30. A large fluid collection measures 75 x 47 x 71 mm with irregular hypodensity within this collecti on, examples include series 201 image 41 More simple appearing free fluid is seen in the abdomen layering in the pelvis VASCULATURE: No evidence of aortic aneurysm. MUSCULOSKELETAL: No acute osseous abnormalities. Moderate disc degeneration changes are present throu ghout the thoracolumbar spine. 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 LYMPH NODES: No gross evidence for lymphadenopathy. SOFT TISSUE/ABDOMINAL WALL: Unremarkable IMPRESSION: 1. Bilateral pulmonary emboli, correlate with serum d-dimer.RC/LV: 42:42=1, no evidence of right hea rt strain. 2. Fat stranding changes around the gastric antrum with some thickening of the gastric mucosa and hy peremia. The etiology is unclear. Correlate for peptic ulcer disease/perforated ulcer. This could pos sibly relating to hemorrhage related to 3. 3. Fluid collection the mid stomach which has increase in size and has contrast blush concerning for active hemorrhage. Further workup recommended. Surgical consultation recommended. 4. Large stone in the pancreatic head with upstream dilation of the pancreatic duct and common bile duct. Correlate with serum lipase. 5. Hepatic steatosis. 6. Bilateral ureteral stents with pigtails in appropriate position. 7. Li catheter with inflatable cuff in appropriate position. 8. 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 Findings communicated to Dr. Varinder Morton DO on 02/05/2024 1:[address] Terence Stewart.
[2024-02-05] MEDS: SODIUM CHLORIDE 0.9% 500 ML 500 ML IV STA (13:10)
[2024-02-05 14:05] LABS: Lipase 590 U/L (23-300)
[2024-02-05 14:11] LABS: Amylase 539 U/L (30-110)
[2024-02-05] MEDS ORDERED: NALOXONE 0.4 MG/ML 1 ML VIAL IV PRN (14:58)
[2024-02-05] MEDS ORDERED: MORPHINE SULFATE 4 MG/ML SYRINGE IVP PRN (15:09)
--- NOTE | 2024-02-05 15:28 | P.HPIM ---
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 Patient recently admitted and discharged from our hospital on 01/27/2024 for acute kidney injury that was thought to be due to Bactrim. Patient currently is lethargic and not answering any questions. History obtained from patient's chart. It appears that patient was eating his breakfast this morning and had a syncopal episode. On admission patient had denied any complaints to the ED physician however he did have abdominal pain. In ED patient did have a CT abdomen and pelvis done that showed bilateral pulmonary emboli, fat stranding changes around the gastric antrum and some thickening of the gastric mucosa concerning for possible peptic ulcer disease or perforated ulcer. Also seen was a fluid collection in the mid stomach which has increased in size and contrast blush concerning for active hemorrhage. In addition also seen was a large stone in the pancreatic head with upstream dilation of the pancreatic duct and common bile duct. Patient's labs showed WBC 20.6, hemoglobin 10.1, creatinine 1.64, lipase 590, amylase 539. ED physician did speak with the patient's guardian who said if the patient's condition decompensates he would consider hospice. When I went to go see the patient he was minimally responsive and his systolic blood pressure was in the 80s. I did speak with the patient's legal guardian who agreed with comfort care and hospice. Patient was started on comfort care measures in the ED. I will also consult hospice. ROS: Unable to obtain due to altered mental status Physical exam General: [Patient appears chronically debilitated and ill-appearing]. Eye: [Pale conjunctiva, eyelids are normal]. HENT: [Normocephalic, clear tympanic membranes, no scleral icterus, no sinus tenderness]. Neck: [Supple, non-tender, no carotid bruits, no JVD, no lymphadenopathy]. Lungs: [Diminished breath sounds bilaterally, non-labored respiration]. Heart: [Normal rate, regular rhythm, no murmur, gallop or edema]. Neurologic: [Patient somnolent lethargic and not following commands]. Psychiatric: [Patient lacks judgment, lethargic]. Assessment Syncopal episode likely due to multiple acute issues and chronic debility Acute blood loss anemia (hemoglobin last month was 14.7. Hemoglobin now 10.1) Suspected perforated peptic ulcer peptic ulcer disease Bilateral pulmonary emboli Acute pancreatitis secondary to bile duct obstruction Acute ascending cholangitis Septic shock on admission (blood pressure in the 80s) Atrial fibrillation not on anticoagulation History of prostate cancer status post treatment Plan Patient has acute blood loss anemia and also bilateral pulmonary emboli. Anticoagulation would be contraindicated in the patient. Due to patient's acute illness he would be high risk for any procedure. Patient's poor prognosis was discussed with guardian. Patient's guardian said no procedures. Patient quickly decompensating. I did reach out to the patient's guardian again who said okay to make the patient comfort care. Will start the patient on IV morphine 4 mg as needed. Consult hospice Patient DNR/DNI Past Medical History Past Medical History: Atrial Fibrillation, CVA/TIA, Hearing Disorder / Deafness, Prostate Disorder, Renal Disease Additional Past Medical History / Comment(s): HX RIGHT RENAL CALCULI, HX "MINI STROKES", hard of hearing bilaterally, BPH, CKD, HX UTI, slightly unsteady. History of Any Multi-Drug Resistant Organisms: None Reported Past Surgical History: Hernia Repair Additional Past Surgical History / Comment(s): RIGHT LITHOTRIPSY X3, BILATERAL INGUINAL HERNIA REPAIR. Past Anesthesia/Blood Transfusion Reactions: No Reported Reaction Additional Past Anesthesia/Blood Transfusion Reaction / Comment(s): Pt has never had a blood transfusion. Past Psychological History: No Psychological Hx Reported Smoking Status: Never smoker Past Alcohol Use History: None Reported Past Drug Use History: None Reported - Past Family History Father Family Medical History: Cancer Medications and Allergies Home Medications Medication Instructions Recorded Confirmed Type Melatonin 3 mg PO HS@199906/25/22 01/27/24 History Metoprolol Succinate (ER) [Toprol 12.5 mg PO DAILY@79906/25/22 01/27/24 History XL] Mirtazapine [Remeron] 15 mg PO HS@199906/25/22 01/27/24 History Cyanocobalamin (Vitamin B-12) 1,000 mcg PO DAILY@0802/16/23 01/27/24 History [Vitamin B-12] Acetaminophen [Tylenol] 650 mg PO QID PRN 12/10/23 01/27/24 History Amiodarone [Cordarone] 100 mg PO DAILY@0812/10/23 01/27/24 History Nando-Gest 500mg Chew 2 tab PO Q6H PRN 12/10/23 01/27/24 History Cholecalciferol (Vitamin D3) 125 mcg PO DAILY@0812/10/23 01/27/24 History [Vitamin D3 (125 MCG = 5,000 IU)] Sodium Bicarbonate 325 mg PO DAILY@79901/27/24 01/27/24 History Sodium Bicarbonate Tab 650 mg PO HS@199901/27/24 01/27/24 History Psyllium Husk (with Sugar) 1 gm PO BID #575 gm 01/31/24 Rx [Metamucil Powder] cefUROXime axetiL [Ceftin] 500 mg PO BID #14 tab 01/31/24 Rx Allergies Allergy/AdvReac Type Severity Reaction Status Date / Time No Known Allergies Allergy Verified 02/05/24 09:58 Physical Exam Osteopathic Statement: *. No significant issues noted on an osteopathic structural exam other than those noted in the History and Physical/Consult. Vitals: Vital Signs Temp Pulse Resp BP Pulse Ox 02/05/24 15:07 81 16 94/55 98 02/05/24 12:30 81 16 102/63 97 02/05/24 09:51 97.6 F 90 20 103/67 99 Intake and Output 02/05/24 02/05/24 02/05/24 06:59 14:59 22:59 Other: Weight 66.678 kg Results CBC & Chem 7: 02/05/24 11:11 02/05/24 11:11 Labs: Abnormal Lab Results - Last 24 Hours (Table) 02/05/24 02/05/24 02/05/24 Range/Units 11:11 11:11 11:11 WBC 20.6 H (3.8-10.6) k/uL RBC 3.43 L (4.30-5.90) m/uL Hgb 10.1 L (13.0-17.5) gm/dL Hct 32.0 L (39.0-53.0) % RDW 15.7 H (11.5-15.5) % Neutrophils # 18.3 H (1.3-7.7) k/uL PT (10.0-12.5) sec INR (<1.2) APTT (22.0-30.0) sec BUN 49 H (9-20) mg/dL Creatinine 1.64 H (0.66-1.25) mg/dL Glucose 114 H (74-99) mg/dL AST 71 H (17-59) U/L ALT 55 H (4-49) U/L Alkaline Phosphatase 186 H (38-126) U/L Total Protein 5.4 L (6.3-8.2) g/dL Albumin 1.9 L (3.5-5.0) g/dL Amylase 539 H* (30-110) U/L Lipase 590 H (23-300) U/L 02/05/24 Range/Units 11:57 WBC (3.8-10.6) k/uL RBC (4.30-5.90) m/uL Hgb (13.0-17.5) gm/dL Hct (39.0-53.0) % RDW (11.5-15.5) % Neutrophils # (1.3-7.7) k/uL PT 14.3 H (10.0-12.5) sec INR 1.4 H (<1.2) APTT 21.0 L (22.0-30.0) sec BUN (9-20) mg/dL Creatinine (0.66-1.25) mg/dL Glucose (74-99) mg/dL AST (17-59) U/L ALT (4-49) U/L Alkaline Phosphatase (38-126) U/L Total Protein (6.3-8.2) g/dL Albumin (3.5-5.0) g/dL Amylase (30-110) U/L Lipase (23-300) U/L
[2024-02-05] MEDS: PANTOPRAZOLE 40 MG/10 ML VIAL IV SCH (15:30)
[2024-02-05] MEDS ORDERED: MORPHINE SULFATE (100 MG/2 ML) 100 MG in SODIUM CHLORIDE 0.9% 100 ML IV SCH (15:30)
[2024-02-05] MEDS: SODIUM CHLORIDE 0.9% 1,000 ML IV SCH (15:31)
--- NOTE | 2024-02-05 15:42 | P.CON ---
Consult Note - . Consult date: 02/05/24 Assessment/Plan:: Patient is an 88-year-old male present to the emergency department with concerns for reported syncopal episode. Patient states he was having breakfast. Patient states he does not know what happened but does believe he passed out. Report is that patient did pass out. Patient denies any other complaints at this time. During examination there is some discomfort on abdominal exam and patient agrees he is having some abdominal discomfort at that time. Patient states he did hit his head yesterday. Patient denies hitting his head today. CT-AP shows some fat stranding around gastric antrum which could represent a contained perforated gastric ulcer. There is no pneumoperitoneum. There is a mass like structure in abdomen which could represent active bleeding. Patient hgb today is the same as his last ER visit Review of Systems ROS Statement: Those systems with pertinent positive or pertinent negative responses have been documented in the HPI. ROS Other: All systems not noted in ROS Statement are negative. Constitutional: Denies: fever Eyes: Denies: eye pain ENT: Denies: ear pain Respiratory: Denies: dyspnea Cardiovascular: Denies: chest pain Gastrointestinal: Reports: as per HPI Musculoskeletal: Denies: back pain Past Medical History Past Medical History: Atrial Fibrillation, CVA/TIA, Hearing Disorder / Deafness, Prostate Disorder, Renal Disease Additional Past Medical History / Comment(s): HX RIGHT RENAL CALCULI, HX "MINI STROKES", hard of hearing bilaterally, BPH, CKD, HX UTI, slightly unsteady. History of Any Multi-Drug Resistant Organisms: None Reported Past Surgical History: Hernia Repair Additional Past Surgical History / Comment(s): RIGHT LITHOTRIPSY X3, BILATERAL INGUINAL HERNIA REPAIR. Past Anesthesia/Blood Transfusion Reactions: No Reported Reaction Additional Past Anesthesia/Blood Transfusion Reaction / Comment(s): Pt has never had a blood transfusion. Past Psychological History: No Psychological Hx Reported Smoking Status: Never smoker Past Alcohol Use History: None Reported Past Drug Use History: None Reported - Past Family History Father Family Medical History: Cancer General Exam Limitations: no limitations General appearance: alert, in no apparent distress Head exam: Present: atraumatic Eye exam: Present: normal appearance, PERRL, EOMI ENT exam: Present: normal oropharynx Neck exam: Present: normal inspection. Absent: tenderness Respiratory exam: Present: normal lung sounds bilaterally Cardiovascular Exam: Present: regular rate, normal rhythm GI/Abdominal exam: Present: soft, tenderness (Mild diffuse tenderness). Absent: distended, guarding, rebound, rigid, pulsatile mass Extremities exam: Present: normal inspection Neurological exam: Present: alert, oriented X3, CN II-XII intact. Absent: motor sensory deficit Expanded Neurological exam: Present: protecting the airway Patient oriented to: Present: person, place, time Speech: Present: fluid speech Cranial nerves: EOM's Intact: Normal Motor strength exam: RUE: 5, LUE: 5, RLE: 5, LLE: 5 Eye Response: (4) open spontaneously Motor Response: (6) obeys commands Verbal Response: (5) oriented Psychiatric exam: Present: normal affect, normal mood Skin exam: Present: normal color 88 year old male with abdominal pain and fat stranding around gastric antrum which could represent possible contained perforated ulcer. CT-AP also suggestive of possible active gastric bleeding. - NPO - Hgb stable, trend H/H - PPI - Abx per primary - No acute surgical intervention
--- NOTE | 2024-02-06 10:49 | P.PN ---
Subjective Progress Note Date: 02/06/24 Patient is a 88-year-old male who has a past medical history of atrial fibrillation, prostate cancer treated with radiation and hormonal therapy, chronic debility, hard of hearing who lives at [facility] presents to the ED with possible syncopal episode. Patient recently admitted and dischar freddy from our hospital on 01/27/2024 for acute kidney injury that was thought to be due to Bactrim. Patient currently is lethargic and not answering any questions. History obtained from patient's chart. It appears that patient was eating his breakfast this morning and had a syncopal episode. On admission patient had denied any complaints to the ED physician however he did have abdominal pain. In ED patient did have a CT abdomen and pelvis done that showed bilateral pulmonary emboli, fat stranding changes around the gastric antrum and some thickening of the gastric mucosa concerning for possible peptic ulcer disease or perforated ulcer. Also seen was a fluid collection in the mid stomach which has increased in size and contrast blush concerning for active hemorrhage. In addition also seen was a large stone in the pancreatic head with upstream dilation of the pancreatic duct and common bile duct. Patient's labs showed WBC 20.6, hemoglobin 10.1, creatinine 1.64, lipase 590, amylase 539. ED physician did speak with the patient's guardian who said if the patient's condition decompensates he would consider hospice. When I went to go see the patient he was minimally responsive and his systolic blood pressure was in the 80s. I did speak with the patient's legal guardian who agreed with comfort care and hospice. Patient was started on comfort care measures in the ED. I will also consult hospice. Patient seen this morning. He is more awake and alert today compared to yester day. He is also AAOx3. I discussed with the patient regarding the findings on the CT scan. I did tell the patient that he would be high risk for any procedures due to his multiple comorbidities. I did discuss with the patient if he would be amenable to hospice. Patient agreed to speak with hospice. Patient currently denying any pain. Physical exam General: [Patient appears chronically debilitated and ill-appearing]. Eye: [Pale conjunctiva, eyelids are normal]. HENT: [Normocephalic, clear tympanic membranes, no scleral icterus, no sinus tenderness]. Neck: [Supple, non-tender, no carotid bruits, no JVD, no lymphadenopathy]. Lungs: [Diminished breath sounds bilaterally, non-labored respiration]. Heart: [Normal rate, regular rhythm, no murmur, gallop or edema]. Neurologic: [Patient following commands, no focal deficits]. Psychiatric: [Calm and appropriate]. Assessment Syncopal episode likely due to multiple acute issues and chronic debility Acute blood loss anemia (hemoglobin last month was 14.7. Hemoglobin now 10.1) Suspected perforated peptic ulcer peptic ulcer disease Bilateral pulmonary emboli Acute pancreatitis secondary to bile duct obstruction Acute ascending cholangitis Septic shock on admission (blood pressure in the 80s) Atrial fibrillation not on anticoagulation History of prostate cancer status post treatment Plan Patient has acute blood loss anemia and also bilateral pulmonary emboli. Anticoagulation would be contraindicated in the patient. Due to patient's multiple comorbidities would be high risk for any procedure. Discussed with guardian on admission who agreed with comfort care measures I discussed with the patient today since he is more awake and alert. Patient agrees to speak with hospice. Continue with IV morphine as needed. Patient DNR/DNI Objective - Vital Signs Vital signs: Vital Signs Temp 98.1 F 02/06/24 07:54 Pulse 73 02/06/24 07:54 Resp 19 02/06/24 07:54 BP 98/60 02/06/24 07:54 Pulse Ox 94 L 02/06/24 07:54 FiO2 Intake & Output 02/05/24 02/06/24 02/06/24 18:59 06:59 18:59 Output Total 700 Balance -700 Weight 66.678 kg 62.5 kg Output: Urine 700 Other: Voiding Method Indwelling Catheter Indwelling Catheter - Labs CBC & Chem 7: 02/05/24 11:11 02/05/24 11:11 Labs: Abnormal Lab Results - Last 24 Hours (Table) 02/05/24 02/05/24 02/05/24 Range/Units 11:11 11:11 11:11 WBC 20.6 H (3.8-10.6) k/uL RBC 3.43 L (4.30-5.90) m/uL Hgb 10.1 L (13.0-17.5) gm/dL Hct 32.0 L (39.0-53.0) % RDW 15.7 H (11.5-15.5) % Neutrophils # 18.3 H (1.3-7.7) k/uL PT (10.0-12.5) sec INR (<1.2) APTT (22.0-30.0) sec BUN 49 H (9-20) mg/dL Creatinine 1.64 H (0.66-1.25) mg/dL Glucose 114 H (74-99) mg/dL AST 71 H (17-59) U/L ALT 55 H (4-49) U/L Alkaline Phosphatase 186 H (38-126) U/L Total Protein 5.4 L (6.3-8.2) g/dL Albumin 1.9 L (3.5-5.0) g/dL Amylase 539 H* (30-110) U/L Lipase 590 H (23-300) U/L / Range/Units 11:57 WBC (3.8-10.6) k/uL RBC (4.30-5.90) m/uL Hgb (13.0-17.5) gm/dL Hct (39.0-53.0) % RDW (11.5-15.5) % Neutrophils # (1.3-7.7) k/uL PT 14.3 H (10.0-12.5) sec INR 1.4 H (<1.2) APTT 21.0 L (22.0-30.0) sec BUN (9-20) mg/dL Creatinine (0.66-1.25) mg/dL Glucose (74-99) mg/dL AST (17-59) U/L ALT (4-49) U/L Alkaline Phosphatase (38-126) U/L Total Protein (6.3-8.2) g/dL Albumin (3.5-5.0) g/dL Amylase (30-110) U/L Lipase (23-300) U/L
--- NOTE | 2024-02-06 12:53 | P.PN ---
Subjective Progress Note Date: 02/06/24 Principal diagnosis: Abdominal pain 88-year-old male with multiple medical problems. Admitted for confusion and possible syncopal episode. Patient was found on CAT scan to have bilateral pulmonary emboli as well as fluid adjacent to the head of the pancreas and posterior aspect of the stomach. Possibly representing contained perforation, complex pseudocyst, or atypical malignancy. Patient was made comfort care yesterday evening. Is comfortable now. Denies pain currently. No vomiting. Objective - Vital Signs Vital signs: Vital Signs Temp 98.1 F 02/06/24 07:54 Pulse 73 02/06/24 07:54 Resp 19 02/06/24 07:54 BP 98/60 02/06/24 07:54 Pulse Ox 94 L 02/06/24 07:54 FiO2 Intake & Output 02/05/24 02/06/24 02/06/24 18:59 06:59 18:59 Output Total 700 Balance -700 Weight 66.678 kg 62.5 kg Output: Urine 700 Other: Voiding Method Indwelling Catheter Indwelling Catheter - Exam Abdomen: Soft, nondistended, mild epigastric tenderness - Labs CBC & Chem 7: 02/05/24 11:11 02/05/24 11:11 Labs: Abnormal Lab Results - Last 24 Hours (Table) 02/05/24 Range/Units 11:11 Amylase 539 H* (30-110) U/L Lipase 590 H (23-300) U/L Assessment and Plan (1) Abdominal pain Narrative/Plan: 88-year-old male with upper abdominal pain and CAT scan findings as described. Patient is now comfort care. Patient is a poor surgical candidate. Regardless no definite indication for surgery at this time. Continue supportive care. Current Visit: Yes Status: Acute Code(s): R10.9 - UNSPECIFIED ABDOMINAL PAIN SNOMED Code(s): 97833387
[2024-02-07] MEDS ORDERED: ACETAMINOPHEN TAB 325 MG TAB PO PRN (08:51)
[2024-02-07] MEDS ORDERED: LORazepam 2 MG/ML INJ IV PRN (08:51)
[2024-02-07] MEDS ORDERED: ATROPINE OPHTH SOLN 1% 5ML BTL SUBLINGUAL PRN (08:51)
[2024-02-07] MEDS ORDERED: ONDANSETRON 4 MG/2 ML VIAL IVP PRN (08:51)
[2024-02-07] MEDS ORDERED: ACETAMINOPHEN SUPPOSITORY 650 MG SUPP RECTAL PRN (08:51)
[2024-02-07] MEDS ORDERED: DRY MOUTH SPRAY 44.3 SPRAY/44.3 ML SPRAY MUCOUS MEM PRN (08:51)
[2024-02-07] MEDS ORDERED: ARTIFICIAL TEARS-HYPROMELLOSE DROPS 15 ML BTL BOTH EYES PRN (08:51)
[2024-02-07] MEDS: SCOPOLAMINE 1 MG/72 HR PATCH TRANSDERM SCH (10:26)
[2024-02-07] MEDS ORDERED: LORazepam 1 MG/0.5 ML VIAL IV PRN (14:15)
[2024-02-07 14:19] VITALS: BP 111/65; PULSE 76; RESP 18; TEMP 97.6
--- NOTE | 2024-02-07 14:32 | P.DS ---
Providers Date of admission: 02/05/24 14:58 Expected date of discharge: 02/07/24 Attending physician: Rafael Todd MD Consults: 02/07/24 08:19 Consult Physician Routine Consulting Provider: Jose Saenz Consult Reason/Comments: abdominal pain Do you want consulting provider notified?: Already Contacted Primary care physician: Isauro Goetz Hospital Course: Discharge Diagnosis: Syncopal episode likely due to multiple acute issues and chronic debility Acute blood loss anemia (hemoglobin last month was 14.7 and now 10.1). Suspected perforated peptic ulcer with peptic ulcer disease. Bilateral pulmonary emboli Acute pancreatitis secondary to bile duct obstruction Acute ascending cholangitis Septic shock on admission (blood pressure in the 80s) Atrial fibrillation not on anticoagulation History of prostate cancer status post treatment by discharge. Hospital Course: Patient is a very pleasant 88-year-old male with a past medical history of atrial fibrillation, prostate cancer undergoing radiation and hormonal therapy, stage IIIb chronic kidney disease, chronic debility, and hard of hearing. He lives at [facility] living [facility] and presented to the emergency department on 02/05/2024 with a chief complaint of syncopal episode. Upon arrival to the hospital, patient underwent evaluation in the emergency department. Vital signs upon arrival show blood pressure 103/67, heart rate 90, respiratory rate 20, temp 97.6 F, and SpO2 of 99% on room air. EKG was completed showing normal sinus rhythm at 91 bpm with a left bundle branch block, which was present on previous EKG completed 01/26/2024. Chest x-ray completed showing changes of COPD with flattening of the diaphragm and increased lucency of the lungs otherwise negative for acute cardiopulmonary process. CT brain was completed negative for acute intracranial process showing remote injuries along with nonspecific white matter changes likely secondary to chronic microangiopathy. History completed and reviewed. CBC showing leukocytosis with WBC count of 20.6 and normocytic anemia with hemoglobin of 10.1. BMP showing BUN of 49, creatinine of 1.64, and GFR of 37. Liver profile showing transaminitis with AST of 71, ALT of 55, and alkaline phosphatase of 186. Troponin 0.027. Amylase 539 and lipase of 590. CT abdomen and pelvis was completed with IV contrast showing bilateral pulmonary emboli with no evidence of right heart strain, fat stranding changes around the gastric antrum with thi ckening of the gastric mucosa and hyperemia concerning for peptic ulcer disease/perforated ulcer, fluid collection in mid stomach which has increased in size and has contrast blush concerning for active hemorrhage, large stone in pancreatic head with upstream dilation of the pancreatic duct and common bile duct, hepatic steatosis, bilateral ureteral stents with pigtails in appropriate position, and grade 2 anterolisthesis on L5 and S1 with bilateral spondylosis. Patient was admitted under our services with consultation to general surgery team. Secondary to patient's quickly decompensating condition and multiple comorbidities, it was discussed with patient's legal guardian whom agreed with stopping care and initiating comfort measures only with consultation to hospice. Patient met with hospice, plan is for discharge to [facility] under [facility] care. Physical exam: Vital signs reviewed and stable. General: Nontoxic, no distress and appears stated age. Derm: Skin warm and dry, normal coloration for ethnicity. Head: Atraumatic, normocephalic and symmetric. Eyes: EOMs intact, no lid lag, and anicteric sclera Mouth: no lip lesions, mucus membranes moist Cardiovascular: regular rate and rhythm with normal S1S2, no murmur, positive posterior tibial pulses bilaterally, and cap refill < 2 seconds. Lungs: Respirations even, regular, and unlabored on room air. Lungs CTA bilaterally, no rhonchi, no rales, no wheezing, and no accessory muscle usage. Abdominal: soft, nontender to palpation, no guarding, no appreciable organomegaly Ext: ROM intact. No gross muscle atrophy, no edema, no contractures Neuro: Speech clear, face symmetrical and CN II-XII grossly intact with no noted focal neuro deficits Psych: Alert and oriented to person, place, time, and situation. Appropriate and pleasant affect. A total of 31 minutes of time were spent preparing this complex discharge summary. Pt was discharged on 02/07/2024 at 2:22 PM. Patient was seen independently by Nurse Practitioner. This document was prepared using [employer] dictation software. Please allow for errors in stock controller while rare they do occur. Carlitos Hassan NP rendered care for this patient independently, reviewed the findings and plan as documented in the note above. I did not physically speak with or examine the patient on this date. Plan - Discharge Summary New Discharge Prescriptions: No Action Cyanocobalamin (Vitamin B-12) [Vitamin B-12] 1,000 mcg PO DAILY@0800 Acetaminophen [Tylenol] 650 mg PO QID PRN PRN Reason: Pain Nando-Gest 500mg Chew 2 tab PO Q6H PRN PRN Reason: Heartburn Sodium Bicarbonate 325 mg PO DAILY@0800 cefUROXime axetiL [Ceftin] 500 mg PO BID@0800,1999 Melatonin 3 mg PO HS@1999 Metoprolol Succinate (ER) [Toprol XL] 12.5 mg PO DAILY@0800 Mirtazapine [Remeron] 15 mg PO HS@1999 Amiodarone [Cordarone] 100 mg PO DAILY@0800 Cholecalciferol (Vitamin D3) [Vitamin D3 (125 MCG = 5,000 IU)] 125 mcg PO DAILY@0800 Sodium Bicarbonate Tab 650 mg PO TID Psyllium Husk (with Sugar) [Fiber Powder] 1 scoop PO BID@0800,1700 Discharge Medication List Melatonin 3 mg PO HS@199906/25/22 [History] Metoprolol Succinate (ER) [Toprol XL] 12.5 mg PO DAILY@0800 06/25/22 [History] Mirtazapine [Remeron] 15 mg PO HS@199906/25/22 [History] Cyanocobalamin (Vitamin B-12) [Vitamin B-12] 1,000 mcg PO DAILY@0800 02/16/23 [History] Acetaminophen [Tylenol] 650 mg PO QID PRN 12/10/23 [History] Amiodarone [Cordarone] 100 mg PO DAILY@0800 12/10/23 [History] Nando-Gest 500mg Chew 2 tab PO Q6H PRN 12/10/23 [History] Cholecalciferol (Vitamin D3) [Vitamin D3 (125 MCG = 5,000 IU)] 125 mcg PO DAILY@0800 12/10/23 [History] Sodium Bicarbonate 325 mg PO DAILY@0800 01/27/24 [History] Sodium Bicarbonate Tab 650 mg PO TID 01/27/24 [History] Psyllium Husk (with Sugar) [Fiber Powder] 1 scoop PO BID@0800,1700 02/05/24 [History] cefUROXime axetiL [Ceftin] 500 mg PO BID@0800,199902/05/24 [History] Follow up Appointment(s)/Referral(s): [facility] [NON-STAFF] - As Needed Activity/Diet/Wound Care/Special Instructions: Activity: As tolerated. Diet: Comfort feeds. Special Instructions: All medications to be managed by [facility] hospice, continuation of medications to be determined by [facility] hospice team. Thank you for allowing us to participate in your care, it was truly a pleasure having you for our patient!!! . Discharge Disposition: DISCH TO HOSPICE MED FACILTY
== END 2024-02-07 16:03 | disposition hospice, inpatient (51) | DRG 871 ==
LOC: EC 09:51 → 5NMEDONC 14:58
PROVIDERS: ADMIT Student in an Organized Health Care Education/Training Program; ATTEND Student in an Organized Health Care Education/Training Program
DX: A41.9 Sepsis, unspecified organism (principal); I26.99 Other pulmonary embolism without acute cor pulmonale; R65.21 Severe sepsis with septic shock; K83.1 Obstruction of bile duct; K85.90 Acute pancreatitis without necrosis or infection, unspecified; K27.5 Chronic or unspecified peptic ulcer, site unspecified, with perforation; D62 Acute posthemorrhagic anemia; K83.09 Other cholangitis; Z51.5 Encounter for palliative care; Z66 Do not resuscitate; H91.90 Unspecified hearing loss, unspecified ear; I44.7 Left bundle-branch block, unspecified; I48.91 Unspecified atrial fibrillation; J44.9 Chronic obstructive pulmonary disease, unspecified; K86.89 Other specified diseases of pancreas; N18.32 Chronic kidney disease, stage 3b; N40.0 Benign prostatic hyperplasia without lower urinary tract symptoms; Z79.899 Other long term (current) drug therapy; Z85.46 Personal history of malignant neoplasm of prostate; Z87.440 Personal history of urinary (tract) infections; Z87.442 Personal history of urinary calculi; Z92.3 Personal history of irradiation
CPT/HCPCS: 36415; 70450; 71046; 74177; 80053; 82150; 83690; 83735; 84484; 85025; 85610; 85730; 93005; 94760; 96361; 96374; 99291